=== PATIENT | female | born 1955 | race Caucasian/White ===

== ENCOUNTER 2019-08-15 12:08 | Day surgery (SDC) | payer OTHER ==
[2019-08-15] MEDS ORDERED: NA CHLORIDE 0.9% 1,000 ML ONE (12:27)
[2019-08-15] MEDS ORDERED: GLYCOPYRROLATE 0.2 MG/ML SYR ONE (12:30)
[2019-08-15] MEDS ORDERED: LIDOCAINE 1% MPF 30 ML VIAL ONE (12:30)
[2019-08-15] MEDS ORDERED: PROPOFOL 200 MG/20 ML VIAL IV ONE (12:30)
--- OUTSIDE RECORDS SUMMARY | 2019-08-24 19:37 | XMS REPORT ---
:1955 [facility] Address [address] [place] [address] Dr. Parsons [address] [place] [address] Care Team Providers Name Role Phone Unavailable Unavailable Unavailable Problems This patient has no known problems. Allergies, Adverse Reactions, Alerts This patient has no known allergies or adverse reactions. Medications This patient has no known medications.
== END 2019-08-15 15:12 | disposition home or self-care (01) ==
LOC: DS 12:08
PROVIDERS: ATTEND Internal Medicine Gastroenterology
PROC: 0DBP8ZX Excision of Rectum, Via Natural or Artificial Opening Endoscopic, Diagnostic (ICD-10-PCS; principal; 2019-08-15 13:30)
DX: C20 Malignant neoplasm of rectum (principal); K21.9 Gastro-esophageal reflux disease without esophagitis; E11.9 Type 2 diabetes mellitus without complications; I10 Essential (primary) hypertension; J44.9 Chronic obstructive pulmonary disease, unspecified; J45.909 Unspecified asthma, uncomplicated; M06.9 Rheumatoid arthritis, unspecified; F41.9 Anxiety disorder, unspecified; Z87.891 Personal history of nicotine dependence
CPT/HCPCS: 36415; 82947; 88305; 82378; 45380; J2704; J7030

== ENCOUNTER 2020-11-04 15:17 | Emergency (ER) | payer OTHER ==
--- OUTSIDE RECORDS SUMMARY | 2020-11-04 15:23 | XMS REPORT | Summary of Care ---
:1955 Author Organization [facility] Address [address] [place] [address] Care Team Providers Name Role Phone Hemal Nunez Primary Care Provider Encounter Details Date Type Department Care Team Description 08/27/[address] Patient Secure [facility] Cardiology- Doctor Tylor Gunn [place] [address], [facility] [address] [place] [address] [place] [address] Allergies No Known Allergiesdocumented as of this encounter (statuses as of 09/16/2020) Medications Medication Sig Dispensed Refills Start Date End Date Status METFORMIN HCL Take 1,000 mg by 0 Active (METFORMIN ORAL) mouth 2 (two) times daily. budesonide-formoterol Inhale 2 Puffs 2 0 Active (SYMBICORT) 160-4.5 (two) times mcg/actuation inhaler daily. paroxetine 20 mg tablet Take 20 mg by 0 Active mouth daily. glyBURIDE 5 mg tablet Take 5 mg by 0 Active mouth 2 (two) times daily with meals. SPIRIVA WITH HANDIHALER 0 07/02/2017 Active 18 mcg inhalation device Nebulizer & Compressor Use as directed 1 Device 0 10/31/2017 Active For Neb Valentine with albuterol for COPD aspirin 81 mg EC tablet Take 81 mg by 0 Active mouth daily. albuterol 2.5 mg /3 mL Inhale 3 mL every 100 Vial 11 9 Active (0.083 %) nebulizer 4 (four) hours as solutionIndications: needed for Stage 3 severe COPD by Wheezing or GOLD classification Shortness of Breath. LOSARTAN 25 mg TAKE ONE TABLET 30 tablet 0 08/09/2020 Active tabletIndications: JACKSON BY MOUTH TWICE A (dyspnea on exertion) DAY METOPROLOL SUCCINATE XL TAKE ONE TABLET 30 tablet 0 08/09/2020 Active 25 mg 24 hr BY MOUTH TWICE A tabletIndications: JACKSON DAY (dyspnea on exertion) documented as of this encounter (statuses as of 09/16/2020) Active Problems Problem Noted Date Cigarette nicotine dependence without complication 08/2018 Sinus tachycardia 04/24/2018 Elevated troponin I level 04/24/2018 Type 2 myocardial infarction 04/24/2018 Essential hypertension 04/24/2018 COPD exacerbation 10/13/2017 Hypoxia 09/11/2017 documented as of this encounter (statuses as of 09/16/2020) Immunizations Name Administration Dates Next Due Influenza Virus Vaccine Quad .5 mL IM 6+ MO 08/01/2018 Influenza Virus Vaccine Quad IM 3+ YRS 09/12/2017 Pneumococcal Polysaccharide, PPSV23 (PNEUMOVAX) 10/15/2014 documented as of this encounter Social History Tobacco Use Types Packs/Day Years Used Date Former Smoker Cigarettes 0.25 45 Quit: 08/2018 Smokeless Tobacco: Never Used Comments: Was previously smoking 2.5 pac ks a day now down to 6 ciggs a day Alcohol Use Drinks/Week oz/Week Comments No socially drinks Sex Assigned at Date Recorded Not on file documented as of this encounter Last Filed Vital Signs Not on filedocumented in this encounter Miscellaneous Notes Telephone Encounter - Vicki Simon - 08/27/2020 9:04 AM CST The patient has scheduled her appointment on the next available opening. 09/17/2020 @ 0900. The patient requested a telehealth appointment. She would like for a nurse to call her back regarding the medication request. documented in this encounter Plan of Treatment Date Type Specialty Care Team Description 09/17/2020 Office Visit Cardiology Kandi Hemphill MD [address] [place] [phone] Health Maintenance Due Date Last Done Comments HEPATITIS C (HCV) SCREEN 1955 Depression Screening 1967 DTaP,Tdap,and Td Vaccines (1 - Tdap) 1974 Breast Cancer Screening (MAMMOGRAM) 1995 COLON CANCER SCREENING ANNUAL FIT/FOBT 2005 COLON CANCER SCREENING FIT DNA EVERY 3 2005 YEARS COLON CANCER SCREENING SIGMOIDOSCOPY EVERY 2005 5 YEARS COLONOSCOPY 2005 Colorectal Cancer Screening 2005 Zoster Recombinant Vaccine (SHINGRIX) (1 2005 of 2) LUNG CANCER SCREEN: Recommended for age 1007/28/2010 55-80 with 30 + pack year history INFLUENZA VACCINE (#1) 2020 08/01/2018, 09/12/2017 Medicare Wellness Visit 2020 Osteoporosis Screening 2020 PNEUMOCOCCAL VACCINES 65+ (1 of 1 - 2020 10/15/2014 PPSV23) documented as of this encounter Results Not on filedocumented in this encounter Insurance Payer Benefit Plan / Subscriber ID Effective Dates Phone Addre ss Type Group [facility] [id number] 2017-Prese HMO/ PPO/[facility] nt S GENERIC documented as of this encounter
--- OUTSIDE RECORDS SUMMARY | 2020-11-04 15:23 | XMS REPORT | Summary of Care ---
:1955 Author Organization [facility] Address [address] [place] [address] Care Team Providers Name Role Phone Hemal Nunez Primary Care Provider Reason for Visit Reason Comments Refill Request Encounter Details Date Type Department Care Team Description 08/06/2020 Refill [facility] Cardiology- Kandi Hemphill MD Refill Request [place] [address] [facility] [address] [place] [address] [place] [address] [phone] Allergies No Known Allergiesdocumented as of this encounter (statuses as of 08/09/2020) Medications Medication Sig Dispensed Refills Start Date End Date Status METFORMIN HCL Take 1,000 mg 0 Ac tive (METFORMIN ORAL) by mouth 2 (two) times daily. budesonide-formotero Inhale 2 Puffs 0 Active l (SYMBICORT) 2 (two) times 160-4.5 daily. mcg/actuation inhaler paroxetine 20 mg Take 20 mg by 0 Active tablet mouth daily. glyBURIDE 5 mg Take 5 mg by 0 Ac tive tablet mouth 2 (two) times daily with meals. SPIRIVA WITH 0 07/02/2017 Active HANDIHALER 18 mcg inhalation device Nebulizer & Use as 1 Device 0 10/31/2017 Active Compressor For Neb directed with Valentine albuterol for COPD aspirin 81 mg EC Take 81 mg by 0 Active tablet mouth daily. albuterol 2.5 mg /3 Inhale 3 mL 100 Vial 11 02/28/2019 Active mL (0.083 %) every 4 (four) nebulizer hours as solutionIndications: needed for Stage 3 severe COPD Wheezing or by GOLD Shortness of classification Breath. LOSARTAN 25 mg TAKE ONE 30 tablet 0 08/09/2020 Acti ve tabletIndications: TABLET BY JACKSON (dyspnea on MOUTH TWICE A exertion) DAY METOPROLOL SUCCINATE TAKE ONE 30 tablet 0 08/09/2020 Active XL 25 mg 24 hr TABLET BY tabletIndications: MOUTH TWICE A JACKSON (dyspnea on DAY exertion) LOSARTAN 25 mg TAKE ONE 120 tablet 0 06/08/2020 Dis continued tabletIndications: TABLET BY 0 JACKSON (dyspnea on MOUTH TWICE A exertion) DAY METOPROLOL SUCCINATE TAKE ONE 120 tablet 0 06/08/2020 02 Discontinued XL 25 mg 24 hr TABLET BY 0 tabletIndications: MOUTH TWICE A JACKSON (dyspnea on DAY exertion) documented as of this encounter (statuses as of 08/09/2020) Active Problems Problem Noted Date Cigarette nicotine dependence without complication 08/2018 Sinus tachycardia 04/24/2018 Elevated troponin I level 04/24/2018 Type 2 myocardial infarction 04/24/2018 Essential hypertension 04/24/2018 COPD exacerbation 10/13/2017 Hypoxia 09/11/2017 documented as of this encounter (statuses as of 08/09/2020) Immunizations Name Administration Dates Next Due Influenza [...] this encounter Miscellaneous Notes Telephone Encounter - Vaishali Sarmiento RN - 08/09/2020 10:03 AM CDT Requested Prescriptions Pending Prescriptions Disp Refills LOSARTAN 25 mg tablet [Pharmacy Med Name: LOSARTAN POTASSIUM 25 MG TAB] 120 tablet 0 Sig: TAKE ONE TABLET BY MOUTH TWICE A DAY METOPROLOL SUCCINATE XL 25 mg 24 hr tablet [Pharmacy Med Name: METOPROLOL SUCC ER 25MG TAB, UU] 120 tablet 0 Sig: TAKE ONE TABLET BY MOUTH TWICE A DAY 15 day supply sent. Patient needs to be seen in clinic before next refill. Letter sent via [employer]. documented in this encounter Plan of Treatment Health Maintenance Due Date Last Done Comments HEPATITIS C (HCV) SCREEN 1955 Depression Screening 1967 DTaP,Tdap,and Td Vaccines (1 - Tdap) 1974 PAP SMEAR 1976 Breast Cancer Screening (MAMMOGRAM) 1995 COLON CANCER [...] Results Not on filedocumented in this encounter Visit Diagnoses Diagnosis JACKSON (dyspnea on exertion) Other dyspnea and respiratory abnormalit y documented in this encounter Insurance Payer Benefit Plan / Subscriber ID Effective Dates Phone Addre ss Type Group [facility] [id number] 2017-Prese HMO/ PPO/[facility] nt S GENERIC documented as of this encounter
--- OUTSIDE RECORDS SUMMARY | 2020-11-04 15:23 | XMS REPORT | Summary of Care ---
:1955 Author Organization [facility] Address [address] [place] [address] Care Team Providers Name Role Phone Hemal Nunez Primary Care Provider Reason for Visit Reason Comments Refill Request Encounter Details Date Type Department Care Team Description 08/21/2020 Refill [facility] Cardiology- Kandi Hemphill MD Refill Request [place] [address] [facility] [address] [place] [address] [place] [address] [phone] Allergies No Known Allergiesdocumented as of this encounter (statuses as of 08/27/2020) Medications Medication Sig Dispensed Refills Start Date [...] as of this encounter (statuses as of 08/27/2020) Active Problems Problem Noted Date Cigarette nicotine dependence without complication 08/2018 Sinus tachycardia 04/24/2018 Elevated troponin I level 04/24/2018 Type 2 myocardial infarction 04/24/2018 Essential hypertension 04/24/2018 COPD exacerbation 10/13/2017 Hypoxia 09/11/2017 documented as of this encounter (statuses as of 08/27/2020) Immunizations Name Administration Dates Next Due Influenza [...] Telephone Encounter - Vaishali Sarmiento RN - 08/27/2020 8:15 AM CSTRefills denied. Patient needs to be seen in office and have labs done. Message sent to my chart. documented in this encounter Plan of Treatment [...] Effective Dates Phone Addre ss Type Group [facility] [id number] 2017-Prese HMO/ PPO/[facility] nt S GENERIC documented as of this encounter
--- OUTSIDE RECORDS SUMMARY | 2020-11-04 15:23 | XMS REPORT | Continuity of Care Document ---
:1955 Author Organization [facility] t Address [address] [place] [address] Care Team Providers Name Role Phone JEFFERSON Primary Care Physician Unavailable Poncho CAMPA Attending Clinician Jaymie CAMPA Attending Clinician Pob, Lab Main Attending Clinician Unavailable Doctor Unassigned, Name Attending Clinician Unavailable Loco WALDRON, A Attending Clinician Unavailable Zuly WALDRON, February Attending Clinician Renetta Paz Attending Clinician Eloina WALDRON, L. Attending Clinician Unavailable Joby CAMPA, K.H. Attending Clinician Roland Holder MD. Attending Clinician Michelle WALDRON Attending Clinician Unavailable Roland Hernandez MD Attending Clinician Jefferson CAMPA Attending Clinician Char Rowland Attending Clinician Nino TOLEDO Attending Clinician Jimy MCDONOUGH Attending Clinician Chris LANCASTER Attending Clinician Jaciel ALTMAN Attending Clinician Unavailable Bob WALDRON, Miladis Attending Clinician Unavailable Latasha COPE Attending Clinician Patrice TOLEDO Attending Clinician Oliver Attending Clinician Unavailable Beau MCDONOUGH Attending Clinician TU Attending Clinician Unavailable PATRICE Attending Clinician Unavailable Gayle WALDRON Attending Clinician Unavailable Kika WALDRON, L Attending Clinician JIMY Attending Clinician Unavailable Ayad LANCASTER, B Attending Clinician Clayton ALTMAN Attending Clinician Nicholas WALDRON Attending Clinician Elma SCHUMACHER Attending Clinician Jairo Attending Clinician Unavailable Erin WALDRON, B Attending Clinician Unavailable Pam LANCASTER Attending Clinician Will RN, A Attending Clinician Unavailable Kartik CAMPA Attending Clinician Roland Magana Attending Clinician Cleopatra WALDRON Attending Clinician Unavailable Lizzie CAMPA Attending Clinician Unavailable Brian LANCASTER Attending Clinician Unavailable Payers Payer Name Policy Type Policy Effective Date Expiration Date Sour ce Number MEDICAREMEDICARE PART [id number] 2020 MD Ashish Chappell AND 00:00:00 [id number] 2019- [id number] [facility] BLUE CROSS BLUE [id number] 2018 [facility] [place] [facility] 5 00:00:00 [id number] ACCESS NETWORK [id number] 2018 MD Monik valdovinos GENERICTPA [place] 00:00:00 HEALTHCARE [id number] 19-PresentAccess Network Problems Condition Condition Condition Status Onset Resolution Last Treating Co mments Source Name Details Category Date Date Treatment Clinician Date Hydronephr Hydronephr Disease Active 2019- M Renny osis osis 10 Anderso 00:00: n 00 Encounter Encounter Disease Active 2019- for for 1-10 Anderso preprocedu preprocedu 00:00: n ral ral 00 examinatio examinatio n n Abdominal Abdominal Disease Active 2019- pain, pain, 9-16 Anderso generalize generalize 00:00: n d d 00 Swelling Swelling Disease Active of right of right 9-16 Sergo o foot foot 00:00: n 00 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 Family History Family Member Diagnosis Comments Start Date Stop Date Source Natural father Lymphoma MD Monik valdovinos Maternal aunt Breast cancer Taurus son Natural mother Lung cancer MD Trotter on Social History Social Habit Start Date Stop Date Quantity Comments Source Sex Assigned At F MD Trotter on Exposure to Not sure MD Hinojosa SARS-CoV-2 (event) Cigarettes smoked 2020-09-20 2020-09-20 MD Musa tovar current (pack per 00:00:00 00:00:00 day) - Reported Cigarette 2020-09-20 2020-09-20 MD Hinojosa pack-years 00:00:00 00:00:00 Tobacco use and 2020-09-20 2020-09-20 Never used MD Trotter on exposure 00:00:00 00:00:00 Alcohol intake 2020-09-20 2020-09-20 Ex-drinker MD Monik valdovinos 00:00:00 00:00:00 (finding) Tobacco Comment 2019-08-28 2019-08-28 Presently Vape, no Payal Hinojosa 00:00:00 00:00:00 Smoking since 2017 Alcohol Comment 2019-08-28 2019-08-28 Have not drank MD Nat álvarez 00:00:00 00:00:00 since 1980 History of tobacco 2018-08-29 Current smoker MD Hinojosa use 00:00:00 Smoking Status Start Date Stop Date Source Former smoker 2020-09-20 00:00:00 2020-09-20 00:00:00 Taurus son Medications Ordered Filled Start Stop Current Ordering Indication Dosage Frequency Signature Comments Components Source Medication Medication Date Date Medication? Clinician (SIG) Name Name budesonide- Yes 2{puff} Inhale 2 MD formoterol 1-15 puffs by Taurus arce (SYMBICORT) 16:45: mouth n 160-4.5 19 twice mcg/actuati daily. on inhaler docusate Yes 100mg Take 100 MD sodium 1-15 mg by Anderso (COLACE) 16:45: mouth n 100 mg 19 daily. capsule sulfamethox 2020- No Urinary 1{tbl} Take 1 MD azole-trime -04 12 tract tablet by A nderso thoprim 00:00: 05:59 infectious mouth n (BACTRIM 00 :00 disease twice DS) 800 daily for mg-160 mg 7 days. per tablet methadone 2019-10- Yes Neoplasm 2.5mg Take 0.5 MD (Dolophine) 11-12 related tablets A nderso 5 mg tablet 00:00: 05:59 pain (2.5 mg) n 00 :00 (acute) by mouth (chronic) every 8 (eight) hours for 30 days. methadone 2019-10 No Neoplasm 2.5mg Take 0.5 MD (Dolophine) 12-12 related tablets A nderso 5 mg tablet 00:00: 00:00 pain (2.5 mg) n 00 :00 (acute) by mouth (chronic) every 8 (eight) hours for 30 days. nitrofurant 2019-10- No Dysuria 100mg Take 1 MD oin 16 10-29 capsule Anderso monohyd/m-c 00:00: 00:00 (100 mg) n ryst 00 :00 by mouth (Macrobid) twice 100 mg daily. capsule oxyCODONE-a 2019-10 Yes Cancer 1{tbl} Take 1 MD cetaminophe 24 associated tablet by Anderso n 00:00: pain mouth n (Percocet) 00 every 8 5 mg-325 mg (eight) per tablet hours as needed for severe pain. methadone 2019-10 No Neoplasm 2.5mg Take 0.5 MD (Dolophine) 11-07 related tablets A nderso 5 mg tablet 00:00: 21:43 pain (2.5 mg) n 00 :09 (acute) by mouth (chronic) every 8 (eight) hours. amLODIPine 2019-10 Yes Hypertensio 5mg Take 1 MD (Norvasc) 5 1-09 n tablet (5 And erso mg tablet 00:00: mg) by n 00 mouth daily. regorafenib 2019-10 Rectal 160mg Take 4 MD (Stivarga) 106 01-15 cancer tablets And erso 40 mg 00:00: 00:00 (160 mg) n tablet 00 :00 by mouth daily. Take on days #1-21 of every 28 day cycle. aspirin 81 2019-10 1{tbl} Take 1 MD mg EC 0-29 05- tablet by Anderso tablet 09:21: 00:00 mouth n 31 :00 daily. methadone 2019-10 No Neoplasm 2.5mg Take 0.5 MD (Dolophine) 0-23 related tablets A nderso 5 mg tablet 00:00: 00:00 pain (2.5 mg) n 00 :00 (acute) by mouth (chronic) every 8 (eight) hours. gabapentin 2019-10 Yes Neoplasm 400mg Take 1 MD (Neurontin) 0-16 related capsule An derso 400 mg 00:00: pain (400 mg) n capsule 00 (acute) by mouth (chronic) twice daily. oxyCODONE 2019-10 Cancer 9mg Take 1 MD myristate 0-08-02 associated capsule (9 Anderso (Xtampza 00:00: 00:00 pain mg) by n ER) 9 mg 12 00 :00 mouth hr capsule twice daily. oxyCODONE-a Cancer 1{tbl} Take 1 MD cetaminophe 06-29 associated tablet by Anderso n 00:00: 00:00 pain mouth n (Percocet) 00 :00 every 8 5 mg-325 mg (eight) per tablet hours as needed for severe pain. oxyCODONE Cancer 9mg Take 1 MD myristate 9-15 10-16 associated capsule (9 Anderso (Xtampza 00:00: 00:00 pain mg) by n ER) 9 mg 12 00 :00 mouth hr capsule twice daily. morphine Adenocarcin 15mg Take 1 MD (MS CONTIN) 06-07 09-15 tesha of tablet (15 Anderso 15 mg ER 00:00: 00:00 rectum mg) by n tablet 00 :00 mouth every 12 (twelve) hours. magic Ulcerative 10mL Swish and MD mouthwash 8-19 01-15 oral spit 10 mL And erso (sucralfate 00:00: 00:00 mucositis 4 (four) n /maalox/dip 00 :00 due to times a henhydramin antineoplas day. e) tic therapy (AMB-CMPD) magic 2019- No Ulcerative 10mL Swish and MD mouthwash 06-02 oral spit 10 mL And erso (sucralfate 00:00: 00:00 mucositis 4 (four) n /maalox/dip 00 :00 due to times a henhydramin antineoplas day. e) tic therapy (AMB-CMPD) morphine 2019- No Adenocarcin 15mg Take 1 MD (MS CONTIN) 05-07 08-20 tesha of tablet (15 Anderso 15 mg ER 00:00: 00:00 rectum mg) by n tablet 00 :00 mouth every 12 (twelve) hours. HYDROcodone No Adenocarcin 1{tbl} Take 1 MD -acetaminop 05-06-17 tesha of tablet by Anderso hen (NORCO) 00:00: 00:00 rectum mouth n 10 mg-325 00 :00 every 6 mg per (six) tablet hours as needed for moderate pain. morphine No Adenocarcin 15mg Take 1 MD (MS CONTIN) 05-06 07-24 tesha of tablet (15 Anderso 15 mg ER 00:00: 00:00 rectum mg) by n tablet 00 :00 mouth every 12 (twelve) hours. gabapentin No Neoplasm 400mg Take 1 MD (Neurontin) 05-03-16 related capsule A nderso 400 mg 00:00: 00:00 pain (400 mg) n capsule 00 :00 (acute) by mouth (chronic) twice daily. regorafenib 2020- No Adenocarcin 160mg Take 4 MD (Stivarga) 04-21 01-15 tesha of tablets And erso 40 mg 00:00: 00:00 rectum (160 mg) n tablet 00 :00 by mouth daily. To take on days #1-21 of every 28 day cycle HYDROcodone 2020- No Adenocarcin 1{tbl} Take 1 MD -acetaminop 04-12 07-23 tesha of tablet by Anderso hen (NORCO) 00:00: 00:00 rectum mouth n 10 mg-325 00 :00 every 6 mg per (six) tablet hours as needed for moderate pain. magnesium 2019- Yes Adenocarcin 500mg Take 1 MD oxide 500 6-10 tesha of tablet Sergo o mg tablet 00:00: rectum (500 mg) n 00 by mouth daily. traMADol 2019-2019- No Rectal 50mg Take 1 MD (ULTRAM) 50 6-10 08-17 cancer tablet (50 Anderso mg tablet 00:00: 00:00 mg) by n 00 :00 mouth every 6 (six) hours as needed for moderate pain. HYDROcodone 2019-2019- No Rectal 1{tbl} Take 1 MD -acetaminop 6-10 06-29 cancer tablet by Anderso hen ([employer]) 00:00: 00:00 mouth n 7.5 mg-325 00 :00 every 4 mg per (four) tablet hours as needed for moderate pain or severe pain. HYDROcodone 2019-2019- No Rectal 1{tbl} Take 1 MD -acetaminop 5-01 06-10 cancer tablet by Andersbk martinez ([employer]) 00:00: 00:00 mouth n 7.5 mg-325 00 :00 every 4 mg per (four) tablet hours as needed for moderate pain or severe pain. traMADol 2019-2019- No Rectal 50mg Take 1 MD (ULTRAM) 50 4-09 06-10 cancer tablet (50 Anderso mg tablet 00:00: 00:00 mg) by n 00 :00 mouth every 6 (six) hours as needed for moderate pain. HYDROcodone 2019-2019- No Rectal 1{tbl} Take 1 MD -acetaminop 3-12 05-01 cancer tablet by Anderso hen ([employer]) 00:00: 00:00 mouth n 7.5 mg-325 00 :00 every 4 mg per (four) tablet hours as needed for moderate pain or severe pain. diphenoxyla 2019-0 Yes Rectal 1{tbl} Take 1 MD te-atropine 3-05 cancer tablet by Misti mcmillan ([employer]omoti[employer]) 00:00: mouth n 2.5 00 every 6 mg-0.025 mg (six) per tablet hours as needed for diarrhea. Not to exceed 8 tablets per day HYDROcodone 2019-0 2019- No Rectal 1{tbl} Take 1 MD -acetaminop 3-03 03-12 cancer tablet by Monik martinez ([place]) 00:00: 00:00 mouth n 7.5 mg-325 00 :00 every 4 mg per (four) tablet hours as needed for moderate pain or severe pain. traMADol 2019- No Pain 50mg Take 1 MD (ULTRAM) 50 1-15 04-09 tablet (50 A nderso mg tablet 00:00: 00:00 mg) by n 00 :00 mouth every 6 (six) hours as needed for moderate pain or severe pain. albuterol Yes as needed. MD (PROVENTIL, 1-10 Anderso VENTOLIN) 00:00: n 2.5 mg/3 mL 00 (0.083%) nebulizer solution sodium 2018-10 Yes Multiple Inject 10 MD chloride 2-11 nodules of mL (1 Musa rso (NS) 0.9% 00:00: lung syringe) n flush 00 into each syringe 10 lumen of mL central venous catheter daily as directed. heparin, 2018-10 Yes Multiple Inject 2 M D PF, 100 2-11 nodules of ml (200 And erso units/mL 00:00: lung units) n injection 00 into each lumen of central venous catheter daily as directed. Discard excess volume to administer 2 mL. lidocaine-p 2018-10- No Adenocarcin Apply to MD rilocaine 11-25 tesha of Port-A-Cat A nderso (EMLA) 00:00: 00:00 rectum h area 30 n 2.5-2.5% 00 :00 to 45 cream minutes prior to port access as directed (topical anesthetic ). ondansetron 2018-10- No Adenocarcin 8mg Take 1 MD (ZOFRAN) 8 11-25- tesha of tablet (8 A nderso mg tablet 00:00: 00:00 rectum mg) by n 00 :00 mouth every 8 (eight) hours as needed for nausea or vomiting. (First Choice) prochlorper 2018-10- No Adenocarcin 10mg Take 1 MD azine 11-25-21 tesha of tablet (10 Taurus so (COMPAZINE) 00:00: 00:00 rectum mg) by n 10 mg 00 :00 mouth tablet every 6 (six) hours as needed for nausea or vomiting. (Second Choice) PARoxetine 2018-10 Yes 20mg Take 20 mg M D (PAXIL) 40 0-22 by mouth Taurus so mg tablet 00:00: daily. n 00 cholestyram 2018-10 2020- No 2{packe Take 2 MD ine 0-22 08-17 t} packets by Anderso (QUESTRAN) 00:00: 00:00 mouth n 4 g packet 00 :00 daily. glyBURIDE 2018-10 Yes 1{tbl} Take 1 MD (DIABETA) 5 0-06 tablet by And erso mg tablet 00:00: mouth n 00 twice daily. metFORMIN 2018-10 Yes 1{tbl} Take 1 MD (GLUCOPHAGE 0-06 tablet by And erso ) 1000 mg 00:00: mouth n tablet 00 twice daily. metoprolol Yes 1{tbl} Take 1 MD succinate 8-25 tablet by Taurus so (TOPROL XL) 00:00: mouth n 25 mg 24 hr 00 twice tablet daily. losartan 2020- No 1{tbl} Take 1 MD (COZAAR) 25 8-16 12-03 tablet by An derso mg tablet 00:00: 00:00 mouth n 00 :00 daily. Vital Signs Vital Name Observation Time Observation Value Comments Source WEIGHT 2020-04-09 00:00:00 72.6 kg WEIGHT 2020-04-09 00:00:00 72.6 kg Systolic blood pressure 2020-10-29 16:38:07 105 mm[Hg] MD Hinojosa Diastolic blood pressure 2020-10-29 16:38:07 70 mm[Hg] MD Hinojosa Heart rate 2020-10-29 16:38:07 103 /min MD Taurus mayo Body temperature 2020-10-29 16:38:07 36.78 Marci MD Misti mclean Respiratory rate 2020-10-29 16:38:07 18 /min MD Misti mclean Body weight 2020-10-29 16:38:07 64 kg MD Taurus mayo BMI 2020-10-29 16:38:07 23.09 kg/m2 MD Taurus mayo Oxygen saturation in 2020-09-16 21:43:36 97 /min MD Hinojosa Arterial blood by Pulse oximetry Body height 2020-08-25 23:36:00 166.5 cm MD Taurus son Procedures Procedure Date / Time Performed Performing Clinician Sourc e TRANSFERRIN 2020-10-29 17:21:00 Tu, Jojo Hinojosa VITAMIN B12 LEVEL 2020-10-29 17:21:00 Tu, Jojo valdovinos FERRITIN LVL 2020-10-29 17:21:00 Tu, Jojo Hinojosa FOLATE LEVEL 2020-10-29 17:21:00 Tu, Jojo Hinojosa ERYTHROPOIETIN LEVEL 2020-10-29 17:21:00 Tu, Jojo tovar IRON LEVEL 2020-10-29 17:21:00 Tu, Jojo Hinojosa RETICULOCYTE COUNT AUTOMATED 2020-10-29 17:21:00 Tu, Jojo Hinojosa COMPLETE BLOOD COUNT W/ 2020-10-29 16:31:21 Tu, Jojo mclean DIFFERENTIAL COMPREHENSIVE METABOLIC PANEL 2020-10-29 16:31:21 Tu, Jojo Hinojosa MAGNESIUM LEVEL 2020-10-29 16:31:21 Tu, Jojo Hinojosa CARCINOEMBRYONIC ANTIGEN 2020-10-29 16:31:21 Tu, Jojo Hinojosa Results CBC 2020-10-29 16:31:21 Tu, Jojo Hinojosa MANUAL DIFFERENTIAL 2020-10-29 16:31:21 Tu, Jojo mayo GLUCOSE LEVEL 2020-10-29 16:31:21 Tu, Jojo Hinojosa BLOOD UREA NITROGEN 2020-10-29 16:31:21 Tu, Jojo Condon [facility] ELECTROLYTE PANEL 2020-10-29 16:31:21 Tu, Jojo valdovinos SERUM CREATININE 2020-10-29 16:31:21 Tu, Jojo Hinojosa .GLOMERULAR FILTRATION RATE 2020-10-29 16:31:21 Tu, Jojo Hinojosa CALCIUM LEVEL TOTAL 2020-10-29 16:31:21 Tu, Jojo Condon [facility] ALBUMIN LEVEL 2020-10-29 16:31:21 Tu, Jojo Hinojosa ALKALINE PHOSPHATASE 2020-10-29 16:31:21 Tu, Jojo tovar ALANINE AMINOTRANSFERASE 2020-10-29 16:31:21 Tu, Jojo Hinojosa ASPARTATE AMINOTRANSFERASE 2020-10-29 16:31:21 Tu, Jojo Hinojosa TOTAL PROTEIN 2020-10-29 16:31:21 Tu, Jojo Hinojosa FRACTIONATED BILIRUBIN 2020-10-29 16:31:21 Tu, Jojo álvarez CT CHEST ABDOMEN PELVIS W 2020-09-20 19:46:16 Tu, Jojo Hinojosa CONTRAST POC CREATININE 2020-09-20 18:46:00 Tu, Jojo Hinojosa COMPLETE BLOOD COUNT W/ 2020-09-20 18:34:00 Tu, Jojo Chappell nderson DIFFERENTIAL COMPREHENSIVE METABOLIC PANEL 2020-09-20 18:34:00 Tu, Jojo Hinojosa MAGNESIUM LEVEL 2020-09-20 18:34:00 Tu, Jojo Hinojosa CARCINOEMBRYONIC ANTIGEN 2020-09-20 18:34:00 Tu, Jojo Hinojosa Results CBC 2020-09-20 18:34:00 Tu, Jojo Hinojosa MANUAL DIFFERENTIAL 2020-09-20 18:34:00 Tu, Jojo CAMPA Taurus son GLUCOSE LEVEL 2020-09-20 18:34:00 Tu, Jojo Hinojosa BLOOD UREA NITROGEN 2020-09-20 18:34:00 Tu, Jojo CAMPA Taurus son ELECTROLYTE PANEL 2020-09-20 18:34:00 Tu, Jojo Trottero n SERUM CREATININE 2020-09-20 18:34:00 Tu, Jojo Hinojosa .GLOMERULAR FILTRATION RATE 2020-09-20 18:34:00 Tu, Jojo Hinojosa CALCIUM LEVEL TOTAL 2020-09-20 18:34:00 Tu, Jojo CAMPA Taurus son ALBUMIN LEVEL 2020-09-20 18:34:00 Tu, Jojo Hinojosa ALKALINE PHOSPHATASE 2020-09-20 18:34:00 Tu, Jojo Vigil rson ALANINE AMINOTRANSFERASE 2020-09-20 18:34:00 Tu, Jojo Hinojosa ASPARTATE AMINOTRANSFERASE 2020-09-20 18:34:00 Tu, Jojo Hinojosa TOTAL PROTEIN 2020-09-20 18:34:00 Tu, Jojo Hinojosa FRACTIONATED BILIRUBIN 2020-09-20 18:34:00 Tu, Jojo álvarez POC GLUCOSE SCREEN 2020-08-26 14:43:00 Ronal Hernandez MD Musa rson POC GLUCOSE SCREEN 2020-08-26 03:47:00 Ronal Hernandez MD Musa rson POC GLUCOSE SCREEN 2020-08-25 23:10:00 Ronal Hernandez MD Musa rson IR NEPHROSTOMY UNILATERAL 2020-08-25 18:32:43 Jodi Hodges MD PLACEMENT 75 POC GLUCOSE SCREEN 2020-08-25 17:36:00 Jodi Hodges MD And erson COVID-19 (SARS-COV-2) 2020-08-23 18:24:00 Vaishali Taylor MD PCR-ASYMPTOMATIC [facility] COMPLETE BLOOD COUNT W/ 2020-08-23 16:42:00 Emperatriz Oneill MD nderson DIFFERENTIAL COMPREHENSIVE METABOLIC PANEL 2020-08-23 16:42:00 Gee Oneill MD MAGNESIUM LEVEL 2020-08-23 16:42:00 Emperatriz Oneill MD CARCINOEMBRYONIC ANTIGEN 2020-08-23 16:42:00 Emperatriz Oneill MD PROTHROMBIN TIME 2020-08-23 16:42:00 Trenton Perez MD Results CBC 2020-08-23 16:42:00 Emperatriz Oneill MD MANUAL DIFFERENTIAL 2020-08-23 16:42:00 Emperatriz Oneill MD Taurus [facility] GLUCOSE LEVEL 2020-08-23 16:42:00 Emperatriz Oneill MD BLOOD UREA NITROGEN 2020-08-23 16:42:00 Emperatriz Oneill MD Taurus [facility] ELECTROLYTE PANEL 2020-08-23 16:42:00 Emperatriz Oneill MDo n SERUM CREATININE 2020-08-23 16:42:00 Emperatriz Oneill MD .GLOMERULAR FILTRATION RATE 2020-08-23 16:42:00 Emperatriz Oneill MD CALCIUM LEVEL TOTAL 2020-08-23 16:42:00 Emperatriz Oneill MD Taurus [facility] ALBUMIN LEVEL 2020-08-23 16:42:00 Emperatriz Oneill MD ALKALINE PHOSPHATASE 2020-08-23 16:42:00 Emperatriz Oneill MD rson ALANINE AMINOTRANSFERASE 2020-08-23 16:42:00 Emperatriz Oneill MD ASPARTATE AMINOTRANSFERASE 2020-08-23 16:42:00 Emperatriz Oneill TOTAL PROTEIN 2020-08-23 16:42:00 Emperatriz Oneill MD FRACTIONATED BILIRUBIN 2020-08-23 16:42:[address] CHEST ABDOMEN PELVIS W 2020-07-13 21:37:28 Felicia Ibrahim MD CONTRAST COMPLETE BLOOD COUNT W/ 2020-07-13 20:32:00 Felicia Ibrahim MD DIFFERENTIAL COMPREHENSIVE METABOLIC PANEL 2020-07-13 20:32:00 Janene Ibrahim MD MAGNESIUM LEVEL 2020-07-13 20:32:00 Felicia Ibrahim MD Andjuarezo n Results CBC 2020-07-13 20:32:00 Felicia Ibrahim MD Andjuarezo bonifacio MANUAL DIFFERENTIAL 2020-07-13 20:32:00 Felicia Ibrahim MD And erson GLUCOSE LEVEL 2020-07-13 20:32:00 Felicia Ibrahim MD Andjuarezo bonifacio ELECTROLYTE PANEL 2020-07-13 20:32:00 Felicia Ibrahim MD Taurus son SERUM CREATININE 2020-07-13 20:32:00 Felicia Ibrahim MD Sergo on .GLOMERULAR FILTRATION RATE 2020-07-13 20:32:00 Karon Ibrahim CALCIUM LEVEL TOTAL 2020-07-13 20:32:00 Felicia Ibrahim MD And ersgina ALBUMIN LEVEL 2020-07-13 20:32:00 Felicia Irbahim MD Andjuarezo bonifacio ALKALINE PHOSPHATASE 2020-07-13 20:32:00 Felicia Ibrahim MD ALANINE AMINOTRANSFERASE 2020-07-13 20:32:00 Felicia Ibrahim ASPARTATE AMINOTRANSFERASE 2020-07-13 20:32:00 Felicia Ibrahim MD TOTAL PROTEIN 2020-07-13 20:32:00 Felicia Ibrahim MD Andjuarezo bonifacio FRACTIONATED BILIRUBIN 2020-07-13 20:32:00 Felicia Ibrahim MD BLOOD UREA NITROGEN 2020-07-13 20:32:00 Felicia Ibrahim MD And erson COMPLETE BLOOD COUNT W/ 2020-06-30 14:21:00 Felicia Ibrahim MD DIFFERENTIAL MAGNESIUM LEVEL 2020-06-30 14:21:00 Felicia Ibrahim MD COMPREHENSIVE METABOLIC PANEL 2020-06-30 14:21:00 Janene Ibrahim MD Results CBC 2020-06-30 14:21:00 Felicia Ibrahim MD Andjuarezo bonifacio MANUAL DIFFERENTIAL 2020-06-30 14:21:00 Felicia Ibrahim MD And erson GLUCOSE LEVEL 2020-06-30 14:21:00 Felicia Ibrahim MD BLOOD UREA NITROGEN 2020-06-30 14:21:00 Felicia Ibrahim MD And erson ELECTROLYTE PANEL 2020-06-30 14:21:00 Felicia Ibrahim MD Taurus son SERUM CREATININE 2020-06-30 14:21:00 Felicia Ibrahim MD on .GLOMERULAR FILTRATION RATE 2020-06-30 14:21:00 Karon Ibrahim CALCIUM LEVEL TOTAL 2020-06-30 14:21:00 Felicia Ibrahim MD And erson ALBUMIN LEVEL 2020-06-30 14:21:00 Felicia Ibrahim MD ALKALINE PHOSPHATASE 2020-06-30 14:21:00 Felicia Ibrahim MD ALANINE AMINOTRANSFERASE 2020-06-30 14:21:00 Felicia Ibrahim ASPARTATE AMINOTRANSFERASE 2020-06-30 14:21:00 Felicia Ibrahim MD TOTAL PROTEIN 2020-06-30 14:21:00 Felicia Ibrahim MD FRACTIONATED BILIRUBIN 2020-06-30 14:21:00 Felicia Ibrahim MD COMPREHENSIVE METABOLIC PANEL 2020-06-02 14:41:00 Tu, Jojo Hinojosa COMPLETE BLOOD COUNT W/ 2020-06-02 14:41:00 Tu, Jojo delcidrson DIFFERENTIAL MAGNESIUM LEVEL 2020-06-02 14:41:00 Tu, Jojo Hinojosa CARCINOEMBRYONIC ANTIGEN 2020-06-02 14:41:00 Tu, Jojo Hinojosa GLUCOSE LEVEL 2020-06-02 14:41:00 Tu, Jojo Hinojosa BLOOD UREA NITROGEN 2020-06-02 14:41:00 Tu, Jojo CAMPA Taurus son ELECTROLYTE PANEL 2020-06-02 14:41:00 Tu, Jojo valdovinos SERUM CREATININE 2020-06-02 14:41:00 Tu, Jojo Hinojosa .GLOMERULAR FILTRATION RATE 2020-06-02 14:41:00 Tu, Jojo Hinojosa CALCIUM LEVEL TOTAL 2020-06-02 14:41:00 Tu, Jojo CAMPA Taurus son ALBUMIN LEVEL 2020-06-02 14:41:00 Tu, Jojo Hinojosa ALKALINE PHOSPHATASE 2020-06-02 14:41:00 Tu, Jojo tovar ALANINE AMINOTRANSFERASE 2020-06-02 14:41:00 Tu, Jojo Hinojosa ASPARTATE AMINOTRANSFERASE 2020-06-02 14:41:00 Tu, Jojo Hinojosa TOTAL PROTEIN 2020-06-02 14:41:00 Tu, Jojo Hinojosa FRACTIONATED BILIRUBIN 2020-06-02 14:41:00 Tu, Jojo Johns derson Results CBC 2020-06-02 14:41:00 Tu, Jojo Hinojosa MANUAL DIFFERENTIAL 2020-06-02 14:41:00 Tu, Jojo Tiradoer son FERRITIN LVL 2020-04-21 14:52:00 Tu, Jojo Hinojosa IRON LEVEL 2020-04-21 14:52:00 Tu, Jojo Hinojosa FOLATE LEVEL 2020-04-21 14:52:00 Tu, Jojo Hinojosa VITAMIN B12 LEVEL 2020-04-21 14:52:00 Tu, Jojo valdovinos ERYTHROPOIETIN LEVEL 2020-04-21 14:52:00 Tu, Jojo tovar RETICULOCYTE COUNT AUTOMATED 2020-04-21 14:52:00 Tu, Jojo Hinojosa COMPREHENSIVE METABOLIC PANEL 2020-04-21 13:40:00 Ольга Ahn MD COMPLETE BLOOD COUNT W/ 2020-04-21 13:40:00 Jimy, Ольга Chappell nderson DIFFERENTIAL MAGNESIUM LEVEL 2020-04-21 13:40:00 Ольга Ahn MD GLUCOSE LEVEL 2020-04-21 13:40:00 Ольга Ahn MD ELECTROLYTE PANEL 2020-04-21 13:40:00 Jimy, Ольга valdovinos SERUM CREATININE 2020-04-21 13:40:00 Ольга Ahn MD .GLOMERULAR FILTRATION RATE 2020-04-21 13:40:00 Ольга Ahn MD CALCIUM LEVEL TOTAL 2020-04-21 13:40:00 Jimy, Ольга Condon son ALBUMIN LEVEL 2020-04-21 13:40:00 Ольга Ahn MD ALKALINE PHOSPHATASE 2020-04-21 13:40:00 Jimy, Ольга Vigil rson ALANINE AMINOTRANSFERASE 2020-04-21 13:40:00 Ольга Ahn MD ASPARTATE AMINOTRANSFERASE 2020-04-21 13:40:00 Ольга Ahn TOTAL PROTEIN 2020-04-21 13:40:00 Jimy, Ольга Hinojosa FRACTIONATED BILIRUBIN 2020-04-21 13:40:00 iJmy, Ольга álvarez Results CBC 2020-04-21 13:40:00 Jimy, Ольга Hinojosa MANUAL DIFFERENTIAL 2020-04-21 13:40:00 Jimy, Ольга CAMPA [facility] BLOOD UREA NITROGEN 2020-04-21 13:40:00 Jimy, [facility] CHEST ABDOMEN PELVIS W 2020-04-19 18:28:00 Jimy, Ольга Hinojosa CONTRAST POC CREATININE 2020-04-19 17:26:00 Jimy, Ольга Hinojosa CARCINOEMBRYONIC ANTIGEN 2020-04-07 14:08:00 Jimy, Ольга Hinojosa COMPREHENSIVE METABOLIC PANEL 2020-04-07 14:08:00 Jimy, Ольга Hinojosa COMPLETE BLOOD COUNT W/ 2020-04-07 14:08:00 Jimy, Ольга delcidrson DIFFERENTIAL MAGNESIUM LEVEL 2020-04-07 14:08:00 JimyОльга MD GLUCOSE LEVEL 2020-04-07 14:08:00 Jimy, Ольга Hinojosa BLOOD UREA NITROGEN 2020-04-07 14:08:00 Jimy, Ольга CAMPA [facility] ELECTROLYTE PANEL 2020-04-07 14:08:00 Jimy, Ольга Ruggiero n SERUM CREATININE 2020-04-07 14:08:00 Jimy, Ольга Hinojosa .GLOMERULAR FILTRATION RATE 2020-04-07 14:08:00 Ольга Ahn MD CALCIUM LEVEL TOTAL 2020-04-07 14:08:00 Ольга Ahn MD [facility] ALBUMIN LEVEL 2020-04-07 14:08:00 Jimy, Ольга Hinojosa ALKALINE PHOSPHATASE 2020-04-07 14:08:00 Jimy, Ольга tovar ALANINE AMINOTRANSFERASE 2020-04-07 14:08:00 Ольга Ahn MD ASPARTATE AMINOTRANSFERASE 2020-04-07 14:08:00 Ольга Ahn TOTAL PROTEIN 2020-04-07 14:08:00 Ольга Ahn MD FRACTIONATED BILIRUBIN 2020-04-07 14:08:00 Jimy, Ольга montielson Results CBC 2020-04-07 14:08:00 Jimy, Ольга Hinojosa MANUAL DIFFERENTIAL 2020-04-07 14:08:00 Ольга Ahn MD [facility] COMPREHENSIVE METABOLIC PANEL 2020-03-24 14:14:13 Ольга Ahn MD COMPLETE BLOOD COUNT W/ 2020-03-24 14:14:13 Ольга Ahn MDrson DIFFERENTIAL MAGNESIUM LEVEL 2020-03-24 14:14:13 Ольга Ahn MD GLUCOSE LEVEL 2020-03-24 14:14:13 Ольга Ahn MD BLOOD UREA NITROGEN 2020-03-24 14:14:13 Ольга Ahn MD [facility] ELECTROLYTE PANEL 2020-03-24 14:14:13 [place] [place] SERUM CREATININE 2020-03-24 14:14:13 Ольга Ahn MD .GLOMERULAR FILTRATION RATE 2020-03-24 14:14:13 Ольга Ahn MD CALCIUM LEVEL TOTAL 2020-03-24 14:14:13 Ольга Ahn MD [facility] ALBUMIN LEVEL 2020-03-24 14:14:13 Ольга Ahn MD ALKALINE PHOSPHATASE 2020-03-24 14:14:13 Ольга Ahn MD rson ALANINE AMINOTRANSFERASE 2020-03-24 14:14:13 Ольга Ahn MD ASPARTATE AMINOTRANSFERASE 2020-03-24 14:14:13 Ольга Ahn TOTAL PROTEIN 2020-03-24 14:14:13 Ольга Ahn MD FRACTIONATED BILIRUBIN 2020-03-24 14:14:13 Ольга Ahn MD derson Results CBC 2020-03-24 14:14:13 Ольга Ahn MD MANUAL DIFFERENTIAL 2020-03-24 14:14:13 Ольга Ahn MD [facility] CARCINOEMBRYONIC ANTIGEN 2020-03-10 17:00:00 Ольга Ahn MD COMPREHENSIVE METABOLIC PANEL 2020-03-10 17:00:00 Ольга Ahn MD COMPLETE BLOOD COUNT W/ 2020-03-10 17:00:00 Ольга Ahn MDrson DIFFERENTIAL MAGNESIUM LEVEL 2020-03-10 17:00:00 Ольга Ahn MD GLUCOSE LEVEL 2020-03-10 17:00:00 Ольга Ahn MD BLOOD UREA NITROGEN 2020-03-10 17:00:00 Ольга Ahn MD [facility] ELECTROLYTE PANEL 2020-03-10 17:00:00 Jimy, Ольга valdovinos SERUM CREATININE 2020-03-10 17:00:00 Jimy, Ольга Hinojosa .GLOMERULAR FILTRATION RATE 2020-03-10 17:00:00 Jimy, Ольга Hinojosa CALCIUM LEVEL TOTAL 2020-03-10 17:00:00 Jimy, Ольга mayo ALBUMIN LEVEL 2020-03-10 17:00:00 Jimy, Ольга Hinojosa ALKALINE PHOSPHATASE 2020-03-10 17:00:00 Jimy, Ольга tovar ALANINE AMINOTRANSFERASE 2020-03-10 17:00:00 Jimy, Ольга Hinojosa ASPARTATE AMINOTRANSFERASE 2020-03-10 17:00:00 Jimy, Ольга Hinojosa TOTAL PROTEIN 2020-03-10 17:00:00 Jimy, Ольга Hinojosa FRACTIONATED BILIRUBIN 2020-03-10 17:00:00 Jimy, Ольга Johns derson Results CBC 2020-03-10 17:00:00 Jimy, Ольга Hinojosa MANUAL DIFFERENTIAL 2020-03-10 17:00:00 Jimy, Ольга Tiradoer gael CT CHEST ABDOMEN W CONTRAST 2020-02-06 18:38:38 Tu, Jojo Hinojosa POC CREATININE 2020-02-06 17:46:00 Provider, Veronica valdovinos COMPLETE BLOOD COUNT W/ 2020-02-06 17:42:00 Tu, Jojo mclean DIFFERENTIAL COMPREHENSIVE METABOLIC PANEL 2020-02-06 17:42:00 Tu, Jojo Hinojosa MAGNESIUM LEVEL 2020-02-06 17:42:00 Tu, Jojo Hinojosa CARCINOEMBRYONIC ANTIGEN 2020-02-06 17:42:00 Tu, Jojo Hinojosa Results CBC 2020-02-06 17:42:00 Tu, Jojo Hinojosa MANUAL DIFFERENTIAL 2020-02-06 17:42:00 Tu, Jojo mayo GLUCOSE LEVEL 2020-02-06 17:42:00 Tu, Jojo Hinojosa BLOOD UREA NITROGEN 2020-02-06 17:42:00 Tu, Jojo mayo ELECTROLYTE PANEL 2020-02-06 17:42:00 Tu, Jojo valdovinos SERUM CREATININE 2020-02-06 17:42:00 Tu, Jojo Hinojosa .GLOMERULAR FILTRATION RATE 2020-02-06 17:42:00 Tu, Jojo Hinojosa CALCIUM LEVEL TOTAL 2020-02-06 17:42:00 , Jojo CAMPA [place] son ALBUMIN LEVEL 2020-02-06 17:42:00 Tu, Jojo iHnojosa ALKALINE PHOSPHATASE 2020-02-06 17:42:00 , Jojo Vigil rson ALANINE AMINOTRANSFERASE 2020-02-06 17:42:00 Tu, Jojo Hinojosa ASPARTATE AMINOTRANSFERASE 2020-02-06 17:42:00 Tu, Jojo Hinojosa TOTAL PROTEIN 2020-02-06 17:42:00 Tu, Jojo Hinojosa FRACTIONATED BILIRUBIN 2020-02-06 17:42:00 Tu, Jojo montielson SCAN PROVATION PROCEDURE 2020-01-02 00:00:00 Pipo Castellano MD URINALYSIS WITH MICROSCOPIC IF 2019-12-30 17:30:00 Loreto Orozco MD INDICATED URINALYSIS MICROSCOPIC 2019-12-30 17:30:00 Loreto Orozco MD COMPREHENSIVE METABOLIC PANEL 2019-12-25 14:26:00 Gee Oneill MD MAGNESIUM LEVEL 2019-12-25 14:26:00 Emperatriz Oneill MD COMPLETE BLOOD COUNT W/ 2019-12-25 14:26:00 Emperatriz Oneill MD nderson DIFFERENTIAL GLUCOSE LEVEL 2019-12-25 14:26:00 Emperatriz Oneill MD BLOOD UREA NITROGEN 2019-12-25 14:26:00 Emperatriz Oneill MD [facility] ELECTROLYTE PANEL 2019-12-25 14:26:00 Emperatriz [facility]ill [facility] 2019-12-25 14:26:00 Emperatriz Oneill MD .GLOMERULAR FILTRATION RATE 2019-12-25 14:26:00 Emperatriz Oneill MD CALCIUM LEVEL TOTAL 2019-12-25 14:26:00 Emperatriz Oneill MD [facility] ALBUMIN LEVEL 2019-12-25 14:26:00 Emperatriz Oneill MD ALKALINE PHOSPHATASE 2019-12-25 14:26:00 Emperatriz Oneill MD rson ALANINE AMINOTRANSFERASE 2019-12-25 14:26:00 Emperatriz Oneill MD ASPARTATE AMINOTRANSFERASE 2019-12-25 14:26:00 Emperatriz Oneill TOTAL PROTEIN 2019-12-25 14:26:00 Emperatriz Oneill MD FRACTIONATED BILIRUBIN 2019-12-25 14:26:00 Emperatriz Oneill MD derson Results CBC 2019-12-25 14:26:00 Emperatriz Oneill MD MANUAL DIFFERENTIAL 2019-12-25 14:26:00 Emperatriz Oneill MD [facility] son CT CHEST ABDOMEN PELVIS W 2019-12-17 00:32:00 Loc Lynn CONTRAST CONFIRM ABORH TYPE 2019-12-17 00:09:00 CoussiratMoi MD derson TYPE AND SCREEN 2019-12-16 23:45:00 CoussiratMoi MD [facility] PROTHROMBIN TIME 2019-12-16 23:45:00 CoussiratMoie rson PARTIAL THROMBOPLASTIN TIME 2019-12-16 23:45:00 CoussiraPiero barrow MD ABORH 2019-12-16 23:45:00 CoussiratMoi MD [facility] ANTIBODY SCREEN 2019-12-16 23:45:00 CoussiratMoi MD [facility] CLOT EXPIRATION DATE 2019-12-16 23:45:00 CoussMoi freed MD TMP INTERPRETATION ANTIBODY 2019-12-16 23:45:00 JyothissiratPiero MD SCREEN NEGATIVE POC CREATININE 2019-12-16 23:00:00 Provider, Veronica valdovinos COMPLETE BLOOD COUNT W/ 2019-12-16 22:59:00 Loc Lynn MD DIFFERENTIAL COMPREHENSIVE METABOLIC PANEL 2019-12-16 22:59:00 Frandy Lynn MD Results CBC 2019-12-16 22:59:00 Loc Lynn MD MANUAL DIFFERENTIAL 2019-12-16 22:59:00 Loc Lynn MD rson GLUCOSE LEVEL 2019-12-16 22:59:00 Loc Lynn MD BLOOD UREA NITROGEN 2019-12-16 22:59:00 Loc Lynn MD rson ELECTROLYTE PANEL 2019-12-16 22:59:00 Loc Lynn MD on SERUM CREATININE 2019-12-16 22:59:00 Loc Lynn MD .GLOMERULAR FILTRATION RATE 2019-12-16 22:59:00 Loc Lynn MD CALCIUM LEVEL TOTAL 2019-12-16 22:59:00 Alagappan, Loc CAMPA Musa rson ALBUMIN LEVEL 2019-12-16 22:59:00 Alagappan, Loc Hinojosa ALKALINE PHOSPHATASE 2019-12-16 22:59:00 Alagappan, Loc CAMPA And erson ALANINE AMINOTRANSFERASE 2019-12-16 22:59:00 Alagappan, Loc Hinojosa ASPARTATE AMINOTRANSFERASE 2019-12-16 22:59:00 Alagappan, Loc Hinojosa TOTAL PROTEIN 2019-12-16 22:59:00 Alagappan, Loc Hinojosa FRACTIONATED BILIRUBIN 2019-12-16 22:59:00 Alagappan, Loc Chappell nderson CT CHEST ABDOMEN PELVIS W 2019-11-10 16:47:00 Ольга Ahn MD CONTRAST CARCINOEMBRYONIC ANTIGEN 2019-11-10 14:47:00 Tu, Jojo Hinojosa COMPREHENSIVE METABOLIC PANEL 2019-11-10 14:47:00 Tu, Jojo Hinojosa MAGNESIUM LEVEL 2019-11-10 14:47:00 Tu, Jojo Hinojosa COMPLETE BLOOD COUNT W/ 2019-11-10 14:47:00 Tu, Jojo delcidrson DIFFERENTIAL GLUCOSE LEVEL 2019-11-10 14:47:00 Tu, Jojo Hinojosa BLOOD UREA NITROGEN 2019-11-10 14:47:00 Tu, Jojo mayo ELECTROLYTE PANEL 2019-11-10 14:47:00 Tu, Jojo Ruggiero n SERUM CREATININE 2019-11-10 14:47:00 Tu, Jojo Hinojosa .GLOMERULAR FILTRATION RATE 2019-11-10 14:47:00 Tu, Jojo Hinojosa CALCIUM LEVEL TOTAL 2019-11-10 14:47:00 Tu, Jojo Condon son ALBUMIN LEVEL 2019-11-10 14:47:00 Tu, Jojo Hinojosa ALKALINE PHOSPHATASE 2019-11-10 14:47:00 Tu, Jojo Vigil rson ALANINE AMINOTRANSFERASE 2019-11-10 14:47:00 Tu, Jojo Hinojosa ASPARTATE AMINOTRANSFERASE 2019-11-10 14:47:00 Tu, Jojo Hinojosa TOTAL PROTEIN 2019-11-10 14:47:00 Tu, Jojo Hinojosa FRACTIONATED BILIRUBIN 2019-11-10 14:47:00 Tu, Jojo Johns derson Results CBC 2019-11-10 14:47:00 Tu, Jojo Hinojosa MANUAL DIFFERENTIAL 2019-11-10 14:47:00 Jojo Isaac MD son Encounters Start End Encounter Admission Attending Care Care Encounter Source Date/Time Date/Time Type Type Clinicians Facility Department ID 2020-10-18 2020-10-18 Culinary Artist Mary Vaughan [facility] [id number] 16:21:09 16:36:09 Visit Lab Main [place] [id number] [place] [id number] Profmelidaio [id number] nal 353 [facility] 2020-10-18 2020-10-18 Orders Doctor BEAU [id number] 00:00:00 00:00:00 Only Unassigned, DIA [id number] [place] [facility] [id number] 2020-09-17 2020-09-17 [facility] [id number] 08:56:28 09:26:28 Visit Kandi Snider [id number] [place] [id number] Professio [id number] nal 059 [facility] 2020-05-24 2020-05-24 Outpatient JOJO LUGO MDA MDA [id number] 00:00:00 00:00:00 Sergo valdovinos 2020-05-24 2020-05-24 Outpatient RUTH IBRAHIM, MDA MDA [id number] 00:00:00 00:00:00 FELICIA valdovinos 2020-05-20 2020-05-20 Outpatient RUTH IBRAHIM, MDA MDA [id number] 00:00:00 00:00:00 FELICIA valdovinos 2020-05-20 2020-05-20 Outpatient JOJO LUGO MDA MDA [id number] 00:00:00 00:00:00 Sergo valdovinos 2020-04-21 2020-04-21 Outpatient JOJO LUGO MDA MDA [id number] 09:33:52 09:53:34 Sergo valdovinos 2020-04-21 2020-04-21 Outpatient JOJO ISAAC MDA MDA [id number] 08:42:37 08:42:37 Sergo valdovinos 2020-04-21 2020-04-21 Outpatient EL JIMY, MDA MDA [id number] 08:21:35 08:37:25 HAIHONG Sergo o n 2020-04-19 2020-04-19 Outpatient EL JIMY, MDA MDA [id number] 11:57:32 11:57:32 HAIHONG Sergo o n 2020-04-09 2020-04-09 Outpatient EL JIMY, MDA MDA [id number] 10:42:28 13:06:55 HAIHONG Sergo o n 2020-04-07 2020-04-07 Outpatient EL JIMY, MDA MDA [id number] 09:03:14 09:09:37 HAIHONG Sergo o n 2020-04-07 2020-04-07 Outpatient EL JIMY, MDA MDA [id number] 09:09:31 09:09:31 HAIHONG Sergo o n Results Test Description Test Time Test Comments Results Result [facility] e Comments CT Chest Abdomen 2020-09-21 1. The rectal MD A nderson Pelvis with 16:53:13 tumor, hepatic Contrast metastases and a portacaval node are larger compared to 07/13/2020 2. Stable pulmonary metastases and perihepatic implant Interface, Radiology Results In - 09/21/2020 10:55 AM CSTFULL RESULT:Examination: CT CHEST ABDOMEN PELVIS W CONTRAST, 09/20/2020 1:46 PMClinical History: Rectal cancerIndication: Restaging - Active immunotherapy, assess for progressionComparis on: 07/13/2020Technique : CT of the chest, abdomen, and pelvis was performed with intravenous contrast.Findings: Chest:No mediastinal or hilar adenopathy.No pleural effusion. The right chest port catheter terminates at the SVC right atrial junction.The lungs are emphysematous. The pulmonary metastases have not significantly changed. Examples include a 0.9 cm left upper lobe metastasis on series 4 image 58, a 1.5 cm right upper lobe metastasis on image 61 and a 2 cm right lower lobe metastasis on image 87Abdomen and pelvis:The hepatic metastases are larger. A 5 cm metastasis in segment VII on series 3 image 154 measured 4.4 cm and a 5.6 cm metastasis in segment II on image 165 measured 4.5 cm.The gallbladder has been removed.The pancreas, spleen and adrenals are normalBoth kidneys are functioning without hydronephrosis. A percutaneous nephrostomy catheter has been placed into the right kidney in the interim.A portacaval node on image 178 is larger measuring 3.6 x 3.4 cm up from 3.3 x 3.1 cm. Other metastatic nodes have not significantly changed. The ulcerative rectal tumor is on image 276. There is increased posterior extension of the tumor to involve the right piriformis muscle on image 265. The tumor is also now approaching the right S3 neural foramina. The tumor continues to invade to the uterus. It is inseparable from the vagina, right ovary and bladder.A left-sided colostomy is present with no bowel obstruction.A stable 0.8 cm perihepatic implant is on image 197.IMPRESSION:1. The rectal tumor, hepatic metastases and a portacaval node are larger compared to . Stable pulmonary metastases and perihepatic implant POC Glucose Screen 2020-08-26 14:50:43 Test Item Value Reference Range Interpretation Comme nts POC Glucose (test code = 65 mg/dL 70-99 L [facility], 310[address]-2) e.g. obtained b y fingerstick, may have inaccurate results in patients with decreased peripheral blood flow. Method de scription: All results are ita sured using Electrochemistr y test methodology. The glucose in the sample mixes with the reagen ts on the test strip. The reac tion produces an electric curren t. The amount of current produce d is proportional to the glucose con centration in the blood. PO Sample Type (test code = Capillary 9554) Lab Interpretation (test code = Abnormal 00936-2) MD HinojosaIR NEPHROSTOMY UNILATERAL PLACEMENT [id number] 20:58:12Date of Procedure: 08/25/20 Attending Physician: Dr. Hernandez Information Technology Technician: Eli Rodriguez Pre Procedure Diagnosis: Adenocarcinoma of rectum; Other hydronephrosis Post Procedure Diagnosis: UnchangedIndication: Hydronephrosis Title of Procedure:Percutaneous Image-Guided Placement of Nephrostomy Catheter(s) Operative Findings: Percutaneous image-guided placement of right nephrostomy catheter(s).Nephrostogram suggests UPJ obstruction. Patient may be candidate for conversion to PCNUS in future. Consent: The procedure, risks, indications and alternatives were explained. All questions were answered and informed consent was obtained. I have reviewed the history and physical dictated by the mid-level practitioner / fellow. Sedation/Anesthesia: Moderate sedation for pain control and anxietywas administered by a dedicated nurse under my supervision. There was continuous monitoring of oxygen saturation, heart rate and intermittent monitoring of blood pressure during the procedure. Medication given was midazolam and fentanyl. I was present for the administration of the medications indicated above.Procedure Events Event Event Time Sedation Start 08/25/2020 12:08 PM Sedation End 08/25/2020 12:26 PM Procedure in Detail: A time out was performed prior to the start of the procedure andthe correct patient, procedure, presence of consent, site, and side were confirmed with all members of the team. The patient was placed in a prone position on the fluoroscopy table and the catheter(s) and insertion site(s) were prepped and draped in the usual sterile fashion. Lidocaine 1% was used forlocal anesthesia. Ultrasound Guided: Under real time ultrasound guidance, a 22 gauge needle was advanced into an appropriate posterior calyx, confirmed by contrast administration. An image was obtained and placed into the medical record. Due to presence of large renal cysts, a mid kidney pole was targeted. A Jimmie set was used to secure the access and a short 0.035 inch wire was advanced into the col lecting system. Antegrade nephrostogram was performed, suggesting UPJ obstruction. The tract was dilated to accept a 10 Arabic Mac-loc catheter which was formed in the renal pelvis. The catheter was secured to the skin with suture and attached to gravity drainage. Additional Comments: None Estimated Blood Loss: Minimal Specimens Removed: No Immediate Complications: None Disposition: PACU Plan: Catheter to gravity drainage. Return for routine exchange in 3 months. The patient is a possible candidate for conversion to nephroureteral catheter. I certify my physical presence at the time of the procedure. I personally reviewed the image(s) and the resident's / fellow's interpretation and agree with the written report.MD HinojosaCOVID-19 (SARS-CoV-2) PCR-Asymptomatic [id number] 07:56:14 Test Item Value Reference Range Interpretation Comments COVID19 (SARS Not Detected Not Detected This test is a CoV-2) Result qualitative (test code = reverse-transcr iptase 27224-5) polymerase agustin n reaction (RT-PC R) developed for t [employer] 0 system and inte nded for the detecti on of SARS CoV-2 RNA in human nasophary ngeal specimens from patients who me et COVID-19 clinic al and/or epidemiological criteria. This assay has been approv ed by the FDA for use only under Emergency Use Authorization ( EUA) in laboratories that have been CLIA-certified to perform moderate-comple xity and high-comple xity tests. The performance characteristics of this assay were verified by the Microbiology Laboratory at [facility] [place], CLIA Accreditation # : [id number] and CAP Accreditation # : [id number]. Result s must be interpreted within the context of all relevant clinic al and laboratory find ings and should not form the sole basis for a diagnosis or treatment decis ion. "Presumptive Positive" resul ts are due to partial amplification o f SARS-CoV-2 targ ets and indicates l ow amounts of viru s present in the specimen at or near the limit of detection. Regardless, individuals wit h "Presumptive Positive" resul ts should be manag ed per institutional guidelines as individuals pos itive for SARS-CoV-2 virus, including use o f appropriate inf ection control protoco ls. Internal contro ls are included to ass ess for possible amplification inhibitors. If inhibition is detected, testi ng is repeated and if inhibition is confirmed the specimen is res ulted as "Invalid". W hen an "Invalid" resul t occur, it is recommended to wait 3 days before submitting a ne w specimen for te sting if clinically indicated. COVID19 SARS CURVE CLEANER Swab Source (test code = 92090) COVID19 SARS Pre-Out of OR Indication (test Procedure code = 47582) MD HinojosaCT Chest Abdomen with [id number] 19:51:19 Interval increase in size of pulmonary and hepatic metastases. Enlarging portacaval lymph node withhypodense areas concerning for a metastatic lymph node. Partly visualized primary tumor at the rectosigmoid colon. Component along the right pelvic sidewall appears slightly smaller. Other findings as above. Interface, Radiology Results In - 02/06/2020 2:53 PM CDTFULL RESULT:Examination: CT CHEST ABDOMEN W CONTRAST, 02/06/2020 1:38 PMClinical History: Rectal cancerIndication: assess for progression in liverComparison: 12/16/2019Technique: CT of the chest and abdomen was performed with intravenous contrast.Findings: Chest: Emphysematous changes. Interval increase in size of bilateral pulmonary metasta ses. For example a larger lesion in the right lower lobe measures 1.7 cm (85 series 4). Previously this measured 1.4 cm. Another 1.5 cm lesion in the left lower lobe (88) previously measured 1 cm. A 1.5 cm lesion in the right lower lobe (81) previously measured 1.1 cm.Hypodense nodules at the thyroid.No pleural effusions. Coronary artery calcifications. No significant interval change in a prominent 1 cm right hilar lymph node. Prominent 0.7 cm lower paraesophageal lymph node is also unchanged. Mediport ends in the right atrium. Degenerative changes in the spine.Abdomen: Interval increase in size of hepatic metastases. For example a larger lesion in the left hepatic lobe measures 3.6 x 3.3 cm (sees 186 series 3). Previously this measured 2.9 x 2.7 cm. Another lesion closer to the dome the liver measures 2.9 x 2.2 cm (174). Previously this measured 2.2 x 2.0 cm.Cholecystectomy change. Pancreas, spleen, and adrenals are unremarkable. No hydronephrosis. Small hypodensity at the left kidney too small to characterize commonly represents a small cyst.There is been interval increase in size of a portal caval lymph node with some hypoattenuating areas measuring 3.8 x 2.0 cm (213). Previously this measured 3.3 x 1.6 cm. Another smaller lymph node adjacent to it has increased in size measuring 1.2 cm (209). Previously this measured 0.7 cm. No enlarged para-aortic lymph nodes.Previously described large superior rectal/rectosigmoid tumor is partly visualized (285 series 3). Component extending to the right pelvic sidewall appears slightly smaller measuring 4.4 cm (286). Previously at this area this measured 4.8 cm. Diverticulosis. Left lower quadrant colostomy. Infiltrative changes are noted along the inferior mesenteric artery including a slightly enlarged lymph node measuring 0.6 cm (256) which is not significantly changed. Prominent superior hemorrhoidal lymph nodes are not significantly changed.Nonspecific fluid density nodule in the right abdominal subcutaneous tissues measuring 1.3 cm (146 series 3). Degenerative changes in the spine.IMPRESSION:Interval increase in size of pulmonary and hepatic metastases.Enlarging portacaval lymph node with hypodense areas concerning for a metastatic lymph node.Partly visualized primary tumor at the rectosigmoid colon. Component along the right pelvic sidewall appears slightly smaller.Other findings as above.MD HinojosaTMP Interpretation Antibody Screen [id number] 15:20:22 Test Item Value Reference Range Interpretation Comments TMP Auto Neg At the present ABSC Interp time, patient (test code = plasma shows no KENYON TAMEZ 7535) evidence of RBC DEJA,Dic tated by: alloantibodies. GALO SHORT,Dictat ed Date/Time: 9:20 AM MANAGER SOCIAL RESPONSIBILITY Transcribed Neri e/Time: 12.17.2019 9:20 AM CSTElectronical ly Signed By: KENYON SHORT, on 12.17.2019 9:20 AM C MD HinojosaConfirm [id number] 03:20:25 Test Item Value Reference Range Interpretation Comments ABORh Confirm. (test code = 882-1) A POS MD HinojosaAntibody [id number] 03:16:52 Test Item Value Reference Range Interpretation Comments ABSC. (test code = 890-4) Negative ABSC MD [id number] 03:16:51 Test Item Value Reference Range Interpretation Comments ABORh. (test code = 882-1) A POS MD HinojosaClot Expiration [id number] 03:16:47 Test Item Value Reference Range Interpretation Comments T & S Expiration (test code = 12/19/2019 5318) MD HinojosaPartial Thromboplastin [id number] 00:59:15 Test Item Value Reference Range Interpretation Comments PTT (test code = 49461-9) 34.1 24.2- 36.0 second(s) MD Hinojosa
--- OUTSIDE RECORDS SUMMARY | 2020-11-04 15:24 | XMS REPORT | Summary of Care ---
:1955 Author Organization [facility] Address [address] [place] [address] Care Team Providers Name Role Phone Hemal Nunez Primary Care Provider Reason for Visit Reason Comments Follow-up Hypertension Encounter Details Date Type Department Care Team Description 09/17/2020 Office Visit [facility] Kandi Hemphill Essential hyp ertension (Primary Dx); Cardiology- Tylor White MD Type 2 diabetes mellitus with complicati on, without long-term current use of insulin [address], [address] [place] [address] [phone] Allergies No Known Allergiesdocumented as of this encounter (statuses as of 09/17/2020) Medications Medication Sig Dispensed Refills Start End Date Status Date METFORMIN HCL Take 1,000 mg 0 Ac tive (METFORMIN ORAL) by mouth 2 (two) times daily. budesonide-formoter Inhale 2 Puffs 0 Active ol (SYMBICORT) 2 (two) times 160-4.5 daily. mcg/actuation inhaler paroxetine 20 mg Take 20 mg by 0 Active tablet mouth daily. glyBURIDE 5 mg Take 5 mg by 0 Ac tive tablet mouth 2 (two) times daily with meals. SPIRIVA WITH 0 Active HANDIHALER 18 mcg 7 inhalation device Nebulizer & Use as 1 Device 0 Active Compressor For Neb directed with 8 Valentine albuterol for COPD albuterol 2.5 mg /3 Inhale 3 mL 100 Vial 11 Active mL (0.083 %) every 4 (four) 9 nebulizer hours as solutionIndications needed for : Stage 3 severe Wheezing or COPD by GOLD Shortness of classification Breath. amLODIPine 5 mg Take 5 mg by 0 A ctive tablet mouth. 0 regorafenib 40 mg Take 160 mg by 0 Active Tab mouth. 0 metoprolol Take 1 tablet 180 tablet 3 12/17/19 Acti ve succinate XL 25 mg by mouth 2 0 21 24 hr (two) times tabletIndications: daily for 90 Essential days. hypertension, Type 2 diabetes mellitus with complication, without long-term current use of insulin aspirin 81 mg EC Take 81 mg by 0 09/17/20 Discontinued tablet mouth daily. 20 LOSARTAN 25 mg TAKE ONE 30 tablet 0 09/17/20 Disco ntinued tabletIndications: TABLET BY 0 20 JACKSON (dyspnea on MOUTH TWICE A exertion) DAY METOPROLOL TAKE ONE 30 tablet 0 09/17/20 Discontin ued SUCCINATE XL 25 mg TABLET BY 0 20 ( Reorder) 24 hr MOUTH TWICE A tabletIndications: DAY JACKSON (dyspnea on exertion) documented as of this encounter (statuses as of 09/17/2020) Active Problems Problem Noted Date Cigarette nicotine dependence without complication 08/2018 Sinus tachycardia 04/24/2018 Elevated troponin I level 04/24/2018 Type 2 myocardial infarction 04/24/2018 Essential hypertension 04/24/2018 COPD exacerbation 10/13/2017 Hypoxia 09/11/2017 documented as of this encounter (statuses as of 09/17/2020) Immunizations Name Administration Dates Next Due Influenza [...] of this encounter Last Filed Vital Signs Vital Sign Reading Time Taken Comments Blood Pressure 127/70 09/17/2020 9:23 AM 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 Pulse - - Temperature - - Respiratory Rate - - Oxygen Saturation - - Inhaled Oxygen Concentration - - Weight 65.8 kg (145 lb) 09/17/2020 9:23 AM 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 Height - - Body Mass Index 24.13 05/05/2019 1:18 PM CDT documented in this encounter Progress Notes Kandi Hemphill MD - 09/17/2020 9:00 AM CST [facility] Cardiology Consult Note Patient: Erum Reilly Date of : 1955 Primary Care Physician: Hemal Nunez CHIEF COMPLAINT: Chief Complaint Patient presents with Follow-up Hypertension History of Present Illness: Erum Reilly is a 65 year old female presented to the clinic to follow up care for HTN. History was obtained talking to the patient herself/. Verbal consent obtained from Erum Reilly for telehealth services provided below. Communication with patient/ was conducted via audio/video call. Location of Patient: Home Location of Provider: Clinic Since the last OV, she was diagnosed to have rectal cancer with metastasis. Currently following up with MD Hinojosa for chemotherapy. Lost weight. Currently at 145 pounds. They report that recently her potassium was noted to be elevated in [facility] labs hence the losartanwas changed to Norvasc 5 mg daily. Compliant with Toprol-XL 25 mg twice daily. Unsure about the heart rate. Reports blood pressure averaging around 120s/70s most of the time. Trying to be active at home without any problems. JACKSON NYHA Class II stable. No recurrent chest pain noted. No history of exertional chest pain. No chest pain at rest. No PND or orthopnea. No pedal edema. No exertional palpitations or palpitations at rest. No syncopal attacks. 04/2018, admitted for COPD exacerbation. Mild trop elevation noted. Peaked at 0.4. Meds were optimized and DC. Risk factors: history of tobacco abuse, HTN, DM Previous Cardiac Studies: IMAGING - I personally reviewed, pertinent results as below: ECG 02/28/2019 SR with narrow QRS complex. No sig STT changes Echo 04/2018 Interpretation Summary A complete two-dimensional transthoracic echocardiogram was performed (2D, M- mode, Doppler and colorflow Doppler). There is no comparison study available. The study was technically difficult. Left ventricular systolic function is mildly reduced. Diastolic dysfunction. The right ventricle is not well visualized. Insufficient Tricuspid regurgitation jet to estimate RVSP. Echo 03/2019 Echo 03/2019 Interpretation Summary A complete two-dimensional transthoracic echocardiogram was performed (2D, M- mode, Doppler and colorflow Doppler). The study was technically difficult. Compared to prior study, changes are noted. Diastolic dysfunction. Trace pericardial effusion. There is borderline concentric left ventricular hypertrophy. Left ventricular systolic function is normal. The right ventricle is normal in size and function. Right ventricular systolic pressure is normal PAST MEDICAL HISTORY Past Medical History: Diagnosis Date Anxiety Asthma COPD (chronic obstructive pulmonary disease) HTN (hypertension) Non-insulin dependent type 2 diabetes mellitus Smoker Past Surgical History: Procedure Laterality Date SECTION CHOLECYSTECTOMY Family History Problem Relation Age of Onset Hypertension Mother Hypertension Father SOCIAL HISTORY Social History Socioeconomic History Marital status: Spouse name: Not on file Number of children: Not on file Years of education: Not on file Highest education level: Not on file Occupational History 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 Social Needs Financial resource strain: Not on file Food insecurity Worry: Not on file Inability: Not on file Transportation needs Medical: Not on file Non-medical: Not on file Tobacco Use Smoking status: Former Smoker Packs/day: 0.25 Years: 45.00 Pack years: 11.25 Types: Cigarettes Quit date: 08/2018 Years since quittin.0 Smokeless tobacco: Never Used Tobacco comment: Was previously smoking 2.5 packs a day now down to 6 ciggs a day Substance and Sexual Activity Alcohol use: No Comment: socially drinks Drug use: No Sexual activity: Not on file Lifestyle Physical activity Days per week: Not on file Minutes per session: Not on file Stress: Not on file Relationships Social connections Talks on phone: Not on file Gets together: Not on file Attends baptism service: Not on file Active member of club or organization: Not on file Attends meetings of clubs or organizations: Not on file Relationship status: Not on file Intimate partner violence Fear of current or ex partner: Not on file Emotionally abused: Not on file Physically abused: Not on file Forced sexual activity: Not on file Other Topics Concern Not on file Social History Narrative 10/13 - moved from [place] Patient is down to 5 ciggs a day ALLERGIES No Known Allergies MEDICATIONS Patient's Medications START taking these medications No medications on file CONTINUE taking these medications which have NOT CHANGED ALBUTEROL 2.5 MG /3 ML (0.083 %) NEBULIZER SOLUTION Inhale 3 mL every 4 (four) hours as needed for Wheezing or Shortness of Breath. AMLODIPINE 5 MG TABLET Take 5 mg by mouth. BUDESONIDE-FORMOTEROL (SYMBICORT) 160-4.5 MCG/ACTUATION INHALER Inhale 2 Puffs 2 (two) times daily. GLYBURIDE 5 MG TABLET Take 5 mg by mouth 2 (two) times daily with meals. METFORMIN HCL (METFORMIN ORAL) Take 1,000 mg by mouth 2 (two) times daily. NEBULIZER & COMPRESSOR FOR NEB VALENTINE Use as directed with albuterol for COPD PAROXETINE 20 MG TABLET Take 20 mg by mouth daily. REGORAFENIB 40 MG TAB Take 160 mg by mouth. SPIRIVA WITH HANDIHALER 18 MCG INHALATION DEVICE START taking Modified Medications as Prescribed Modified Medication Previous Medication METOPROLOL SUCCINATE XL 25 MG 24 HR TABLET METOPROLOL SUCCINATE XL 25 mg 24 hr tablet Take 1 tablet by mouth 2 (two) times daily for 90 days. TAKE ONE TABLET BY MOUTH TWICE A DAY STOP taking these medications ASPIRIN 81 MG EC TABLET Take 81 mg by mouth daily. LOSARTAN 25 MG TABLET TAKE ONE TABLET BY MOUTH TWICE A DAY REVIEW OF SYSTEMS: Comprehensive 10-system review was conducted and were negative except for what's noted in the HPI. The following systems were reviewed: Constitutional, cardiovascular, respiratory, gastrointestinal, genitourinary, musculoskeletal, neurologic, psychiatric, endocrinological, and hematological. PHYSICAL EXAMINATION: Vitals: 09/17/20 0923 BP: 127/70 Weight: 65.8 kg (145 lb) TELEHEALTH EXAM Full exam couldn't be done since it TELE VISIT. Constitutional: Alert and in no distress Resp: Breathing comfortably Neuro: answers questions appropriately LABS - Reviewed pertinent labs as below: CBC BMP PT/INR WBC (10*3/L) Date Value 04/24/2018 11.64 (H) NA (mmol/L) Date Value 04/24/2018 130 (L) No results found for: PT PLT (10*3/L) Date Value 04/24/2018 403 (H) K (mmol/L) Date Value 04/24/2018 4.5 INR (no units) Date Value 04/23/2018 0.9 HGB (g/dL) Date Value 04/24/2018 13.0 BUN (mg/dL) Date Value 04/24/2018 12 HCT (%) Date Value 04/24/2018 38.3 CREATININE (mg/dL) Date Value 04/24/2018 0.40 (L) LIPID PROFILE GLUCOSE (mg/dL) Date Value 04/24/2018 238 (H) CHOL (mg/dL) Date Value 04/25/2018 150 TSH LDL CHOL (mg/dL) Date Value 04/25/2018 66 TSH (mIU/L) Date Value 04/23/2018 0.19 (L) CARDIAC ENZYMES HDL (mg/dL) Date Value 04/25/2018 49 (L) No results found for: CK TRIG (mg/dL) Date Value 04/25/2018 177 (H) LFTs No results found for: CKMB AST(SGOT) (U/L) Date Value 04/24/2018 34 TROPONIN I (ng/mL) Date Value 04/24/2018 0.293 (H) ALT(SGPT) (U/L) Date Value 04/24/2018 57 (H) No results found for: BNP LDL CHOL (mg/dL) Date Value 04/25/2018 66 There are no current results on file for these tests and/or test for 1 year. There are no current results on file for these tests and/or test for 1 year. ASSESSMENT/PLAN 1. Essential hypertension metoprolol succinate XL 25 mg 24 hr tablet 2. Type 2 diabetes mellitus with complication, without long-term current use of insulin metoprolol succinate XL 25 mg 24 hr tablet Clinically stable from cardiac stand point. No new cardiac complaint noted. HTN: Stable and optimal. Losartan 25 BiD changed to Norvasc 5 mg daily because of hyperkalemia and Continue Toprol XL 25 BiD//Norvasc 5 mg daily. Mild elevated troponin 04/2018: Peaked at 0.4: Recommended stress test in the last office visit. Currently in the setting of underlying rectal cancer with mets we will continue to hold off since no new cardiac symptoms elicited. Rectal cancer mets: Follows in the [facility] oncology. Dyslipidemia: Richar modification stressed LDL CHOL (mg/dL) Date Value 04/25/2018 66 DM: Following PCP. Follow up with [facility] Cardiology in 12 months. Recommended goal BP < 130/80 consistently, LDL << 100, HbA1c < 6.5. No orders of the defined types were placed in this encounter. Requested Prescriptions Signed Prescriptions Disp Refills metoprolol succinate XL 25 mg 24 hr tablet 180 tablet 3 Sig: Take 1 tablet by mouth 2 (two) times daily for 90 days. I spent at least 10 mintues total time with the patient/family members over the phone for history taking, counseling and reviewing the results of the testing and risks and benefits of the treatment, treatment options and prevention with the patient/family members. Remaining 5 minutes was spent on documentation, chart review, order entries. Patient's diease process and its evaluation and treatment were discussed. We discussed each of for cardio vascular-related problems and discussed long-term goals and expectations for the each problem.I reviewed each of the cardiac medications in detail. Reviewed the medication with patient in detail recommended to continue taking the current medications without further changes other than changes mentioned above. Recommended, explained and stressed the importance of healthy eating habits and exercises and lifestyle modifications Follow up as planned is predicated on symptoms stability and/or acceptable test results. Patient is urged to call in sooner should problems arise or if there is no improvement in cardiac symptoms. ER warning signs and symptoms explained and patient verbalized understanding. My diagnostic impression and treatment plans were discussed at length with the patient. All side effects as well as drug-drug interactions and risks discussed at length. Ample opportunity was offered and encouraged to ask questions during this visit and patient appreciated the answers given by me andverbzalised statisfcation in the answers given. Thank you for allowing us to participate in the care of Erum Reilly. If you have any questions or concerns please feel free to call our office at [phone]. I would be happy to be of further assistance for Erum Reilly wellbeing. Uche Hemphill MD Venipuncturist, Division of Cardiology [facility] documented in this encounter Plan of Treatment [...] filedocumented in this encounter Visit Diagnoses Diagnosis Essential hypertension - Primary Unspecified essential hypertension Type 2 diabetes mellitus with complicati on, without long-term current use of insulin documented in this encounter Insurance Payer Benefit Plan / Subscriber ID Effective Dates Phone Addre ss Type Group [facility] [id number] [facility] nt S GENERIC documented as of this encounter
--- OUTSIDE RECORDS SUMMARY | 2020-11-04 15:24 | XMS REPORT | Summary of Care ---
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 budesonide-formoterol Inhale 2 Puffs 2 0 Active (SYMBICORT) 160-4.5 (two) times mcg/actuation inhaler daily. paroxetine 20 mg Take 20 mg by 0 Active tablet mouth daily. glyBURIDE 5 mg tablet Take 5 mg by 0 Active mouth 2 (two) times daily with meals. SPIRIVA WITH 0 07/02/2017 Active HANDIHALER 18 mcg inhalation device Nebulizer & Use as directed 1 Device 0 10/31/2017 A ctive Compressor For Neb with albuterol Valentine for COPD albuterol 2.5 mg /3 Inhale 3 mL 100 Vial 11 02/28/2019 Active mL (0.083 %) every 4 (four) nebulizer hours as needed solutionIndications: for Wheezing or Stage 3 severe COPD Shortness of by GOLD Breath. classification amLODIPine 5 mg Take 5 mg by 0 08/23/2020 Active tablet mouth. regorafenib 40 mg Tab Take 160 mg by 0 04/21/2020 Active mouth. metoprolol succinate Take 1 tablet by 180 tablet 3 09/17/2020 12/16/2020 Active XL 25 mg 24 hr mouth 2 (two) tabletIndications: times daily for Essential 90 days. hypertension, Type 2 diabetes mellitus with complication, without long-term current use of insulin documented as of this encounter (statuses as of 10/18/2020) Active Problems Problem Noted Date Cigarette nicotine dependence without complication 08/2018 Sinus tachycardia 04/24/2018 Elevated troponin I level 04/24/2018 Type 2 myocardial infarction 04/24/2018 Essential hypertension 04/24/2018 COPD exacerbation 10/13/2017 Hypoxia 09/11/2017 documented as of this encounter (statuses as of 10/18/2020) Immunizations Name Administration Dates Next Due Influenza [...] Assigned at Date Recorded Not on file COVID-19 Exposure Response Date Recorded In the last month, have you been in contact with No / Unsure 10/18/2020 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 documented as of this encounter Last Filed Vital Signs Not on filedocumented in this encounter Nursing Notes Edna Michelle - 10/18/2020 4:15 PM CST Patient has been identified by and name and was provided with cup, antiseptic towelette, and clean catch instructions. 2 urine specimen(s) sent. 1 Unpreserved 1 Urine Culture Aptima tube Other urine documented in this encounter Plan of Treatment Name Type Priority Associated Diagnoses Order S chedule URINALYSIS LAB Routine Other hydronephr osis Expected: 10/18/2020, Malignant neoplasm of rectum Expires: 10/18/2021 URINE CULTURE LAB Routine Other hydronephr osis Expected: 10/18/2020, Malignant neoplasm of rectum Expires: 10/18/2021 Health Maintenance Due Date Last Done Comments HEPATITIS C (HCV) SCREEN 1955 EYE EXAM 1965 URINE MICROALBUMIN 1965 Depression Screening 1967 FOOT EXAM 1973 DTaP,Tdap,and Td Vaccines (1 - 1974 Tdap) Breast Cancer Screening 1995 (MAMMOGRAM) COLON CANCER SCREENING ANNUAL 2005 FIT/FOBT COLON CANCER SCREENING FIT DNA 2005 EVERY 3 YEARS COLON CANCER SCREENING 2005 SIGMOIDOSCOPY EVERY 5 YEARS COLONOSCOPY 2005 Colorectal Cancer Screening 2005 Zoster Recombinant Vaccine 2005 (SHINGRIX) (1 of 2) LUNG CANCER SCREEN: Recommended 2010 for age 55-80 with 30 + pack year history HgA1C 10/26/2018 04/25/2018, 04/23/2018, 10/14/2017, Additional history exists CREATININE (SERUM) 04/24/2019 04/24/2018, 04/23/2018, 10/17/2017, Additional history exists LDL-C 04/25/2019 04/25/2018, 10/14/2017 INFLUENZA VACCINE (#1) 2020 08/01/2018, 09/12/2017 Medicare Wellness Visit 2020 Osteoporosis Screening 2020 PNEUMOCOCCAL VACCINES 65+ (1 of 1 2020 10/15/2014 - PPSV23) documented as of this encounter Results Not on filedocumented in this encounter Visit Diagnoses Diagnosis Other hydronephrosis - Primary Malignant neoplasm of rectum documented in this encounter Insurance Payer Benefit Plan / Subscriber ID Effective Phone Address T ype Group Dates MEDICARE MEDICARE PART [id number] 2020-Pre [phone] Medicare A & B sent [id number] [place] [id number] [facility] [id number] 2017-Pre HMO/PP O/POS HEALTHCARE HEALTHCARE sent GENERIC documented as of this encounter
--- OUTSIDE RECORDS SUMMARY | 2020-11-04 15:24 | XMS REPORT | Summary of Care ---
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 documented as of this encounter Last Filed Vital Signs Not on filedocumented in this encounter Plan of Treatment Health [...] - PPSV23) documented as of this encounter Procedures Procedure Name Priority Date/Time Associated Diagnosis Comme nts ASSIGNMENT OF BENEFITS Routine 10/18/2020 4:20 PM SAND HAULER documented in this encounter Results Not on filedocumented in this encounter Insurance Payer Benefit Plan / Subscriber ID Effective Phone Address T ype Group Dates MEDICARE MEDICARE PART [id number] 2020-Pre [phone] Medicare A & B sent [id number] [place] [phone] [facility] [id number] 2017-Pre HMO/PP O/POS HEALTHCARE HEALTHCARE sent GENERIC documented as of this encounter
--- OUTSIDE RECORDS SUMMARY | 2020-11-04 15:24 | XMS REPORT | Summary of Care ---
:1955 Author Organization [facility] Address [address] [place] [address] Care Team Providers Name Role Phone Hemal Nunez Primary Care Provider Reason for Visit Reason Comments Follow-up Hypertension Encounter Details Date Type Department Care Team Description 09/17/2020 Office Visit [facility] Kandi Hemphill Essential hyp ertension (Primary Dx); Cardiology- Tylor White MD Type 2 diabetes mellitus with complicati on, without long-term current use of insulin [address] 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 Rectal cancer mets: Follows in the [facility] oncology. Dyslipidemia: Richar modification stressed LDL CHOL (mg/dL) Date Value 04/25/2018 66 DM: Following PCP. Follow up with [facility] Cardiology in 12 months. Recommended goal BP [...] feel free to call our office at [phone]. I would be happy to be of further assistance for Erum Reilly wellbeing. Uche Hemphill MD Health And Safety Specialist, Division of Cardiology [facility] documented in this encounter Plan of [...] Effective Dates Phone Addre ss Type Group [facility] [id number] [facility] nt S GENERIC documented as of this encounter
--- NOTE | 2020-11-04 16:26 | RAD REPORT ---
EXAM DESCRIPTION: RAD - Chest Single View - 11/04/2020 4:20 pm CLINICAL HISTORY: tachycardia Chest pain. COMPARISON: No comparisons FINDINGS: Portable technique limits examination quality. Vague nodular densities are present in both lungs. No focal infiltrate typical of pneumonia. The hear t is normal in size. Right-sided port catheter has tip in the SVC.
[2020-11-04] MEDS ORDERED: CEFTRIAXONE/SWI 1gm 1 GM/10 ML SYR ONE (16:49)
[2020-11-04] MEDS ORDERED: ACETAMINOPHEN 500 MG TAB ONE (16:49)
[2020-11-04] MEDS ORDERED: NA CHLORIDE 0.9% 1,000 ML ONE (16:49)
[2020-11-04 16:58] LABS: ALT/SGPT 23 U/L (12-78); AST/SGOT 38 U/L (15-37); Albumin 2.1 g/dL (3.4-5.0); Alkaline Phosphatase 279 U/L (45-117); BUN Blood Urea Nitrogen 11 mg/dL (7-18); Bicarbonate 26 mmol/L (21-32); Bilirubin Direct 0.1 mg/dL (0-0.2); Bilirubin Total 0.3 mg/dL (0.2-1.0); Glucose Level 161 mg/dL (74-106); Magnesium 1.6 mg/dL (1.8-2.4); NT PRO-BNP 397 pg/mL (<125); Potassium 4.3 mmol/L (3.5-5.1); Protein, Total 7.4 g/dL (6.4-8.2); Sodium Level 131 mmol/L (136-145); Troponin (Emerg Dept Use Only) < 0.02 ng/mL (0.0-0.045)
[2020-11-04 17:03] LABS: CKMB Creatine Kinase MB < 1.0 ng/mL (0.3-3.6); Creatine Phosphokinase 61 U/L (26-192); Lipase 39 U/L (73-393); Troponin (Emerg Dept Use Only) < 0.02 ng/mL (0.0-0.045)
[2020-11-04 17:09] LABS: Protime INR 1.18
[2020-11-04 17:12] LABS: Absolute Lymphocytes (CBC) 0.2 K/uL (0.7-4.9); Basophils % 0.6 % (0-1.3); Hematocrit 26.3 % (36.0-45.0); Lymphocytes % 1.5 % (15.3-44.8)
[2020-11-04] MEDS ORDERED: CEFEPIME/SWI 1gm 10 ML ONE (17:38)
[2020-11-04] MEDS ORDERED: VANCOMYCIN/NS 1 gm 1 GM/250 ML BAG IVPB ONE (18:00)
--- NOTE | 2020-11-04 18:20 | ER ---
Nurse's Notes [facility] Name: Erum Reilly Age: 65 yrs Sex: Female : 1955 Arrival Date: 11/04/2020 Time: 15:24 Bed 17 Private MD: Diagnosis: Urinary tract infection, site not specified-nephrostomy;Anemia, unspecified;Severe sepsis without septic shock;Abdominal tenderness-stage 4 metastatic cancer, liver, lungs Presentation: 11/04 15:48 Chief complaint: Patient states: Today at 1400, sudden onset of shakes, fever, malaise, ll1 high HR. Fever 99.9 yesterday. No cough. No N/V/D. Coronavirus screen: Client denies travel out of the [place] in the last 14 days. At this time, the client does not indicate any symptoms associated with coronavirus-19. Ebola Screen: Patient denies travel to an Ebola-affected area in the 21 days before illness onset. Initial Sepsis Screen: Does the patient meet any 2 criteria? Temp <36.0*C (96.8*F)) or > 38.3*C (100.9*F). HR > 90 bpm. Yes Does the patient have a suspected source of infection? No. Patient's initial sepsis screen is negative. Risk Assessment: Do you want to hurt yourself or someone else? Patient reports no desire to harm self or others. Onset of symptoms was November 04, 2020. 15:48 Method Of Arrival: Wheelchair ll1 15:48 Acuity: DEBO 2 ll1 Historical: - Allergies: 15:51 chemo med; ll1 15:51 cetuximab; ll1 - PMHx: 15:51 rectal CA-stage 4.; ll1 15:53 Hypertension; COPD; Diabetes - NIDDM; ll1 - PSHx: 15:51 colostomy/nephrostomy; ll1 - Immunization history:: Flu vaccine is not up to date. - Social history:: Smoking status: Patient denies any tobacco usage or history of. Smoking status: Reported history of juuling and/or vaping. Screenin:38 Abuse screen: Denies threats or abuse. Nutritional screening: No deficits noted. tw2 Tuberculosis screening: No symptoms or risk factors identified. Fall Risk Secondary diagnosis (15 points) impaired mobility. Assessment: 15:53 General: Appears in no apparent distress. Behavior is calm, cooperative, appropriate tw2 for age. Pain:. Neuro: Level of Consciousness is awake, alert, obeys commands, Oriented to person, place, situation. Cardiovascular: Patient's skin is warm and dry. Respiratory: Airway is patent Respiratory effort is even, unlabored, Respiratory pattern is regular, symmetrical. GI: No signs and/or symptoms were reported involving the gastrointestinal system. GI: Reports stage 4 rectal cancer. : Reports pt has nephrostomy drainage collection bag on right. EENT: No signs and/or symptoms were reported regarding the EENT system. Derm: Skin is dry, Skin temperature is hot. Musculoskeletal: Range of motion: intact in all extremities. 17:38 Reassessment: Patient appears in no apparent distress at this time. No changes from tw2 previously documented assessment. Patient and/or family updated on plan of care and expected duration. Pain level reassessed. 18:30 Reassessment: Patient appears in no apparent distress at this time. No changes from tw2 previously documented assessment. Patient and/or family updated on plan of care and expected duration. Pain level reassessed. 19:30 Reassessment: Patient appears in no apparent distress at this time. Patient and/or wh family updated on plan of care and expected duration. Pain level reassessed. Patient is alert, oriented x 3, equal unlabored respirations, skin warm/dry/pink. 20:30 Reassessment: Patient appears in no apparent distress at this time. Patient and/or wh family updated on plan of care and expected duration. Pain level reassessed. Patient is alert, oriented x 3, equal unlabored respirations, skin warm/dry/pink. 21:30 Reassessment: Report given to Ml Horton RN. 21:45 Reassessment: MD at bedside explaining POC need for transfer. 22:30 Reassessment: Patient appears in no apparent distress at this time. Patient and/or family updated on plan of care and expected duration. Pain level reassessed. Patient is alert, oriented x 3, equal unlabored respirations, skin warm/dry/pink. Vital Signs: 15:48 BP 136 / 60; Pulse 136; Resp 18; Temp 102.9; Pulse Ox 96% on R/A; Weight 63.5 kg; ll1 Height 5 ft. 5 in. (165.10 cm); Pain 0/10; 17:30 BP 125 / 60; Pulse 118; Resp 20; Temp 100.2(O); Pulse Ox 96% on R/A; tw2 20:00 BP 105 / 59; Pulse 95; Resp 18; Pulse Ox 98% on R/A; wh 21:00 BP 106 / 59; Pulse 95; Resp 18; Temp 98.7; Pulse Ox 98% on R/A; wh 22:45 BP 118 / 67; Pulse 98; Resp 18; Pulse Ox 20% ; wh 15:48 Body Mass Index 23.30 (63.50 kg, 165.10 cm) ll1 ED Course: 15:24 Patient arrived in ED. am4 15:50 Triage completed. ll1 15:53 Arm band placed on Patient placed in an exam room, on a stretcher. ll1 15:53 Bed in low position. Call light in reach. Adult w/ patient. air sampling and monitoring on. Pulse tw2 ox on. NIBP on. 15:59 Jak Clayton MD is Attending Physician. tw4 16:01 Cheyenne Church RN is Primary Nurse. tw2 16:20 XRAY Chest (1 view) In Process Unspecified. EDMS 16:38 Missed attempt(s): 20 gauge in right forearm. blood collected. Bleeding controlled, tw2 band aid applied, catheter tip intact. 16:40 Inserted saline lock: 22 gauge in left antecubital area, using aseptic technique. Blood tw2 collected. 18:19 Jim Perez MD is Hospitalizing Provider. tw4 19:00 Report given to CHIVO Umanzor. tw2 19:23 Primary Nurse role handed off by Cheyenne Church RN mw 19:24 Erna Deutsch RN is Primary Nurse. 19:40 Straight cath inserted, using sterile technique, 16 Fr. Specimen obtained. Returned ds4 cloudy urine. Patient tolerated well. 20:50 initiated a transfer with Mariya Lugo from [facility]. mw2 21:14 administrative approval given by Mariya Lugo/ patient has been accepted to [facility]/ mw2 Dr. Norton has accepted the patient/ report to be called to [phone]. 21:38 Attending Physician role handed off by Jak Clayton MD [facility] 21:38 Kennedy Hinojosa MD is Attending Physician. red 22:47 No provider procedures requiring assistance completed. Patient transferred, IV remains wh in place. Administered Medications: 16:33 Not Given (Duplicate Order): Rocephin - (cefTRIAXone) 1 grams IVPB once over 30 mins; tw2 (mix in 50 mL NS) 16:40 Drug: NS 0.9% (30 ml/kg) 30 ml/kg Route: IV; Rate: bolus; Site: left forearm; tw2 16:40 Drug: Tylenol 1000 mg Route: PO; tw2 17:36 Follow up: Response: No adverse reaction; Temperature is decreased tw2 16:48 Drug: Rocephin 1 grams Route: IV; Rate: bolus; Site: left forearm; tw2 16:53 Follow up: Response: No adverse reaction; IV Status: Completed infusion; IV Intake: [id number] 17:30 Drug: Cefepime 1 grams {Note: ivp available only in pxysis.} Route: IVPB; Rate: 200 tw2 ml/hr; Infused Over: 5 mins; Site: left antecubital; 17:36 Follow up: Response: No adverse reaction; IV Status: Completed infusion; IV Intake: [id number] 17:37 Drug: NS 0.9% (30 ml/kg) 30 ml/kg Route: IV; Rate: bolus; Site: left antecubital; tw2 19:21 Follow up: Response: No adverse reaction; IV Status: Completed infusion; IV Intake: tw2 2000ml 18:00 Drug: vancoMYCIN 1 grams Route: IVPB; Infused Over: 2 hrs; Site: left forearm; tw2 19:44 Follow up: Response: No adverse reaction; IV Status: Completed infusion 21:07 Drug: Flagyl 500 mg Volume: 100 ml; Route: IVPB; Rate: 200 ml/hr; Infused Over: 30 wh mins; Site: left forearm; 22:49 Follow up: Response: No adverse reaction; IV Status: Completed infusion 21:54 Drug: Magnesium Sulfate 1 grams Route: IVPB; Infused Over: 1 hrs; Site: left forearm; 22:49 Follow up: Response: No adverse reaction; IV Status: Completed infusion wh Intake: 16:53 IV: 10ml; Total: 10ml. tw2 17:36 IV: 10ml; Total: 20ml. tw2 19:21 IV: 2000ml; Total: 2020ml. tw2 Outcome: 18:20 Decision to Hospitalize by Provider. tw4 21:42 ER care complete, transfer ordered by MD. moon 22:47 Transferred by ground EMS to [facility], Transfer form completed. X-rays sent w/ patient. Note: Report given to [facility] 22:47 Condition: stable 22:47 Instructed on the need for transfer. 22:48 Patient left the ED. Addendum: 11/09/2020 08:19 Addendum: Culture Results: Positive blood culture. CULTURE REPORT faxed over to [facility]. Petty Hope, RN. Signatures: Dispatcher [employer] EDMS Kennedy Hinojosa MD MD cha Smirch, Shelby, RN RN Truman Buck ds4 Cheyenne Church RN RN tw2 rEna Deutsch RN RN wh Wadley, Terrence, MD MD tw4 Tyrone Bustamante mw2 Olga St RN RN 1 Bessy Byers am4 Corrections: (The following items were deleted from the chart) 11/04 19:21 17:38 Reassessment: Patient appears in no apparent distress at this time. No changes tw2 from previously documented assessment. Patient and/or family updated on plan of care and expected duration. Pain level reassessed. Patient is alert, oriented x 3, equal unlabored respirations, skin warm/dry/pink. tw2
--- NOTE | 2020-11-04 18:21 | EDPHYS ---
Physician Documentation [facility] Name: Erum Reilly Age: 65 yrs Sex: Female : 1955 Arrival Date: 11/04/2020 Time: 15:24 Bed 17 Private MD: BILLIE Physician [facility] HPI: 11/04 16:45 This 65 yrs old Female presents to ER via Wheelchair with complaints of HIGH tw4 PULSE;NOT FEELING WELL. 16:45 The patient presents with a history of heart racing. Context: The symptoms occur at tw4 rest. Onset: The symptoms/episode began/occurred today. Duration: The patient or guardian reports a single episode, that is now resolved. Modifying factors: The symptoms are aggravated by nothing. The symptoms are alleviated by nothing. Severity of symptoms: At their worst the symptoms were moderate in the emergency department the symptoms are unchanged. The patient has not experienced similar symptoms in the past. Historical: - Allergies: 15:51 chemo med; ll1 15:51 cetuximab; ll1 - PMHx: 15:51 rectal CA-stage 4.; ll1 15:53 Hypertension; COPD; Diabetes - NIDDM; ll1 - PSHx: 15:51 colostomy/nephrostomy; ll1 - Immunization history:: Flu vaccine is not up to date. - Social history:: Smoking status: Patient denies any tobacco usage or history of. Smoking status: Reported history of juuling and/or vaping. ROS: 16:45 Constitutional: Negative for fever, chills, and weight loss, Eyes: Negative for injury, tw4 pain, redness, and discharge, Respiratory: Negative for shortness of breath, cough, wheezing, and pleuritic chest pain, Abdomen/GI: Negative for abdominal pain, nausea, vomiting, diarrhea, and constipation, Back: Negative for injury and pain, MS/Extremity: Negative for injury and deformity, Skin: Negative for injury, rash, and discoloration, Neuro: Negative for headache, weakness, numbness, tingling, and seizure. 16:45 Cardiovascular: Positive for palpitations, Negative for chest pain, edema, orthopnea. Exam: 16:45 Constitutional: This is a well developed, well nourished patient who is awake, alert, tw4 and in no acute distress. Head/Face: Normocephalic, atraumatic. Chest/axilla: Normal chest wall appearance and motion. Nontender with no deformity. No lesions are appreciated. Respiratory: Lungs have equal breath sounds bilaterally, clear to auscultation and percussion. No rales, rhonchi or wheezes noted. No increased work of breathing, no retractions or nasal flaring. Abdomen/GI: Soft, non-tender, with normal bowel sounds. No distension or tympany. No guarding or rebound. No evidence of tenderness throughout. Back: No spinal tenderness. No costovertebral tenderness. Full range of motion. MS/ Extremity: Pulses equal, no cyanosis. Neurovascular intact. Full, normal range of motion. Neuro: Awake and alert, GCS 15, oriented to person, place, time, and situation. Cranial nerves II-XII grossly intact. Motor strength 5/5 in all extremities. Sensory grossly intact. Cerebellar exam normal. Normal gait. 16:45 Cardiovascular: Rate: tachycardic, Rhythm: regular, Pulses: Vital Signs: 15:48 BP 136 / 60; Pulse 136; Resp 18; Temp 102.9; Pulse Ox 96% on R/A; Weight 63.5 kg; ll1 Height 5 ft. 5 in. (165.10 cm); Pain 0/10; 17:30 BP 125 / 60; Pulse 118; Resp 20; Temp 100.2(O); Pulse Ox 96% on R/A; tw2 20:00 BP 105 / 59; Pulse 95; Resp 18; Pulse Ox 98% on R/A; wh 21:00 BP 106 / 59; Pulse 95; Resp 18; Temp 98.7; Pulse Ox 98% on R/A; wh 22:45 BP 118 / 67; Pulse 98; Resp 18; Pulse Ox 20% ; wh 15:48 Body Mass Index 23.30 (63.50 kg, 165.10 cm) ll1 MDM: 15:59 Patient medically screened. tw4 18:45 Differential diagnosis: arrythmia, dehydration, stress disorder, sepsis. Data reviewed: tw4 vital signs, nurses notes. Data interpreted: Pulse oximetry: Interpretation:. Data interpreted: Pulse oximetry:. Counseling: I had a detailed discussion with the patient and/or guardian regarding: the historical points, exam findings, and any diagnostic results supporting the discharge/admit diagnosis. Physician consultation: Jim Perez MD regarding admission, to the telemetry unit. patient's condition, and will see patient in inpatient room. 11/04 16:00 Order name: Basic Metabolic Panel; Complete Time: 17:08 11/04 17:08 Interpretation: Normal except: NA 131; CL 96; GLUC 161; GFR 74. 11/04 16:00 Order name: CBC with Diff; Complete Time: 20:51 11/04 16:00 Order name: LFT's; Complete Time: 17:08 11/04 17:08 Interpretation: Normal except: AST 38; ALK 279; ALB 2.1; GLOB 5.3; A/G 0.4. 11/04 16:00 Order name: Magnesium; Complete Time: 17:08 11/04 17:08 Interpretation: Normal except: MG 1.6. 11/04 16:00 Order name: NT PRO-BNP; Complete Time: 17:08 11/04 17:08 Interpretation: Abnormal: NT PRO-BNP 397. 11/04 16:00 Order name: PT-INR; Complete Time: 18:00 11/04 16:00 Order name: Troponin (emerg Dept Use Only); Complete Time: 17:08 11/04 17:09 Interpretation: Within normal limits: TROPED < 0.02. 11/04 16:08 Order name: Lactate; Complete Time: 17:08 11/04 17:09 Interpretation: Abnormal: LAC 4.6. 11/04 16:08 Order name: Blood Culture Adult (2) 11/04 16:15 Order name: Ckmb 11/04 16:15 Order name: CPK; Complete Time: 17:08 11/04 16:15 Order name: Lipase; Complete Time: 17:08 11/04 17:09 Interpretation: Within normal limits: LIP 39. 11/04 16:15 Order name: Procalcitonin; Complete Time: 18:00 11/04 16:00 Order name: XRAY Chest (1 view); Complete Time: 17:08 11/04 18:01 Interpretation: No acute disease. 11/04 16:15 Order name: Ptt, Activated; Complete Time: 20:32 11/04 16:15 Order name: Troponin (emerg Dept Use Only); [facility]: 17:08 [facility] 11/04 16:16 Order name: CKMB Creatine Kinase MB; Complete Time: 17:08 [facility] 11/04 19:31 Order name: Urinalysis 11/04 19:31 Order name: Urinalysis 11/04 19:48 Order name: Urinalysis W/Microscopic; Complete Time: 20:10 [facility]CO 11/04 20:01 Order name: Urine Microscopic Only [facility] 11/04 20:26 Order name: Lactate Sepsis 2 HR Follow-up; Complete Time: 20:32 [facility]CO 11/04 20:38 Order name: Urine Microscopic Only; Complete Time: 20:41 [facility]CO 11/04 20:41 Order name: COVID-19 [facility] 11/04 20:45 Order name: CBC Smear Scan; Complete Time: 20:51 [facility]CO 11/04 21:22 Order name: CORONAVIRUS [facility] 11/04 21:46 Order name: Glucose, Ancillary Testing [facility] 11/04 22:33 Order name: SARS-COV-2 RT PCR [facility] 11/04 16:00 Order name: EKG; Complete Time: 16:01 [facility] 11/04 16:00 Order name: Cardiac monitoring; Complete Time: 20:00 [facility] 11/04 16:00 Order name: IV Saline Lock; Complete Time: 17:37 4 11/04 16:00 Order name: Labs collected and sent; Complete Time: 17:37 [facility] 11/04 16:00 Order name: O2 Per Protocol; Complete Time: 16:08 [facility] 11/04 16:00 Order name: O2 Sat Monitoring; Complete Time: 16:08 [facility] 11/04 16:15 Order name: Cardiac monitoring; Complete Time: 16:53 4 11/04 16:15 Order name: EKG - Nurse/Tech; Complete Time: 20:04 [facility] 11/04 16:15 Order name: IV Saline Lock - Large Bore; Complete Time: 16:53 4 11/04 16:15 Order name: Labs collected and sent; Complete Time: 16:53 11/04 16:15 Order name: O2 Per Protocol; Complete Time: 16:54 4 11/04 16:15 Order name: O2 Sat Monitoring; Complete Time: 16:54 11/04 16:15 Order name: Urine Dipstick-Ancillary (obtain specimen); Complete Time: 20:11 tw4 11/04 18:40 Order name: CT Abd/Pelvis - IV Contrast Only tw4 11/04 19:20 Order name: Straight Cath - Urine; Complete Time: 19:44 tw2 11/04 19:20 Order name: Cath: from nephrostomy bag after emptying collection bag; Complete Time: tw2 19:44 11/04 20:17 Order name: CT; Complete Time: 20:32 EDMS EC:02 Rate is 109 beats/min. Rhythm is regular. QRS [place] is Normal. MS interval is normal. tw4 QRS interval is normal. QT interval is normal. No Q waves. T waves are Normal. No ST changes noted. Clinical impression: Sinus tachycardia. Interpreted by me. Reviewed by me. Administered Medications: 16:33 Not Given (Duplicate Order): Rocephin - (cefTRIAXone) 1 grams IVPB once over 30 mins; tw2 (mix in 50 mL NS) 16:40 Drug: NS 0.9% (30 ml/kg) 30 ml/kg Route: IV; Rate: bolus; Site: left forearm; tw2 16:40 Drug: Tylenol 1000 mg Route: PO; tw2 17:36 Follow up: Response: No adverse reaction; Temperature is decreased tw2 16:48 Drug: Rocephin 1 grams Route: IV; Rate: bolus; Site: left forearm; tw2 16:53 Follow up: Response: No adverse reaction; IV Status: Completed infusion; IV Intake: [id number] 17:30 Drug: Cefepime 1 grams {Note: ivp available only in pxysis.} Route: IVPB; Rate: 200 tw2 ml/hr; Infused Over: 5 mins; Site: left antecubital; 17:36 Follow up: Response: No adverse reaction; IV Status: Completed infusion; IV Intake: [id number] 17:37 Drug: NS 0.9% (30 ml/kg) 30 ml/kg Route: IV; Rate: bolus; Site: left antecubital; tw2 19:21 Follow up: Response: No adverse reaction; IV Status: Completed infusion; IV Intake: tw2 2000ml 18:00 Drug: vancoMYCIN 1 grams Route: IVPB; Infused Over: 2 hrs; Site: left forearm; tw2 19:44 Follow up: Response: No adverse reaction; IV Status: Completed infusion 21:07 Drug: Flagyl 500 mg Volume: 100 ml; Route: IVPB; Rate: 200 ml/hr; Infused Over: 30 wh mins; Site: left forearm; 22:49 Follow up: Response: No adverse reaction; IV Status: Completed infusion 21:54 Drug: Magnesium Sulfate 1 grams Route: IVPB; Infused Over: 1 hrs; Site: left forearm; 22:49 Follow up: Response: No adverse reaction; IV Status: Completed infusion Disposition: 11/04/20 21:42 Transfer ordered to Other Acute Care Facility. Diagnosis are Urinary tract infection, site not specified - nephrostomy, Anemia, unspecified, Severe sepsis without septic shock, Abdominal tenderness - stage 4 metastatic cancer, liver, lungs. - Reason for transfer: Higher level of care. - Accepting physician is to [facility]. - Condition is Fair. - Problem is new. - Symptoms have improved. Signatures: Dispatcher [employer] EDMS Kennedy Hinojosa MD MD cha Attema, Lee, BEATING MACHINE OPERATOR-C BEATING MACHINE OPERATOR-Cla1 Cheyenne Church, RN RN tw2 Erna Deutsch RN RN Jak Clayton MD MD [address], CHIVO RN ll1 Corrections: (The following items were deleted from the chart) 16:53 16:15 Accucheck ordered. tw4 tw2 20:04 16:00 EKG - Nurse/Tech ordered. 4 ds4 21:38 18:20 Hospitalization Ordered by Jim Perez MD for Inpatient Admission. Preliminary [facility] diagnosis is Sepsis, unspecified organism. Bed requested for Telemetry/MedSurg (Inpatient). Status is Inpatient Admission. Condition is Fair. Problem is new. Symptoms are unchanged. 4 22:48 21:42 11/04/2020 21:42 Transfer ordered to Other Acute Care Facility. Diagnosis is Urinary tract infection, site not specified - nephrostomy; Anemia, unspecified; Severe sepsis without septic shock; Abdominal tenderness - stage 4 metastatic cancer, liver, lungs. Reason for transfer: Higher level of care. Accepting physician is to [facility]. Condition is Fair. Problem is new. Symptoms have improved. [facility]
[2020-11-04 19:46] LABS: Urine Appearance CLOUDY; Urine Bilirubin NEGATIVE (NEG); Urine Blood NEGATIVE (NEG); Urine Color YELLOW; Urine Glucose NEGATIVE (NEG); Urine Protein TRACE (NEG)
[2020-11-04 19:57] LABS: Urine Amorphous Sediment 1+ /HPF (NONE SEEN); Urine Bacteria <20 /HPF (<20); Urine Mucus 2+ /HPF (NONE SEEN); Urine RBC <5 /HPF (NONE SEEN)
--- NOTE | 2020-11-04 20:15 | RAD REPORT ---
EXAM DESCRIPTION: CTAbdomen Pelvis W Contrast - 11/04/2020 8:06 pm CLINICAL HISTORY: Abdominal pain. ABD PAIN COMPARISON: No comparisons TECHNIQUE: Biphasic CT imaging of the abdomen and pelvis was performed with 100 ml non-ionic IV cont rast. All CT scans are performed using dose optimization technique as appropriate and may include automated exposure control or mA/KV adjustment according to patient size. FINDINGS: Numerous lung masses are present in both bases compatible with metastasis. The largest in the left lung base measures 25 mm. Numerous large liver masses are present compatible with liver metastasis. The largest in the left lob e measures 6.5 cm. The spleen, pancreas, adrenal glands and left kidney are within normal limits. Percutaneous nephrosto my tube is seen on the right without hydronephrosis. Cholecystectomy. There is a very large irregular malignant mass in the pelvis present measuring 13 x 7 cm. Left lower quadrant colostomy. Large necrotic lymph nodes are seen in the hepatic hilum region interposed betw een the vena cava and portal vein measuring 3.2 cm. No lytic or blastic bone lesion. IMPRESSION: Extensive liver and lung metastasis. Very large necrotic malignancy in the pelvis presumably related to the patient's known rectal carcino ma, measuring 13 x 7 cm.
[2020-11-04 20:38] LABS: Urine Bacteria 20-50 /HPF (<20); Urine Mucus 3+ /HPF (NONE SEEN)
[2020-11-04 20:44] LABS: Anisocytosis 1+; Blood Morphology Comment NOTED (NOT SEEN); Hypochromasia 1+; Platelet Estimate ADEQ; White Blood Cell Scan OK (OK)
[2020-11-04] MEDS ORDERED: MAGNESIUM SULFATE 1 gm IVPB 1 GM/100 ML BAG IV ONE (21:12)
[2020-11-04] MEDS ORDERED: METRONIDAZOLE 500mg IVPB 500 MG/100 ML BAG IV ONE (21:13)
[2020-11-04 23:35] VITALS: TEMP 98.7
[2020-11-04 23:36] VITALS: BP 118/67; O2SAT 20
== END 2020-11-04 22:48 ==
LOC: ER 15:17
DX: N39.0 Urinary tract infection, site not specified (principal); R65.21 Severe sepsis with septic shock; C18.9 Malignant neoplasm of colon, unspecified; C78.7 Secondary malignant neoplasm of liver and intrahepatic bile duct; C78.00 Secondary malignant neoplasm of unspecified lung; D64.9 Anemia, unspecified; I10 Essential (primary) hypertension; J44.9 Chronic obstructive pulmonary disease, unspecified; Z88.8 Allergy status to other drugs, medicaments and biological substances
CPT/HCPCS: 93005; 87040 ×2; 87088; 85025; 81001; 87086; 80048; 36415; 83735; 82550; 87205 ×4; 85610; 82947; 80076; 83605 ×2; 85730; 87077 ×2; 87186 ×2; 81015; 84484 ×2; 82553; 83690; 84145; 83880; 74177; 71045; 51702; 99285; U0003; Q9967; J3475; J3370; J0696; J0692; J7030

== ENCOUNTER 2020-12-05 13:57 | Emergency (ER) | payer OTHER, BC ==
--- OUTSIDE RECORDS SUMMARY | 2020-12-05 14:05 | XMS REPORT | Continuity of Care Document ---
:1955 Author Organization [facility] t Address [address] [place] [address] Care Team Providers Name Role Phone JEFFERSON Primary Care Physician Unavailable Gallo CAMPA, John Attending Clinician Poncho CAMPA Attending Clinician Beau CAMPA Attending Clinician Naldo MCDONOUGH, A Attending Clinician Oliver Attending Clinician Unavailable Whitney CAMPA Attending Clinician Belkis CAMPA Attending Clinician Wild CAMPA Attending Clinician Allison CAMPA, [facility] Attending Clinician Naif CAMPA Attending Clinician Bart GAUTAM Attending Clinician Zoraida LANCASTER Attending Clinician Jefferson CAMPA Attending Clinician Alex Barraza RN, T Attending Clinician Unavailable Mary Ellen CAMPA Attending Clinician Loco WALDRON, A Attending Clinician Unavailable Jaymie CAMPA Attending Clinician Pob, Lab Main Attending Clinician Unavailable Doctor Unassigned, Name Attending Clinician Unavailable Zuly WALDRON, May Attending Clinician Renetta Paz Attending Clinician Eloina WALDRON, L. Attending Clinician Unavailable Joby CAMPA, KOmidH. Attending Clinician Michelle WALDRON Attending Clinician Unavailable David CAMPA, J Attending Clinician Char Rowland Attending Clinician Nino TOLEDO Attending Clinician Jimy MACHINE DEICER ELEMENT WINDER Attending Clinician Chris LANCASTER Attending Clinician Jaciel ALTMAN Attending Clinician Unavailable Bob WALDRON, F Attending Clinician Unavailable Latasha COPE Attending Clinician Patrice TOLEDO Attending Clinician Beau MCDONOUGH Attending Clinician PONCHO Attending Clinician [facility]available [facility]ending Clinician Unavailable Gayle WALDRON Attending Clinician Unavailable Kika WALDRON, L Attending Clinician JIMY Attending Clinician Unavailable Santana Lou Attending Clinician Clayton ALTMAN Attending Clinician Nicholas WALDRON Attending Clinician Elma SCHUMACHER Attending Clinician Jairo Attending Clinician Unavailable Erin WALDRON, B Attending Clinician Unavailable Pam LANCASTER Attending Clinician Will WALDRON, A Attending Clinician Unavailable Kartik CAMPA Attending Clinician Roland Magana Attending Clinician Cleopatra WALDRON Attending Clinician Unavailable Payers Payer Name Policy Type Policy Effective Date Expiration Date Sour ce Number MEDICAREMEDICARE PART [id number] 2020 MD Ashish Chappell AND 00:00:00 [id number] 2019- [phone] STON, [facility] [id number] 2018 MD Taurus PEDRO[place]BS [place] PPO 5 00:00:00 [id number] 9-PresentPPO ACCESS NETWORK [id number] 2018 MD Monik valdovinos GENERICTPA [place] 00:00:00 HEALTHCARE [id number] 19-PresentAccess Network Problems Condition Condition Condition Status Onset Resolution Last Treating Co mments Source Name Details Category Date Date Treatment Clinician Date Severe Severe Disease Active protein-ca protein-ca 11-06 An derso jeane ching 00:00: n malnutriti malnutriti 00 on on Fever with Fever with Disease Active M D chills chills 11-06 Anderso 00:00: n 00 Hydronephr Hydronephr Disease Active 2019-10 M D osis osis - Anderso 00:00: n 00 Encounter Encounter Disease Active 2019-10 for for 1-10 Anderso preprocedu preprocedu 00:00: n ral ral 00 examinatio examinatio n n Abdominal Abdominal Disease Active pain, pain, -16 Anderso generalize generalize 00:00: n d d 00 Swelling Swelling Disease Active MD of right of right 9-16 Sergo o foot foot 00:00: n 00 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 rectum rectum 00:00: n 00 Rectal Rectal Disease Active 2018-10 MD cancer cancer 11-04 Anderso 00:00: n 00 Allergies, Adverse Reactions, [...] sure MD Hinojosa SARS-CoV-2 (event) Cigarettes smoked 2020-11-08 2020-11-08 MD Musa tovar current (pack per 00:00:00 00:00:00 day) - Reported Cigarette 2020-11-08 2020-11-08 MD Hinojosa pack-years 00:00:00 00:00:00 Tobacco use and 2020-11-08 2020-11-08 Never used MD Trotter on exposure 00:00:00 00:00:00 Alcohol intake 2020-11-08 2020-11-08 Ex-drinker MD Monik valdovinos 00:00:00 00:00:00 (finding) Tobacco Comment 2019-08-28 2019-08-28 Presently Vape, no Payal Renny Ashish 00:00:00 00:00:00 Smoking since 2017 Alcohol Comment 2019-08-28 2019-08-28 Have not drank MD Nat álvarez 00:00:00 00:00:00 since 1981 History of tobacco 2018-08-29 Current smoker MD Hinojosa use 00:00:00 Smoking Status Start Date Stop Date Source Former smoker 2020-11-08 00:00:00 2020-11-08 00:00:00 MD Condon son Medications Ordered Filled Start Stop Current Ordering Indication Dosage Frequency Signature Comments Components Source Medication Medication Date Date Medication? Clinician (SIG) Name Name methadone Yes Cancer 2.5mg Take 0.5 M D (DOLOPHINE) 2-18 associated tablets Anderso 5 mg tablet 00:00: pain (2.5 mg) n 00 by mouth every 8 (eight) hours. budesonide- Yes 2{puff} Inhale 2 MD formoterol 2-08 puffs by Taurus so (SYMBICORT) 15:56: mouth n 160-4.5 37 twice mcg/actuati daily. on inhaler docusate Yes 100mg Take 100 MD sodium 2-08 mg by Anderso (COLACE) 15:56: mouth n 100 mg 37 daily. capsule pantoprazol Yes Severe 40mg Take 1 MD e 1-27 protein-rocio packet (40 An derso (Protonix) 00:00: orie mg) by n 40 mg 00 malnutritio mouth granules n, not daily. for otherwise suspension specified polyethylen Yes Slow 17g Take 17 g M D e glycol 1-27 transit by mouth Musa rso (MIRALAX) 00:00: constipatio daily as n 17 g packet 00 n needed (constipat ion). Colostomy in place ciprofloxac Yes Urinary 750mg Take 1 MD in HCl 1-27 tract tablet Anderso (CIPRO) 750 00:00: infection (750 mg) n mg tablet 00 by mouth every 12 (twelve) hours. glyBURIDE Yes Diabetes 5mg Take 1 MD (DIABETA) 5 11-10 mellitus, tablet (5 Anderso mg tablet 00:00: not mg) by n 00 otherwise mouth specified daily. multivitami Yes Severe 1{tbl} Take 1 MD n tab 11-10 protein-rocio tablet by An derso tablet 00:00: orie mouth n 00 malnutritio daily. n, not otherwise specified sulfamethox No Urinary 1{tbl} Take 1 MD azole-trime 10-1812 tract tablet by A nderso thoprim 00:00: 05:59 infectious mouth n (BACTRIM 00 :00 disease twice DS) 800 daily for mg-160 mg 7 days. per tablet methadone 2019-10 Neoplasm 2.5mg Take 0.5 MD (Dolophine) 11-12 related tablets A nderso 5 mg tablet 00:00: 05:59 pain (2.5 mg) n 00 :00 (acute) by mouth (chronic) every 8 (eight) hours for 30 days. methadone 2019-10 Neoplasm 2.5mg Take 0.5 MD (Dolophine) 12-12 related tablets A nderso 5 mg tablet 00:00: 00:00 pain (2.5 mg) n 00 :00 (acute) by mouth (chronic) every 8 (eight) hours for 30 days. nitrofurant 2019-10 Dysuria 100mg Take 1 MD oin 11-30 capsule Anderso monohyd/m-c 00:00: 00:00 (100 mg) n ryst 00 :00 by mouth (Macrobid) twice 100 mg daily. capsule oxyCODONE-a 2019-10 Yes Cancer 1{tbl} Take 1 MD cetaminophe 11-07 associated tablet by Anderso n 00:00: pain mouth n (Percocet) 00 every 8 5 mg-325 mg (eight) per tablet hours as needed for severe pain. methadone 2019-10 No Neoplasm 2.5mg Take 0.5 MD (Dolophine) 1-24 12-28 related tablets A nderso 5 mg tablet 00:00: 21:43 pain (2.5 mg) n 00 :09 (acute) by mouth (chronic) every 8 (eight) hours. amLODIPine 2019-10 Yes hypertensio 5mg Take 1 MD (Norvasc) 5 1-09 n tablet (5 And erso mg tablet 00:00: mg) by n 00 mouth daily. regorafenib 2019-10 Rectal 160mg Take 4 MD (Stivarga) 1-06 01-15 cancer tablets And erso 40 mg 00:00: 00:00 (160 mg) n tablet 00 :00 by mouth daily. Take on days #1-21 of every 28 day cycle. aspirin 81 2019-10 1{tbl} Take 1 MD mg EC 0-29 05- tablet by Anderso tablet 09:21: 00:00 mouth n 31 :00 daily. methadone 2019-10 No Neoplasm 2.5mg Take 0.5 MD (Dolophine) 0-19 11-23 related tablets A nderso 5 mg tablet 00:00: 00:00 pain (2.5 mg) n 00 :00 (acute) by mouth (chronic) every 8 (eight) hours. gabapentin 2019-10 Yes Neoplasm 400mg Take 1 MD (Neurontin) 0-16 related capsule An derso 400 mg 00:00: pain (400 mg) n capsule 00 (acute) by mouth (chronic) twice daily. oxyCODONE 2019-10 No Cancer 9mg Take 1 MD myristate 0-16 10-19 associated capsule (9 Anderso (Xtampza 00:00: 00:00 pain mg) by n ER) 9 mg 12 00 :00 mouth hr capsule twice daily. oxyCODONE-a No Cancer 1{tbl} Take 1 MD cetaminophe 9-15 11-23 associated tablet by Anderso n 00:00: 00:00 pain mouth n (Percocet) 00 :00 every 8 5 mg-325 mg (eight) per tablet hours as needed for severe pain. oxyCODONE No Cancer 9mg Take 1 MD myristate 9-15 10-16 associated capsule (9 Anderso (Xtampza 00:00: 00:00 pain mg) by n ER) 9 mg 12 00 :00 mouth hr capsule twice daily. morphine 2019- No Adenocarcin 15mg Take 1 MD (MS CONTIN) 06-07 09-15 tesha of tablet (15 Anderso 15 mg ER 00:00: 00:00 rectum mg) by n tablet 00 :00 mouth every 12 (twelve) hours. magic 2020- No Ulcerative 10mL Swish and MD mouthwash 06-02 01-15 oral spit 10 mL And erso (sucralfate 00:00: 00:00 mucositis 4 (four) n /maalox/dip 00 :00 due to times a henhydramin antineoplas day. e) tic therapy (AMB-CMPD) magic 2019- No Ulcerative 10mL Swish and MD mouthwash 06-02-19 oral spit 10 mL And erso (sucralfate 00:00: 00:00 mucositis 4 (four) n /maalox/dip 00 :00 due to times a henhydramin antineoplas day. e) tic therapy (AMB-CMPD) morphine No Adenocarcin 15mg Take 1 MD (MS CONTIN) 05-07 08-20 tesha of tablet (15 Anderso 15 mg ER 00:00: 00:00 rectum mg) by n tablet 00 :00 mouth every 12 (twelve) hours. HYDROcodone No Adenocarcin 1{tbl} Take 1 MD -acetaminop 05-06 08-17 tesha of tablet by Anderso hen (NORCO) [...] No Neoplasm 400mg Take 1 MD (Neurontin) 05-03 10-16 related capsule A nderso 400 mg 00:00: 00:00 pain (400 mg) n capsule 00 :00 (acute) by mouth (chronic) twice daily. regorafenib 2020- No Adenocarcin 160mg Take 4 MD (Stivarga) 7-08 01-15 tesha of tablets And erso 40 mg 00:00: 00:00 rectum (160 mg) n tablet 00 :00 by mouth daily. To take on days #1-21 of every 28 day cycle HYDROcodone 2020- No Adenocarcin 1{tbl} Take 1 MD -acetaminop 6-29 07-23 tehsa of tablet by Anderso hen ([employer] 00:00: 00:00 rectum mouth n 10 mg-325 00 :00 every 6 mg per (six) tablet hours as needed for moderate pain. magnesium 2019-0 Yes Adenocarcin 500mg Take 1 MD oxide 500 6-10 tesha of tablet Sergo o mg tablet 00:00: rectum (500 mg) n 00 by mouth daily. traMADol 2020- No Rectal 50mg Take 1 MD (ULTRAM) 50 6-10 08-17 cancer tablet (50 Anderso mg tablet 00:00: 00:00 mg) by n 00 :00 mouth every 6 (six) hours as needed for moderate pain. HYDROcodone 2019- No Rectal 1{tbl} Take 1 MD -acetaminop 6-10 06-29 cancer tablet by Anderso hen ([employer]) 00:00: 00:00 mouth n 7.5 mg-325 00 :00 every 4 mg per (four) tablet hours as needed for moderate pain or severe pain. HYDROcodone 2020- No Rectal 1{tbl} Take 1 MD -acetaminop 5-01 06-10 cancer tablet by Anderso hen ([employer]) 00:00: 00:00 mouth n 7.5 mg-325 00 :00 every 4 mg per (four) tablet hours as needed for moderate pain or severe pain. traMADol 2020- No Rectal 50mg Take 1 MD (ULTRAM) 50 4-09 06-10 cancer tablet (50 Anderso mg tablet 00:00: 00:00 mg) by n 00 :00 mouth every 6 (six) hours as needed for moderate pain. HYDROcodone 2020- No Rectal 1{tbl} Take 1 MD -acetaminop 3-12 05-01 cancer tablet by Anderso hen ([employer]) 00:00: 00:00 mouth n 7.5 mg-325 00 :00 every 4 mg per (four) tablet hours as needed for moderate pain or severe pain. diphenoxyla Yes Rectal 1{tbl} Take 1 MD te-atropine 3-05 cancer tablet by Misti mcmillan ([employer]) 00:00: mouth n 2.5 00 every 6 mg-0.025 mg (six) per tablet hours as needed for diarrhea. Not to exceed 8 tablets per day HYDROcodone 2019- No Rectal 1{tbl} Take 1 MD -acetaminop 3-03 03-12 cancer tablet by Monik martinez ([place]) 00:00: 00:00 mouth n 7.5 mg-325 00 [...] 2018-10- No Adenocarcin Apply to MD rilocaine 11-25- tesha of Port-A-Cat A nderso (EMLA) 00:00: 00:00 rectum h area 30 n 2.5-2.5% 00 :00 to 45 cream minutes prior to port access as directed (topical anesthetic ). ondansetron 2018-10- No Adenocarcin 8mg Take 1 MD (ZOFRAN) 8 11-25-21 tesha of tablet (8 A nderso mg tablet 00:00: 00:00 rectum mg) by n 00 :00 mouth every 8 (eight) hours as needed for nausea or vomiting. (First Choice) prochlorper 2018-10- No Adenocarcin 10mg Take 1 MD azine 2-11 04-21 tesha of tablet (10 Taurus so (COMPAZINE) 00:00: 00:00 rectum mg) by n 10 mg 00 :00 mouth tablet every 6 (six) hours as needed for nausea or vomiting. ([employer]) PARoxetine 2018-10 Yes 20mg Take 20 mg M D (PAXIL) 40 0-22 by mouth Taurus so mg tablet 00:00: daily. n 00 cholestyram 2018-10- No 2{packe Take 2 MD ine 0-22 08-17 t} packets by Monik (QUESTRAN) 00:00: 00:00 mouth n 4 g packet 00 :00 daily. metFORMIN 2018-10 Yes type 2 1{tbl} Take 1 MD (GLUCOPHAGE 0-06 diabetes tablet by Anderso ) 1000 mg 00:00: mellitus mouth n tablet 00 twice daily. glyBURIDE 2018-10- No 1{tbl} Take 1 MD (DIABETA) 5 0-06 01-27 tablet by An derso mg tablet 00:00: 00:00 mouth n 00 :00 twice daily. metoprolol Yes 1{tbl} Take 1 MD succinate 8-25 tablet by Taurus so (TOPROL XL) 00:00: mouth n 25 mg 24 hr 00 twice tablet daily. losartan 2019- No 1{tbl} Take 1 MD (COZAAR) 25 8-16 12-03 tablet by An derso mg tablet 00:00: 00:00 mouth n 00 :00 daily. Vital Signs Vital Name Observation Time Observation Value Comments Source WEIGHT 2020-04-09 00:00:00 72.6 kg WEIGHT 2020-04-09 00:00:00 72.6 kg Systolic blood pressure 2020-11-10 19:09:00 132 mm[Hg] MD Hinojosa Diastolic blood pressure 2020-11-10 19:09:00 64 mm[Hg] MD Hinojosa Heart rate 2020-11-10 19:09:00 106 /min MD Taurus mayo Body temperature 2020-11-10 19:09:00 37 Marci MD Misti mclean Oxygen saturation in 2020-11-10 19:09:00 95 /min MD Hinojosa Arterial blood by Pulse oximetry Respiratory rate 2020-11-10 15:37:00 18 /min MD Misti mclean Body weight 2020-11-08 13:46:00 66.2 kg MD Taurus mayo BMI 2020-11-08 13:46:00 24.92 kg/m2 MD Taurus mayo Body height 2020-11-05 08:15:00 163 cm MD Taurus mayo Procedures Procedure Date / Time Performed Performing Clinician [facility] e POC GLUCOSE SCREEN 2020-11-10 18:09:00 Sammy Arriaga MD on POC GLUCOSE SCREEN 2020-11-10 13:55:00 Sammy Arriaga MD on COMPLETE BLOOD COUNT W/ 2020-11-10 07:06:00 Day, Vanda mclean DIFFERENTIAL COMPREHENSIVE METABOLIC PANEL 2020-11-10 07:06:00 Day, Vanda Hinojosa MAGNESIUM LEVEL 2020-11-10 07:06:00 Day, Vanda Hinojosa PHOSPHORUS LEVEL 2020-11-10 07:06:00 Day, Vanda Hinojosa NT PRO BNP 2020-11-10 07:06:00 Eli Hitchcock MD Results CBC 2020-11-10 07:06:00 Day, Vanda Hinojosa MANUAL DIFFERENTIAL 2020-11-10 07:06:00 Day, Vanda mayo GLUCOSE LEVEL 2020-11-10 07:06:00 Day, Vanda Hinojosa BLOOD UREA NITROGEN 2020-11-10 07:06:00 Day, Vanda mayo ELECTROLYTE PANEL 2020-11-10 07:06:00 Day, Vanda valdovinos SERUM CREATININE 2020-11-10 07:06:00 Day, Vanda Hinojosa .GLOMERULAR FILTRATION RATE 2020-11-10 07:06:00 Day, Vanda Hinojosa CALCIUM LEVEL TOTAL 2020-11-10 07:06:00 Day, Vanda mayo ALBUMIN LEVEL 2020-11-10 07:06:00 Day, Vanda Hinojosa ALKALINE PHOSPHATASE 2020-11-10 07:06:00 Day, Vanda tovar ALANINE AMINOTRANSFERASE 2020-11-10 07:06:00 Day, Vanda Hinojosa ASPARTATE AMINOTRANSFERASE 2020-11-10 07:06:00 Day, Vanda Hinojosa TOTAL PROTEIN 2020-11-10 07:06:00 Day, Vanda Hinojosa FRACTIONATED BILIRUBIN 2020-11-10 07:06:00 Day, Vanda montielson POC GLUCOSE SCREEN 2020-11-10 04:31:00 Sammy Arriaga MD Sergo on POC GLUCOSE SCREEN 2020-11-09 23:53:00 Sammy Arriagaers on TRANSFUSE RED BLOOD CELLS 2020-11-09 23:48:42 Eli Hitchcock PREPARE RBC 2020-11-09 19:11:00 Eli Hitchcock MD COMPLETE BLOOD COUNT W/ 2020-11-09 15:35:00 Eli Hitchcock MD INDICES POC GLUCOSE SCREEN 2020-11-09 13:15:00 Sammy Arriaga MD Sergo on COMPLETE BLOOD COUNT W/ 2020-11-09 06:41:00 Day, Vanda Chappell nderson DIFFERENTIAL COMPREHENSIVE METABOLIC PANEL 2020-11-09 06:41:00 Day, Vanda Hinojosa MAGNESIUM LEVEL 2020-11-09 06:41:00 Day, Vanda Hinojosa PHOSPHORUS LEVEL 2020-11-09 06:41:00 Day, Vanda Hinojosa Results CBC 2020-11-09 06:41:00 Day, Vanda Hinojosa MANUAL DIFFERENTIAL 2020-11-09 06:41:00 Day, Vanda mayo GLUCOSE LEVEL 2020-11-09 06:41:00 Day, Vanda Hinojosa BLOOD UREA NITROGEN 2020-11-09 06:41:00 Day, Vanda CAMPA Taurus son ELECTROLYTE PANEL 2020-11-09 06:41:00 Day, Vanda Trottero n SERUM CREATININE 2020-11-09 06:41:00 Day, Vanda Hinojosa .GLOMERULAR FILTRATION RATE 2020-11-09 06:41:00 Day, Vanda Hinojosa CALCIUM LEVEL TOTAL 2020-11-09 06:41:00 Day, Vanda mayo ALBUMIN LEVEL 2020-11-09 06:41:00 Day, Vanda Hinojosa ALKALINE PHOSPHATASE 2020-11-09 06:41:00 Day, Vanda tovar ALANINE AMINOTRANSFERASE 2020-11-09 06:41:00 Day, Vanda Hinojosa ASPARTATE AMINOTRANSFERASE 2020-11-09 06:41:00 Day, Vanda Hinojosa TOTAL PROTEIN 2020-11-09 06:41:00 Day, Vanda Hinojosa FRACTIONATED BILIRUBIN 2020-11-09 06:41:00 Day, Vanda montielson POC GLUCOSE SCREEN 2020-11-09 04:42:00 Sammy Arriaga MD on POC GLUCOSE SCREEN 2020-11-09 00:20:00 Sammy Arriaga MD on ECHOCARDIOGRAM 2D COMPLETE 2020-11-08 20:31:18 Maddi Waters POC GLUCOSE SCREEN 2020-11-08 19:24:00 Sammy Arriaga MD on IR NEPHROSTOMY EXCHANGE 2020-11-08 17:54:50 Maddi Waters MDrson POC GLUCOSE SCREEN 2020-11-08 14:43:00 Sammy Arriaga MD on URINE CULTURE 2020-11-08 09:14:00 Devora Waters MD URINALYSIS MICROSCOPIC 2020-11-08 09:14:00 Devora Waters MD ndersgina URINALYSIS WITH MICROSCOPIC 2020-11-08 09:14:00 Sen Cooper MD IF INDICATED BLOODCULTURE 2020-11-08 07:10:00 Devora Waters MD BLOODCULTURE 2020-11-08 06:37:00 Devora Waters MD POTASSIUM LEVEL 2020-11-08 06:30:00 Maddi Waters MD MAGNESIUM LEVEL 2020-11-08 06:30:00 Maddi Waters MD PHOSPHORUS LEVEL 2020-11-08 06:30:00 Maddi Waters MD SODIUM LEVEL 2020-11-08 06:30:00 Maddi Waters MD COMPLETE BLOOD COUNT W/ 2020-11-08 06:30:00 Day, Vanda mclean DIFFERENTIAL COMPREHENSIVE METABOLIC PANEL 2020-11-08 06:30:00 Day, Vanda Hinojosa TYPE AND SCREEN 2020-11-08 06:30:00 Day, Vanda Hinojosa ABORH 2020-11-08 06:30:00 Day, Vanda Hinojosa ANTIBODY SCREEN 2020-11-08 06:30:00 Day, Vanda Hinojosa Results CBC 2020-11-08 06:30:00 Day, Vanda Hinojosa MANUAL DIFFERENTIAL 2020-11-08 06:30:00 Day, Vanda mayo GLUCOSE LEVEL 2020-11-08 06:30:00 Day, Vanda Hinojosa BLOOD UREA NITROGEN 2020-11-08 06:30:00 Day, Vanda mayo ELECTROLYTE PANEL 2020-11-08 06:30:00 Day, Vanda Trottero bonifacio SERUM CREATININE 2020-11-08 06:30:00 Day, Vanda Hinojosa .GLOMERULAR FILTRATION RATE 2020-11-08 06:30:00 Day, Vanda Hinojosa CALCIUM LEVEL TOTAL 2020-11-08 06:30:00 Day, Vanda mayo ALBUMIN LEVEL 2020-11-08 06:30:00 Day, Vanda Hinojosa ALKALINE PHOSPHATASE 2020-11-08 06:30:00 Day, Vanda Vigil rson ALANINE AMINOTRANSFERASE 2020-11-08 06:30:00 Day, Vanda Hinojosa ASPARTATE AMINOTRANSFERASE 2020-11-08 06:30:00 Day, Vanda Hinojosa TOTAL PROTEIN 2020-11-08 06:30:00 Day, Vanda Hinojosa FRACTIONATED BILIRUBIN 2020-11-08 06:30:00 Day, Vanda CAMPA An derson CLOT EXPIRATION DATE 2020-11-08 06:30:00 Day, Vanda Vigil rson TMP INTERPRETATION ANTIBODY 2020-11-08 06:30:00 Day, Vanda Hinojosa SCREEN NEGATIVE TMP CROSSMATCH INTERPRETATION 2020-11-08 06:30:00 Day, Vanda Hinojosa POC GLUCOSE SCREEN 2020-11-08 00:11:00 Sen Cooper MD POC GLUCOSE SCREEN 2020-11-07 19:04:00 Sen Cooper MD MRSA CULTURE 2020-11-07 16:52:00 Maddi Waters MD POC GLUCOSE SCREEN 2020-11-07 14:08:00 Sen Cooper MD VANCOMYCIN LEVEL TROUGH 2020-11-07 07:04:00 Sen Cooper MD NT PRO BNP 2020-11-07 07:04:00 Maddi Waters MD COMPLETE BLOOD COUNT W/ 2020-11-07 07:04:00 Day, Vanda delcidrsgina DIFFERENTIAL COMPREHENSIVE METABOLIC PANEL 2020-11-07 07:04:00 Day, Vanda Hinojosa MAGNESIUM LEVEL 2020-11-07 07:04:00 Day, Vanda Hinojosa PHOSPHORUS LEVEL 2020-11-07 07:04:00 Day, Vanda Hinojosa PROTHROMBIN TIME 2020-11-07 07:04:00 Day, Vanda Hinojosa PARTIAL THROMBOPLASTIN TIME 2020-11-07 07:04:00 Day, Vanda Hinojosa Results CBC 2020-11-07 07:04:00 Day, Vanda Hinojosa MANUAL DIFFERENTIAL 2020-11-07 07:04:00 Day, Vanda mayo GLUCOSE LEVEL 2020-11-07 07:04:00 Day, Vanda Hinojosa BLOOD UREA NITROGEN 2020-11-07 07:04:00 Day, Vanda mayo ELECTROLYTE PANEL 2020-11-07 07:04:00 Day, Vanda Trottero n SERUM CREATININE 2020-11-07 07:04:00 Day, Vanda Hinojosa .GLOMERULAR FILTRATION RATE 2020-11-07 07:04:00 Day, Vanda Hinojosa CALCIUM LEVEL TOTAL 2020-11-07 07:04:00 Day, Vanda mayo ALBUMIN LEVEL 2020-11-07 07:04:00 Day, Vanda Hinojosa ALKALINE PHOSPHATASE 2020-11-07 07:04:00 Day, Vanda tovar ALANINE AMINOTRANSFERASE 2020-11-07 07:04:00 Day, Vanda Hinojosa ASPARTATE AMINOTRANSFERASE 2020-11-07 07:04:00 Day, Vanda Hinojosa TOTAL PROTEIN 2020-11-07 07:04:00 Day, Vanda Hinojosa FRACTIONATED BILIRUBIN 2020-11-07 07:04:00 Day, Vanda álvarez POC GLUCOSE SCREEN 2020-11-07 03:52:00 Sen Cooper MD POC GLUCOSE SCREEN 2020-11-06 23:35:[address] CHEST ABDOMEN PELVIS W 2020-11-06 22:32:58 Maddi Waters MD CONTRAST POC GLUCOSE SCREEN 2020-11-06 20:47:00 Sen Cooper MD POC GLUCOSE SCREEN 2020-11-06 15:40:00 Sen Cooper MD HEMOGLOBIN A1C 2020-11-06 06:36:00 Maddi Waters MD COMPLETE BLOOD COUNT W/ 2020-11-06 06:36:00 Alex Olson MD nderson DIFFERENTIAL BASIC METABOLIC PANEL, 2020-11-06 06:36:00 Alex Olson MD CALCIUM TOTAL MAGNESIUM LEVEL 2020-11-06 06:36:00 Alex Olson MD PHOSPHORUS LEVEL 2020-11-06 06:36:00 Alex Olson MD HC PROCALCITONIN (PCT) 2020-11-06 06:36:00 Maddi Waters MD THYROID STIMULATING HORMONE 2020-11-06 06:36:00 Maddi Waters MD FREE THYROXINE 2020-11-06 06:36:00 Maddi Waters MD VITAMIN B12 LEVEL 2020-11-06 06:36:00 Maddi Waters MD Results CBC 2020-11-06 06:36:00 Alex Olson MD MANUAL DIFFERENTIAL 2020-11-06 06:36:00 Alex Olson MD GLUCOSE LEVEL 2020-11-06 06:36:00 Alex Olson MD BLOOD UREA NITROGEN 2020-11-06 06:36:00 Alex Olson MD ELECTROLYTE PANEL 2020-11-06 06:36:00 Alex Olson MD SERUM CREATININE 2020-11-06 06:36:00 Alex Olson MD .GLOMERULAR FILTRATION RATE 2020-11-06 06:36:00 Alex Olson MD CALCIUM LEVEL TOTAL 2020-11-06 06:36:00 Alex Olson MD Taurus son POC GLUCOSE SCREEN 2020-11-06 04:11:00 Sen Cooper MD OCCULT BLOOD STOOL 2020-11-06 00:35:00 Maddi Waters MD on EKG, 12-LEAD (PORTABLE) 2020-11-06 00:00:00 Maddi Waters MD nderson POC GLUCOSE SCREEN 2020-11-05 23:22:00 Sen Cooper MD US LEG VENOUS DOPPLER 2020-11-05 22:48:14 Maddi Waters MD And juarezon BILATERAL US ABDOMEN LIMITED 2020-11-05 22:13:00 Maddi Waters MD on US PELVIS LIMITED 2020-11-05 22:13:00 Maddi Waters MD n TRANSFUSE RED BLOOD CELLS 2020-11-05 18:34:10 Alex Olson MD XR CHEST 1 VW 2020-11-05 17:34:10 Maddi Waters MD TROPONIN T 2020-11-05 16:17:00 Maddi Waters MD LACTIC ACID, VENOUS 2020-11-05 16:17:00 Maddi Waters MD son NT PRO BNP 2020-11-05 16:17:00 Maddi Waters MD POC GLUCOSE SCREEN 2020-11-05 15:00:00 Sen Cooper MD XR CHEST 1 VW 2020-11-05 07:37:13 Alex Olson MD TYPE AND SCREEN 2020-11-05 07:25:00 Alex Olson MD ABORH 2020-11-05 07:25:00 Alex Olson MD ANTIBODY SCREEN 2020-11-05 07:25:00 Alex Olson MD CLOT EXPIRATION DATE 2020-11-05 07:25:00 Alex Olson MD rson TMP INTERPRETATION ANTIBODY 2020-11-05 07:25:00 Alex Olson MD SCREEN NEGATIVE TMP CROSSMATCH INTERPRETATION 2020-11-05 07:25:00 Suzy Olson MD PREPARE RBC 2020-11-05 07:13:00 Alex Olson MD URINE CULTURE 2020-11-05 06:53:00 Alex Olson MD BLOODCULTURE 2020-11-05 06:53:00 Alex Olson MD URINALYSIS WITH MICROSCOPIC 2020-11-05 06:53:00 Alex Olson MD IF INDICATED URINALYSIS MICROSCOPIC 2020-11-05 06:53:00 Alex Olson MD derson BLOODCULTURE 2020-11-05 06:38:00 Alex Olson MD MAGNESIUM LEVEL 2020-11-05 06:38[facility] 2020-11-05 06:38:00 Alex Olson MD COMPREHENSIVE METABOLIC PANEL 2020-11-05 06:38:00 Suzy Olson MD LACTIC ACID, VENOUS 2020-11-05 06:38:00 Alex Olson MD COMPLETE BLOOD COUNT W/ 2020-11-05 06:38:00 Alex Olson MDrsgina DIFFERENTIAL PROTHROMBIN TIME 2020-11-05 06:38:00 [facility] PART[facility] THROMBOPLASTIN TIME 2020-11-05 06:38:00 Alex Olson MD GLUCOSE LEVEL 2020-11-05 06:38:00 lAex Olson MD BLOOD UREA NITROGEN 2020-11-05 06:38:00 Alex Olson MD ELECTROLYTE PANEL 2020-11-05 06:38:00 Alex Olson MD SERUM CREATININE 2020-11-05 06:38:00 Alex Olson MD .GLOMERULAR FILTRATION RATE 2020-11-05 06:38:00 Alex Olson MD CALCIUM LEVEL TOTAL 2020-11-05 06:38:00 Alex Olson MD ALBUMIN LEVEL 2020-11-05 06:38:00 Alex Olson MD ALKALINE PHOSPHATASE 2020-11-05 06:38:00 Alex Olson MD ALANINE AMINOTRANSFERASE 2020-11-05 06:38:00 Alex Olson MD ASPARTATE AMINOTRANSFERASE 2020-11-05 06:38:00 Alex Olson TOTAL PROTEIN 2020-11-05 06:38:00 Alex Olson MD FRACTIONATED BILIRUBIN 2020-11-05 06:38:00 Alex Olson MD derson Results CBC 2020-11-05 06:38:00 Alex Olson MD MANUAL DIFFERENTIAL 2020-11-05 06:38:00 Alex Olson MD Taurus son INFLUENZA A/B + COVID-19 2020-11-05 06:21:00 Alex Olson MD ASYMPTOMATIC-L POC GLUCOSE SCREEN 2020-11-05 06:15:00 Alex Olson MD on OSI CHEST 2020-11-05 05:16:09 Pipo Castellano MD OSI CT ABDOMEN AND PELVIS 2020-11-05 05:15:56 Pipo Castellano MD EKG, 12-LEAD (PORTABLE) 2020-11-05 00:00:00 Maddi Waters MDrson TRANSFERRIN 2020-10-29 17:21:00 Tu, Jojo Hinojosa VITAMIN B12 LEVEL 2020-10-29 17:21:00 Tu, Jojo Ruggiero n FERRITIN LVL 2020-10-29 17:21:00 Tu, Jojo Hinojosa FOLATE LEVEL 2020-10-29 17:21:00 Tu, Jojo Hinojosa ERYTHROPOIETIN LEVEL 2020-10-29 17:21:00 Tu, Jojo Vigil rson IRON LEVEL 2020-10-29 17:21:00 Tu, Jojo Hinojosa RETICULOCYTE COUNT AUTOMATED 2020-10-29 17:21:00 Tu, Jojo Hinojosa COMPLETE BLOOD COUNT W/ 2020-10-29 16:31:21 Tu, Jojo declidrson DIFFERENTIAL COMPREHENSIVE METABOLIC PANEL 2020-10-29 16:31:21 Tu, Jojo Hinojosa MAGNESIUM LEVEL 2020-10-29 16:31:21 Tu, Jojo Hinojosa CARCINOEMBRYONIC ANTIGEN 2020-10-29 16:31:21 Tu, Jojo Hinojosa Results CBC 2020-10-29 16:31:21 Tu, Jojo Hinojosa MANUAL DIFFERENTIAL 2020-10-29 16:31:21 Tu, Jojo Tiradoer son GLUCOSE LEVEL 2020-10-29 16:31:21 Tu, Jojo Hinojosa BLOOD UREA NITROGEN 2020-10-29 16:31:21 Tu, Jojo CAMPA Taurus son ELECTROLYTE PANEL 2020-10-29 16:31:21 Tu, Jojo valdovinos SERUM CREATININE 2020-10-29 16:31:21 Tu, Jojo Hinojosa .GLOMERULAR FILTRATION RATE 2020-10-29 16:31:21 Tu, Jojo Hinojosa CALCIUM LEVEL TOTAL 2020-10-29 16:31:21 Tu, Jojo CAMPA Taurus son ALBUMIN LEVEL 2020-10-29 16:31:21 Tu, Jojo Hinojosa ALKALINE PHOSPHATASE 2020-10-29 16:31:21 Tu, Jojo contrerason ALANINE AMINOTRANSFERASE 2020-10-29 16:31:21 Tu, Jojo Hinojosa ASPARTATE AMINOTRANSFERASE 2020-10-29 16:31:21 Tu, Jojo Hinojosa TOTAL PROTEIN 2020-10-29 16:31:21 Tu, Jojo Hinojosa FRACTIONATED BILIRUBIN 2020-10-29 16:31:21 Tu, Jojo montielson CT CHEST ABDOMEN PELVIS W 2020-09-20 19:46:16 Tu, Jojo Hinojosa CONTRAST POC CREATININE 2020-09-20 18:46:00 Tu, Jojo Hinojosa COMPLETE BLOOD COUNT W/ 2020-09-20 18:34:00 Tu, Jojo delcidrson DIFFERENTIAL COMPREHENSIVE METABOLIC PANEL 2020-09-20 18:34:00 Tu, Jojo Hinojosa MAGNESIUM LEVEL 2020-09-20 18:34:00 Tu, Jojo Hinojosa CARCINOEMBRYONIC ANTIGEN 2020-09-20 18:34:00 Tu, Jojo Hinojosa Results CBC 2020-09-20 18:34:00 Tu, Jojo Hinojosa MANUAL DIFFERENTIAL 2020-09-20 18:34:00 Tu, Jojo CAMPA Taurus son GLUCOSE LEVEL 2020-09-20 18:34:00 Tu, Jojo Hinojosa BLOOD UREA NITROGEN 2020-09-20 18:34:00 Tu, Jojo CAMPA Taurus son ELECTROLYTE PANEL 2020-09-20 18:34:00 Tu, Jojo valdovinos SERUM CREATININE 2020-09-20 18:34:00 Tu, Jojo Hinojosa .GLOMERULAR FILTRATION RATE 2020-09-20 18:34:00 Tu, Jojo Hinojosa CALCIUM LEVEL TOTAL 2020-09-20 18:34:00 Tu, Jojo Condon son ALBUMIN LEVEL 2020-09-20 18:34:00 Tu, Jojo [...] MANUAL DIFFERENTIAL 2020-08-23 16:42:00 Emperatriz Oneill MD GLUCOSE LEVEL 2020-08-23 16:42:00 Emperatriz Oneill MD BLOOD UREA NITROGEN 2020-08-23 16:42:00 Emperatriz Oneill MD ELECTROLYTE PANEL 2020-08-23 16:42:00 Emperatriz Oneill MD SERUM CREATININE 2020-08-23 16:42:00 Emperatriz Oneill MD .GLOMERULAR FILTRATION RATE 2020-08-23 16:42:00 Emperatriz Oneill MD CALCIUM LEVEL TOTAL 2020-08-23 16:42:00 Emperatriz Oneill MD Taurus son ALBUMIN LEVEL 2020-08-23 16:42:00 Emperatriz Oneill MD ALKALINE PHOSPHATASE 2020-08-23 16:42:00 Emperatriz Oneill MD Musa rson ALANINE AMINOTRANSFERASE 2020-08-23 16:42:00 Emperatriz Oneill [...] MAGNESIUM LEVEL 2020-07-13 20:32:00 Felicia Ibrahim MD Results CBC 2020-07-13 20:32:00 Felicia Ibrahim MD MANUAL DIFFERENTIAL 2020-07-13 20:32:00 Felicia Ibrahim MD And erson GLUCOSE LEVEL 2020-07-13 20:32:00 Felicia Ibrahim MD ELECTROLYTE PANEL 2020-07-13 20:32:00 Felicia Ibrahim MD Taurus son SERUM CREATININE 2020-07-13 20:32:00 Felicia Ibrahim MD on .GLOMERULAR FILTRATION RATE 2020-07-13 20:32:00 Karon Ibrahim CALCIUM LEVEL TOTAL 2020-07-13 20:32:00 Felicia Ibrahim MD And erson ALBUMIN LEVEL 2020-07-13 20:32:00 Felicia Ibrahim MD ALKALINE PHOSPHATASE 2020-07-13 20:32:00 Felicia Ibrahim MDson ALANINE AMINOTRANSFERASE 2020-07-13 20:32:00 Felicia Ibrahim ASPARTATE AMINOTRANSFERASE 2020-07-13 20:32:00 Felicia Ibrahim MD TOTAL PROTEIN 2020-07-13 20:32:00 Felicia Ibrahim MDo bonifacio FRACTIONATED BILIRUBIN 2020-07-13 20:32:00 Felicia Ibrahim MD BLOOD UREA NITROGEN 2020-07-13 20:32:00 Felicia Ibrahim MD And erson COMPLETE BLOOD COUNT W/ 2020-06-30 14:21:00 Felicia Ibrahim MD DIFFERENTIAL MAGNESIUM LEVEL 2020-06-30 14:21:00 Felicia Ibrahim MD Andjuarezo bonifacio COMPREHENSIVE METABOLIC PANEL 2020-06-30 14:21:00 Janene Ibrahim MD Results CBC 2020-06-30 14:21:00 Felicia Ibrahim MD MANUAL DIFFERENTIAL 2020-06-30 14:21:00 Felicia Ibrahim MD And erson GLUCOSE LEVEL 2020-06-30 14:21:00 Felicia Ibrahim MDo bonifacio BLOOD UREA NITROGEN 2020-06-30 14:21:00 Felicia Ibrahim MD And erson ELECTROLYTE PANEL 2020-06-30 14:21:00 Felicia Ibrahim MD Taurus son SERUM CREATININE 2020-06-30 14:21:00 Felicia Ibrahim MD Sergo on .GLOMERULAR FILTRATION RATE 2020-06-30 14:21:00 Karon Ibrahim CALCIUM LEVEL TOTAL 2020-06-30 14:21:00 Felicia Ibrahim MD And erson ALBUMIN LEVEL 2020-06-30 14:21:00 Felicia Ibrahim MD Andjuarezo n ALKALINE PHOSPHATASE 2020-06-30 14:21:00 Felicia Ibrahim MD derson ALANINE AMINOTRANSFERASE 2020-06-30 14:21:00 Felicia Ibrahim ASPARTATE AMINOTRANSFERASE 2020-06-30 14:21:00 Felicia Ibrahim MD TOTAL PROTEIN 2020-06-30 14:21:00 Felicia Ibrahim MDo bonifacio FRACTIONATED BILIRUBIN 2020-06-30 14:21:00 Felicia Ibrahim MD COMPREHENSIVE METABOLIC PANEL 2020-06-02 14:41:00 Jojo Isaac MD COMPLETE BLOOD COUNT W/ 2020-06-02 14:41:00 Tu, Jojo delcidrson DIFFERENTIAL MAGNESIUM LEVEL 2020-06-02 14:41:00 Tu, Jojo Hinojosa CARCINOEMBRYONIC ANTIGEN 2020-06-02 14:41:00 Tu, Jojo Hinojosa GLUCOSE LEVEL 2020-06-02 14:41:00 Tu, Jojo Hinojosa BLOOD UREA NITROGEN 2020-06-02 14:41:00 Tu, Jojo mayo ELECTROLYTE PANEL 2020-06-02 14:41:00 Tu, Jojo valdovinos SERUM CREATININE 2020-06-02 14:41:00 Tu, Jojo Hinojosa .GLOMERULAR FILTRATION RATE 2020-06-02 14:41:00 Tu, Jojo Hinojosa CALCIUM LEVEL TOTAL 2020-06-02 14:41:00 Tu, Jojo CAMPA Taurusmark mayo ALBUMIN LEVEL 2020-06-02 14:41:00 Tu, Jojo Hinojosa ALKALINE PHOSPHATASE 2020-06-02 14:41:00 Tu, Jojo Vigil rson ALANINE AMINOTRANSFERASE 2020-06-02 14:41:00 Tu, Jojo Hinojosa ASPARTATE AMINOTRANSFERASE 2020-06-02 14:41:00 Tu, Jojo Hinojosa TOTAL PROTEIN 2020-06-02 14:41:00 Tu, Jojo Hinojosa FRACTIONATED BILIRUBIN 2020-06-02 14:41:00 Tu, Jojo Johns derson Results CBC 2020-06-02 14:41:00 Tu, Jojo Hinojosa MANUAL DIFFERENTIAL 2020-06-02 14:41:00 Tu, Jojo mayo FERRITIN LVL 2020-04-21 14:52:00 Tu, Jojo Hinojosa IRON LEVEL 2020-04-21 14:52:00 Tu, Jojo Hinojosa FOLATE LEVEL 2020-04-21 14:52:00 Tu, Jojo Hinojosa VITAMIN B12 LEVEL 2020-04-21 14:52:00 Tu, Jojo valdovinos ERYTHROPOIETIN LEVEL 2020-04-21 14:52:00 Tu, Jojo Vigil rson RETICULOCYTE COUNT AUTOMATED 2020-04-21 14:52:00 Tu, Jojo Hinojosa COMPREHENSIVE METABOLIC PANEL 2020-04-21 13:40:00 Ольга Ahn MD COMPLETE BLOOD COUNT W/ 2020-04-21 13:40:00 Jimy, Haihong MD A nderson DIFFERENTIAL MAGNESIUM LEVEL 2020-04-21 13:40:00 Jimy, Ольга Hinojosa GLUCOSE LEVEL 2020-04-21 13:40:00 Jimy, Ольга Hinojosa ELECTROLYTE PANEL 2020-04-21 13:40:00 Jimy, Ольга valdovinos SERUM CREATININE 2020-04-21 13:40:00 Jimy, Ольга Hinojosa .GLOMERULAR FILTRATION RATE 2020-04-21 13:40:00 Jimy, Ольга Hinojosa CALCIUM LEVEL TOTAL 2020-04-21 13:40:00 Jimy, Ольга CAMPA Taurus son ALBUMIN LEVEL 2020-04-21 13:40:00 Jimy, Ольга Hinojosa ALKALINE PHOSPHATASE 2020-04-21 13:40:00 Jimy, Ольга Vigil rson ALANINE AMINOTRANSFERASE 2020-04-21 13:40:00 Jimy, Ольга Hinojosa ASPARTATE AMINOTRANSFERASE 2020-04-21 13:40:00 Jimy, Ольга Hinojosa TOTAL PROTEIN 2020-04-21 13:40:00 Jimy, Ольга Hinojosa FRACTIONATED BILIRUBIN 2020-04-21 13:40:00 Jimy, Ольга Johns derson Results CBC 2020-04-21 13:40:00 Jimy, Ольга Hinojosa MANUAL DIFFERENTIAL 2020-04-21 13:40:00 Jimy, Ольга mayo BLOOD UREA NITROGEN 2020-04-21 13:40:00 Jimy, Ольга mayo CT CHEST ABDOMEN PELVIS W 2020-04-19 18:28:00 Ольга Ahn MD CONTRAST POC CREATININE 2020-04-19 17:26:00 Ольга Ahn MD CARCINOEMBRYONIC ANTIGEN 2020-04-07 14:08:00 Ольга Ahn MD COMPREHENSIVE METABOLIC PANEL 2020-04-07 14:08:00 Ольга Ahn MD COMPLETE BLOOD COUNT W/ 2020-04-07 14:08:00 Jimy, Ольга mclean DIFFERENTIAL MAGNESIUM LEVEL 2020-04-07 14:08:00 Ольга Ahn MD GLUCOSE LEVEL 2020-04-07 14:08:00 Ольга Ahn MD BLOOD UREA NITROGEN 2020-04-07 14:08:00 Jimy, Ольга Condon son ELECTROLYTE PANEL 2020-04-07 14:08:00 Jimy, Ольга valdovinos SERUM CREATININE 2020-04-07 14:08:00 Ольга Ahn MD .GLOMERULAR FILTRATION RATE 2020-04-07 14:08:00 Ольга Ahn MD CALCIUM LEVEL TOTAL 2020-04-07 14:08:00 [facility] 2020-04-07 14:08:00 Ольга Ahn MD ALKALINE PHOSPHATASE 2020-04-07 14:08:00 Ольга Ahn MD rson ALANINE AMINOTRANSFERASE 2020-04-07 14:08:00 Ольга Ahn MD ASPARTATE AMINOTRANSFERASE 2020-04-07 14:08:00 Ольга Ahn TOTAL PROTEIN 2020-04-07 14:08:00 Ольга Ahn MD FRACTIONATED BILIRUBIN 2020-04-07 14:08:00 Ольга Ahn MD derson Results CBC 2020-04-07 14:08:00 Ольга Ahn MD MANUAL DIFFERENTIAL 2020-04-07 14:08:00 Ольга Ahn MD [facility] COMPREHENSIVE METABOLIC PANEL 2020-03-24 14:14:13 Ольга Ahn MD COMPLETE BLOOD COUNT W/ 2020-03-24 14:14:13 Ольга Ahn MD nderson DIFFERENTIAL MAGNESIUM LEVEL 2020-03-24 14:14:13 Ольга Ahn MD GLUCOSE LEVEL 2020-03-24 14:14:13 Ольга Ahn MD BLOOD UREA NITROGEN 2020-03-24 14:14:13 Ольга Ahn MD [facility] ELECTROLYTE PANEL 2020-03-24 14:14:13 Ольга Ahn MD SERUM CREATININE 2020-03-24 14:14:13 Ольга Ahn MD .GLOMERULAR FILTRATION RATE 2020-03-24 14:14:13 Ольга Ahn MD CALCIUM LEVEL TOTAL 2020-03-24 14:14:13 Ольга Ahn MD [facility] ALBUMIN LEVEL 2020-03-24 14:14:13 Ольга Ahn MD ALKALINE PHOSPHATASE 2020-03-24 14:14:13 Ольга Ahn MD rson ALANINE AMINOTRANSFERASE 2020-03-24 14:14:13 Ольга Ahn MD ASPARTATE AMINOTRANSFERASE 2020-03-24 14:14:13 Ольга Ahn TOTAL PROTEIN 2020-03-24 14:14:13 Ольга Ahn MD FRACTIONATED BILIRUBIN 2020-03-24 14:14:13 Ольга Ahn MD derson Results CBC 2020-03-24 14:14:13 Ольга Ahn MD MANUAL DIFFERENTIAL 2020-03-24 14:14:13 Ольга Ahn MD CARCINOEMBRYONIC ANTIGEN 2020-03-10 17:00:00 Ольга Ahn MD COMPREHENSIVE METABOLIC PANEL 2020-03-10 17:00:00 Ольга Ahn MD COMPLETE BLOOD COUNT W/ 2020-03-10 17:00:00 Ольга Ahn MDon DIFFERENTIAL MAGNESIUM LEVEL 2020-03-10 17:00:00 Ольга Ahn MD GLUCOSE LEVEL 2020-03-10 17:00:00 Ольга Ahn MD BLOOD UREA NITROGEN 2020-03-10 17:00:00 Ольга Ahn MD ELECTROLYTE PANEL 2020-03-10 17:00:00 Ольга Ahn MD SERUM CREATININE 2020-03-10 17:00:00 Ольга Ahn MD .GLOMERULAR FILTRATION RATE 2020-03-10 17:00:00 Ольга Ahn MD CALCIUM LEVEL TOTAL 2020-03-10 17:00:00 Ольга Ahn MD ALBUMIN LEVEL 2020-03-10 17:00:00 Ольга Ahn MD ALKALINE PHOSPHATASE 2020-03-10 17:00:00 Ольга Ahn MD ALANINE AMINOTRANSFERASE 2020-03-10 17:00:00 Ольга Ahn MD ASPARTATE AMINOTRANSFERASE 2020-03-10 17:00:00 Ольга Ahn TOTAL PROTEIN 2020-03-10 17:00:00 Ольга Ahn MD FRACTIONATED BILIRUBIN 2020-03-10 17:00:00 Ольга Ahn MD derson Results CBC 2020-03-10 17:00:00 Ольга Ahn MD MANUAL DIFFERENTIAL 2020-03-10 17:00:[address] CHEST ABDOMEN W CONTRAST 2020-02-06 18:38:38 Jojo Isaac MD POC CREATININE 2020-02-06 17:46:00 Veronica Issa MD COMPLETE BLOOD COUNT W/ 2020-02-06 17:42:00 Tu, Jojo mclean DIFFERENTIAL COMPREHENSIVE METABOLIC PANEL 2020-02-06 17:42:00 Tu, Jojo Hinojosa MAGNESIUM LEVEL 2020-02-06 17:42:00 Tu, Jojo Hinojosa CARCINOEMBRYONIC ANTIGEN 2020-02-06 17:42:00 Tu, Jojo Hinojosa Results CBC 2020-02-06 17:42:00 Tu, Jojo Hinojosa MANUAL DIFFERENTIAL 2020-02-06 17:42:00 Tu, Jojo CAMPA Taurus son GLUCOSE LEVEL 2020-02-06 17:42:00 Tu, Jojo Hinojosa BLOOD UREA NITROGEN 2020-02-06 17:42:00 Tu, Jojo CAMPA Taurus mayo ELECTROLYTE PANEL 2020-02-06 17:42:00 Tu, Jojo valdovinos SERUM CREATININE 2020-02-06 17:42:00 Tu, Jojo Hinojosa .GLOMERULAR FILTRATION RATE 2020-02-06 17:42:00 Tu, Jojo Hinojosa CALCIUM LEVEL TOTAL 2020-02-06 17:42:00 Tu, Jojo CAMPA Taurus mayo ALBUMIN LEVEL 2020-02-06 17:42:00 Tu, Jojo Hinojosa ALKALINE PHOSPHATASE 2020-02-06 17:42:00 Tu, Jojo tovar ALANINE AMINOTRANSFERASE 2020-02-06 17:42:00 Tu, Jojo Hinojosa ASPARTATE AMINOTRANSFERASE 2020-02-06 17:42:00 Tu, Jojo Hinojosa TOTAL PROTEIN 2020-02-06 17:42:00 Tu, Jojo Hinojosa FRACTIONATED BILIRUBIN 2020-02-06 17:42:00 Tu, Jojo montielson SCAN PROVATION PROCEDURE 2020-01-02 00:00:00 Pipo Castellano MD URINALYSIS WITH MICROSCOPIC 2019-12-30 17:30:00 Loreto Orozco MD IF INDICATED URINALYSIS MICROSCOPIC 2019-12-30 17:30:00 Loreto Orozco MDson COMPREHENSIVE METABOLIC PANEL 2019-12-25 14:26:00 Gee Oneill MD MAGNESIUM LEVEL 2019-12-25 14:26:00 Emperatriz Oneill MD COMPLETE BLOOD COUNT W/ 2019-12-25 14:26:00 Emperatriz Oneill MD DIFFERENTIAL GLUCOSE LEVEL 2019-12-25 14:26:00 Emperatriz Oneill MD BLOOD UREA NITROGEN 2019-12-25 14:26:00 Emperatriz Oneill MD Taurus mayo ELECTROLYTE PANEL 2019-12-25 14:26:00 Emperatriz Oneill MD Sergoo n SERUM CREATININE 2019-12-25 14:26:00 Emperatriz Oneill MD .GLOMERULAR FILTRATION RATE 2019-12-25 14:26:00 Emperatriz Oneill MD CALCIUM LEVEL TOTAL 2019-12-25 14:26:00 Emperatriz Oneill MD [facility] ALBUMIN LEVEL 2019-12-25 14:26:00 Emperatriz Oneill MD ALKALINE PHOSPHATASE 2019-12-25 14:26:00 Emperatriz Oneill MD rson ALANINE AMINOTRANSFERASE 2019-12-25 14:26:00 Emperatriz Oneill MD ASPARTATE AMINOTRANSFERASE 2019-12-25 14:26:00 Emperatriz Oneill TOTAL PROTEIN 2019-12-25 14:26:00 Emperatriz Oneill MD FRACTIONATED BILIRUBIN 2019-12-25 14:26:00 Emperatriz Oneill MD derson Results CBC 2019-12-25 14:26:00 Emperatriz Oneill MD MANUAL DIFFERENTIAL 2019-12-25 14:26:00 Emperatriz Oneill MD [facility] CT CHEST ABDOMEN PELVIS W 2019-12-17 00:32:00 Loc Lynn CONTRAST CONFIRM ABORH TYPE 2019-12-17 00:09:00 Moi Esquivel MDson TYPE AND SCREEN 2019-12-16 23:45:00 Moi Esquivel MD [facility] PROTHROMBIN TIME 2019-12-16 23:45:00 Moi Esquivel MD rson PARTIAL THROMBOPLASTIN TIME 2019-12-16 23:45:00 Piero Esquivel MD ABORH 2019-12-16 23:45:00 Moi Esquivel MD [facility] ANTIBODY SCREEN 2019-12-16 23:45:00 Moi Esquivel MD [facility] CLOT EXPIRATION DATE 2019-12-16 23:45:00 Moi Esquivel MD TMP INTERPRETATION ANTIBODY 2019-12-16 23:45:00 Piero Esquivel MD SCREEN NEGATIVE POC CREATININE 2019-12-16 23:00:00 Provider, Unknown MD Monik valdovinos COMPLETE BLOOD COUNT W/ 2019-12-16 22:59:00 Loc Lynn MD DIFFERENTIAL COMPREHENSIVE METABOLIC PANEL 2019-12-16 22:59:00 Frandy Lynn MD Results CBC 2019-12-16 22:59:00 Loc Lynn MD MANUAL DIFFERENTIAL 2019-12-16 22:59:00 Loc Lynn MD rson GLUCOSE LEVEL 2019-12-16 22:59:00 Loc Lynn MD BLOOD UREA NITROGEN 2019-12-16 22:59:00 Loc Lynn MD rson ELECTROLYTE PANEL 2019-12-16 22:59:00 Loc Lynn MD on SERUM CREATININE 2019-12-16 22:59:00 Shane, Loc valdovinos .GLOMERULAR FILTRATION RATE 2019-12-16 22:59:00 Loc Lynn MD CALCIUM LEVEL TOTAL 2019-12-16 22:59:00 Loc Lynn MD rson ALBUMIN LEVEL 2019-12-16 22:59:00 Loc Lynn MD ALKALINE PHOSPHATASE 2019-12-16 22:59:00 Loc Lynn ersgina ALANINE AMINOTRANSFERASE 2019-12-16 22:59:00 Loc Lynn MD ASPARTATE AMINOTRANSFERASE 2019-12-16 22:59:00 Loc Lynn MD TOTAL PROTEIN 2019-12-16 22:59:00 Loc Lynn MD FRACTIONATED BILIRUBIN 2019-12-16 22:59:00 Loc Lynn MD nderson Encounters Start End Encounter Admission Attending Care Care Encounter Source Date/Time Date/Time Type Type Clinicians Facility Department ID 2020-10-18 2020-10-18 Product Director Mary Vaughan [id number] 16:21:09 16:36:09 Visit Lab Main [place] [id number] [place] [id number] M[id number] 2020-10-18 2020-10-18 Orders Doctor BEAU [id number] 00:00:00 00:00:00 Only Unassigned, DIA [id number] [facility] [id number] 2020-09-17 2020-09-17 [facility] [id number] 08:56:28 09:26:28 Visit Kandi CharOmidEbonyOmid [place] [id number] [place] [id number] Maddy [id number] [facility] 2020-05-24 2020-05-24 Outpatient JOJO ISAAC MDA MDA [id number] MD 00:00:00 00:00:00 Sergo bk valdovinos 2020-05-24 2020-05-24 Outpatient BETHMILLPORTRich, MDA MDA [id number] MD 00:00:00 00:00:00 FELICIA Sergo o n 2020-05-20 2020-05-20 Outpatient EL BETHMILLPORTRich, MDA MDA [id number] MD 00:00:00 00:00:00 FELICIA Sergo o bonifacio 2020-05-20 2020-05-20 Outpatient JOJO ISAAC MDA MDA [id number] 00:00:00 00:00:00 Sergo o bonifacio 2020-04-21 2020-04-21 Outpatient HECTOR ISAACET MDA MDA [id number] 09:33:52 09:53:34 Sergo o bonifacio 2020-04-21 2020-04-21 Outpatient JOJO ISAAC MDA MDA [id number] 08:42:37 08:42:37 Sergo o bonifacio 2020-04-21 2020-04-21 Outpatient EL JIMY, MDA MDA [id number] 08:21:35 08:37:25 ОЛЬГА Sergo o n 2020-04-19 2020-04-19 Outpatient EL JIMY, MDA MDA [id number] 11:57:32 11:57:32 ОЛЬГА Sergo o n 2020-04-09 2020-04-09 Outpatient EL JIMY, MDA MDA [id number] MD 10:42:28 13:06:55 ОЛЬГА Sergo o n 2020-04-07 2020-04-07 Outpatient EL JIMY, MDA MDA [id number] 09:03:14 09:09:37 ОЛЬГА Sergo o n 2020-04-07 2020-04-07 Outpatient EL JIMY, MDA MDA [id number] MD 09:09:31 09:09:31 ОЛЬГА Sanchezjuarez valdovinos Results Test Description Test Time Test Comments Results Result Comments Source Blood Culture 2020-11-17 01:32:15 Test Item Value Reference Range Interpretation Comme nts Final Report (test code = 8488) No growth Path Review - Bottle/Isolator (test Immunity and antibiotic use may render code = 8499) culture negative. Ongoing infection requires repeat culture.The results have been reviewed and electronically signed by Pathologist:URFINA LIU MD #[id number] [facility] Glucose [id number] 18:23:17 Test Item Value Reference Range Interpretation Comments POC Glucose (test 229 mg/dL 70-99 H Capillary blood code = 99989-4) samples, e.g . obtained by fingerstick, may have inaccurate results in patients wit h decreased perip heral blood flow. Met hod description: Al l results are ita sured using Electroch emistry test methodolog y. The glucose in the sample mixes with the reagents on the test str ip. The reaction produc es an electric curren t. The amount of curre nt produced is proportional to the glucose concent ration in the blood. PO Sample Type (test Capillary code = 9554) Lab Interpretation Abnormal (test code = 54359-2) MD HinojosaNT-Pro BNP (In-House)2020-11-10 08:03:12 Test Item Value Reference Range Interpretation Comments NT ProBNP (test code = 1153 pg/mL See_Comment H [Aut omated message] 7763) The system [employer] generated this result transmit [place] reference range : <=125. The refe rence range was not u sed to interpret th is result as normal/abnormal . Lab Interpretation Abnormal (test code = 55201-9) MD HinojosaFractionated [id number] 07:57:08 Test Item Value Reference Range Interpretation Comments Bili Total (test 0.3 mg/dL See_Comment Indocyanine Green (ICG) code = 5096) may cause false ly elevated biliru bin results. Total and direct bilirubin must not be measured from s amples containing indo cyanine green. False el evation of total bilirubin can be seen in patient s with IgG concentrations above 28 g/L. [Automate d message] The system [employer] generated this result transmitted ref erence range: <=1.2. T he reference range was not used to interpr et this result as normal/abnormal . Bili Direct (test <0.2 See_Comment Indocyanin e Green (ICG) code = 5094) may cause false ly elevated biliru bin results. Total and direct bilirubin must not be measured from s amples containing indo cyanine green. [Automat ed message] The sy stem which generated this result transmitted ref erence range: <=0.3 mg /dL. The reference range was not used to interpr et this result as normal/abnormal . Bili Indirect (test See Note 0-0.9 Unable t o calculate code = 5095) Indirect Biliru bin result due to some par ameters are outside rep ortable range MD HinojosaGlomerular Filtration [id number] 07:57:07 Test Item Value Reference Range Interpretation Comments eGFR-AA (test code 111 See_Comment Normal eG FR: >= 60 = 8062) mL/min/1.73 m2N ote: The eGFR is calculated u sing the CKD-EPI equatio n. The eGFR declines with a ge. eGFR <60 mL/min/1.73 m2 is considered as "decreased". This equation should only be used for patients 18 and older. According to e [employer]'s Kidney Disease Outcome Quality Initiative (KDO QI) classification and 2012 Kidney Disease Improving Global Outcomes (KDIGO) Clinical Practi ce Guideline, the stage of CK D should be categorized bas ed on estimated GFR. Stage Description GFR mL/min/1.73 m21 Normal or high GFR >=902 Mildly decrease d GFR 60-893a M ildly to moderately decr eased GFR 45-593b Moderat anibal to severely decrea sed GFR 30-444 Severely decreased GFR 15-295 Kid angelo failure <15 [Automa [place] message] The system [employer] generated this result tra nsmitted reference range : >=60 mL/min/1.73 sq. m. The reference range was not used to interpret th is result as normal/abnormal . eGFR-YASMANY (test code 96 See_Comment Normal e GFR: >= 60 = 8063) mL/min/1.73 m2N ote: The eGFR is calculated u sing the CKD-EPI equatio n. The eGFR declines with a ge. eGFR <60 mL/min/1.73 m2 is considered as "decreased". This equation should only be used for patients 18 and older. According to e [employer]'s Kidney Disease Outcome Quality Initiative (KDO QI) classification and 2012 Kidney Disease Improving Global Outcomes (KDIGO) Clinical Practi ce Guideline, the stage of CK D should be categorized bas ed on estimated GFR. Stage Description GFR mL/min/1.73 m21 Normal or high GFR >=902 Mildly decrease d GFR 60-893a M ildly to moderately decr eased GFR 45-593b Moderat anibal to severely decrea sed GFR 30-444 Severely decreased GFR 15-295 Kid angelo failure <15 [Automa [place] message] The system [employer] generated this result tra nsmitted reference range : >=60 mL/min/1.73 sq. m. The reference range was not used to interpret is result as normal/abnormal . MD HinojosaTotal [id number] 07:57:05 Test Item Value Reference Range Interpretation Comments Total Protein (test code = 7649) 5.7 g/dL 6.4-8.3 L Lab Interpretation (test code = Abnormal 46484-1) MD HinojosaMagnesium [id number] 07:57:04 Test Item Value Reference Range Interpretation Comments Magnesium (test code = 6359) 1.8 mg/dL 1.6-2.6 MD HinojosaAlkaline [id number] 07:57:03 Test Item Value Reference Range Interpretation Comments Alk Phos (test code = 4768) 205 U/L 35-104 H Lab Interpretation (test code = Abnormal 34768-5) MD [id number] 07:57:01 Test Item Value Reference Range Interpretation Comments ALT (test code = 10 U/L See_Comment [Automated message] The 2832) system which ge nerated this result transmit [place] reference range : <=33. The reference range was not used to interpr et this result as dimitry l/abnormal. MD HinojosaPhosphorus [id number] 07:57:00 Test Item Value Reference Range Interpretation Comments Phosphorus (test code = 6817) 1.8 mg/dL 2.5-4.5 L Lab Interpretation (test code = Abnormal 94670-7) MD Hinojosa.Serum [id number] 07:56:59 Test Item Value Reference Range Interpretation Comments Creatinine (test code = 5399) 0.59 mg/dL 0.51-0.95 MD HinojosaCalcium [id number] 07:56:58 Test Item Value Reference Range Interpretation Comments Calcium Lvl (test code = 5258) 8.1 mg/dL 8.4-10.2 L Lab Interpretation (test code = Abnormal 09180-5) MD [id number] 07:56:57 Test Item Value Reference Range Interpretation Comments BUN (test code = 5055) 11 mg/dL 6-23 MD HinojosaAlbumin [id number] 07:56:56 Test Item Value Reference Range Interpretation Comments Albumin Lvl (test code = 2.7 See_Comment L [A utomated message] 1220) The system [employer] generated this result transmitted ref erence range: 3.5 - 5. 2 gm/dL. The refe rence range was not u sed to interpret this result as normal/abnor mal. Lab Interpretation (test Abnormal code = 00453-8) MD HinojosaAspartate Rtebojjibufebdrr4168-66-23 07:56:55 Test Item Value Reference Range Interpretation Comments AST (test code = 18 U/L See_Comment [Automated message] The 7742) system which ge nerated this result transmit [place] reference range : <=32. The reference range was not used to interpr et this result as dimitry l/abnormal. MD HinojosaElectrolyte [id number] 07:56:54 Test Item Value Reference Range Interpretation Comments Sodium Lvl (test code = 130 See_Comment L [Au tomated message] 2143) The system Qompium generated this result transmitted ref erence range: 136 - 14 5 mEq/L. The refe rence range was not u sed to interpret this result as normal/abnor mal. Potassium Lvl (test code 3.5 See_Comment [A utomated message] = 9011) The system [employer]ompium generated this result transmitted ref erence range: 3.5 - 5. 1 mEq/L. The refe rence range was not u sed to interpret this result as normal/abnor mal. Chloride (test code = 95 See_Comment L [Auto mated message] 5836) The system [employer]ompium generated this result transmitted ref erence range: 98 - 107 mEq/L. The refe rence range was not u sed to interpret this result as normal/abnor mal. CO2 (test code = 5227) 25 See_Comment [Aut omated message] The system [employer]ompium generated this result transmitted ref erence range: 22 - 29 mEq/L. The reference r leslee was not used to interpret this result as normal/abnor mal. Anion Gap (test code = 10 See_Comment [Aut omated message] 4212) The system [employer]ompium generated this result transmitted ref erence range: 4 - 14 m Eq/L. The reference r leslee was not used to interpret this result as normal/abnor mal. Lab Interpretation (test Abnormal code = 00461-7) MD HinojosaGlucose [id number] 07:56:53 Test Item Value Reference Range Interpretation Comments Glucose Level (test code 149 mg/dL 70-99 H Eff ective 05/10/16, = 5699) the glucose reference inter vals have been updat ed based on [place] an Diabetes Associ ation guidelines (Standards of Medical Care in Diabetes 2016. Diabetes Care 2 016; 39: S13-S22).Fa sting blood glucose:Normal: 70 99 mg/dLImpaire d fasting glucose (increased risk for diabetes or pre-diabetes): 100 125 mg/dLDiabet es mellitus: >/=1 26 mg/dL Random bl ood glucose:Normal: 70 199 mg/dLNote: Random glucose >100 mg/dL is associ ated with increased risk for diabetes Lab Interpretation (test Abnormal code = 22673-6) MD HinojosaQwtrjhgoBlnojjdbqvxf1789-20-83 07:28:11 Test Item Value Reference Range Interpretation Comments Neutrophil % (test code = 86.2 % 42-66 H 6491) Lymphocyte % (test code = 4.2 % 24-44 L 6194) Monocyte % (test code = 7.1 % 2-7 H 6422) Eosinophil % (test code = 1.5 % 1-4 5520) Basophil % (test code = 0.2 % 0-1 5068) IGRE % (test code = 5958) 0.8 % 0-0.4 H IG RE % count includes Metamyelocytes, Myelocytes, and Promyelocytes. Neutrophil Abs (test code 10.98 K/uL 1.7-7.3 H = 6492) Lymphocyte Abs (test code 0.54 K/uL 1-4.8 L = 6195) Monocyte Abs (test code = 0.91 K/uL 0.08-0.7 H 6423) Eosinophil Abs (test code 0.19 K/uL 0.04-0.4 = 5521) Basophil Abs (test code = 0.02 K/uL 0-0.1 5069) IG Abs (test code = 5954) 0.10 K/uL 0-0.04 H Lab Interpretation (test Abnormal code = 20967-1) MD Hinojosa.[id number] 07:28:07 Test Item Value Reference Range Interpretation Comments WBC (test code = 8034) 12.7 K/uL 4-11 H RBC (test code = 6932) 3.76 See_Comment L [Aut omated message] The system Qompium generated this result transmitted ref erence range: 4.00 - 5 .50 M/uL. The refer ence range was not u sed to interpret this result as normal/abnor mal. Hgb (test code = 5898) 8.6 See_Comment L [Aut omated message] The system Qompium generated this result transmitted ref erence range: 12.0 - 1 6.0 gm/dL. The refe rence range was not u sed to interpret this result as normal/abnor mal. Hct (test code = 5860) 27.9 % 37-47 L MCV (test code = 6222) 74 fL 82-98 L MCH (test code = 6220) 22.9 pg 27-31 L MCHC (test code = 6221) 30.8 See_Comment L [Au tomated message] The system [employer]ompium generated this result transmitted ref erence range: 31.0 - 3 6.0 gm/dL. The refe rence range was not u sed to interpret this result as normal/abnor mal. RDW-SD (test code = 54.3 fL 35.1-46.3 H 6972) RDW-CV (test code = 20.2 % 12-15.5 H 6971) Platelet count (test 440 K/uL 140-440 code = 6832) MPV (test code = 6282) 8.6 fL 4-10.4 INRBC (test code = 0.0 % See_Comment The INRBC (instrument 5974) NRBC) value ref lects the enumeration of nucleated red b lood cells contained in a 200uL sampleof whole blood analyzed by the instrument. Thi s value maydiffer from the NRBC value reported in a m anual differential,wh ich is based on a 100 cell differential. [Automated mess age] The system Qompium generated this result transmitted ref erence range: <=0.0. T he reference range was not used to int erpret this result as normal/abnormal . Lab Interpretation Abnormal (test code = 19287-8) MD HinojosaTMAries Interpretation [id number] 20:54:50 Test Item Value Reference Range Interpretation Comments TMP XM Interp RBC units (test code = crossmatched for 7566) transfusion appear ABDOUL GARZA MD acceptable. - [id number] by: ROBERT GARZA MD - [id number] Date/Time: 10.16 14:54 PM MECHANICAL DRAWING TEACHER Transcribed Neri e/Time: 11.09.2020 14:5 4 PM CSTElectronical ly Signed By: BOGDAN GARZA MD - [id number] on 11.09.2020 14:5 4 PM MD HinojosaMRSA [id number] 20:33:27 Test Item Value Reference Range Interpretation Comments Final Report (test No Methicillin resistant code = 8488) Staphylococcus aureus isolated. Path Review (test The results have been code = 8492) reviewed and electronically signed by Pathologist:Marilynn Bear MD, PhD #[id number] MD HinojosaPreparcaro RBC:32599, 1 Aixwp3010-27-32 20:24:54 Test Item Value Reference Range Interpretation Comments PRBC Product Ready 1 Red Blood Cells (test code = Available - 32297-0) Order Form 03 when ready for product issue. Unit Number (test [id number] code = 7002) Product Code (test [id number] code = 7003) Unit Expiration [id number] (test code = 328536) Unit Blood Type 6200 (test code = 7004) Product Code Text RBCIRLR CPD AS1 (test code = 500mL 429637) Crossmatch [id number] Expiration Date (test code = ) Unit Irradiated IRRADIATED (test code = 697668) Dispense Status ISSUED (test code = 7001) Unit Blood Type A Positive ____ (test code = 7005) _ ____ MD AndersonComplete Blood Count w/o Ijqesymvvuov7448-06-63 15:55:31 Test Item Value Reference Range Interpretation Comments WBC (test code = 8034) 11.5 K/uL 4-11 H RBC (test code = 6932) 3.21 See_Comment L [Aut omated message] The system Qompium generated this result transmitted ref erence range: 4.00 - 5 .50 M/uL. The refer ence range was not u sed to interpret this result as normal/abnor mal. Hgb (test code = 5898) 7.1 See_Comment L [Aut omated message] The system Qompium generated this result transmitted ref erence range: 12.0 - 1 6.0 gm/dL. The refe rence range was not u sed to interpret this result as normal/abnor mal. Hct (test code = 5860) 23.4 % 37-47 L MCV (test code = 6222) 73 fL 82-98 L MCH (test code = 6220) 22.1 pg 27-31 L MCHC (test code = 6221) 30.3 See_Comment L [Au tomated message] The system Qompium generated this result transmitted ref erence range: 31.0 - 3 6.0 gm/dL. The refe rence range was not u sed to interpret this result as normal/abnor mal. RDW-SD (test code = 54.6 fL 35.1-46.3 H 72) RDW-CV (test code = 20.6 % 12-15.5 H 71) Platelet count (test 389 K/uL 140-440 code = 6832) MPV (test code = 6282) 8.5 fL 4-10.4 INRBC (test code = 0.0 % See_Comment The INRBC (instrument 5974) NRBC) value ref lects the enumeration of nucleated red b lood cells contained in a 200uL sampleof whole blood analyzed by the instrument. Thi s value maydiffer from the NRBC value reported in a m anual differential,wh ich is based on a 100 cell differential. [Automated mess age] The system [employer]ompium generated this result transmitted ref erence range: <=0.0. T he reference range was not used to int erpret this result as normal/abnormal . Lab Interpretation Abnormal (test code = 45064-3) MD Murillo [id number] 05:16:13Study acquired at another institution. For comparison only. No MD Hinojosa originated interpretationrequested or available.MD Murillo CT Abdomen and Lofauj0272-09-37 05:16:01Study acquired at another institution. For comparison only. No MD Hinojosa originated interpretationrequested or available.MD HinojosaEchocardiogram 2D Complete 2020-11-08 21:40:15 Test Item Value Reference Range Interpretation Comments EF (test code = 55 [id number]) PXN (test code Interface, Radiology Results = PXN) In - 11/08/2020 3:41 PM CSTEchocardiographic ReportInterpretation SummaryA complete two-dimensional transthoracic echocardiogram was performed (2D, M-mode, Doppler and color flow Doppler). The study was technically adequate and no previous studies are available for comparison.Normal left ventricular size and systolic function.LV ejection fraction calculated using the bi-plane method of disks is 55 %.The right ventricle is normal in size and function.Unable to estimate RVSP due to lack of TR visualization.There is no pericardial effusion.Left Ventricle:Normal left ventricular size and systolic function. LV ejection fraction calculated using the bi-plane method of disks is 55 %. The left ventricular wall motion is normal.I WMSI = 1.00 % Normal = 100 Normal GLPS -19% Segments SizeX - Cannot 2 - 1-2 smallInterpret 1 - Normal Hypokinetic 3 - Akinetic 4 - Dyskinetic3-5 moderate5 - Aneurysmal 6-14 large 15-16 diffuseCardiac Mechanics/Speckle Tracking Imaging:Normal global longitudinal peak systolic value. Strain Imaging was performed; GLPS avg = -19%.Diastology:Impaired LV relaxation pattern of diastolic dysfunction, Doppler suggests normal LA pressures.Right Ventricle:The right ventricle is normal in size and function. Normal RV systolic function using TAPSE criteria.Atria:Atria are normal in size.Mitral Valve:Mitral annular calcification is present. Mild thickening changes are noted.Tricuspid Valve:The tricuspid valve is not well visualized, but is grossly normal. Unable to estimate RVSP due to lack of TR visualization.Aortic Valve:The aortic valve is trileaflet. The aortic valve opens well.Pulmonic Valve:The pulmonic valve is not well visualized. Trace pulmonic valvular regurgitation.Great Vessels:The aortic root is normal size. The inferior vena cava demonstrates normal size and normal respiratory variation.Pericardium/Pleural: There is no pericardial effusion. The pericardium appears thickened.Preliminary ReviewerPreliminary Interpretation: Rosalva Simpson MD.MMode/2D Measurements IVSd: 0.73 cm LVIDd: 4.6 cm LVIDs: 3.1 cm LVPWd: 0.66 cmFS: 31.3 % Ao root diam: 2.9 cm Ao root area: 6.8 cm2 LA dimension: 3.2 cmLVOT diam: 2.0 cm EDV(MOD-A4C): 98.9 ml ESV(MOD-A4C): 42.2 mlLVOT area: 3.3 cm2 EF(MOD-A4C): 57.3 %EDV(MOD-A2C): 107.6 mlESV(MOD-A2C): 48.6 ml EDV(MOD-bp): 103.3 mlEF(MOD-A2C): 54.9 % ESV(MOD-bp): 47.0 ml EF(MOD-bp): 54.5 %LAV(MOD-A2C): 49.2 ml EDV (MOD-bp) Index: 59.6 ml/m2LAV(MOD-A4C): 29.7 mlLAV(MOD-bp): 39.0 mlLAV(MOD-bp) Indexed: 22.5 ml/m2ESV (MOD-bp) Index: 27.1 ml/v7Kxvpqiz Measurements MV E max geoff: 91.7 cm/sec MV V2 max: 114.5 cm/secMV A max geoff: 107.8 cm/sec MV max P.2 mmHgMV E/A: 0.85 MV V2 mean: 76.3 cm/sec MV mean P.5 mmHg MV V2 VTI: 22.4 cm MVA(VTI): 3.0 cm2MV P1/2t max geoff: 92.2 cm/sec Ao V2 max: 130.5 cm/secMV P1/2t: 34.9 msec Ao max P.8 mmHgMVA(P1/2t): 6.3 cm2 Ao V2 mean: 86.0 cm/sec Ao mean P.4 mmHgMV dec slope: 773.4 cm/sec2 Ao V2 VTI: 26.3 cm SIVA(I,D): 2.6 cm2 SIVA(V,D): 2.8 cm2LV V1 max P.8 mmHg SV(LVOT): 68.4 mlLV V1 mean P.3 mmHgLV V1 max: 110.0 cm/secLV V1 mean: 70.7 cm/secLV V1 VTI: 21.0 cmRAP systole: 3.0 mmHg SIVA Index (I,D): 1.5AVA Index (V,D): 1.6 Dimensionless Index: 0.84E/e' (avg): 15.6 E/e' (lat): 12.4E/e' (sept): 20.9 MD HinojosaIR NEPHROSTOMY [id number] 19:10:18Date of Procedure: 11/08/20 Attending Physician: TERRI BLACK MD Financial Cost Analyst: William Maurer Pre Procedure Diagnosis: Rectal cancer [[id number]] Post Procedure Diagnosis: Unchanged Indication: Infection Title of Procedure:Percutaneous Image-Guided Exchange of Nephrostomy Catheter(s) Operative Findings: Percutaneous image-guided exchange of right nephrostomy catheter(s). Consent: The procedure, risks, indications and alternatives were explained. All questions were answered and informed consent was obtained. I have reviewed the history and physical dictated by the mid-level practitioner / fellow. Sedation/Anesthesia: Moderate sedation for pain control and anxiety was administered by a dedicated nurse under my supervision. There was continuous monitoring of oxygen saturation, heart rate and intermittent monitoring of blood pressure during the procedure. Medication given was midazolam and fentanyl. I was present for the administration of the medications indicated above.Procedure Events Event Event Time Sedation Start 11/08/2020 11:25 AM Sedation End 11/08/2020 11:41 AM Procedure in Detail: Atime out was performed prior to the start of the procedure and the correct patient, procedure, presence of consent, site, and side were confirmed with all members of the team. The patient was placed donnie prone position on the fluoroscopy table and the catheter(s) and insertion site(s) were prepped anddraped in the usual sterile fashion. Lidocaine 1% was used for local anesthesia. A special agent fbi view was obtained of the catheter. A right nephrostogram confirmed catheter position in the renal pelvis. Thecatheter was severed and exchanged over a wire for a new 10 Serbian Mac-loc catheter. Repeat nephrostogram demonstrates adequate position in the renal pelvis. The catheter was secured to the patient with suture. Additional Comments: None Estimated Blood Loss: Minimal Specimens Removed: No Immediate Complications: None Disposition: PACU Plan: Catheter to gravity drainage. Return for routineexchange in 2 months. I certify my physical presence at the time of the procedure. I personally reviewed the image(s) and the resident's / fellow's interpretation and agree with the written report.MD HinojosaTMP Interpretation Antibody Screen [id number] 12:29:19 Test Item Value Reference Range Interpretation Comments TMP Auto Neg At the present ABSC Interp time, patient (test code = plasma shows no ____ROBERT GARZA MD - 7535) evidence of RBC 45276Uztcvyn d by: ROBERT alloantibodies. MD Vinita THOMSON 28067Vqezgqkg D ate/Time: 11.08.2020 6:29 AM MECHANICAL DRAWING TEACHER Transcribed Neri e/Time: 11.08.2020 6:29 AM CSTElectronical ly Signed By: MD Vinita DANGELO [id number] on 11.08 6:29 AM C MD HinojosaAntibody [id number] 10:00:05 Test Item Value Reference Range Interpretation Comments ABSC. (test code = 890-4) Negative ABSC MD HinojosaLfuwavohYQOQe3077-85-83 10:00:04 Test Item Value Reference Range Interpretation Comments ABORh. (test code = 882-1) A POS MD HinojosaClot Expiration Ivie8465-26-10 10:00:00 Test Item Value Reference Range Interpretation Comments T & S Expiration (test code = 11/11/2020 5318) MD HinojosaUrinalysis w/Microscopic if [id number] 09:53:36 Test Item Value Reference Range Interpretation Comments UA Color (test code = Yellow Yellow 7877) UA Appear (test code = Cloudy Clear A 7868) UA Glucose (test code = NEG NEG mg/dL 7881) UA Bili (test code = NEG NEG 7871) UA Ketones (test code = NEG NEG mg/dL 7884) UA Spec Grav (test code 1.012 1.002-1.035 = 7894) UA Blood (test code = NEG NEG 7872) UA pH (test code = 6.0 4.5-8.0 7909) UA Protein (test code = 100 mg/dL NEG A 7890) UA Urobilinogen (test NEG NEG code = 7903) UA Nitrite (test code = NEG NEG 7888) UA Leuk Est (test code Large NEG A = 7886) UA Comment (test code = See Comment Many WBC clumps 8512) seen in additio n to individual WBCs Lab Interpretation Abnormal (test code = 71995-3) MD HinojosaUrinalysis with Ppubeuqvhqs4112-00-53 09:53:35 Test Item Value Reference Interpretation Comments Range UA WBC (test code = >182 See_Comment H [[place] 7904) message] The system which generated this result transmitted reference range : 0 - 2 /HPF. The reference range was not used to interpret this result as normal/abnormal . UA RBC (test code = 8 See_Comment H [[place] 7891) message] The system which generated this result transmitted reference range : 0 - 2 /HPF. The reference range was not used to interpret this result as normal/abnormal . UA Mucous (test code TRACE TRACE /HPF = 7887) UA Bacteria (test NOT SEEN NOT SEEN /HPF code = 7870) UA Squam Epi (test OCC OCC /HPF code = 7896) UA WBC Clump (test 4+ OCC /HPF A code = 7906) SHWETA (test code = Some reporting SHWETA) parameters within the Urinalysis test have changed due to the implementation of new instrumentation in the [facility], allowing greater sensitivity of measurement. Urinalysis results reported by the [facility] using existing instrumentation, as well as Urinalysis testing performed manually or by backup methodology at the [facility] will remain relatively unchanged. New reporting parameters and units will now be reported for all campuses. Lab Interpretation Abnormal (test code = 03407-2) MD HinojosaDabobzfwJugadghbr0623-58-05 07:56:48 Test Item Value Reference Range Interpretation Comments Potassium Lvl (test code 3.4 See_Comment L [A utomated message] = 6854) The system Qompium generated this result transmitted ref erence range: 3.5 - 5. 1 mEq/L. The refe rence range was not u sed to interpret this result as normal/abnor mal. Lab Interpretation (test Abnormal code = 38228-2) MD Rutherfordum [id number] 07:56:46 Test Item Value Reference Range Interpretation Comments Sodium Lvl (test code = 132 See_Comment L [Au tomated message] 6894) The system [employer]ompium generated this result transmitted ref erence range: 136 - 14 5 mEq/L. The refe rence range was not u sed to interpret this result as normal/abnor mal. Lab Interpretation (test Abnormal code = 27789-3) MD HinojosaVancomycin Trough Vancomycin trough on 11/06@2130. Nurse please coordinate with lab to draw trough approximately 11 - 11.5hours after 11/06 1000 vanco dose. Hold vancomycin doses if trough is greater than 20 and notify . Thanks!2020-11-07 10:59:29 Test Item Value Reference Range Interpretation Comments Vanco Trough 11.6 See_Comment Toxic Trough Le geoff: (test code = >20 mcg/mL [Aut omated 8008) message] The sy stem which generated this result transmit [place] reference range : 5.0 - 20.0 mcg/mL. Th e reference range was not used to int erpret this result as normal/abnormal . Vanco Tr Dose SEE NOTE Level, date, a nd time Time (test of previous dos e is code = 8007) not availablefo r this sample. The neri e reported is the samplecollectio n date. Vanco Tr Dose 11/07/2020 Date (test code = 8006) SHWETA (test Vancomycin trough on code = SHWETA) 11/06@2130. Nurse please coordinate with lab to draw trough approximately 11 - 11.5hours after 11/06 1000 vanco dose. Hold vancomycin doses if trough is greater than 20 and notify . Thanks! MD HinojosaPartial Thromboplastin [id number] 08:00:14 Test Item Value Reference Range Interpretation Comments PTT (test code = 6773) 37.7 See_Comment H [Aut omated message] The system Qompium generated this result transmitted ref erence range: 24.2 - 3 6.0 second(s). The reference range was not used to int erpret this result as normal/abnormal . Lab Interpretation (test Abnormal code = 24077-3) MD HinojosaProthrombin Time with [id number] 08:00:13 Test Item Value Reference Range Interpretation Comments PT (test code = 6746) 15.3 See_Comment H [Auto mated message] The system Qompium generated this result transmitted ref erence range: 12.0 - 1 4.3 second(s). The reference range was not used to int erpret this result as normal/abnormal . INR (test code = 5973) 1.24 0.90-1.10 H Lab Interpretation (test Abnormal code = 24029-8) MD HinojosaCT Chest Abdomen Pelvis with [id number] 23:59:18 1. Findings are consistent with progression of disease demonstrated by increased size and number of pulmonary nodules, liver metastases, and increased size of primary rectal mass with local invasion.2. Relatively stable to minimally increased size of hepatic hilum adenopathy.3. Right nephrostomy tube is in good position without hydronephrosis.4. Moderate splenomegaly.Interface, Radiology ResultsIn - 11/06/2020 6:01 PM CSTFULL RESULT:Examination: CT Chest abdomen pelvis with Contrast, 11/06/2020 4:32 PM.Clinical History: 65-year-old patient with history of rectal carcinoma. Most recent treatment on Regorafenib Indication: Patient is presenting with worsening hydronephrosis and suspected pyelonephritis .Comparison: CT of the chest, abdomen and pelvis on 09/20/2020. Ultrasound of the abdomenon 11/05/2020Technique: CT of the chest abdomen pelvis with IV and oral contrast.Findings: Tubes and Lines:Right chest port is visualized with catheter tip terminating at the level of the distal SVC.Right nephrostomy tube is visualized in good position.Chest:Interval increase size of bilateral pulmona ry metastases, for example;* Right upper lobe nodule measuring 1 cm on series 4, image 50, previously measuring 8 mm.* Left upper lobe nodule measuring 1.1 cm on series 4, image 56, previously measuring 1 cm.* Left upper lobe nodule measuring 1.4 cm on image 61, previously measuring 9 mm.* 1.8 cm nodule in the right upper lobe image 64, previously measuring 1.5 cm.* Large right lower lobe pulmonary nodule measuring 2.5 cm on image 91, previously measuring 2 cm.* Additional bibasilar pulmonary nodules are also enlargedLymphadenopathy;* Subcarinal lymphadenopathy measuring 2.2 x 0.8 cm, previously inconspicuous.* Left hilar lymph node measuring 1.5 x 0.9 cm on image 68, previously inconspicuo us.Normal heart sizeNo pleural effusion present.Abdomen:Interval progression of disease demonstratedby increased size of bilobar liver metastases, for example;* Segment 3 liver metastases measuring 7.1 x 6.3 cm series 3, image 170, previously measuring 6.7 x 5.6 cm.* Segment 6 metastases series 3,image 198 measuring 4.5 x 4.4 cm, previously measuring 4 x 3.8 cm.* Additional bilobar liver metastases are also increased in size.No intra or extrahepatic biliary dilatation.Moderate splenomegaly appears progressingPancreas is homogeneous in density without focal mass or ductal dilatationAdrenal glands are symetrical and without focal mass.Patient is status post cholecystectomy.Kidneys are symetrical in architechture without evidece of hydronephrosis or stones.The visualized stomach, duodenum, jejunum and ileum are normal.The colon and appendix are unremarkable.Lymph nodes:* Stable to slightly increased in size alex hepatis adenopathy measuring 3.8 x 3.4 cm on series 3, image 188, previously measuring 3.6 x 3.4 cm* Portacaval adenopathy measuring 4.4 x 3 cm on image 205, previously measuring4.4 x 2.8 cm.Pelvis:Large right-sided pelvic mass originating from the rectum with extensive invasion of the presacral space right pelvic sidewall, lower uterine segment, cervix, vagina and posterior wall of the urinary bladder.There is a left lower quadrant colostomyVascular:Mild atherosclerotic disease of the visualized aorta and branches.Bones:No suspicious osseous lesion.Soft tissues:Mild anasarcaIMPRESSION:1. Findings are consistent with progression of disease demonstrated by increased size and number of pulmonary nodules, liver metastases, and increased size of primary rectal mass with localinvasion.2. Relatively stable to minimally increased size of hepatic hilum adenopathy.3. Right nephrostomy tube is in good position without hydronephrosis.4. Moderate splenomegaly.MD HinojosaOccult Blood [id number] 15:21:58 Test Item Value Reference Range Interpretation Comments Fecal Occult Bld Negative Negative Test perfor med by latex (test code = 5604) immunoass ay methodology. MD HinojosaDmoirqweBiggnvmbbqkkc3883-89-18 09:51:31 Test Item Value Reference Range Interpretation Comments Procalcitonin (test 3.79 ng/mL See_Comment H Procalci tonin > 2.00 code = 9379) ng/mL: Procalcitonin l evels above 2.00 ng/m L are highly suggesti ve of a high risk for systematic bact erial infection/ isaak re sepsis and/or s eptic shock. Procalci tonin < 0.50 ng/mL: Procalcitonin l evels below 0.50 ng/m L are at low risk for progression to severe sepsis and/ or septic shock. Procalci tonin (ProCT) between 0.15 and 2.0 ng/mL d o not exclude infecti on, because localiz ed infections (wit hout systemic signs) may be associated w ith such low levels . Results greater than 400 ng/mL may n ot be reliable due to the matrix effect w ith extended diluti on as it exceeds the supply chain design manager's recommended rodriguez it. Caution should be exercised when interpreting lawson ch values and done in conjunction wit h clinical contex t. [Automated mess age] The system [employer] generated this result transmitted ref erence range: <=0.08. The reference range was not used to int erpret this result as normal/abnormal . Lab Interpretation Abnormal (test code = 45773-9) MD [id number] 09:12:59 Test Item Value Reference Range Interpretation Comments TSH (test code = 0.50 See_Comment [Automated message] The 4223) system which ge nerated this result transmit [place] reference range : 0.27 - 4.20 mcunit/mL. The reference range was not used to interpr et this result as dimitry l/abnormal. MD Hanson [id number] 09:12:58 Test Item Value Reference Range Interpretation Comments T4 Free (test code = 7502) 1.15 ng/dL 0.93-1.7 MD HinojosaHemoglobin [id number] 07:56:37 Test Item Value Reference Range Interpretation Comments A1C (test code = 5.5 % 4.3-5.6 HbA1c value s >=6.5% are 4632) diagnostic of d iabetes mellitus.Diagno sis should be confirmed by repeat testing.Therape utic Action suggested: >8.0 % HbA1c; Goal oftherapy: <7.0% HbA1c MD HinojosaVitamin B12 [id number] 07:52:07 Test Item Value Reference Range Interpretation Comments Vitamin B12 Lvl (test code = 8017) 514 pg/mL 211-946 MD Oh Leg Venous Doppler [id number] 23:00:46 Negative for deep venous thrombosis in the bilateral lower extremities. Interface, Radiology Results In 11/05/2020 5:02 PM CSTFULL RESULT:Examination: US LEG VENOUS DOPPLER BILATERAL, 11/05/2020 4:48 PMClinical History: Rectal cancerIndication: Edema, Fever Comparison: None available.Technique: Grayscale and color/spectral Doppler ultrasound of the bilateral lower extremity veins was performed.Fi ndings: The bilateral common femoral, femoral, and popliteal veins demonstrate color flow, compressibility, and response to augmentation.The visualized posterior tibial, peroneal and anterior tibial veins are patent and compressible.IMPRESSION:Negative for deep venous thrombosis in the bilateral lowerextremities.MD Oh Abdomen [id number] 22:42:02 No ascites.Interface, Radiology Results In - 11/05/2020 4:44 PM CSTFULL RESULT:Examination: US ABDOMEN LIMITED, US PELVIS LIMITED on 11/05/2020 4:13 PMClinical History: Rectal cancer Indication: Ascites, Abdominal DistentionComparison: CT study abdomen and pelvis September 20, 2020Technique: Multiplanar imaging of the abdomen pelvis for evaluation of ascites.Findings: No ascites is seen in the abdomen or pelvis.IMPRESSION:No ascites.MD HinojosaUS PELVIS [id number] 22:42:02 No ascites.Interface, Radiology Results In - 11/05/2020 4:44 PM CSTFULL RESULT:Examination: US ABDOMEN LIMITED, US PELVIS LIMITED on 11/05/2020 4:13 PMClinical History: Rectal cancer Indication: Ascites, Abdominal DistentionComparison: CT study abdomen and pelvis September 20, 2020Technique: Multiplanar imaging of the abdomen pelvis for evaluation of ascites.Findings: No ascites is seen in the abdomen or pelvis.IMPRESSION:No ascites.MD HinojosaXR Chest 1 [id number] 17:37:53Stable chest without evidence of new lung opacities. Interface, Radiology Results In - 11/05/2020 11 :40 AM CSTFULL RESULT:Examination: XR CHEST 1 VW, 11/05/2020 11:34 AMClinical History: Rectal cancerIndication: Shortness of BreathComparison: November 05, 2020Technique: Anteroposterior radiograph of the chest.Findings:Right central catheter with its distal tip over the atriocaval junction.No significant change of bilateral metastatic lung nodules. Bilateral lower lung subsegmental atelectasis. No evidence of new lung opacities.No evident pneumothorax.Cardiac silhouette is stable.IMPRESSION:Stable chest without evidence of new lung opacities.MD Jojo Mckee (In-House)2020-11-05 16:56:12 Test Item Value Reference Range Interpretation Comments Troponin T (test code 8 ng/L See_Comment < 19 ng/L = 9384) Sugges t retest at [address] to rule out myocardial infarction >= 1 9 to <=52 ng/L Possible myocardial inju ry. Suggest retest at 3 hours. - a change of < 20 ng/L, retest at 6 carissa rs - a c hange of >= 20 ng/L, sugges tive of myocardial infarction > 52 ng/L Suggestive of m yocardial infarction Crit ical value will be reporte d when cTnT isf > 52 ng/L a nd only reported for th e first in a series. Hemol yzed specimens with Hemolysis Index >100 (100 mg/dl or moderate hemoly sis) may cause interfere nces and falsely low res ults. [Automated mess age] The system which ge nerated this result tra nsmitted reference range : <=18. The reference range was not used to interpr et this result as dimitry l/abnormal. MD HinojosaKamillactricardo Acid, [id number] 16:26:59 Test Item Value Reference Range Interpretation Comments V Lactate (test code = 2519-7) 2.0 mmol/L 0.5-1.6 H Lab Interpretation (test code = Abnormal 27110-4) MD HinojosaInfluenza A/B + COVID-19 Asymptomatic- [id number] 07:13:02 Test Item Value Reference Range Interpretation Comments Influenza A (test Not Detected Not Detected code = 88945-5) Influenza B (test Not Detected Not Detected code = 18937-0) COVID19 Not Detected Not Detected (SARS-CoV-2) (test code = 03145-0) COVID19 SARS Inpatient Indication (test Admission code = 63855) Inf AB+Cov19 See Note The zuleima SARS- CoV-2 Comment (test & Influenza A/ B code = 33246) nucleic acid t est for use on the rocío s [place] System is a [employer] real-time RT-PC R assay intended for the simultaneou s, qualitative det ection and differentia l of SARS-CoV-2 (COVID-19), inf luenza A, and influenz a B viral RNA in nasopharyngeal swabs in transport me ajit from patients suspected of crowe ving a respiratory inf ection with one of the se viruses or poss ibly exposure to COV ID-19 by a healthcare provider. Resul ts must be interpr eted within the cont ext of all relevant cl inical and laboratory findings and sh ould not form the so le basis for a ajit gnosis or treatment decision. A fac t sheet for patie nts provided by the supply chain design manager ([employer]) can be rev iewed at: https://www.fda .gov/m edia/787705/anthony nloadA fact sheet for Health Care providers is provided by the supply chain design manager ([employer]) and can be reviewed at: https://www.fda .gov/m edia/554067/anthony nload Influenza A and Influenza B neg ative results should be considered presumptive in samples that crowe ve a positive SARS-C oV-2 result. If co-infection wi th influenza A or influenza B vir us is suspected in sa mples with a positive SARS-CoV-2 resu lts, the sample tracyu ld be re-tested with another approve d influenza test. This assay has been authorized by t [facility] for use only un tiana Emergency Use Authorization ( EUA) in laboratories that have been CLIA-certified to perform moderate-comple xity and high-comple xity tests. The Microbiology Laboratory at [facility], CLIA Accreditation #[id number] and CAP Accreditation #[id number], verif ied the performance characteristics of this assay. Int ernal controls are ed to monitor all sta ges of the test ana HinojosaIR NEPHROSTOMY UNILATERAL PLACEMENT [id number] 20:58:12Date of Procedure: 08/25/20 Attending Physician: Dr. Hernandez Financial Cost Analyst: Eli Rodriguez Pre Procedure Diagnosis: Adenocarcinoma of [...] tract was dilated to accept a 10 Serbian Mac-loc catheter which was formed in the [...] with the written report.MD HinojosaCOVID-19 (SARS-CoV-2) PCR-Asymptomatic [id number] 07:56:14 Test Item Value Reference Range Interpretation Comments COVID19 (SARS Not Detected Not Detected This test is a CoV-2) Result qualitative (test code = reverse-transcr iptase 15566-4) polymerase agustin n reaction (RT-PC R) developed for t he [employer] ZULEIMA 680 0 system and inte nded for the [...] were verified by the Microbiology Laboratory at [facility], CLIA Accreditation # : [id number] and CAP Accreditation # : [id number]. Result s must be interpreted within the [...] te sting if clinically indicated. COVID19 SARS MACHINE DEICER ELEMENT WINDER Swab Source (test code = 55131) COVID19 SARS Pre-Out of OR Indication (test Procedure code = 11394) MD HinojosaCT Chest Abdomen with [id number] 19:51:19 Interval increase in size of pulmonary [...] sidewall appears slightly smaller.Other findings as above.MD HinojosaConfirm [id number] 03:20:25 Test Item Value Reference Range Interpretation Comments ABORh Confirm. (test code = 882-1) A POS MD Hinojosa
--- NOTE | 2020-12-05 17:15 | RAD REPORT ---
EXAM DESCRIPTION: RAD - Chest Single View - 12/05/2020 5:02 pm CLINICAL HISTORY: FEVER, known metastatic colorectal cancer COMPARISON: CT imaging November 04, portable chest November 04 TECHNIQUE: AP portable chest image was obtained 12/05/2020 5:02 pm . FINDINGS: Right-sided Port-A-Cath remains in place. Multiple lung masses are present matching the re cent study. Interstitial markings are prominent but not clearly different. No focal consolidation to suspect bacterial pneumonia. No significant failure or volume overload. Heart and vasculature are nor mal. No measurable pleural effusion and no pneumothorax. No acute bony abnormality seen. No acute aor tic findings suspected. IMPRESSION: Multiple lung masses without acute infiltrate identifiable. No significant failure, edema or volume overload finding.
[2020-12-05 18:02] LABS: Urine Blood TRACE (NEG); Urine Glucose NEGATIVE (NEG); Urine Protein 3+ (NEG)
--- NOTE | 2020-12-05 18:02 | ER ---
Nurse's Notes [facility] Name: Erum Reilly Age: 65 yrs Sex: Female : 1955 Arrival Date: 12/05/2020 Time: 13:59 Bed 26 Private MD: Diagnosis: Fever, unspecified Presentation: 12/05 14:12 Chief complaint: Spouse and/or significant other states: Fever since last night, Htemp ca1 102.8F last night. Pt has rectal cancer with mets to liver and lungs. Currently not on Chemo. Has sepsis last month from the nephrostomy. had Covid but quarantined 19 days prior to contact with pt. Daughter had Covid and quarantined 16 days prior to contact with pt. Denies any other symptoms. Coronavirus screen: Client denies travel out of the [place] in the last 14 days. fever, Client presents with at least one sign or symptom that may indicate coronavirus-19. Standard/surgical mask placed on the client. Provider contacted for isolation considerations. Ebola Screen: Patient negative for fever greater than or equal to 101.5 degrees Fahrenheit, and additional compatible Ebola Virus Disease symptoms Patient denies exposure to infectious person. Patient denies travel to an Ebola-affected area in the 21 days before illness onset. No symptoms or risks identified at this time. Initial Sepsis Screen: Does the patient meet any 2 criteria? No. Patient's initial sepsis screen is negative. Does the patient have a suspected source of infection? No. Patient's initial sepsis screen is negative. Risk Assessment: Do you want to hurt yourself or someone else? Patient reports no desire to harm self or others. Onset of symptoms was December 05, 2020. 14:12 Method Of Arrival: Wheelchair ca1 14:12 Acuity: DEBO 3 ca1 Historical: - Allergies: 14:19 cetuximab; ca1 14:19 chemo med; ca1 - PMHx: 14:19 COPD; Diabetes - NIDDM; Hypertension; rectal CA-stage 4.; ca1 - PSHx: 14:19 colostomy/nephrostomy; ca1 - Immunization history:: Pneumococcal vaccine is not up to date, Flu vaccine is not up to date. - Social history:: Smoking status: Patient/guardian denies using tobacco, the patient reports quitting approximately 3 years ago. Screenin:22 Abuse screen: Denies threats or abuse. Denies injuries from another. Nutritional zb screening: No deficits noted. Tuberculosis screening: No symptoms or risk factors identified. Fall Risk Fall in past 12 months (25 points). No secondary diagnosis (0 pts). No IV (0 pts). Ambulatory Aid- Crutches/Cane/Walker (15 pts). Gait- Weak (10 pts.). Mental Status- Oriented to own ability (0 pts). Total Murray Fall Scale indicates High Risk Score (45 or more points). Fall prevention measures have been instituted. Side Rails Up X 2 Placed Close to Nursing Station Frequent Obs/Assessments Occuring Family Present and informed to notify staff if the need to leave the bedside As available patient and family educated on Fall Prevention Program and Strategies. Assessment: 16:17 General: Appears in no apparent distress. uncomfortable, Behavior is calm, cooperative, zb appropriate for age, Reports fever for 12-24 hours, Denies feeling ill, fatigue. Pain: Complains of pain in back pain. Neuro: Level of Consciousness is awake, alert, obeys commands, Oriented to person, place, time, situation. Neuro: Denies weakness numbness headache. Cardiovascular: Heart tones S1 S2 present Capillary refill < 3 seconds Patient's skin is warm and dry. Pulses are all present. Edema is 1+ to right foot and right toes. Respiratory: Airway is patent Respiratory effort is even, unlabored, Respiratory pattern is regular, symmetrical, Breath sounds are clear bilaterally. GI: Abdomen is round Colostomy site is clean and dry. Ostomy appliance is intact. nephrostomy Bowel sounds present X 4 quads. Abd is soft and non tender X 4 quads. Mass noted in right upper quadrant. : No signs and/or symptoms were reported regarding the genitourinary system. EENT: No signs and/or symptoms were reported regarding the EENT system. Derm: Skin is intact, is fragile, is thin, Skin is dry, Skin is pale, Skin temperature is warm. Musculoskeletal: Circulation, motion, and sensation intact. Range of motion: intact in all extremities. 17:17 Reassessment: Patient appears in no apparent distress at this time. Patient and/or zb family updated on plan of care and expected duration. Pain level reassessed. Patient is alert, oriented x 3, equal unlabored respirations, skin warm/dry/pink. no c/o at this time. 17:30 Reassessment: patient and state that they want to go and wish to leave AMA. zb notified provider. Patient signed AMA form. Vital Signs: 14:12 BP 95 / 56; Pulse 94; Resp 16 S; Temp 97.9(O); Pulse Ox 98% on R/A; Weight 63.5 kg (R); ca1 Height 5 ft. 5 in. (165.10 cm) (R); Pain 0/10; 16:30 BP 126 / 63; Pulse 97; Resp 16; Pulse Ox 100% on R/A; zb 17:30 BP 118 / 61; Pulse 97; Resp 16; Pulse Ox 100% on R/A; zb 14:12 Body Mass Index 23.30 (63.50 kg, 165.10 cm) ca1 ED Course: 13:59 Patient arrived in ED. ag5 14:18 Triage completed. ca1 14:19 Arm band placed on right wrist. [facility] 16:00 Jeffry Perkins PA is PHCP. [facility] 16:00 Jordan Perez MD is Attending Physician. [facility] 16:17 Noa Loera RN is Primary Nurse. zb 16:22 Patient has correct armband on for positive identification. Placed in gown. Bed in low zb position. block cleaner on. Pulse ox on. NIBP on. Door closed. Noise minimized. Warm blanket given. 17:02 XRAY Chest (1 view) In Process Unspecified. EDMS 17:10 Inserted saline lock: 22 gauge in left forearm, using aseptic technique. iw 17:47 No provider procedures requiring assistance completed. IV discontinued, intact, zb bleeding controlled, No redness/swelling at site. Pressure dressing applied. Administered Medications: No medications were administered Outcome: 17:48 Discharged to home via wheelchair, with family. zb 17:48 Condition: stable 17:48 Discharge instructions given to patient, Instructed on AMA Demonstrated understanding of instructions. 18:02 Patient left the ED. zb Signatures: Dispatcher [employer] EDMS Jeffry Perkins PA PA jmm Williams, Irene, RN RN Riya Watson RN RN [facility] Francois Miguel [facility] Noa Loera RN RN zb Corrections: (The following items were deleted from the chart) 17:11 17:10 Inserted saline lock: 22 gauge in right forearm, using aseptic technique. iw iw
--- NOTE | 2020-12-05 18:02 | EDPHYS ---
Physician Documentation [facility] [place], [place] Name: Erum Reilly Age: 65 yrs Sex: Female : 1955 Arrival Date: 12/05/2020 Time: 13:59 Bed 26 Private MD: ED Physician Jordan Perez HPI: 12/05 16:24 This 65 yrs old Female presents to ER via Wheelchair with complaints of Fever.jmm 16:24 The patient reports fever, that was measured at 102.7 degrees Fahrenheit. Onset: The jmm symptoms/episode began/occurred last night. Modifying factors: there are no obvious modifying factors. Associated signs and symptoms: Pertinent positives: Pertinent negatives: abdominal pain, cough, diarrhea, headache, nausea, sinus congestion, sinus drainage. This is a 65 year old female with a history of COPD, DM, HTN, rectal cancer that presents to the ED with fever beginning last night. Patient denies abdominal pain, back pain, vomiting, sob, cough. Family did have covid 19 recently but stated they isolated themselves. . Historical: - Allergies: 14:19 cetuximab; ca1 14:19 chemo med; ca1 - PMHx: 14:19 COPD; Diabetes - NIDDM; Hypertension; rectal CA-stage 4.; ca1 - PSHx: 14:19 colostomy/nephrostomy; ca1 - Immunization history:: Pneumococcal vaccine is not up to date, Flu vaccine is not up to date. - Social history:: Smoking status: Patient/guardian denies using tobacco, the patient reports quitting approximately 3 years ago. ROS: 16:24 Constitutional: Negative for fever, chills, and weight loss, Cardiovascular: Negative jmm for chest pain, palpitations, and edema, Respiratory: Negative for shortness of breath, cough, wheezing, and pleuritic chest pain, Abdomen/GI: Negative for abdominal pain, nausea, vomiting, diarrhea, and constipation. 16:24 All other systems are negative. Exam: 16:24 Constitutional: This is a well developed, well nourished patient who is awake, alert, jmm and in no acute distress. Head/Face: atraumatic. Eyes: EOMI, no conjunctival erythema appreciated ENT: Moist Mucus Membranes Neck: Trachea midline, Supple Chest/axilla: Normal chest wall appearance and motion. Cardiovascular: Regular rate and rhythm. No edema appreciated Respiratory: Normal respirations, no respiratory distress appreciated Abdomen/GI: Non distended, soft Back: Normal ROM Skin: General appearance color normal MS/ Extremity: Moves all extremities, no obvious deformities appreciated, no edema noted to the lower extremities Neuro: Awake and alert, normal gait Psych: Behavior is normal, Mood is normal, Patient is cooperative and pleasant Vital Signs: 14:12 BP 95 / 56; Pulse 94; Resp 16 S; Temp 97.9(O); Pulse Ox 98% on R/A; Weight 63.5 kg (R); ca1 Height 5 ft. 5 in. (165.10 cm) (R); Pain 0/10; 16:30 BP 126 / 63; Pulse 97; Resp 16; Pulse Ox 100% on R/A; zb 17:30 BP 118 / 61; Pulse 97; Resp 16; Pulse Ox 100% on R/A; zb 14:12 Body Mass Index 23.30 (63.50 kg, 165.10 cm) ca1 MDM: 16:15 Patient medically screened. [facility] 17:59 Data reviewed: vital signs, nurses notes. Counseling: I had a detailed discussion with [facility] the patient and/or guardian regarding:. Refusal of service: The patient/guardian displays adequate decision making capability and despite a detailed discussion of alternatives, benefits, risks, and consequences refuses: all lab tests. ED course: Patient appears competent to make decisions. Patient was advised of the need for labs for further evaluation. Patient signed out against medical advice. 12/05 16:24 Order name: Basic Metabolic Panel [facility] 12/05 16:24 Order name: CBC with Diff [facility] 12/05 16:24 Order name: LFT's [facility] 12/05 16:24 Order name: Magnesium [facility] 12/05 16:24 Order name: NT PRO-BNP [facility] 12/05 16:24 Order name: PT-INR [facility] 12/05 16:24 Order name: Troponin (emerg Dept Use Only) [facility] 12/05 16:24 Order name: Procalcitonin [facility] 12/05 16:24 Order name: Urine Culture [facility] 12/05 16:24 Order name: XRAY Chest (1 view); Complete Time: 17:37 [facility] 12/05 16:24 Order name: EKG; Complete Time: 16:25 [facility] 12/05 16:24 Order name: Cardiac monitoring; Complete Time: 16:26 [facility] 12/05 16:24 Order name: EKG - Nurse/Tech; Complete Time: 17:49 [facility] 12/05 16:24 Order name: IV Saline Lock; Complete Time: 16:26 [facility] 12/05 16:24 Order name: Labs collected and sent; Complete Time: 17:49 [facility] 12/05 16:24 Order name: O2 Per Protocol; Complete Time: 17:49 [facility] 12/05 16:24 Order name: O2 Sat Monitoring; Complete Time: 17:49 [facility] 12/05 17:41 Order name: Urine Dipstick--Ancillary (enter results) 12/05 16:24 Order name: Urine Dipstick-Ancillary (obtain specimen); Complete Time: 17:48 [facility] Administered Medications: No medications were administered Disposition: 18:40 Co-signature as Attending Physician, Jordan Perez MD. rn Disposition: 12/05/20 18:01 Patient has left against medical advice. Impression: Fever, unspecified. - Patients states they are going to Home. - Condition is Stable. Follow up: Private Physician; When: 2 - 3 days; Reason: Recheck today's complaints, Continuance of care, Re-evaluation by your physician. - Problem is new. - Symptoms have improved. Signatures: Dispatcher [employer] [facility] Jeffry Perkins PA PA [facility] Jordan Perez MD MD rn Acob, CHIVO Ritter RN, [place], RN RN zb Corrections: (The following items were deleted from the chart) 17:49 16:25 CORONAVIRUS+MR.LAB.BRZ ordered. [facility] 17:50 16:25 Influenza Screen (A \T\ B)+BA.LAB.BRZ ordered. [facility] 18:02 18:01 12/05/2020 18:01 Patients has left against medical advice. Impression: Fever, zb unspecified. Patient states they are going to Home. Condition is Stable. Follow up: Private Physician; When: 2 - 3 days; Reason: Recheck today's complaints, Continuance of care, Re-evaluation by your physician. Problem is new. Symptoms have improved. [facility]
[2020-12-05 18:30] LABS: SARS-COV-2 RT PCR NEGATIVE (NEGATIVE)
[2020-12-05 18:57] VITALS: BP 95/56; TEMP 97.9; O2SAT 98
== END 2020-12-05 18:02 | disposition left against medical advice (07) ==
LOC: ER 13:57
DX: R50.9 Fever, unspecified (principal); Z20.822 Contact with and (suspected) exposure to COVID-19; I10 Essential (primary) hypertension; Z88.8 Allergy status to other drugs, medicaments and biological substances; Z85.048 Personal history of other malignant neoplasm of rectum, rectosigmoid junction, and anus
CPT/HCPCS: 87088; 87086; 81003; 0240U; 71045; 99284

== ENCOUNTER 2020-12-20 20:41 | Emergency (ER) | payer OTHER ==
--- OUTSIDE RECORDS SUMMARY | 2020-12-20 20:49 | XMS REPORT | Continuity of Care Document ---
:1955 Author Organization [facility] t Address [address] [place] [address] Care Team Providers Name Role Phone JEFFERSON Primary Care Physician Unavailable Quan Smith DO Attending Clinician John Holder MD Attending Clinician Poncho CAMPA Attending Clinician Beau CAMPA Attending Clinician Naldo MCDONOUGH, A Attending Clinician Oliver Attending Clinician Unavailable Whitney CAMPA Attending Clinician Belkis CAMPA Attending Clinician Wild CAMPA Attending Clinician Allison CAMPA, [facility] Attending Clinician Naif CAMPA Attending Clinician Bart GAUTAM Attending Clinician Zoraida LANCASTER Attending Clinician Jefferson CAMPA Attending Clinician Alex Barraza RN, T Attending Clinician Unavailable Mary Ellen CAMPA Attending Clinician Loco RN, A Attending Clinician Unavailable Jaymie CAMPA Attending Clinician Pob, Lab Main Attending Clinician Unavailable Doctor Unassigned, Name Attending Clinician Unavailable Zuly WALDRON, February Attending Clinician Misti Paz. Attending Clinician Eloina WALDRON, L. Attending Clinician Unavailable Joby CAMPA, K.H. 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 Attending Clinician Chris LANCASTER Attending Clinician Jaciel ALTMAN Attending Clinician Unavailable Bob RN, F Attending Clinician Unavailable Latasha COPE Attending Clinician Patrice TOLEDO Attending Clinician Beau MCDONOUGH Attending Clinician Attending Clinician Unavailable [facility] Attending Clinician Unavailable Gayle WALDRON Attending Clinician Unavailable Kika WALDRON, L Attending Clinician JIMY Attending Clinician Unavailable Santana Lou Attending Clinician Clayton ALTMAN Attending Clinician Nicholas WALDRON Attending Clinician Elma SCHUMACHER Attending Clinician Jairo Attending Clinician Unavailable Erin WALDRON, B Attending Clinician Unavailable Pam LANCASTER Attending Clinician Will WALDRON, A Attending Clinician Unavailable Payers Payer Name Policy Type Policy Effective Date Expiration Date Sour ce Number MEDICAREMEDICARE PART [id number] 2020 MD Ashish Chappell AND 00:00:00 [id number] 2019- [id number] [place] [facility] 2018 [facility] [id number] [facility] [id number] 2018 MD Monik valdovinos [place] 00:00:00 HEALTHCARE [id number] 19-PresentAccess Network Problems Condition Condition Condition Status [...] Rectal Rectal Disease Active 2018-10 cancer cancer 11-04 Anderso 00:00: n 00 Allergies, Adverse Reactions, Alerts This patient has no known allergies or adverse reactions. Family History Family Member Diagnosis Comments Start Date Stop Date Source Natural father Lymphoma MD Monik valdovinos Maternal aunt Breast cancer MD Condon son Natural mother Lung cancer MD Trotter [...] Former smoker 2020-11-08 00:00:00 2020-11-08 00:00:00 MD Taurus mayo Medications Ordered Filled Start Stop Current Ordering Indication Dosage Frequency Signature Comments Components Source Medication Medication Date Date Medication? Clinician (SIG) Name Name oxyCODONE-a Yes Cancer 1{tbl} Take 1 MD cetaminophe 2-25 associated tablet by Anderso n 00:00: pain mouth 2 n (Percocet) 00 (two) 5 mg-325 mg times a per tablet day as needed for severe pain. budesonide- Yes 2{puff} Inhale 2 MD formoterol 2-22 puffs by Taurus so (SYMBICORT) 18:12: mouth n 160-4.5 22 twice mcg/actuati daily. on inhaler docusate Yes 100mg Take 100 MD sodium 2-22 mg by Anderso (COLACE) 18:12: mouth n 100 mg 22 daily. capsule methadone Yes Cancer 2.5mg Take 0.5 M D (DOLOPHINE) 2-18 associated tablets Anderso 5 mg tablet 00:00: pain (2.5 mg) n 00 by mouth every 8 (eight) hours. pantoprazol Yes Severe 40mg Take 1 MD [...] n needed (constipat ion). Colostomy in place glyBURIDE Yes Diabetes 5mg Take 1 MD (DIABETA) 5 11-10 mellitus, tablet (5 Anderso mg tablet 00:00: not mg) by n 00 otherwise mouth specified daily. multivitami Yes Severe 1{tbl} Take 1 MD n tab 11-10 protein-rocio tablet by An derso tablet 00:00: orie mouth n 00 malnutritio daily. n, not otherwise specified ciprofloxac 2020- Urinary 750mg Take 1 MD in HCl 11-10 tract tablet Anderso (CIPRO) 750 00:00: 00:00 infection (750 mg) n mg tablet 00 :00 by mouth every 12 (twelve) hours. sulfamethox 2020- No Urinary 1{tbl} Take 1 MD azole-trime 10-18 tract tablet by A nderso thoprim 00:00: [...] 2019-10 Dysuria 100mg Take 1 MD oin 16 10-29 capsule Anderso monohyd/m-c 00:00: 00:00 (100 mg) n ryst 00 :00 by mouth (Macrobid) twice 100 mg daily. capsule oxyCODONE-a 2019-10 No Cancer 1{tbl} Take 1 MD cetaminophe 11-07 associated tablet by Anderso n 00:00: 00:00 [...] 1{tbl} Take 1 MD mg EC 0-29 05-01 tablet by Anderso tablet 09:21: 00:00 mouth [...] (acute) by mouth (chronic) twice daily. oxyCODONE 2019-10- No Cancer 9mg Take 1 MD myristate 0-16 10-19 associated capsule (9 Anderso (Xtampza 00:00: 00:00 pain mg) by n ER) 9 mg 12 00 :00 mouth hr capsule twice daily. oxyCODONE-a 2019- No Cancer 1{tbl} Take 1 MD cetaminophe 9-15 11-23 associated tablet by Anderso n 00:00: 00:00 pain mouth n (Percocet) 00 :00 every 8 5 mg-325 mg (eight) per tablet hours as needed for severe pain. oxyCODONE 2019- No Cancer 9mg Take 1 MD myristate 9-15 10-16 associated capsule (9 Anderso (Xtampza 00:00: 00:00 pain mg) by n ER) 9 mg 12 00 :00 mouth hr capsule twice daily. morphine No Adenocarcin 15mg Take 1 MD (MS CONTIN) 06-07 09-15 tesha of tablet (15 Anderso 15 mg ER 00:00: 00:00 rectum mg) by n tablet 00 :00 mouth every 12 (twelve) hours. magic 2019-2020- No Ulcerative 10mL Swish and MD mouthwash 06-02 01-15 oral spit 10 mL And erso (sucralfate 00:00: 00:00 mucositis 4 (four) n /maalox/dip 00 :00 due to times a henhydramin antineoplas day. e) tic therapy (AMB-CMPD) magic 2019- No Ulcerative 10mL Swish and MD mouthwash 06-02 08-19 oral spit 10 mL And erso (sucralfate [...] hours as needed for moderate pain. morphine 2019- No Adenocarcin 15mg Take 1 MD (MS CONTIN) 05-06 07-24 tesha of tablet (15 Anderso 15 mg ER 00:00: 00:00 rectum mg) by n tablet 00 :00 mouth every 12 (twelve) hours. gabapentin No Neoplasm 400mg Take 1 MD (Neurontin) 7-20 10-16 related capsule A nderso 400 mg 00:00: 00:00 pain (400 mg) n capsule 00 :00 (acute) by mouth (chronic) twice daily. regorafenib No Adenocarcin 160mg Take 4 MD (Stivarga) 7-08 01-15 tesha of tablets And erso 40 mg 00:00: 00:00 rectum (160 mg) n tablet 00 :00 by mouth daily. To take on days #1-21 of every 28 day cycle HYDROcodone 2019- No Adenocarcin 1{tbl} Take 1 MD -acetaminop 6-29 07-23 tesha of tablet by Anderso hen (Omnidrive) 00:00: 00:00 rectum mouth n 10 mg-325 00 :00 every 6 mg per (six) tablet hours as needed for moderate pain. magnesium Yes Adenocarcin 500mg Take 1 MD oxide 500 6-10 tesha of tablet Sergo o mg tablet 00:00: rectum (500 mg) n 00 by mouth daily. traMADol No Rectal 50mg Take 1 MD (ULTRAM) 50 6-10 08-17 cancer tablet (50 Anderso mg tablet 00:00: 00:00 mg) by n 00 :00 mouth every 6 (six) hours as needed for moderate pain. HYDROcodone No Rectal 1{tbl} Take 1 MD -acetaminop 6-10 06-29 cancer tablet by Anderso hen (MEDNAX) 00:00: 00:00 mouth n 7.5 mg-325 00 :00 every 4 mg per (four) tablet hours as needed for moderate pain or severe pain. HYDROcodone 2019- No Rectal 1{tbl} Take 1 MD -acetaminop 5-01 06-10 cancer tablet by Anderso hen (MEDNAX) 00:00: 00:00 mouth n 7.5 mg-325 00 :00 every 4 mg per (four) tablet hours as needed for moderate pain or severe pain. traMADol 2019- No Rectal 50mg Take 1 MD (ULTRAM) 50 4-09 06-10 cancer tablet (50 Anderso mg tablet 00:00: 00:00 mg) by n 00 :00 mouth every 6 (six) hours as needed for moderate pain. HYDROcodone 2019- No Rectal 1{tbl} Take 1 MD -acetaminop 3-12 05-01 cancer tablet by Andersbk martinez ([place]) 00:00: 00:00 mouth n 7.5 mg-325 00 :00 every 4 mg per (four) tablet hours as needed for moderate pain or severe pain. diphenoxyla Yes Rectal 1{tbl} Take 1 MD te-atropine 3-05 cancer tablet by A nderso (LomotiL) 00:00: mouth n 2.5 00 every 6 mg-0.025 mg (six) per tablet hours as needed for diarrhea. Not to exceed 8 tablets per day HYDROcodone 2019- No Rectal 1{tbl} Take 1 MD -acetaminop 3-03 03-12 cancer tablet by Andersbk martinez ([place]) 00:00: 00:00 mouth n 7.5 mg-325 00 [...] 2018-10- No Adenocarcin Apply to MD rilocaine 2-11 04-21 tesha of [place] A nderso (EMLA) 00:00: [...] No Adenocarcin 10mg Take 1 MD azine 11-25 tesha of tablet (10 Taurus so (COMPAZINE) [...] 1 MD (GLUCOPHAGE 0-06 diabetes tablet by Andkelby ) 1000 mg 00:00: mellitus mouth n [...] 2020-04-09 00:00:00 72.6 kg Systolic blood pressure 2020-12-06 18:02:02 105 mm[Hg] MD Hinojosa Diastolic blood pressure 2020-12-06 18:02:02 64 mm[Hg] MD Hinojosa Heart rate 2020-12-06 18:02:02 94 /min MD Taurus mayo Body temperature 2020-12-06 18:02:02 36.72 Marci MD Misti mclean Respiratory rate 2020-12-06 18:02:02 18 /min MD Misti mclean Oxygen saturation in 2020-11-10 19:09:00 95 /min MD Hinojosa Arterial blood by Pulse oximetry Body weight 2020-11-08 13:46:00 66.2 kg MD Taurus mayo BMI 2020-11-08 13:46:00 24.92 kg/m2 MD Taurus mayo Body height 2020-11-05 08:15:00 163 cm MD Taurus mayo Procedures Procedure Date / Time Performed Performing Clinician [facility] e COMPLETE BLOOD COUNT W/ 2020-12-06 16:56:00 Tu, Jojo mclean DIFFERENTIAL COMPREHENSIVE METABOLIC PANEL 2020-12-06 16:56:00 Tu, Jojo Hinojosa MAGNESIUM LEVEL 2020-12-06 16:56:00 Tu, Jojo Hinojosa CARCINOEMBRYONIC ANTIGEN 2020-12-06 16:56:00 Tu, Jojo Hinojosa Results CBC 2020-12-06 16:56:00 Tu, Jojo Hinojosa MANUAL DIFFERENTIAL 2020-12-06 16:56:00 Tu, Jojo mayo GLUCOSE LEVEL 2020-12-06 16:56:00 Tu, Jojo Hinojosa BLOOD UREA NITROGEN 2020-12-06 16:56:00 Tu, Jojo mayo ELECTROLYTE PANEL 2020-12-06 16:56:00 Tu, Jojo valdovinos SERUM CREATININE 2020-12-06 16:56:00 Tu, Jojo Hinojosa .GLOMERULAR FILTRATION RATE 2020-12-06 16:56:00 Tu, Jojo Hinojosa CALCIUM LEVEL TOTAL 2020-12-06 16:56:00 Tu, Jojo mayo ALBUMIN LEVEL 2020-12-06 16:56:00 Tu, Jojo Hinojosa ALKALINE PHOSPHATASE 2020-12-06 16:56:00 Tu, Jojo tovar ALANINE AMINOTRANSFERASE 2020-12-06 16:56:00 Tu, Jojo Hinojosa ASPARTATE AMINOTRANSFERASE 2020-12-06 16:56:00 Tu, Jojo Hinojosa TOTAL PROTEIN 2020-12-06 16:56:00 Tu, Jojo Hinojosa FRACTIONATED BILIRUBIN 2020-12-06 16:56:00 Tu, Jojo álvarez POC GLUCOSE SCREEN 2020-11-10 18:09:00 Sammy Arriaga MD on POC GLUCOSE SCREEN 2020-11-10 13:55:00 Sammy Arriaga MD on COMPLETE BLOOD COUNT W/ 2020-11-10 07:06:00 Day, Vanda delcidrson DIFFERENTIAL COMPREHENSIVE METABOLIC PANEL 2020-11-10 07:06:00 Day, [...] mayo ELECTROLYTE PANEL 2020-11-10 07:06:00 Day, Vanda Ruggiero n SERUM CREATININE 2020-11-10 07:06:00 Day, Vanda Hinojosa [...] Hinojosa FRACTIONATED BILIRUBIN 2020-11-10 07:06:00 Day, Vanda álvarez POC GLUCOSE SCREEN 2020-11-10 04:31:00 Sammy Arriaga MD on POC GLUCOSE SCREEN 2020-11-09 23:53:00 Sammy Arriaga MD on TRANSFUSE RED BLOOD CELLS 2020-11-09 23:48:42 Eli Hitchcokc PREPARE RBC 2020-11-09 19:11:00 Eli Hitchcock MD COMPLETE BLOOD COUNT W/ 2020-11-09 15:35:00 Eli Hitchcock MD INDICES POC GLUCOSE SCREEN 2020-11-09 13:15:00 Sammy Arriaga MD on COMPLETE BLOOD COUNT W/ 2020-11-09 06:41:00 Day, Vanda Chappell nderson DIFFERENTIAL COMPREHENSIVE METABOLIC PANEL 2020-11-09 06:41:00 Day, Vanda Hinojosa MAGNESIUM LEVEL 2020-11-09 06:41:00 Day, Vanda Hinojosa PHOSPHORUS LEVEL 2020-11-09 06:41:00 Day, Vanda Hinojosa Results CBC 2020-11-09 06:41:00 Day, Vanda Hinojosa MANUAL DIFFERENTIAL 2020-11-09 06:41:00 Day, Vanda CAMPA Taurus son GLUCOSE LEVEL 2020-11-09 06:41:00 Day, Vanda Hinojosa BLOOD UREA NITROGEN 2020-11-09 06:41:00 Day, Vanda CAMPA Taurus son ELECTROLYTE PANEL 2020-11-09 06:41:00 Day, Vanda Trottero n SERUM CREATININE 2020-11-09 06:41:00 Day, Vanda Hinojosa .GLOMERULAR FILTRATION RATE 2020-11-09 06:41:00 Day, Vanda Hinojosa CALCIUM LEVEL TOTAL 2020-11-09 06:41:00 Day, Vanda CAMPA Taurus son ALBUMIN LEVEL 2020-11-09 06:41:00 Day, Vanda Hinojosa ALKALINE PHOSPHATASE 2020-11-09 06:41:00 Day, Vanda Vigil rson ALANINE AMINOTRANSFERASE 2020-11-09 06:41:00 Day, Vanda Hinojosa [...] IR NEPHROSTOMY EXCHANGE 2020-11-08 17:54:50 Maddi Waters MD nderson POC GLUCOSE SCREEN 2020-11-08 14:43:00 Sammy Arriaga MD on URINE CULTURE 2020-11-08 09:14:00 Devora Waters MD URINALYSIS MICROSCOPIC 2020-11-08 09:14:00 Devora Waters MD nderson URINALYSIS WITH MICROSCOPIC 2020-11-08 09:14:00 Sen Cooper [...] Hinojosa FRACTIONATED BILIRUBIN 2020-11-08 06:30:00 Day, Vanda Johns derson CLOT EXPIRATION DATE 2020-11-08 06:30:00 Day, [...] MANUAL DIFFERENTIAL 2020-11-06 06:36:00 Alex Olson MD [facility] GLUCOSE LEVEL 2020-11-06 06:36:00 Alex Olson MD BLOOD UREA NITROGEN 2020-11-06 06:36:00 [facility] 2020-11-06 06:36:00 Alex Olson MD SERUM CREATININE 2020-11-06 06:36:00 Alex Olson MD .GLOMERULAR FILTRATION RATE 2020-11-06 06:36:00 Alex Olson MD CALCIUM LEVEL TOTAL 2020-11-06 06:36:00 [facility] POC GLUCOSE SCREEN 2020-11-06 04:11:00 Sen Cooper MD OCCULT BLOOD STOOL 2020-11-06 00:35:00 Maddi Waters MD on EKG, 12-LEAD (PORTABLE) 2020-11-06 00:00:00 Maddi Waters MD POC GLUCOSE SCREEN 2020-11-05 23:22:00 Sen Cooper MD US LEG VENOUS DOPPLER 2020-11-05 22:48:14 Maddi Waters MD And juarezon BILATERAL US ABDOMEN LIMITED 2020-11-05 22:13:00 Maddi Waters MD on US PELVIS LIMITED 2020-11-05 22:13:00 Maddi Waters MD TRANSFUSE RED BLOOD CELLS 2020-11-05 18:34:10 Alex Olson MD XR CHEST 1 VW 2020-11-05 17:34:10 Maddi Waters MD TROPONIN T 2020-11-05 16:17:00 Maddi Waters MD LACTIC ACID, VENOUS 2020-11-05 16:17:00 Maddi Waters MD Taurus son NT PRO BNP 2020-11-05 16:17:00 Maddi Waters MD POC GLUCOSE SCREEN 2020-11-05 15:00:00 Sen Cooper MD XR CHEST 1 VW 2020-11-05 07:37:13 Alex Olson MD TYPE AND SCREEN 2020-11-05 07:25:00 Alex Olson MD ABORH 2020-11-05 07:25:00 Alex Olson MD ANTIBODY SCREEN 2020-11-05 07:25:00 Alex Olson MD CLOT EXPIRATION DATE 2020-11-05 07:25:00 Alex Olson MD Musa rson TMP INTERPRETATION ANTIBODY 2020-11-05 07:25:00 Alex Olson MD SCREEN NEGATIVE TMP CROSSMATCH INTERPRETATION 2020-11-05 07:25:00 Suzy Olson MD PREPARE RBC 2020-11-05 07:13:00 Alex Olson MD URINE CULTURE 2020-11-05 06:53:00 Alex Olson MD BLOODCULTURE 2020-11-05 06:53:00 Alex Olson MD URINALYSIS WITH MICROSCOPIC 2020-11-05 06:53:00 Alex Olson MD IF INDICATED URINALYSIS MICROSCOPIC 2020-11-05 06:53:00 Alex Olson MDson BLOODCULTURE 2020-11-05 06:38:00 Alex Olson MD MAGNESIUM LEVEL 2020-11-05 06:38:00 Alex Olson MD PHOSPHORUS LEVEL 2020-11-05 06:38:00 Alex Olson MD COMPREHENSIVE METABOLIC PANEL 2020-11-05 06:38:00 Suzy Olson MD LACTIC ACID, VENOUS 2020-11-05 06:38:00 Alex Olson MD COMPLETE BLOOD COUNT W/ 2020-11-05 06:38:00 Alex Olson MD nderson DIFFERENTIAL PROTHROMBIN TIME 2020-11-05 06:38:00 Alex Olson MD PARTIAL THROMBOPLASTIN TIME 2020-11-05 06:38:00 Alex Olson MD GLUCOSE LEVEL 2020-11-05 06:38:00 Alex Olson MD BLOOD UREA NITROGEN 2020-11-05 06:38:00 Alex Olson MD ELECTROLYTE PANEL 2020-11-05 06:38:00 [facility] 2020-11-05 06:38:00 [facility] .GLOMERULAR FILTRATION RATE 2020-11-05 06:38:00 Alex Olson MD CALCIUM LEVEL TOTAL 2020-11-05 06:38:00 Alex Olson MD Taurusmark mayo ALBUMIN LEVEL 2020-11-05 06:38:00 Alex Olson MD ALKALINE PHOSPHATASE 2020-11-05 06:38:00 Alex Olson MD ALANINE AMINOTRANSFERASE 2020-11-05 06:38:00 Alex Olson MD ASPARTATE AMINOTRANSFERASE 2020-11-05 06:38:00 Alex Olson TOTAL PROTEIN 2020-11-05 06:38:00 Alex Olson MD FRACTIONATED BILIRUBIN 2020-11-05 06:38:00 Alex Olson MDson Results CBC 2020-11-05 06:38:00 Alex Olson MD MANUAL DIFFERENTIAL 2020-11-05 06:38:00 Alex Olson MD son INFLUENZA A/B + COVID-19 2020-11-05 06:21:00 Alex Olson MD ASYMPTOMATIC-L POC GLUCOSE SCREEN 2020-11-05 06:15:00 Alex Olson MD on OSI CHEST 2020-11-05 05:16:09 Pipo Castellano MD OSI CT ABDOMEN AND PELVIS 2020-11-05 05:15:56 Pipo Castellano MD EKG, 12-LEAD (PORTABLE) 2020-11-05 00:00:00 Maddi Waters MD nderson TRANSFERRIN 2020-10-29 17:21:00 Tu, Jojo Hinojosa VITAMIN [...] BLOOD UREA NITROGEN 2020-10-29 16:31:21 Tu, Jojo mayo ELECTROLYTE PANEL 2020-10-29 16:31:21 Tu, Jojo valdovinos SERUM CREATININE 2020-10-29 16:31:21 Tu, Jojo Hinojosa .GLOMERULAR FILTRATION RATE 2020-10-29 16:31:21 Tu, Jojo Hinojosa CALCIUM LEVEL TOTAL 2020-10-29 16:31:21 Tu, Jojo CAMPA Taurus son ALBUMIN LEVEL 2020-10-29 16:31:21 Tu, Jojo Hinojosa ALKALINE PHOSPHATASE 2020-10-29 16:31:21 Tu, Jojo Vigil rsgina ALANINE AMINOTRANSFERASE 2020-10-29 16:31:21 Tu, Jojo Hinojosa ASPARTATE AMINOTRANSFERASE 2020-10-29 16:31:21 Tu, Jojo Hinojosa TOTAL PROTEIN 2020-10-29 16:31:21 Tu, Jojo Hinojosa FRACTIONATED BILIRUBIN 2020-10-29 16:31:21 Tu, Jojo montielson CT CHEST ABDOMEN PELVIS W 2020-09-20 19:46:16 Tu, Jojo Hinojosa CONTRAST POC CREATININE 2020-09-20 18:46:00 Tu, Jojo Hinojoas COMPLETE BLOOD COUNT W/ 2020-09-20 18:34:00 Tu, Jojo delcidrson DIFFERENTIAL COMPREHENSIVE METABOLIC PANEL 2020-09-20 18:34:00 Tu, Jojo Hinojosa MAGNESIUM LEVEL 2020-09-20 18:34:00 Tu, Jojo Hinojosa CARCINOEMBRYONIC ANTIGEN 2020-09-20 18:34:00 Tu, Jojo Hinojosa Results CBC 2020-09-20 18:34:00 Tu, Jojo Hinojosa MANUAL DIFFERENTIAL 2020-09-20 18:34:00 Tu, Jojo CAMPA Taurus mayo GLUCOSE LEVEL 2020-09-20 18:34:00 Tu, Jojo Hinojosa BLOOD UREA NITROGEN 2020-09-20 18:34:00 Tu, Jojo CAMPA Taurus mayo ELECTROLYTE PANEL 2020-09-20 18:34:00 Tu, Jojo Trottero [...] (SARS-COV-2) 2020-08-23 18:24:00 Vaishali Taylor MD PCR-ASYMPTOMATIC COMPLETE BLOOD COUNT W/ 2020-08-23 16:42:00 Emperatriz [...] NITROGEN 2020-08-23 16:42:00 Emperatriz Oneill MD Taurus son ELECTROLYTE PANEL 2020-08-23 16:42:00 Emperatriz Oneill MD [...] MD ALKALINE PHOSPHATASE 2020-07-13 20:32:00 Felicia Ibrahim MD ALANINE AMINOTRANSFERASE 2020-07-13 20:32:00 Felicia Ibrahim ASPARTATE AMINOTRANSFERASE 2020-07-13 20:32:00 Felicia Ibrahim MD TOTAL PROTEIN 2020-07-13 20:32:00 Felicia Ibrahim MD FRACTIONATED BILIRUBIN 2020-07-13 20:32:00 Felicia Ibrahim MD BLOOD UREA NITROGEN 2020-07-13 20:32:00 Felicia Ibrahim MD And erson COMPLETE BLOOD COUNT W/ 2020-06-30 14:21:00 Felicia Ibrahim MD DIFFERENTIAL MAGNESIUM LEVEL 2020-06-30 14:21:00 Felicia Ibrahim MD Andjuarezo n COMPREHENSIVE METABOLIC PANEL 2020-06-30 14:21:00 Janene Ibrahim [...] 2020-06-30 14:21:00 Felicia Ibrahim MD Andjuarezo bonifacio ALKALINE PHOSPHATASE 2020-06-30 14:21:00 Felicia Ibrahim MD ALANINE AMINOTRANSFERASE 2020-06-30 14:21:00 Felicia Ibrahim ASPARTATE AMINOTRANSFERASE 2020-06-30 14:21:00 Felicia Ibrahim MD TOTAL PROTEIN 2020-06-30 14:21:00 Felicia Ibrahim MDo bonifacio FRACTIONATED BILIRUBIN 2020-06-30 14:21:00 Felicia Ibrahim MD COMPREHENSIVE METABOLIC PANEL 2020-06-02 14:41:00 Tu, Jojo Hinojosa COMPLETE BLOOD COUNT W/ 2020-06-02 14:41:00 Tu, Jojo delcidrsgina DIFFERENTIAL MAGNESIUM LEVEL 2020-06-02 14:41:00 Tu, Jojo Hinojosa CARCINOEMBRYONIC ANTIGEN 2020-06-02 14:41:00 Tu, Jojo Hinojosa GLUCOSE LEVEL 2020-06-02 14:41:00 Tu, Jojo Hinojosa BLOOD UREA NITROGEN 2020-06-02 14:41:00 Tu, Jojo mayo ELECTROLYTE PANEL 2020-06-02 14:41:00 Tu, Jojo valdovinos SERUM CREATININE 2020-06-02 14:41:00 Tu, Jojo Hinojosa .GLOMERULAR FILTRATION RATE 2020-06-02 14:41:00 Tu, Jojo Hinojosa CALCIUM LEVEL TOTAL 2020-06-02 14:41:00 Tu, Jojo Condon gael ALBUMIN LEVEL 2020-06-02 14:41:00 Tu, Jojo Hinojosa [...] Ольга Hinojosa .GLOMERULAR FILTRATION RATE 2020-04-21 13:40:00 Ольга Ahn MD CALCIUM LEVEL TOTAL 2020-04-21 13:40:00 Jimy, Ольга CAMPA Taurus son ALBUMIN LEVEL 2020-04-21 13:40:00 Ольга Ahn MD ALKALINE PHOSPHATASE 2020-04-21 13:40:00 Jimy, Ольга tovar ALANINE AMINOTRANSFERASE 2020-04-21 13:40:00 JimyОльга MD ASPARTATE AMINOTRANSFERASE 2020-04-21 13:40:00 Ольга Ahn TOTAL PROTEIN 2020-04-21 13:40:00 Ольга Ahn MD FRACTIONATED BILIRUBIN 2020-04-21 13:40:00 Jimy, Ольга Johns derson Results CBC 2020-04-21 13:40:00 Ольга Ahn MD MANUAL DIFFERENTIAL 2020-04-21 13:40:00 Ольга Ahn MD BLOOD UREA NITROGEN 2020-04-21 13:40:[address] CHEST ABDOMEN PELVIS W 2020-04-19 18:28:00 Ольга Ahn MD CONTRAST POC CREATININE 2020-04-19 17:26:00 Ольга Ahn MD CARCINOEMBRYONIC ANTIGEN 2020-04-07 14:08:00 Ольга Ahn MD COMPREHENSIVE METABOLIC PANEL 2020-04-07 14:08:00 Ольга Ahn MD COMPLETE BLOOD COUNT W/ 2020-04-07 14:08:00 Ольга Ahn MDrsgina DIFFERENTIAL MAGNESIUM LEVEL 2020-04-07 14:08:00 Ольга Ahn MD GLUCOSE LEVEL 2020-04-07 14:08:00 Ольга Ahn MD BLOOD UREA NITROGEN 2020-04-07 14:08:00 Ольга Ahn MD ELECTROLYTE PANEL 2020-04-07 14:08:00 Ольга Ahn MD SERUM CREATININE 2020-04-07 14:08:00 Ольга Ahn MD .GLOMERULAR FILTRATION RATE 2020-04-07 14:08:00 Олгьа Ahn MD CALCIUM LEVEL TOTAL 2020-04-07 14:08:00 Ольга Ahn MD ALBUMIN LEVEL 2020-04-07 14:08:00 Ольга Ahn MD ALKALINE PHOSPHATASE 2020-04-07 14:08:00 Ольга Ahn MD Musa rson ALANINE AMINOTRANSFERASE 2020-04-07 14:08:00 Ольга Ahn MD ASPARTATE AMINOTRANSFERASE 2020-04-07 14:08:00 Ольга Ahn TOTAL PROTEIN 2020-04-07 14:08:00 Ольга Ahn MD FRACTIONATED BILIRUBIN 2020-04-07 14:08:00 Ольга Ahn MD derson Results CBC 2020-04-07 14:08:00 Ольга Ahn MD MANUAL DIFFERENTIAL 2020-04-07 14:08:00 Ольга Ahn MD [facility] COMPREHENSIVE METABOLIC PANEL 2020-03-24 14:14:13 Ольга Ahn MD COMPLETE BLOOD COUNT W/ 2020-03-24 14:14:13 Ольга Ahn MD nderson DIFFERENTIAL MAGNESIUM LEVEL 2020-03-24 14:14:13 Ольга Ahn MD GLUCOSE LEVEL 2020-03-24 14:14:13 Ольга Ahn MD BLOOD UREA NITROGEN 2020-03-24 14:14:13 [facility] ELECTR[facility] 2020-03-24 14:14:13 Ольга Ahn MD [facility] SERUM CREATININE 2020-03-24 14:14:13 Ольга Ahn MD .GLOMERULAR FILTRATION RATE 2020-03-24 14:14:13 Ольга Ahn MD CALCIUM LEVEL TOTAL 2020-03-24 14:14:13 Ольга Ahn MD [facility] ALBUMIN LEVEL 2020-03-24 14:14:13 Ольга Ahn MD ALKALINE PHOSPHATASE 2020-03-24 14:14:13 Ольга Ahn MD rson ALANINE AMINOTRANSFERASE 2020-03-24 14:14:13 Ольга Ahn MD ASPARTATE AMINOTRANSFERASE 2020-03-24 14:14:13 Ольга Ahn TOTAL PROTEIN 2020-03-24 14:14:13 Ольга Ahn MD FRACTIONATED BILIRUBIN 2020-03-24 14:14:13 Ольга Ahn MD derson Results CBC 2020-03-24 14:14:13 Ольга Ahn MD MANUAL DIFFERENTIAL 2020-03-24 14:14:13 Ольга Ahner gael CARCINOEMBRYONIC ANTIGEN 2020-03-10 17:00:00 Ольга Ahn MD [...] LEVEL TOTAL 2020-03-10 17:00:00 Ольга Ahn MD [facility] ALBUMIN LEVEL 2020-03-10 17:00:00 Ольга Ahn MD ALKALINE PHOSPHATASE 2020-03-10 17:00:00 Ольга Ahn MD rsgina ALANINE AMINOTRANSFERASE 2020-03-10 17:00:00 Ольга Ahn MD ASPARTATE AMINOTRANSFERASE 2020-03-10 17:00:00 Ольга Ahn TOTAL PROTEIN 2020-03-10 17:00:00 Ольга Ahn MD FRACTIONATED BILIRUBIN 2020-03-10 17:00:00 Ольга Ahn MD derson Results CBC 2020-03-10 17:00:00 Ольга Ahn MD MANUAL DIFFERENTIAL 2020-03-10 17:00:00 Ольга Ahn MD [facility] CT CHEST ABDOMEN W CONTRAST 2020-02-06 18:38:38 Tu, Jojo Hinojosa POC CREATININE 2020-02-06 17:46:00 Veronica Issa MD COMPLETE BLOOD COUNT W/ 2020-02-06 17:42:00 Tu, Jojo idazon DIFFERENTIAL COMPREHENSIVE METABOLIC PANEL 2020-02-06 17:42:00 Tu, Jojo Hinojosa MAGNESIUM LEVEL 2020-02-06 17:42:00 Tu, Jojo Hinojosa CARCINOEMBRYONIC ANTIGEN 2020-02-06 17:42:00 Tu, Jojo Hinojosa Results CBC 2020-02-06 17:42:00 Tu, Jojo Hinojosa MANUAL DIFFERENTIAL 2020-02-06 17:42:00 Tu, Jojo CAMPA [facility] GLUCOSE LEVEL 2020-02-06 17:42:00 Tu, Jojo Hinojosa BLOOD UREA NITROGEN 2020-02-06 17:42:00 Tu, Jojo CAMPA [facility] ELECTROLYTE PANEL 2020-02-06 17:42:00 Tu, Jojo Trottero n SERUM CREATININE 2020-02-06 17:42:00 Tu, Jojo Hinojosa .GLOMERULAR FILTRATION RATE 2020-02-06 17:42:00 Tu, Jojo Hinojosa CALCIUM LEVEL TOTAL 2020-02-06 17:42:00 Tu, Jojo CAMPA [facility] son ALBUMIN LEVEL 2020-02-06 17:42:00 Tu, Jojo Hinojosa ALKALINE PHOSPHATASE 2020-02-06 17:42:00 Tu, Jojo Vigil rsgina ALANINE AMINOTRANSFERASE 2020-02-06 17:42:00 Tu, Jojo Hinojosa [...] UREA NITROGEN 2019-12-25 14:26:00 Emperatriz Oneill MD [facility] ELECTROLYTE PANEL 2019-12-25 14:26:00 Emperatriz Oneill MD SERUM CREATININE 2019-12-25 14:26:00 Emperatriz Oneill MD .GLOMERULAR FILTRATION RATE 2019-12-25 14:26:00 Emperatriz Oneill MD CALCIUM LEVEL TOTAL 2019-12-25 14:26:00 Emperatriz Oneill MD Taurus mayo ALBUMIN LEVEL 2019-12-25 14:26:00 Emperatriz Oneill MD ALKALINE PHOSPHATASE 2019-12-25 14:26:00 Emperatriz Oneill MD Musa rson ALANINE AMINOTRANSFERASE 2019-12-25 14:26:00 Emperatriz Oneill MD ASPARTATE AMINOTRANSFERASE 2019-12-25 14:26:00 Emperatriz Oneill TOTAL PROTEIN 2019-12-25 14:26:00 Emperatriz Oneill MD FRACTIONATED BILIRUBIN 2019-12-25 14:26:00 Emperatriz Oneill MD derson Results CBC 2019-12-25 14:26:00 Emperatriz Oneill MD MANUAL DIFFERENTIAL 2019-12-25 14:26:00 Emperatriz Oneill MD Taurus mayo Encounters Start End Encounter Admission Attending Care Care Encounter Source Date/Time Date/Time Type Type Clinicians Facility Department ID 2020-12-20 2020-12-20 Patient [facility] [id number] 00:00:00 00:00:00 Outreach [facility] [id number] [facility] 4.2.7.2.686 TRACI [id number] 2020-10-18 2020-10-18 Wax Bleacher Mary Vaughan [facility] [id number] 16:21:09 16:36:09 Visit Lab [facility] [place] 350.1.13.10 [place] 4.2.7.2.686 Maddy [id number] [address] 2020-10-18 2020-10-18 Orders Doctor BEAU [id number] 00:00:00 00:00:00 Only Unassigned, DIA 350.1.13.10 [place] [facility] 4.2.7.2.686 [id number] 2020-09-17 2020-09-17 [facility] 1.2.840.114 [id number] 08:56:28 09:26:28 Visit Kandi Snider 350.1.13.10 [place] 4.2.7.2.686 [facility] [id number] nal 059 [facility] 2020-05-24 2020-05-24 Outpatient JOJO LUGO MDA MDA [id number] 00:00:00 00:00:00 Sergo o bonifacio 2020-05-24 2020-05-24 Outpatient RUTH IBRAHIM, MDA MDA [id number] 00:00:00 00:00:00 FELICIA Sergo o n 2020-05-20 2020-05-20 Outpatient RUTH IBRAHIM, MDA MDA [id number] 00:00:00 00:00:00 FELICIA Sergo o n 2020-05-20 2020-05-20 Outpatient JOJO LUGO MDA MDA [id number] 00:00:00 00:00:00 Sergo o bonifacio 2020-04-21 2020-04-21 [facility] JOJO LUGO MDA MDA [id number] 09:33:52 09:53:34 Sergo o n 2020-04-21 2020-04-21 [facility] JOJO LUGO MDA MDA [id number] 08:42:37 08:42:37 Sergo o n 2020-04-21 2020-04-21 Outpatient JIMY, MDA MDA [id number] 08:21:35 08:37:25 ОЛЬГА Sergo o n 2020-04-19 2020-04-19 Outpatient JIMY, MDA MDA [id number] 11:57:32 11:57:32 ОЛЬГА Sergo o n 2020-04-09 2020-04-09 Outpatient EL JIMY, MDA MDA [id number] MD 10:42:28 13:06:55 ОЛЬГА Sergo o n 2020-04-07 2020-04-07 Outpatient EL JIMY, MDA MDA [id number] 09:03:14 09:09:37 ОЛЬГА Sergo o n 2020-04-07 2020-04-07 Outpatient EL JIMY, MDA MDA [id number] 09:09:31 09:09:31 ОЛЬГА Sanchezers bk valdovinos Results Test Description Test Time Test Comments Results Result Comments Source Blood Culture 2020-11-17 01:32:15 Test Item Value Reference Range Interpretation Comme nts Final Report (test code = 8488) No growth Path Review - Bottle/Isolator (test Immunity and antibiotic use may render code = 8499) culture negative. Ongoing infection requires repeat culture.The results have been reviewed and electronically signed by Pathologist:RUFINA LIU MD #[id number] [facility] Glucose Ytqizm3740-20-48 18:23:17 Test Item Value Reference Range Interpretation Comments POC Glucose (test 229 mg/dL 70-99 H Capillary blood code = 66267-2) samples, e.g . obtained by fingerstick, may [...] 9554) Lab Interpretation Abnormal (test code = 83570-9) MD HinojosaNT-Pro BNP (In-House)2020-11-10 08:03:12 Test Item Value Reference Range Interpretation Comments NT ProBNP (test code = 1153 pg/mL See_Comment H [Aut omated message] 6251) The system [employer] generated this result transmit [place] reference range : <=125. The refe rence range was not u sed to interpret th is result as normal/abnormal . Lab Interpretation Abnormal (test code = 08917-3) MD HinojosaPhosphorus Ppkin5109-84-33 07:57:00 Test Item Value Reference Range Interpretation Comments Phosphorus (test code = 6817) 1.8 mg/dL 2.5-4.5 L Lab Interpretation (test code = Abnormal 91022-8) MD HinojosaTMP Interpretation Kidezttjju2607-16-41 20:54:50 Test Item Value Reference Range Interpretation Comments TMP XM Interp RBC units (test code = crossmatched for 7566) transfusion appear ABDOUL GARZA MD acceptable. - [id number] by: ROBERT GARZA MD - [id number] Date/Time: 10.16 14:54 PM CRUSHING FOREMAN Transcribed Neri e/Time: 11.09.2020 14:5 4 PM CSTElectronical ly Signed By: BOGDAN GARZA MD - [id number] on 11.09.2020 14:5 4 PM MD Gutierres Zaueasd1367-04-25 20:33:27 Test Item Value Reference Range Interpretation Comments Final Report (test No Methicillin resistant code = 8488) Staphylococcus aureus isolated. Path Review (test The results have been code = 8492) reviewed and electronically signed by Pathologist:Marilynn Bear MD, PhD #[id number] MD HinojosaPreyandel RBC:96055, 1 Edpmj8861-79-81 20:24:54 Test Item Value Reference Range Interpretation Comments PRBC Product Ready 1 Red Blood Cells (test code = Available - 08075-8) Order Form 03 when ready for product issue. Unit Number (test [id number] code = 7002) Product Code (test [id number] code = 7003) Unit Expiration [id number] (test code = 975265) Unit Blood Type 6200 (test code = 7004) Product Code Text RBCIRLR CPD AS1 (test code = 500mL 074159) Crossmatch [id number] Expiration Date (test code = ) Unit Irradiated IRRADIATED (test code = 164916) Dispense Status ISSUED (test code = 7001) Unit Blood Type A Positive ____ (test code = 7005) _ ____ MD HinojosaCompletcaro Blood Count w/o Kaqdkwogxaza0048-87-80 15:55:31 Test Item Value Reference Range Interpretation Comments WBC (test code = 8034) 11.5 K/uL 4-11 H RBC (test code = 6932) 3.21 See_Comment L [Aut omated message] The system whic h generated this result transmitted ref erence range: 4.00 - 5 .50 M/uL. The refer ence range was not u sed to interpret this result as normal/abnor mal. Hgb (test code = 5898) 7.1 See_Comment L [Aut omated message] The system [employer] generated this result transmitted ref erence range: [...] See_Comment L [Au tomated message] The system [employer] generated this result transmitted ref erence range: 31.0 - 3 6.0 gm/dL. The refe rence range was not u sed to interpret this result as normal/abnor mal. RDW-SD (test code = 54.6 fL 35.1-46.3 H 6972) RDW-CV (test code = 20.6 % 12-15.5 H 6971) Platelet count (test 389 K/uL 140-440 code [...] cell differential. [Automated mess age] The system [employer] generated this result transmitted ref erence range: <=0.0. T he reference range was not used to int erpret this result as normal/abnormal . Lab Interpretation Abnormal (test code = 67941-4) MD Murillo Qbqkf9066-91-05 05:16:13Study acquired at another institution. For comparison only. No Ashish originated interpretationrequested or available.MD Murillo CT Abdomen and Dnedyu5894-24-56 05:16:01Study acquired at another institution. For comparison only. No Ashish originated interpretationrequested or available.MD HinojosaEchocardiogram 2D Complete 2020-11-08 21:40:15 Test Item Value Reference Range Interpretation Comments EF (test code = 55 [id number]) PXN (test code Interface, Radiology Results = [...] mlLAV(MOD-bp) Indexed: 22.5 ml/m2ESV (MOD-bp) Index: 27.1 ml/n6Gihygka Measurements MV E max geoff: 91.7 cm/sec [...] (lat): 12.4E/e' (sept): 20.9 MD HinojosaIR NEPHROSTOMY [id number] 19:10:18Date of Procedure: 11/08/20 Attending Physician: TERRI BLACK MD Clinical Trial Associate: William Maurer Pre Procedure Diagnosis: Rectal cancer [[id number]] Post Procedure Diagnosis: Unchanged Indication: Infection Title [...] 1% was used for local anesthesia. A registration officer view was obtained of the catheter. A right nephrostogram confirmed catheter position in the renal pelvis. Thecatheter was severed and exchanged over a wire for a new 10 Swedish Mac-loc catheter. Repeat nephrostogram demonstrates adequate position [...] interpretation and agree with the written report.MD Forbes Interpretation Antibody Screen Oyxsawtx2180-84-63 12:29:19 Test Item Value Reference Range Interpretation Comments TMP Auto Neg At the present ABSC Interp time, patient (test code = plasma shows no ____ROBERT GARZA MD - 7535) evidence of RBC 93214Vjzqqqw d by: ROBERT alloantibodies. MD Vinita THOMSON [id number] D ate/Time: 11.08.2020 6:29 AM CRUSHING FOREMAN Transcribed Neri e/Time: 11.08.2020 6:29 AM CSTElectronical ly Signed By: MD Vinita DANGELO [id number] on 11.08 6:29 AM C MD HinojosaAntibody Jefleu3478-85-25 10:00:05 Test Item Value Reference Range Interpretation Comments ABSC. (test code = 890-4) Negative ABSC MD HinojosaTuihjogiOBHFa1623-59-37 10:00:04 Test Item Value Reference Range Interpretation Comments ABORh. (test code = 882-1) A POS MD HinojosaClot Expiration Ddms6101-19-75 10:00:00 Test Item Value Reference Range Interpretation Comments T & S Expiration (test code = 11/11/2020 5318) MD HinojosaUrinalysis w/Microscopic if Fxonmimkp5163-77-79 09:53:36 Test Item Value Reference Range Interpretation [...] WBCs Lab Interpretation Abnormal (test code = 24830-9) MD HinojosaUrinalysis with Wembgyugkxz8394-34-25 09:53:35 Test Item Value Reference Interpretation Comments [...] implementation of new instrumentation in the Main [place], allowing greater sensitivity of measurement. Urinalysis results reported by the [facility] using existing instrumentation, as well as Urinalysis testing performed manually or by backup methodology at the [facility] will remain relatively unchanged. New reporting parameters and units will now be reported for all campuses. Lab Interpretation Abnormal (test code = 54029-3) MD HinojosaWddmzfenFttexjtzy3077-50-47 07:56:48 Test Item Value Reference Range Interpretation Comments Potassium Lvl (test code 3.4 See_Comment L [A utomated message] = 8458) The system [employer] generated this result transmitted ref erence range: 3.5 - 5. 1 mEq/L. The refe rence range was not u sed to interpret this result as normal/abnor mal. Lab Interpretation (test Abnormal code = 65359-7) MD Rutherfordum Kbnwi2393-76-17 07:56:46 Test Item Value Reference Range Interpretation Comments Sodium Lvl (test code = 132 See_Comment L [Au tomated message] 1545) The system [employer] generated this result transmitted ref erence range: 136 - 14 5 mEq/L. The refe rence range was not u sed to interpret this result as normal/abnor mal. Lab Interpretation (test Abnormal code = 91272-8) MD HinojosaVancomycin Trough Vancomycin trough on 11/06@2130. Nurse please coordinate with lab to draw trough approximately 11 - 11.5hours after 11/06 1000 vanco dose. Hold vancomycin doses if trough is greater than 20 and notify Thanks!2020-11-07 10:59:29 Test Item Value Reference Range [...] and notify . Thanks! MD HinojosaPartial Thromboplastin Uxbm3755-17-77 08:00:14 Test Item Value Reference Range Interpretation Comments PTT (test code = 6773) 37.7 See_Comment H [Aut omated message] The system [employer] generated this result transmitted ref erence range: 24.2 - 3 6.0 second(s). The reference range was not used to int erpret this result as normal/abnormal . Lab Interpretation (test Abnormal code = 16321-5) MD HinojosaProthrombin Time with [id number] 08:00:13 Test Item Value Reference Range Interpretation Comments PT (test code = 6746) 15.3 See_Comment H [Auto mated message] The system [employer] generated this result transmitted ref erence range: 12.0 - 1 4.3 second(s). The reference range was not used to int erpret this result as normal/abnormal . INR (test code = 5973) 1.24 0.90-1.10 H Lab Interpretation (test Abnormal code = 47176-7) [facility]dom[facility] Pelvis with Fqcifpbe2360-93-92 23:59:18 1. Findings are consistent with progression [...] position without hydronephrosis.4. Moderate splenomegaly.MD HinojosaOccult Blood Sanyf0852-62-44 15:21:58 Test Item Value Reference Range Interpretation Comments Fecal Occult Bld Negative Negative Test perfor med by latex (test code = 5604) immunoass ay methodology. MD HinojosaOoqlgaxrOgobpomuzhzmw6484-37-90 09:51:31 Test Item Value Reference Range Interpretation [...] extended diluti on as it exceeds the safety fire boss's recommended rodriguez it. Caution should be exercised when interpreting lawson ch values and done in conjunction wit h clinical contex t. [Automated mess age] The system [employer] generated this result transmitted ref erence range: <=0.08. The reference range was not used to int erpret this result as normal/abnormal . Lab Interpretation Abnormal (test code = 43676-2) MD HinojosaVaehutghVXI8271-36-19 09:12:59 Test Item Value Reference Range Interpretation Comments TSH (test code = 0.50 See_Comment [Automated message] The 7578) system which ge nerated this result transmit [place] reference range : 0.27 - 4.20 mcunit/mL. The reference range was not used to interpr et this result as dimitry l/abnormal. MD HinojosaFree [id number] 09:12:58 Test Item Value Reference Range Interpretation Comments T4 Free (test code = 7502) 1.15 ng/dL 0.93-1.7 MD HinojosaHemoglobin S4x4259-60-14 07:56:37 Test Item Value Reference Range Interpretation Comments A1C (test code = 5.5 % 4.3-5.6 HbA1c value s >=6.5% are 4632) diagnostic of d iabetes mellitus.Diagno sis should be confirmed by repeat testing.Therape utic Action suggested: >8.0 % HbA1c; Goal oftherapy: <7.0% HbA1c MD HinojosaVitamin B12 Ortpl3783-95-17 07:52:07 Test Item Value Reference Range Interpretation Comments Vitamin B12 Lvl (test code = 8017) 514 pg/mL 211-946 MD HinojosaUS Leg Venous Doppler Qxkdsagzo0790-69-07 23:00:46 Negative for deep venous thrombosis in [...] thrombosis in the bilateral lowerextremities.MD Oh Abdomen Xpklibv3016-53-05 22:42:02 No ascites.Interface, Radiology Results In 11/05/2020 4:44 PM CSTFULL RESULT:Examination: US ABDOMEN LIMITED, US PELVIS LIMITED on 11/05/2020 4:13 PMClinical History: Rectal cancer Indication: Ascites, Abdominal DistentionComparison: CT study abdomen and pelvis September 20, 2020Technique: Multiplanar imaging of the abdomen pelvis for evaluation of ascites.Findings: No ascites is seen in the abdomen or pelvis.IMPRESSION:No ascites.MD HinojosaUS PELVIS [id number] 22:42:02 No ascites.Interface, Radiology Results In 11/05/2020 4:44 PM CSTFULL RESULT:Examination: US ABDOMEN LIMITED, US PELVIS LIMITED on 11/05/2020 4:13 PMClinical History: Rectal cancer Indication: Ascites, Abdominal DistentionComparison: CT study abdomen and pelvis September 20, 2020Technique: Multiplanar imaging of the abdomen pelvis for evaluation of ascites.Findings: No ascites is seen in the abdomen or pelvis.IMPRESSION:No ascites.MD HinojosaXR Chest 1 Cqmc5000-71-51 17:37:53Stable chest without evidence of new lung opacities. Kane, Radiology Results In 11/05/2020 11 :40 AM CSTFULL RESULT:Examination: XR [...] et this result as dimitry l/abnormal. MD HinojosaLactic Acid, Qqsosc9835-85-90 16:26:59 Test Item Value Reference Range Interpretation Comments V Lactate (test code = 2519-7) 2.0 mmol/L 0.5-1.6 H Lab Interpretation (test code = Abnormal 30113-0) MD HinojosaInfluenza A/B + COVID-19 Asymptomatic- [id number] 07:13:02 Test Item Value Reference Range Interpretation Comments Influenza A (test Not Detected Not Detected code = 94334-4) Influenza B (test Not Detected Not Detected code = 60316-0) COVID19 Not Detected Not Detected (SARS-CoV-2) (test code = 42306-8) COVID19 SARS Inpatient Indication (test Admission code = 64817) Inf AB+Cov19 See Note The zuleima SARS- CoV-2 Comment (test & Influenza A/ B code = 42025) nucleic acid t est for use on the rocío s Shirley System is a mul tiplex real-time RT-PC R assay intended for the [...] sheet for patie nts provided by the safety fire boss ([employer]) can be rev iewed at: https://www.[employer]ostang .gov/m edia/240650/anthony nloadA fact sheet for Health Care providers is provided by the safety fire boss ([employer]) and can be reviewed at: https://www.fda .gov/m edia/885699/anthony nload Influenza A and Influenza B neg ative results should be considered presumptive in samples that crowe ve a positive SARS-C oV-2 result. If co-infection wi th influenza A or influenza B vir us is suspected in sa mples with a positive SARS-CoV-2 resu lts, the sample shou ld be re-tested with another approve d influenza test. This assay has been authorized by t [facility] for use only un t[place] Emergency Use Authorization ( EUA) in laboratories that have been CLIA-certified to perform moderate-comple xity and high-comple xity tests. The Microbiology Laboratory at [facility], CLIA Accreditation #[id number] and CAP Accreditation #[id number], verif ied the performance characteristics of this assay. Int ernal controls are us ed to monitor all sta ges of the test ana HinojosaIR NEPHROSTOMY UNILATERAL PLACEMENT [id number] 20:58:12Date of Procedure: 08/25/20 Attending Physician: Dr. Hernandez Clinical Trial Associate: Eli Rodriguez Pre Procedure Diagnosis: Adenocarcinoma of [...] tract was dilated to accept a 10 Swedish Mac-loc catheter which was formed in the [...] interpretation and agree with the written report.MD HinojosaCOADRIANED-19 (SARS-CoV-2) PCR-Asymptomatic [id number] 07:56:14 Test Item Value Reference Range Interpretation Comments COVID19 (SARS Not Detected Not Detected This test is a CoV-2) Result qualitative (test code = reverse-transcr iptase 12271-5) polymerase agustin n reaction (RT-PC R) developed for t he Madelaine ZULEIMA 680 0 system and inte nded [...] were verified by the Microbiology Laboratory at [facility], CLIA Accreditation # : [id number] and CAP Accreditation # : [id number]. Result s must be interpreted within the [...] te sting if clinically indicated. 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 Enlarging portacaval lymph node withhypodense areas concerning for a metastatic lymph node. Partly visualized primary tumor at the rectosigmoid colon. Component along the right pelvic sidewall appears slightly smaller. Other findings as above. Interface, Radiology Results In 02/06/2020 2:53 PM CDTFULL RESULT:Examination: CT CHEST [...] sidewall appears slightly smaller.Other findings as above.MD Hinojosa
[2020-12-20] MEDS ORDERED: NA CHLORIDE 0.9% 1,000 ML ONE (21:15)
[2020-12-20 21:25] LABS: Absolute Lymphocytes (CBC) 0.2 K/uL (0.7-4.9); Basophils % 0.2 % (0-1.3); Hematocrit 21.3 % (36.0-45.0); Lymphocytes % 1.1 % (15.3-44.8); MPV 6.7 fL (7.6-11.3); RBC Red Blood Cell Count 3.08 M/uL (3.86-4.86)
[2020-12-20 21:27] LABS: Protime INR 1.34
[2020-12-20] MEDS ORDERED: CEFEPIME/SWI 1gm 10 ML ONE (21:34)
[2020-12-20] MEDS ORDERED: NA CHLORIDE 0.9% 250 ML ONE (21:34)
[2020-12-20] MEDS ORDERED: VANCOMYCIN 1 GM/VIAL ONE (21:34)
[2020-12-20] MEDS ORDERED: ACETAMINOPHEN 325 MG TABLET ONE (21:35)
--- NOTE | 2020-12-20 21:55 | RAD REPORT ---
EXAM DESCRIPTION: RAD - Chest Single View - 12/20/2020 9:15 pm CLINICAL HISTORY: DYSPNEA Chest pain. COMPARISON: Chest Single View dated 12/05/2020; Chest Single View dated 11/04/2020; Abdomen Pelvis W Contrast dated 11/04/2020 FINDINGS: Portable technique limits examination quality. Multiple bilateral pulmonary nodules are seen compatible with metastatic disease. Interstitial lung p rominence is noted. The heart is normal in size. Right-sided port catheter its tip in the right atriu m. IMPRESSION: Interstitial markings are prominent which could indicate superimposed viral infection or bronchitis.
[2020-12-20 22:35] LABS: ALT/SGPT 12 U/L (12-78); AST/SGOT 28 U/L (15-37); Albumin 1.8 g/dL (3.4-5.0); Alkaline Phosphatase 28 U/L (45-117); BUN Blood Urea Nitrogen 15 mg/dL (7-18); Bicarbonate 23 mmol/L (21-32); Bilirubin Direct 0.2 mg/dL (0-0.2); Bilirubin Total 0.4 mg/dL (0.2-1.0); CKMB Creatine Kinase MB < 1.0 ng/mL (0.3-3.6); Creatine Phosphokinase 44 U/L (26-192); Glucose Level 147 mg/dL (74-106); Lipase 21 U/L (73-393); Potassium 4.1 mmol/L (3.5-5.1); Protein, Total 7.6 g/dL (6.4-8.2); Sodium Level 134 mmol/L (136-145); Troponin (Emerg Dept Use Only) < 0.02 ng/mL (0.0-0.045)
[2020-12-20 23:04] LABS: Anisocytosis 2+; Blood Morphology Comment NOTED (NOT SEEN); Hypochromasia 2+; Platelet Estimate INCR
[2020-12-21 00:37] LABS: Urine Blood TRACE (NEG); Urine Glucose NEGATIVE (NEG); Urine Protein 2+ (NEG)
[2020-12-21] MEDS ORDERED: NA CHLORIDE 0.9% 250 ML ONE (00:44)
--- NOTE | 2020-12-21 01:10 | EDPHYS ---
Physician Documentation [facility] Name: Erum Reilly Age: 65 yrs Sex: Female : 1955 Arrival Date: 12/20/2020 Time: 20:42 Bed 18 Private MD: Kennedy Freedman HPI: 12/20 22:24 This 65 yrs old Female presents to ER via EMS with complaints of fever. jr8 22:24 Patient brought in by EMS after stated that she was not acting appropriate and jr8 was running fever. Stated that the last time this happened she had UTI related to her nephrostomy tube. Patient stage 4 rectal cancer with metastasis to lung and liver as well. Currently on no therapy as they have exhausted all efforts but still receiving care at [facility] as she has no DNR yet and has not been placed on hospice . Severity of symptoms: At their worst the symptoms were moderate in the emergency department the symptoms are unchanged. It is unknown whether or not the patient has had similar symptoms in the past. The patient has not recently seen a physician. Historical: - Allergies: 21:19 cetuximab; ll2 21:19 chemo med; ll2 - Immunization history:: Adult Immunizations up to date. - Social history:: Smoking status: unknown. ROS: 22:24 Eyes: Negative for injury, pain, redness, and discharge, ENT: Negative for injury, jr8 pain, and discharge, Neck: Negative for injury, pain, and swelling, Cardiovascular: Negative for chest pain, palpitations, and edema, Respiratory: Negative for shortness of breath, cough, wheezing, and pleuritic chest pain, Abdomen/GI: Negative for abdominal pain, nausea, vomiting, diarrhea, and constipation, Back: Negative for injury and pain, MS/Extremity: Negative for injury and deformity, Skin: Negative for injury, rash, and discoloration. 22:24 Constitutional: Positive for fatigue, fever. 22:24 Neuro: Positive for headache. Exam: 22:24 Eyes: Pupils equal round and reactive to light, extra-ocular motions intact. Lids and jr8 lashes normal. Conjunctiva and sclera are non-icteric and not injected. Cornea within normal limits. Periorbital areas with no swelling, redness, or edema. ENT: Nares patent. No nasal discharge, no septal abnormalities noted. Tympanic membranes are normal and external auditory canals are clear. Oropharynx with no redness, swelling, or masses, exudates, or evidence of obstruction, uvula midline. Mucous membranes moist. Neck: Trachea midline, no thyromegaly or masses palpated, and no cervical lymphadenopathy. Supple, full range of motion without nuchal rigidity, or vertebral point tenderness. No Meningismus. Back: No spinal tenderness. No costovertebral tenderness. Full range of motion. Skin: Warm, dry with normal turgor. Normal color with no rashes, no lesions, and no evidence of cellulitis. MS/ Extremity: Pulses equal, no cyanosis. Neurovascular intact. Full, normal range of motion. 22:24 Cardiovascular: Rate: tachycardic, Rhythm: regular, Pulses: Pulses are 2+ in right radial artery and left radial artery. Heart sounds: normal, normal S1and S2, no S3 or S4, no murmur, no rub, no gallop, Edema: is not appreciated. 22:24 Respiratory: the patient does not display signs of respiratory distress, Respirations: tachypnea, that is mild, Breath sounds: wheezing: expiratory that is mild, is heard diffusely. 22:24 Abdomen/GI: Inspection: colostomy present. Brown stool without signs of blood, Bowel sounds: active, Palpation: abdomen is soft and non-tender, in all quadrants. 22:24 Neuro: Orientation: to person, place \\T\\ time. Mentation: able to follow commands, slow to respond, Cranial nerves: CN I not tested, CN II- XII are normal as tested, Motor: moves all fours, Sensation: no obvious gross deficits, seizure activity, is not displayed by the patient. Vital Signs: 20:45 BP 133 / 54; Pulse 137; Resp 25; Temp 101.8; Pulse Ox 98% ; ll2 21:11 Weight 63.5 kg; mg2 21:20 BP 112 / 49; Pulse 118; Resp 21; Pulse Ox 100% on 3 lpm NC; ll2 22:30 BP 105 / 58; Pulse 115; Resp 21; Pulse Ox 98% on 3 lpm NC; ll2 23:30 BP 98 / 56; Pulse 113; Resp 16; Pulse Ox 98% on 3 lpm NC; ll2 12/21 00:30 BP 118 / 58; Pulse 105; Resp 18; Pulse Ox 99% on 3 lpm NC; ll2 01:30 BP 111 / 60; Pulse 97; Resp 13; Temp 97.6; Pulse Ox 99% on 3 lpm NC; ll2 MDM: 12/20 20:47 Patient medically screened. [facility] 12/21 01:07 Data reviewed: vital signs, nurses notes, lab test result(s), EKG, radiologic studies, [facility] plain films. Data interpreted: Pulse oximetry: on room air is 98 %. Interpretation: normal. Counseling: I had a detailed discussion with the patient and/or guardian regarding: the historical points, exam findings, and any diagnostic results supporting the discharge/admit diagnosis, lab results, radiology results, the need to transfer to another facility, for higher level of care, [facility] does not immediately have the required specialist. ED course: Patient receives most of her care at [facility]. They were called and accepted patient . 12/20 20:48 Order name: C-Reactive Protein [facility] 12/20 20:48 Order name: Basic Metabolic Panel [facility] 12/20 20:48 Order name: Blood Culture Adult (2) [facility] 12/20 20:48 Order name: CBC with Diff [facility] 12/20 20:48 Order name: Ckmb [facility] 12/20 20:48 Order name: CPK [facility] 12/20 20:48 Order name: Lactate [facility] 12/20 20:48 Order name: LFT's; Complete Time: 22:40 [facility] 12/20 20:48 Order name: Lipase; Complete Time: 22:40 [facility] 12/20 20:48 Order name: Procalcitonin; Complete Time: 22:03 [facility] 12/20 20:48 Order name: Protime (+inr); Complete Time: 21:38 [facility] 12/20 20:48 Order name: Ptt, Activated; Complete Time: 21:38 [facility] 12/20 20:48 Order name: Troponin (emerg Dept Use Only); Complete Time: 22:40 [facility] 12/20 20:48 Order name: Urine Microscopic Only [facility] 12/20 20:48 Order name: TS [facility] 12/20 20:49 Order name: C-Reactive Protein; Complete Time: 22:40 [facility] 12/20 20:49 Order name: Basic Metabolic Panel; Complete Time: 22:40 [facility] 12/20 20:49 Order name: Blood Culture [facility] 12/20 20:49 Order name: CBC with Automated Diff; Complete Time: 23:12 [facility] 12/20 20:50 Order name: CKMB Creatine Kinase MB; Complete Time: 22:40 [facility] 12/20 20:50 Order name: Creatine Phosphokinase; Complete Time: 22:40 [facility] 12/20 20:50 Order name: Lactate; Complete Time: 22:03 [facility] 12/20 20:58 Order name: COVID-19 : Document "Date of Symptom Onset" if Symptomatic. [facility] 12/20 21:21 Order name: Glucose, Ancillary Testing; Complete Time: 21:38 [facility] 12/20 21:29 Order name: Manual Differential; Complete Time: 23:12 [facility] 12/20 21:57 Order name: Packed RBC Leukored [facility] 12/20 22:10 Order name: ABO/RH no charge; Complete Time: 22:21 [facility] 12/20 22:28 Order name: SARS-COV-2 RT PCR; Complete Time: 22:40 [facility] 12/20 23:11 Order name: Urine Dipstick--Ancillary (enter results); Complete Time: 00:38 [facility] 12/20 20:48 Order name: Cath; Complete Time: 21:11 [facility] 12/20 20:48 Order name: Chest Single View XRAY; Complete Time: 22:03 [facility] 12/20 20:48 Order name: Accucheck; Complete Time: 21:11 [facility] 12/20 20:48 Order name: Cardiac monitoring; Complete Time: 21:11 [facility] 12/20 20:48 Order name: EKG - Nurse/Tech; Complete Time: 21:12 [facility] 12/20 20:48 Order name: IV Saline Lock - Large Bore; Complete Time: 21:12 [facility] 12/20 20:48 Order name: Labs collected and sent; Complete Time: 21:12 [facility] 12/20 20:48 Order name: O2 Per Protocol; Complete Time: 21:12 [facility] 12/20 20:48 Order name: O2 Sat Monitoring; Complete Time: 21:12 [facility] 12/20 20:48 Order name: Urine Dipstick-Ancillary (obtain specimen); Complete Time: 05:13 [facility] 12/20 22:07 Order name: Transfuse; Complete Time: 02:40 12/21 02:03 Order name: Urine Culture [facility] Administered Medications: 12/20 21:11 Drug: NS 0.9% (30 ml/kg) 30 ml/kg Route: IV; Rate: bolus; Site: right forearm; mg2 21:40 Follow up: Response: No adverse reaction; IV Status: Completed infusion ll2 21:29 Drug: vancoMYCIN 1 grams Route: IVPB; Infused Over: 2 hrs; Site: right forearm; ll2 22:30 Follow up: Response: No adverse reaction; IV Status: Completed infusion ll2 21:29 Drug: Cefepime 1 grams Route: IVPB; Rate: 200 ml/hr; Infused Over: 30 mins; Site: right ll2 forearm; 22:38 Follow up: Response: No adverse reaction; IV Status: Completed infusion; IV Intake: ll2 200ml 21:30 Drug: Tylenol 650 mg Route: PO; mg2 22:30 Follow up: Response: No adverse reaction ll2 Disposition: 12/21 06:45 Co-signature as Attending Physician, [facility] MD I agree with the assessment and red plan of care. Disposition: 12/21/20 01:09 Transfer ordered to Other Acute Care Facility. Diagnosis are Severe sepsis without septic shock, Stage 4 Rectal Cancer with metastasis, Anemia in neoplastic disease. - Reason for transfer: Higher level of care. - Accepting physician is Dr. Wall. - Condition is Fair. - Problem is new. - Symptoms have improved. Signatures: Dispatcher [employer] Kennedy Bhatia MD MD cha Ballard, Brenda RN RN Narayan Bailey PA PA jr8 Austin De León RN RN mg2 Juliana Reich RN RN ll2 Corrections: (The following items were deleted from the chart) 12/20 21:13 20:58 CORONAVIRUS ordered. [facility] 12/21 01:09 01:09 12/21/2020 01:09 Transfer ordered to Other Acute Care Facility. Diagnosis is jr8 Severe sepsis without septic shock; Stage 4 Rectal Cancer with metastasis; Anemia in neoplastic disease. Reason for transfer: Higher level of care. Accepting physician is [facility]. Condition is Fair. Problem is new. Symptoms have improved. jr8 02:43 01:09 12/21/2020 01:09 Transfer ordered to Other Acute Care Facility. Diagnosis is ll2 Severe sepsis without septic shock; Stage 4 Rectal Cancer with metastasis; Anemia in neoplastic disease. Reason for transfer: Higher level of care. Accepting physician is Dr. Wall. Condition is Fair. Problem is new. Symptoms have improved. jr8
--- NOTE | 2020-12-21 01:10 | ER ---
Nurse's Notes [facility] Name: Erum Reilly Age: 65 yrs Sex: Female : 1955 Arrival Date: 12/20/2020 Time: 20:42 Bed 18 Private MD: Diagnosis: Severe sepsis without septic shock;Stage 4 Rectal Cancer with metastasis;Anemia in neoplastic disease Presentation: 12/20 20:45 Chief complaint: EMS states: toned out by family due to weakness, fever, and rectal ll2 bleeding. states she is a stage 4 cancer patient and it's terminal, generalized confusion since today. Coronavirus screen: Client denies travel out of the [place] in the last 14 days. At this time, the client does not indicate any symptoms associated with coronavirus-19. Ebola Screen: Patient negative for fever greater than or equal to 101.5 degrees Fahrenheit, and additional compatible Ebola Virus Disease symptoms. Initial Sepsis Screen: Does the patient meet any 2 criteria? RR > 20 per min. Temp <36.0*C (96.8*F)) or > 38.3*C (100.9*F). HR > 90 bpm. Yes Does the patient have a suspected source of infection? Yes: Other: end stage rectal cancer Risk Assessment: Do you want to hurt yourself or someone else? Patient reports no desire to harm self or others. Onset of symptoms is unknown. 20:45 Method Of Arrival: EMS: [facility] ll2 20:45 Acuity: DEBO 2 ll2 Historical: - Allergies: 21:19 cetuximab; ll2 21:19 chemo med; ll2 - Immunization history:: Adult Immunizations up to date. - Social history:: Smoking status: unknown. Screenin/09 02:00 Abuse screen: Denies threats or abuse. Nutritional screening: No deficits noted. ll2 Tuberculosis screening: No symptoms or risk factors identified. Fall Risk IV access (20 points). Ambulatory Aid- None/Bed Rest/Nurse Assist (0 pts). Gait- Weak (10 pts.). Mental Status- Oriented to own ability (0 pts). Total Murray Fall Scale indicates Low Risk Score (25-44 pts). Fall prevention measures have been instituted. Side Rails Up X 2 Placed close to Nursing Station Family Present and informed to notify staff if they need to leave bedside. Assessment: 12/20 20:50 General: Appears in no apparent distress. Behavior is calm, cooperative. Pain: Denies ll2 pain. Neuro: Level of Consciousness is obeys commands, lethargic, Oriented to person, place, time, situation. Cardiovascular: Patient's skin is warm and dry. Respiratory: Airway is patent Respiratory effort is even, Respiratory pattern is regular, symmetrical. GI: Reports bloody stool. : nephrosomy tube to rt kidney. EENT: No signs and/or symptoms were reported regarding the EENT system. Derm: Skin is intact, is fragile, Skin is pink, warm \T\ dry. Musculoskeletal: Circulation, motion, and sensation intact. Range of motion: intact in all extremities. 21:55 Reassessment: Patient and/or family updated on plan of care and expected duration. Pain ll2 level reassessed. Patient is alert, oriented x 3, equal unlabored respirations, skin warm/dry/pink. 22:50 Reassessment: Patient and/or family updated on plan of care and expected duration. Pain ll2 level reassessed. remains at bedside. 23:50 Reassessment: Patient and/or family updated on plan of care and expected duration. Pain ll2 level reassessed. 12/21 00:50 Reassessment: Patient and/or family updated on plan of care and expected duration. Pain ll2 level reassessed. pt tolerating blood products well. 01:50 Reassessment: Patient and/or family updated on plan of care and expected duration. Pain ll2 level reassessed. pt sleeping. 02:40 Reassessment: Patient and/or family updated on plan of care and expected duration. Pain ll2 level reassessed. report given to EMS. Vital Signs: 12/20 20:45 BP 133 / 54; Pulse 137; Resp 25; Temp 101.8; Pulse Ox 98% ; ll2 21:11 Weight 63.5 kg; mg2 21:20 BP 112 / 49; Pulse 118; Resp 21; Pulse Ox 100% on 3 lpm NC; ll2 22:30 BP 105 / 58; Pulse 115; Resp 21; Pulse Ox 98% on 3 lpm NC; ll2 23:30 BP 98 / 56; Pulse 113; Resp 16; Pulse Ox 98% on 3 lpm NC; ll2 12/21 00:30 BP 118 / 58; Pulse 105; Resp 18; Pulse Ox 99% on 3 lpm NC; ll2 01:30 BP 111 / 60; Pulse 97; Resp 13; Temp 97.6; Pulse Ox 99% on 3 lpm NC; ll2 ED Course: 12/20 20:42 Patient arrived in ED. cf2 20:47 Narayan Rdz PA is PHCP. jr8 20:47 [facility] MD is Attending Physician. jr8 21:08 Inserted saline lock: 20 gauge in right forearm, using aseptic technique. Blood mg2 collected. 21:12 No provider procedures requiring assistance completed. mg2 21:12 Maintain EMS IV. Site clean \T\ dry. Gauge \T\ site: 22 \T\ LFA. mg2 21:15 Chest Single View XRAY In Process Unspecified. EDMS 21:18 Triage completed. ll2 21:41 Juliana Reich, CHIVO is Primary Nurse. ll2 12/21 00:07 initiated a transfer with Taylor Kim from [facility]. mw2 01:08 administrative approval given by Taylor Kim/ patient has been accepted to [facility]/ Dr. Wall has accepted the patient in transfer/ report to be called to [phone]. 02:00 Patient has correct armband on for positive identification. Bed in low position. Call 2 light in reach. Side rails up X 1. Adult w/ patient. bus driver/monitor on. Pulse ox on. NIBP on. 02:42 Arm band placed on right wrist. ll2 02:43 Patient transferred, IV remains in place. ll2 05:12 CPK Sent. ll2 05:12 Lactate Sent. ll2 05:13 Blood Culture Adult (2) Sent. ll2 05:13 CBC with Diff Sent. ll2 05:13 Ckmb Sent. ll2 05:13 C-Reactive Protein Sent. ll2 05:13 Basic Metabolic Panel Sent. ll2 Administered Medications: 12/20 21:11 Drug: NS 0.9% (30 ml/kg) 30 ml/kg Route: IV; Rate: bolus; Site: right forearm; mg2 21:40 Follow up: Response: No adverse reaction; IV Status: Completed infusion ll2 21:29 Drug: vancoMYCIN 1 grams Route: IVPB; Infused Over: 2 hrs; Site: right forearm; ll2 22:30 Follow up: Response: No adverse reaction; IV Status: Completed infusion ll2 21:29 Drug: Cefepime 1 grams Route: IVPB; Rate: 200 ml/hr; Infused Over: 30 mins; Site: right ll2 forearm; 22:38 Follow up: Response: No adverse reaction; IV Status: Completed infusion; IV Intake: ll2 200ml 21:30 Drug: Tylenol 650 mg Route: PO; mg2 22:30 Follow up: Response: No adverse reaction ll2 Intake: 22:38 IV: 200ml; Total: 200ml. ll2 Outcome: 12/21 01:09 ER care complete, transfer ordered by . jr8 02:42 Transferred by ground EMS to [facility]. 2 02:42 Condition: stable 02:42 Instructed on the need for transfer. 02:43 Patient left the ED. ll2 Addendum: 12/24/2020 09:00 Addendum: Culture Results: Positive urine culture. Positive blood culture. called [facility] [phone] spoke with María Elena. Informed her we had a positive culture urine and blood on one of their patients/ faxed too [phone]. Signatures: Dispatcher [employer] EDMS Narayan Rdz PA PA jr8 Tyrone Bustamante 2 Jodi Griggs Michele, RN RN mg2 Arelis Knutson 2 Juliana Reich RN RN 2
[2020-12-21 02:01] LABS: Urine Bacteria >50 /HPF (<20); Urine RBC <5 /HPF (NONE SEEN)
[2020-12-21 03:19] VITALS: O2SAT 99
[2020-12-21 03:20] VITALS: BP 111/60; TEMP 97.6
--- NOTE | 2020-12-23 05:19 | EKG ---
Test Date: 2020-12-20 Test Time: 21:06:49 Drapery Hemmer Automatic: MEASUREMENT RESULTS: Intervals: Rate: 127 OK: 162 QRSD: 76 QT: 306 QTc: 444 [place]: P: 79 OK: 162 QRS: 53 T: 87 INTERPRETIVE STATEMENTS: Sinus tachycardia Otherwise normal ECG Compared to ECG 11/04/2020 18:22:53 Myocardial infarct finding no longer present Electronically Signed On 12-23-20 05:12:07 LACE TEARING SUPERVISOR by Jostin Lockett
== END 2020-12-21 02:43 ==
LOC: ER 20:41
PROC: 30233N1 Transfusion of Nonautologous Red Blood Cells into Peripheral Vein, Percutaneous Approach (ICD-10-PCS; principal; 2020-12-21)
DX: C20 Malignant neoplasm of rectum (principal); C78.00 Secondary malignant neoplasm of unspecified lung; C78.7 Secondary malignant neoplasm of liver and intrahepatic bile duct; R65.20 Severe sepsis without septic shock; D63.0 Anemia in neoplastic disease; Z20.822 Contact with and (suspected) exposure to COVID-19; Z88.8 Allergy status to other drugs, medicaments and biological substances
CPT/HCPCS: 93005; 87040 ×2; 87088; 85025; 87086; 80048; 36415; 86900; 86850; 82550; 87205 ×3; 85610; 86901; 82947; 80076; 83605; 85730; 84484; 82553; 83690; 84145; 86140; 71045; 36430; U0003; J3370; J0692; P9016; J7050 ×2; J7030; 81003; 81015; 87077; 87186; 96365; 96367; 99285

== ENCOUNTER 2021-01-19 17:19 | Inpatient (IN) | payer OTHER ==
--- OUTSIDE RECORDS SUMMARY | 2021-01-19 17:25 | XMS REPORT | Continuity of Care Document ---
:1955 Author Organization [facility] t Address [address] [place] [address] Care Team Providers Name Role Phone JEFFERSON Primary Care Physician Unavailable Zuly WALDRON, February Attending Clinician Gayle WALDRON Attending Clinician Unavailable John Holder MD Attending Clinician Poncho CAMPA Attending Clinician Heidi CAMPA Attending Clinician Linus Diaz MD Attending Clinician Robert CAMPA Attending Clinician Mi CAMPA Attending Clinician Wild CAMPA Attending Clinician Alfonso Lovelace MD Attending Clinician Annie CAMPA Attending Clinician Kylah Attending Clinician Unavailable Quan Smith DO Attending Clinician Beau CAMPA Attending Clinician Misti Hitchcock NP Attending Clinician Oliver Attending Clinician Unavailable Whitney CAMPA Attending Clinician Belkis CAMPA Attending Clinician Kevin Cooper MD Attending Clinician Naif CAMPA Attending Clinician Bart GAUTAM Attending Clinician Zoraida LANCASTER Attending Clinician Jefferson CAMPA Attending Clinician Alex Barraza RN, T Attending Clinician Unavailable Mary Ellen CAMPA Attending Clinician Loco WALDRON, A Attending Clinician Unavailable Jaymie CAMPA Attending Clinician Pob, Lab Main Attending Clinician Unavailable Doctor Unassigned, Name Attending Clinician Unavailable Renetta Paz Attending Clinician Eloina WALDRON, L. Attending Clinician Unavailable Joby CAMPA, K.H. Attending Clinician Michelle WALDRON Attending Clinician Unavailable Roland Hernandez MD Attending Clinician Char Rowland Attending Clinician Nino TOLEDO Attending Clinician Jimy STONE UNLOADER Attending Clinician Chris LANCASTER Attending Clinician Jaciel ALTMAN Attending Clinician Unavailable Bob WALDRON, F Attending Clinician Unavailable Latasha COPE Attending Clinician Patrice TOLEDO Attending Clinician Beau MCDONOUGH Attending Clinician PONCHO Attending Clinician Unavailable PATRICE Attending Clinician Unavailable Kika WALDRON, L Attending Clinician JIMY Attending Clinician Unavailable Santana Lou Attending Clinician Clayton ALTMAN Attending Clinician Nicholas WALDRON Attending Clinician Elma SCHUMACHER Attending Clinician Jairo Attending Clinician Unavailable Erin WALDRON, B Attending Clinician Unavailable Pam LANCASTER Attending Clinician Will WALDRON, A Attending Clinician Unavailable Payers Payer Name Policy Type Policy Number Effective Expiration Source Date Date MEDICAREMEDICARE PART [id number] 2020 MD Ashish Chappell AND 00:00:00 [id number] [place] GILLIAN FRENCH [id number] 2018 MD Musa [place] PPO 00:00:00 [id number] 19-PresentPPO [facility] [id number] 2018 GENERIC 00:00:00 Problems Condition Condition Condition Status Onset Resolution Last Treating Co mments Source Name Details Category Date Date Treatment Clinician Date Bacteremia Bacteremia Disease Active M D due to due to 3-10 Anderso Staphyloco Staphyloco 00:00: n ccus ccus 00 aureus aureus Essential Essential Disease Active hypertensi hypertensi 3-10 An derso on on 00:00: n 00 Cancer Cancer Disease Active MD associated associated 3-10 An derso pain pain 00:00: n 00 Anemia of Anemia of Disease Active chronic chronic 3-10 Anderso disease disease 00:00: n 00 Type 2 Type 2 Disease Active MD diabetes diabetes 3-10 Sergo o mellitus mellitus 00:00: n without without 00 complicati complicati on on Attention Attention Disease Active MD to to 3-10 Anderso nephrostom nephrostom 00:00: n y tube y tube 00 Severe Severe Disease Active protein-ca protein-ca 1-23 An derso jeane ching 00:00: n malnutriti malnutriti 00 on on Fever with Fever with Disease Active M D chills chills 1-23 Anderso 00:00: n 00 Hydronephr Hydronephr Disease Active 2019-10 M D osis osis 1-10 Anderso 00:00: n 00 Encounter Encounter Disease Active 2019- MD for for 1-10 Anderso preprocedu preprocedu 00:00: n ral ral 00 examinatio examinatio n n Abdominal Abdominal Disease Active MD pain, pain, 9-16 Anderso generalize generalize 00:00: n d d 00 Swelling Swelling Disease Active of right of right 16 Sergo o foot foot 00:00: n 00 [...] sure MD Hinojosa SARS-CoV-2 (event) Cigarettes smoked 2020-12-24 2020-12-24 MD Musa tovar current (pack per 00:00:00 00:00:00 day) - Reported Cigarette 2020-12-24 2020-12-24 MD Hinojosa pack-years 00:00:00 00:00:00 Tobacco use and 2020-12-24 2020-12-24 Never used MD Trotter on exposure 00:00:00 00:00:00 Alcohol intake 2020-12-24 2020-12-24 Ex-drinker MD Monik valdovinos 00:00:00 00:00:00 (finding) Tobacco Comment 2019-08-28 2019-08-28 Presently Vape, no Payal Hinojosa 00:00:00 00:00:00 Smoking since 2017 Alcohol Comment 2019-08-28 2019-08-28 Have not drank MD Nat álvarez 00:00:00 00:00:00 since 1981 History of tobacco 2018-08-29 Current smoker MD Hinojosa use 00:00:00 Smoking Status Start Date Stop Date Source Former smoker 2020-12-24 00:00:00 2020-12-24 00:00:00 Taurus son Medications Ordered Filled Start Stop Current Ordering Indication Dosage Frequency Signature Comments Components Source Medication Medication Date Date Medication? Clinician (SIG) Name Name gabapentin 2020- No Take by (NEURONTIN) 4-06 04-06 mouth Sergo o 400 mg 15:30: 00:00 twice n capsule 22 :00 daily. methadone 2020- No 2.5mg Take 2.5 MD (DOLOPHINE) 01-18-06 mg by Sergo o 5 mg tablet 15:30: 00:00 mouth n 22 :00 every 8 (eight) hours. gabapentin Yes Neoplasm 400mg Take 1 MD (NEURONTIN) 01-18 related capsule An derso 400 mg 00:00: pain (400 mg) n capsule 00 (acute) by mouth (chronic) twice daily. methadone Yes Neoplasm 2.5mg Take 0.5 MD (DOLOPHINE) 01-18 related tablets An derso 5 mg tablet 00:00: pain (2.5 mg) n 00 (acute) by mouth (chronic) every 8 (eight) hours. gabapentin 2020- No Neoplasm 400mg Take 1 MD (NEURONTIN) 01-18- related capsule A nderso 400 mg 00:00: 00:00 pain (400 mg) n capsule 00 :00 (acute) by mouth (chronic) twice daily. methadone 2020- No Neoplasm 2.5mg Take 0.5 MD (DOLOPHINE) 01-18- related tablets A nderso 5 mg tablet 00:00: 00:00 pain (2.5 mg) n 00 :00 (acute) by mouth (chronic) every 8 (eight) hours. oxyCODONE-a Yes 1{tbl} Take 1 MD cetaminophe 3-30 tablet by And erso n 02:34: mouth n (PERCOCET) 43 every 8 5 mg-325 mg (eight) per tablet hours as needed. budesonide- Yes 2{puff} Inhale 2 MD formoterol 3-29 puffs by Taurus so (SYMBICORT) 16:48: mouth n 160-4.5 38 twice mcg/actuati daily. on inhaler docusate Yes 100mg Take 100 MD sodium 3-29 mg by Anderso (COLACE) 16:48: mouth n 100 mg 38 daily. capsule baclofen Yes Neoplasm 5mg Take 0.5 M D (LIORESAL) 3-29 related tablets (5 Anderso 10 mg 00:00: pain mg) by n tablet 00 (acute) mouth (chronic) every 8 (eight) hours as needed for muscle spasms (pain). sodium Yes MD chloride 3-23 Anderso (NS) 0.9% 00:00: n injection 00 flush syringe metoprolol 2020- Yes Essential 25mg Take 1 MD succinate 12-30-18 hypertensio tablet (25 Anderso (TOPROL XL) 00:00: 04:59 n mg) by n 25 mg 24 hr 00 :00 mouth tablet daily for 30 days. ceFAZolin 2020- Yes Fever with 6000mg Infuse MD (ANCEF) IV 12-30 04-15 chills, not 6,000 mg Anderso prescriptio 00:00: 04:59 otherwise intravenou n n (Home 00 :00 specified sly Use) continuous for 27 days. levoFLOXaci 2020- No Sepsis 500mg Take 1 MD n 3-17 04-01 tablet Anderso (Levaquin) 00:00: 04:59 (500 mg) n 500 mg 00 :00 by mouth tablet daily for 14 days. gabapentin Yes Neoplasm 200mg Take 2 MD (NEURONTIN) 3-12 related capsules A nderso 100 mg 00:00: pain (200 mg) n capsule 00 (acute) by mouth (chronic) twice daily. methadone Yes Neoplasm 1mg Take 1 mL MD (DOLOPHINE) 3-12 related (1 mg) by Anderso 5 mg/5 mL 00:00: pain mouth n solution 00 (acute) every 8 (chronic) (eight) hours. oxyCODONE-a Yes Cancer .5{tbl} Take 0.5 MD cetaminophe 3-12 associated tablets by Anderso n 00:00: pain mouth n (Percocet) 00 every 4 5 mg-325 mg (four) per tablet hours as needed for moderate pain or severe pain. oxyCODONE-a 2020- No Cancer 1{tbl} Take 1 MD cetaminophe 2-25 03-12 associated tablet by Anderso n 00:00: 00:00 pain mouth 2 n (Percocet) 00 :00 (two) 5 mg-325 mg times a per tablet day as needed for severe pain. methadone 2020- No Cancer 2.5mg Take 0.5 MD (DOLOPHINE) 12-02 03-17 associated tablets Anderso 5 mg tablet 00:00: 00:00 pain (2.5 mg) n 00 :00 by mouth every 8 (eight) hours. pantoprazol Yes Severe 40mg Take 1 MD e 11-10 protein-rocio packet (40 An derso (Protonix) 00:00: orie mg) by n 40 mg 00 malnutritio mouth granules n, not daily. for otherwise suspension specified polyethylen Yes Slow 17g Take 17 g M D e glycol 11-10 transit by mouth Musa rso (MIRALAX) 00:00: [...] malnutritio daily. n, not otherwise specified ciprofloxac Urinary 750mg Take 1 MD in HCl 11-10 tract tablet Anderso (CIPRO) 750 00:00: 00:00 infection (750 mg) n mg tablet 00 :00 by mouth every 12 (twelve) hours. sulfamethox No Urinary 1{tbl} Take 1 MD [...] No Neoplasm 2.5mg Take 0.5 MD (Dolophine) 12-12-29 related tablets A nderso 5 mg tablet 00:00: 00:00 pain (2.5 mg) n 00 :00 (acute) by mouth (chronic) every 8 (eight) hours for 30 days. nitrofurant 2019-10 Dysuria 100mg Take 1 MD oin 216 -15 capsule Anderso monohyd/m-c 00:00: 00:00 (100 mg) n ryst 00 :00 by mouth (Macrobid) twice 100 mg daily. capsule oxyCODONE-a 2019-10 Cancer 1{tbl} Take 1 MD cetaminophe 11-07 associated tablet by Anderso n 00:00: 00:00 pain mouth n (Percocet) 00 :00 every 8 5 mg-325 mg (eight) per tablet hours as needed for severe pain. methadone 2019-10 Neoplasm 2.5mg Take 0.5 MD (Dolophine) 11-07 related tablets A nderso 5 mg tablet 00:00: 21:43 pain (2.5 mg) n 00 :09 (acute) by mouth (chronic) every 8 (eight) hours. amLODIPine 2019-10 hypertensio 5mg Take 1 MD (Norvasc) 5 - 03-17 n tablet (5 An derso mg tablet 00:00: 00:00 mg) by n 00 :00 mouth daily. regorafenib 2019-10 Rectal 160mg Take 4 MD (Stivarga) 10-20-15 cancer tablets And erso 40 mg 00:00: 00:00 (160 mg) n tablet 00 :00 by mouth daily. Take on days #1-21 of every 28 day cycle. aspirin 81 2019-10 1{tbl} Take 1 MD mg EC 0 05- tablet by Anderso tablet 09:21: 00:00 mouth n 31 :00 daily. methadone 2019-10 Neoplasm 2.5mg Take 0.5 MD (Dolophine) 0 11-23 related tablets A nderso 5 mg tablet 00:00: 00:00 pain (2.5 mg) n 00 :00 (acute) by mouth (chronic) every 8 (eight) hours. gabapentin 2019-10 Neoplasm 400mg Take 1 MD (Neurontin) 0-16 03-17 related capsule A nderso 400 mg 00:00: 00:00 pain (400 mg) n capsule 00 :00 (acute) by mouth (chronic) twice daily. oxyCODONE 2019-10 Cancer 9mg Take 1 MD myristate 0-16 10-19 associated capsule (9 Anderso (Xtampza 00:00: 00:00 pain mg) by n ER) 9 mg 12 00 :00 mouth hr capsule twice daily. oxyCODONE-a Cancer 1{tbl} Take 1 MD cetaminophe 9-15 [...] :00 mouth every 12 (twelve) hours. magic No Ulcerative 10mL Swish and MD mouthwash 06-02 01-15 oral spit 10 mL And erso (sucralfate 00:00: 00:00 mucositis 4 (four) n /maalox/dip 00 :00 due to times a henhydramin antineoplas day. e) tic therapy (AMB-CMPD) magic No Ulcerative 10mL Swish and MD mouthwash [...] No Adenocarcin 1{tbl} Take 1 MD -acetaminop 05-06- tesha of tablet by Anderso hen (NORCO) 00:00: 00:00 rectum mouth n 10 mg-325 00 :00 every 6 mg per (six) tablet hours as needed for moderate pain. morphine Adenocarcin 15mg Take 1 MD (MS CONTIN) 05-06-24 tesha of tablet (15 Anderso 15 mg ER 00:00: 00:00 rectum mg) by n tablet 00 :00 mouth every 12 (twelve) hours. gabapentin 2019- No Neoplasm 400mg Take 1 MD (Neurontin) 05-0316 related capsule A nderso 400 mg 00:00: 00:00 pain (400 mg) n capsule 00 :00 (acute) by mouth (chronic) twice daily. regorafenib No Adenocarcin 160mg Take 4 MD (Stivarga) 04-21 01-15 tesha of tablets And erso 40 mg 00:00: 00:00 rectum (160 mg) n tablet 00 :00 by mouth daily. To take on days #1-21 of every 28 day cycle HYDROcodone No Adenocarcin 1{tbl} Take 1 MD -acetaminop 04-12- tesha of tablet by Anderso hen (NORCO) 00:00: 00:00 rectum mouth n 10 mg-325 00 :00 every 6 mg per (six) tablet hours as needed for moderate pain. magnesium 2019- Yes Adenocarcin 500mg Take 1 MD oxide 500 6-10 tesha of tablet Sergo o mg tablet 00:00: rectum (500 mg) n 00 by mouth daily. traMADol 2019- No Rectal 50mg Take 1 MD (ULTRAM) 50 03-24-17 cancer tablet (50 Anderso mg tablet 00:00: 00:00 mg) by n 00 :00 mouth every 6 (six) hours as needed for moderate pain. HYDROcodone 2019- No Rectal 1{tbl} Take 1 MD -acetaminop 6-10 06-29 cancer tablet by Anderso hen (Overcart) 00:00: 00:00 mouth n 7.5 mg-325 00 :00 every 4 mg per (four) tablet hours as needed for moderate pain or severe pain. HYDROcodone 2019- No Rectal 1{tbl} Take 1 MD -acetaminop 5-01 06-10 cancer tablet by Anderso hen (Overcart) 00:00: 00:00 mouth n 7.5 mg-325 00 [...] 3-12 05-01 cancer tablet by Anderso hen (Overcart) 00:00: 00:00 mouth n 7.5 mg-325 00 :00 every 4 mg per (four) tablet hours as needed for moderate pain or severe pain. diphenoxyla Yes Rectal 1{tbl} Take 1 MD te-atropine 3-05 cancer tablet by A nderso (LomotiL) 00:00: mouth n 2.5 00 every 6 mg-0.025 mg (six) per tablet hours as needed for diarrhea. Not to exceed 8 tablets per day traMADol 2019- No Pain 50mg Take 1 MD (ULTRAM) 50 1-15 04-09 tablet (50 A nderso mg tablet 00:00: 00:00 mg) by n 00 :00 mouth every 6 (six) hours as needed for moderate pain or severe pain. albuterol Yes as needed. MD (PROVENTIL, 1-10 Anderso VENTOLIN) 00:00: n 2.5 mg/3 mL 00 (0.083%) nebulizer solution heparin, 2018-10 Yes Multiple Inject 2 M D PF, 100 2-11 nodules of ml (200 And erso units/mL 00:00: lung units) n injection 00 into each lumen of central venous catheter daily as directed. Discard excess volume to administer 2 mL. sodium 2018-10- No Multiple Inject 10 M D chloride 11-2517 nodules of mL (1 And erso (NS) 0.9% 00:00: 00:00 lung syringe) n flush 00 :00 into each syringe 10 lumen of mL central venous catheter daily as directed. lidocaine-p 2018-10- No Adenocarcin Apply to MD rilocaine 11-25 tesha of Port-A-Cat A nderso (EMLA) 00:00: 00:00 rectum h area 30 n 2.5-2.5% 00 :00 to 45 cream minutes prior to port access as directed (topical anesthetic ). ondansetron 2018-10- No Adenocarcin 8mg Take 1 MD (ZOFRAN) 8 11-25 tesha of tablet (8 A nderso mg [...] mouth n 00 :00 twice daily. metoprolol 2020- No 1{tbl} Take 1 MD succinate 8-25 03-17 tablet by Musa rso (TOPROL XL) 00:00: 00:00 mouth n 25 mg 24 hr 00 :00 twice tablet daily. losartan 2019-0 2020- No 1{tbl} Take 1 (EYAL) 25 8-16 12-03 tablet by An derso mg tablet 00:00: 00:00 mouth n 00 :00 daily. Vital Signs Vital Name Observation Time Observation Value Comments Source WEIGHT 2020-04-09 00:00:00 72.6 kg WEIGHT 2020-04-09 00:00:00 72.6 kg Systolic blood pressure 2021-01-10 16:19:54 141 mm[Hg] MD Hinojosa Diastolic blood pressure 2021-01-10 16:19:54 60 mm[Hg] MD Hinojosa Heart rate 2021-01-10 16:19:54 96 /min MD Taurus mayo Body temperature 2021-01-10 16:19:54 36.72 Marci MD Misti mclean Respiratory rate 2021-01-10 16:19:54 18 /min MD Misti mclean Body weight 2021-01-10 16:19:54 62.6 kg MD Taurus mayo BMI 2021-01-10 16:19:54 23.56 kg/m2 MD Taurus mayo Oxygen saturation in 2020-12-29 16:07:00 96 /min MD Hinojosa Arterial blood by Pulse oximetry Body height 2020-12-21 15:01:00 163 cm MD Taurus mayo Procedures Procedure Date / Time Performed Performing Clinician [facility] e POC GLUCOSE SCREEN 2020-12-29 17:41:00 Shellie Diaz MD POC GLUCOSE SCREEN 2020-12-29 12:59:00 Shellie Diaz MD COMPLETE BLOOD COUNT W/ 2020-12-29 09:47:00 Vamsi Jones MD DIFFERENTIAL BASIC METABOLIC PANEL, 2020-12-29 09:47:00 Vamsi Jones MD CALCIUM TOTAL MAGNESIUM LEVEL 2020-12-29 09:47:00 Vamsi Jones MD PHOSPHORUS LEVEL 2020-12-29 09:47:00 Vamsi Jones MD HEPATIC FUNCTION PANEL 2020-12-29 09:47:00 MD Ashish Stark Robert Results CBC 2020-12-29 09:47:00 Vamsi Jones MD MANUAL DIFFERENTIAL 2020-12-29 09:47:00 Vamsi Jones MD [facility] GLUCOSE LEVEL 2020-12-29 09:47:00 Vamsi Jones MD BLOOD UREA NITROGEN 2020-12-29 09:47:00 Vamsi Jones MD [facility] ELECTROLYTE PANEL 2020-12-29 09:47:00 Vamsi Jones MDo n SERUM CREATININE 2020-12-29 09:47:00 Vamsi Jones MD .GLOMERULAR FILTRATION RATE 2020-12-29 09:47:00 Vamsi Jones MD CALCIUM LEVEL TOTAL 2020-12-29 09:47:00 Vamsi Jones MD [facility] ALBUMIN LEVEL 2020-12-29 09:47:00 MD Sergo Stark on Robert ALKALINE PHOSPHATASE 2020-12-29 09:47:00 MD Misit Stark ALANINE AMINOTRANSFERASE 2020-12-29 09:47:00 MD Ashish Stark Robert ASPARTATE AMINOTRANSFERASE 2020-12-29 09:47:00 MD Ashish Stark Robert TOTAL PROTEIN 2020-12-29 09:47:00 MD Sergo Stark on Robert FRACTIONATED BILIRUBIN 2020-12-29 09:47:00 MD Ashish Stark Robert POC GLUCOSE SCREEN 2020-12-29 03:22:00 Shellie Diaz MD EKG, 12-LEAD (PORTABLE) 2020-12-29 00:00:00 Alison Ramirez MDrson POC GLUCOSE SCREEN 2020-12-28 23:23:00 Shellie Diaz MDon POC GLUCOSE SCREEN 2020-12-28 18:46:00 Shellie Diaz MDrson POC GLUCOSE SCREEN 2020-12-28 14:23:00 Shellie Diaz MD COMPLETE BLOOD COUNT W/ 2020-12-28 09:39:00 Vamsi Jones MD DIFFERENTIAL BASIC METABOLIC PANEL, 2020-12-28 09:39:00 Jones, Cerena MD An derson CALCIUM TOTAL MAGNESIUM LEVEL 2020-12-28 09:39:00 Vamsi Jones MD PHOSPHORUS LEVEL 2020-12-28 09:39:00 Vamsi Jones MD HEPATIC FUNCTION PANEL 2020-12-28 09:39:00 MD Ashish Stark Robert Results CBC 2020-12-28 09:39:00 Vamsi Jones MD MANUAL DIFFERENTIAL 2020-12-28 09:39:00 Vamsi Jones MD [facility] GLUCOSE LEVEL 2020-12-28 09:39:00 Vamsi Jones MD BLOOD UREA NITROGEN 2020-12-28 09:39:00 Robert, Vamsi CAMPA [facility] ELECTROLYTE PANEL 2020-12-28 09:39:00 Vamsi Jones MD SERUM CREATININE 2020-12-28 09:39:00 Vamsi Jones MD .GLOMERULAR FILTRATION RATE 2020-12-28 09:39:00 Vamsi Jones MD CALCIUM LEVEL TOTAL 2020-12-28 09:39:00 Vamsi Jones MD [facility] ALBUMIN LEVEL 2020-12-28 09:39:00 MD Sergo Stark on Robert ALKALINE PHOSPHATASE 2020-12-28 09:39:00 MD Misti Stark ALANINE AMINOTRANSFERASE 2020-12-28 09:39:00 MD Ashish Stark ASPARTATE AMINOTRANSFERASE 2020-12-28 09:39:00 MD Ashish Stark TOTAL PROTEIN 2020-12-28 09:39:00 MD Sergo Stark on Robert FRACTIONATED BILIRUBIN 2020-12-28 09:39:00 MD Ashish Stark POC GLUCOSE SCREEN 2020-12-28 02:59:00 Shellie Diaz MDrson POC GLUCOSE SCREEN 2020-12-27 22:35:00 Shellie Diaz MDrson POC GLUCOSE SCREEN 2020-12-27 17:34:00 Shellie Diaz MDrson POC GLUCOSE SCREEN 2020-12-27 13:28:00 Shellie Diaz MD COMPLETE BLOOD COUNT W/ 2020-12-27 09:41:00 JonesVamsi millan MD DIFFERENTIAL BASIC METABOLIC PANEL, 2020-12-27 09:41:00 Robert, Vamsi Johns derson CALCIUM TOTAL MAGNESIUM LEVEL 2020-12-27 09:41:00 Vamsi Jones MD PHOSPHORUS LEVEL 2020-12-27 09:41:00 Vamsi Jones MD HEPATIC FUNCTION PANEL 2020-12-27 09:41:00 MD Ashish Stark Robert Results CBC 2020-12-27 09:41:00 Jones, Vamsi Hinojosa MANUAL DIFFERENTIAL 2020-12-27 09:41:00 Robert, Vamsi C[facility] GLUCOSE LEVEL 2020-12-27 09:41:00 Robert, Vamsi Hinojosa BLOOD UREA NITROGEN 2020-12-27 09:41:00 Jones, Vamsi CAMPA [facility] ELECTROLYTE PANEL 2020-12-27 09:41:00 Jones, Vamsi Ruggiero n SERUM CREATININE 2020-12-27 09:41:00 Jones, Vamsi Hinojosa .GLOMERULAR FILTRATION RATE 2020-12-27 09:41:00 Vamsi Jones MD CALCIUM LEVEL TOTAL 2020-12-27 09:41:00 Jones, Vamsi CAMPA [facility] ALBUMIN LEVEL 2020-12-27 09:41:00 MD Sergo Stark on Robert ALKALINE PHOSPHATASE 2020-12-27 09:41:00 MD Misti Stark ALANINE AMINOTRANSFERASE 2020-12-27 09:41:00 MD Ashish Stark ASPARTATE AMINOTRANSFERASE 2020-12-27 09:41:00 MD Ashish Stark TOTAL PROTEIN 2020-12-27 09:41:00 MD Sergo Stark on Robert FRACTIONATED BILIRUBIN 2020-12-27 09:41:00 MD Ashish Stark POC GLUCOSE SCREEN 2020-12-27 03:03:00 Alcon Louis MD on POC GLUCOSE SCREEN 2020-12-27 00:46:00 Alcon Louis MD on POC GLUCOSE SCREEN 2020-12-26 22:19:00 Alcon Louis MD on POC GLUCOSE SCREEN 2020-12-26 18:14:00 Alcon Louis MD on POC GLUCOSE SCREEN 2020-12-26 14:34:00 Alcon Louis MD on COMPLETE BLOOD COUNT W/ 2020-12-26 09:45:00 Vamsi Jones MD DIFFERENTIAL BASIC METABOLIC PANEL, 2020-12-26 09:45:00 Vamsi Jones MD CALCIUM TOTAL MAGNESIUM LEVEL 2020-12-26 09:45:00 Vamsi Jones MD PHOSPHORUS LEVEL 2020-12-26 09:45:00 Vamsi Jones MD HEPATIC FUNCTION PANEL 2020-12-26 09:45:00 MD Ashish Stark Robert Results CBC 2020-12-26 09:45:00 Vamsi Jones MD MANUAL DIFFERENTIAL 2020-12-26 09:45:00 Vamsi Jones MD GLUCOSE LEVEL 2020-12-26 09:45:00 Vamsi Jones MD BLOOD UREA NITROGEN 2020-12-26 09:45:00 Vamsi Jones MD ELECTROLYTE PANEL 2020-12-26 09:45:00 Vamsi Jones MD n SERUM CREATININE 2020-12-26 09:45:00 Vamis Jones MD .GLOMERULAR FILTRATION RATE 2020-12-26 09:45:00 Vamsi Jones MD CALCIUM LEVEL TOTAL 2020-12-26 09:45:00 Vamsi Jones MD Taurus son ALBUMIN LEVEL 2020-12-26 09:45:00 MD Sergo Stark on Robert ALKALINE PHOSPHATASE 2020-12-26 09:45:00 MD Misti Stark ALANINE AMINOTRANSFERASE 2020-12-26 09:45:00 MD Ashish Stark ASPARTATE AMINOTRANSFERASE 2020-12-26 09:45:00 MD Ashish Stark TOTAL PROTEIN 2020-12-26 09:45:00 MD Sergo Stark on Robert FRACTIONATED BILIRUBIN 2020-12-26 09:45:00 MD Ashish Stark POC GLUCOSE SCREEN 2020-12-26 05:19:00 Alcon Louis MD on POC GLUCOSE SCREEN 2020-12-26 01:17:00 Alcon Louis MD on EKG, 12-LEAD (PORTABLE) 2020-12-26 00:00:00 Behzad Kaye MDon POC GLUCOSE SCREEN 2020-12-25 19:11:00 Alcon Louis MD on POC GLUCOSE SCREEN 2020-12-25 15:12:00 Alcon Louis MD on COMPLETE BLOOD COUNT W/ 2020-12-25 10:06:00 Vamsi Jones MD DIFFERENTIAL BASIC METABOLIC PANEL, 2020-12-25 10:06:00 Vamsi Jones MDson CALCIUM TOTAL MAGNESIUM LEVEL 2020-12-25 10:06:00 Vamsi Jones MD PHOSPHORUS LEVEL 2020-12-25 10:06:00 Vamsi Jones MD HEPATIC FUNCTION PANEL 2020-12-25 10:06:00 MD Ashish Starkel Results CBC 2020-12-25 10:06:00 Vamsi Jones MD MANUAL DIFFERENTIAL 2020-12-25 10:06:00 Vamsi Jones MD GLUCOSE LEVEL 2020-12-25 10:06:00 Vamsi Jones MD BLOOD UREA NITROGEN 2020-12-25 10:06:00 Vamsi Jones MD ELECTROLYTE PANEL 2020-12-25 10:06:00 Vamsi Jones MD SERUM CREATININE 2020-12-25 10:06:00 Vamsi Jones MD .GLOMERULAR FILTRATION RATE 2020-12-25 10:06:00 Vamsi Jones MD CALCIUM LEVEL TOTAL 2020-12-25 10:06:00 Vamsi Jones MD ALBUMIN LEVEL 2020-12-25 10:06:00 MD Sergo Stark on Robert ALKALINE PHOSPHATASE 2020-12-25 10:06:00 MD Misti Stark ALANINE AMINOTRANSFERASE 2020-12-25 10:06:00 MD Ashish Stark ASPARTATE AMINOTRANSFERASE 2020-12-25 10:06:00 MD Ashish Stark TOTAL PROTEIN 2020-12-25 10:06:00 MD Sergo Stark on Robert FRACTIONATED BILIRUBIN 2020-12-25 10:06:00 MD Ashish Stark Robert BLOODCULTURE 2020-12-25 10:06:00 Behzad Kaye MD BLOODCULTURE 2020-12-25 09:47:00 Behzad Kaye MD POC GLUCOSE SCREEN 2020-12-25 06:00:00 Sarah Rome MD on POC GLUCOSE SCREEN 2020-12-25 01:05:00 Sarah Rome MD on POC GLUCOSE SCREEN 2020-12-24 21:19:00 Sarah Rome MD on POC GLUCOSE SCREEN 2020-12-24 18:34:00 Sarah Rome MD on POC GLUCOSE SCREEN 2020-12-24 15:06:00 Sarah Rome MD on IR NEPHROSTOMY EXCHANGE 2020-12-24 14:44:23 Payal Stark POC GLUCOSE SCREEN 2020-12-24 13:32:00 Sarah Rome MD on ALANINE AMINOTRANSFERASE 2020-12-24 11:08:00 MD Ashish Stark ASPARTATE AMINOTRANSFERASE 2020-12-24 11:08:00 MD Ashish Stark TOTAL PROTEIN 2020-12-24 11:08:00 MD Sergo Stark on Robert FRACTIONATED BILIRUBIN 2020-12-24 11:08:00 MD Ashish Stark HC REF HEPATITIS BC AB, IGG & 2020-12-24 11:08:00 Felicia Cardoso MD IGM HEPATITIS B SURFACE AG 2020-12-24 11:08:00 Karon Cardoso W/CONFIRM HEPATITIS C VIRUS AB SCREEN 2020-12-24 11:08:00 Shanique Cardoso MD W/REFLEX HCV PCR BLOODCULTURE 2020-12-24 11:08:00 Felicia Cardoso MD COMPLETE BLOOD COUNT W/ 2020-12-24 11:08:00 Vamsi Jones MD DIFFERENTIAL BASIC METABOLIC PANEL, 2020-12-24 11:08:00 Vamsi Jones MD CALCIUM TOTAL MAGNESIUM LEVEL 2020-12-24 11:08:00 Vamsi Jones MD PHOSPHORUS LEVEL 2020-12-24 11:08:00 Vamsi Jones MD HEPATIC FUNCTION PANEL 2020-12-24 11:08:00 MD Ashish Stark C REACTIVE PROTEIN 2020-12-24 11:08:00 Felicia Cardoso MD HC PROCALCITONIN (PCT) 2020-12-24 11:08:00 Karon Cardoso HEPATITIS C VIRUS ANTIBODY 2020-12-24 11:08:00 Ernestina Cardoso MD HEPATITIS B SURFACE ANTIGEN, 2020-12-24 11:08:00 Felicia Cardoso MD SERUM HEPATITIS B CORE ANTIBODY 2020-12-24 11:08:00 Svitlana Cardoso MD Results CBC 2020-12-24 11:08:00 Vamsi Jones MD MANUAL DIFFERENTIAL 2020-12-24 11:08:00 Vamsi Jones MD GLUCOSE LEVEL 2020-12-24 11:08:00 Vamsi Joens MD BLOOD UREA NITROGEN 2020-12-24 11:08:00 Vamsi Jones MD ELECTROLYTE PANEL 2020-12-24 11:08:00 Vamsi Jones MD SERUM CREATININE 2020-12-24 11:08:00 Vamsi Jones MD .GLOMERULAR FILTRATION RATE 2020-12-24 11:08:00 Vamsi Jones MD CALCIUM LEVEL TOTAL 2020-12-24 11:08:00 Vamsi Jones MD ALBUMIN LEVEL 2020-12-24 11:08:00 MD Sergo Stark ALKALINE PHOSPHATASE 2020-12-24 11:08:00 MD Misti Stark POC GLUCOSE SCREEN 2020-12-24 03:41:00 Sarah Rome MD on POC GLUCOSE SCREEN 2020-12-24 00:29:00 Sarah Rome MD on POC GLUCOSE SCREEN 2020-12-23 23:53:00 Sarah Rome MD on VANCOMYCIN LEVEL TROUGH 2020-12-23 22:10:00 Sarah Rome MD ECHOCARDIOGRAM 2D COMPLETE 2020-12-23 19:14:41 MD Ashish Satrk POC GLUCOSE SCREEN 2020-12-23 18:37:00 Sarah Rome MD on POC GLUCOSE SCREEN 2020-12-23 14:56:00 Sarah Rome MD on COMPLETE BLOOD COUNT W/ 2020-12-23 10:31:00 Vamsi Jones MD DIFFERENTIAL BASIC METABOLIC PANEL, 2020-12-23 10:31:00 Vamsi Jones MDson CALCIUM TOTAL MAGNESIUM LEVEL 2020-12-23 10:31:00 Vamsi Jones MD PHOSPHORUS LEVEL 2020-12-23 10:31:00 Vamsi Jones MD HEPATIC FUNCTION PANEL 2020-12-23 10:31:00 MD Ashish Stark Results CBC 2020-12-23 10:31:00 Vamsi Jones MD MANUAL DIFFERENTIAL 2020-12-23 10:31:00 Vamsi Jones MD [facility] GLUCOSE LEVEL 2020-12-23 10:31:00 Vamsi Jones MD BLOOD UREA NITROGEN 2020-12-23 10:31:00 Vamsi Jones MD [facility] ELECTROLYTE PANEL 2020-12-23 10:31:00 Vamsi Jones MD n SERUM CREATININE 2020-12-23 10:31:00 Vamsi Jones MD .GLOMERULAR FILTRATION RATE 2020-12-23 10:31:00 Vamsi Jones MD CALCIUM LEVEL TOTAL 2020-12-23 10:31:00 Vamsi Jones MD [facility] ALBUMIN LEVEL 2020-12-23 10:31:00 MD Sergo Stark on Robert ALKALINE PHOSPHATASE 2020-12-23 10:31:00 MD Misti Stark Robert ALANINE AMINOTRANSFERASE 2020-12-23 10:31:00 MD Ashish Stark ASPARTATE AMINOTRANSFERASE 2020-12-23 10:31:00 MD Ashish Stark TOTAL PROTEIN 2020-12-23 10:31:00 MD Mi Sergo on Robert FRACTIONATED BILIRUBIN 2020-12-23 10:31:00 MD Ashish Stark Robert POC GLUCOSE SCREEN 2020-12-23 03:22:00 MD Mi And erson Robert POC GLUCOSE SCREEN 2020-12-22 22:43:00 MD Mi And erson Robert BLOODCULTURE 2020-12-22 18:41:00 MD Mi Sergo on Robert COMPLETE BLOOD COUNT W/ 2020-12-22 18:41:00 Vamsi Jones MDon INDICES POC GLUCOSE SCREEN 2020-12-22 17:25:00 MD Mi And erson Robert POC GLUCOSE SCREEN 2020-12-22 15:18:00 MD Mi And erson Robert COMPLETE BLOOD COUNT W/ 2020-12-22 14:13:00 Vamsi Jones MD INDICES BLOODCULTURE 2020-12-22 10:24:00 Tremayne Burch MD AMMONIA LEVEL 2020-12-22 07:49:00 Shellie Cline MD NT PRO BNP 2020-12-22 07:49:00 Shellie Cline MD COMPLETE BLOOD COUNT W/ 2020-12-22 07:49:00 Vamsi Jones MD DIFFERENTIAL BASIC METABOLIC PANEL, 2020-12-22 07:49:00 Vamsi Jones MDson CALCIUM TOTAL MAGNESIUM LEVEL 2020-12-22 07:49:00 Vamsi Jones MD PHOSPHORUS LEVEL 2020-12-22 07:49:00 Vamsi Jones MD Results CBC 2020-12-22 07:49:00 Vamsi Jones MD MANUAL DIFFERENTIAL 2020-12-22 07:49:00 Vamsi Jones MD [facility] GLUCOSE LEVEL 2020-12-22 07:49:00 Vamsi Jones MD BLOOD UREA NITROGEN 2020-12-22 07:49:00 Vamsi Jones MD [facility] ELECTROLYTE PANEL 2020-12-22 07:49:00 Vamsi Jones MD SERUM CREATININE 2020-12-22 07:49:00 Vamsi Jones MD .GLOMERULAR FILTRATION RATE 2020-12-22 07:49:00 Vamsi Jones MD CALCIUM LEVEL TOTAL 2020-12-22 07:49:00 Vamsi Jones MD [facility] POC GLUCOSE SCREEN 2020-12-22 03:53:00 Vamsi Jones MD on COMPLETE BLOOD COUNT W/ 2020-12-22 00:48:00 Vamsi Jones MDrson INDICES TRANSFUSE RED BLOOD CELLS 2020-12-22 00:30:28 Akin Gordon MD POC GLUCOSE SCREEN 2020-12-21 22:52:00 Vamsi Jones MD on MRSA SCREENING CULTURE 2020-12-21 22:48:00 Shellie Cline MD COMPLETE BLOOD COUNT W/ 2020-12-21 20:27:00 Vamsi Jones MD nderson INDICES CT HEAD WO CONTRAST 2020-12-21 19:37:49 Shellie Cline MD [facility] POC GLUCOSE SCREEN 2020-12-21 19:36:00 [address] MD on CT CHEST ABDOMEN PELVIS W WO 2020-12-21 19:31:00 Akin Gordon MD CONTRAST GENERAL LABORATORY ADD ON 2020-12-21 14:55:00 Shellie Cline MD TEST RESPIRATORY VIRAL PANEL + 2020-12-21 11:53:00 Akin Gordon MD COVID-19, NASOPHARYNGEAL SWAB URINE CULTURE 2020-12-21 11:09:00 Akin Gordon MD BLOODCULTURE 2020-12-21 11:09:00 Akin Gordon MD COMPLETE BLOOD COUNT W/ 2020-12-21 11:09:00 Akin Gordon MD nderson DIFFERENTIAL TYPE AND SCREEN 2020-12-21 11:09:00 Akin Gordon MD COMPREHENSIVE METABOLIC PANEL 2020-12-21 11:09:00 Akin Gordon MD MAGNESIUM LEVEL 2020-12-21 11:09:00 Akin Gordon MD PHOSPHORUS LEVEL 2020-12-21 11:09:00 Akin Gordon MD PROTHROMBIN TIME 2020-12-21 11:09:00 Akin Gordon MD PARTIAL THROMBOPLASTIN TIME 2020-12-21 11:09:00 Akin Gordon MD D DIMER 2020-12-21 11:09:00 Akin Gordon MD FIBRINOGEN ACTIVITY 2020-12-21 11:09:00 Akin Gordon MD LACTATE DEHYDROGENASE 2020-12-21 11:09:00 Akin Gordon URINALYSIS WITH MICROSCOPIC 2020-12-21 11:09:00 Akin Gordon MD IF INDICATED C REACTIVE PROTEIN 2020-12-21 11:09:00 Akin Gordon MD AMYLASE LEVEL 2020-12-21 11:09:00 Akin Gordon MD LIPASE LEVEL 2020-12-21 11:09:00 Akin Gordon MD CARDIAC PANEL 2020-12-21 11:09:00 Akin Gordon MD Results CBC 2020-12-21 11:09:00 Akin Gordon MD MANUAL DIFFERENTIAL 2020-12-21 11:09:00 Akin Gordon MD GLUCOSE LEVEL 2020-12-21 11:09:00 Akin Gordon MD BLOOD UREA NITROGEN 2020-12-21 11:09:00 Akin Gordon MD ELECTROLYTE PANEL 2020-12-21 11:09:00 Akin Gordon MD SERUM CREATININE 2020-12-21 11:09:00 Akin Gordon MD .GLOMERULAR FILTRATION RATE 2020-12-21 11:09:00 Akin Gordon MD CALCIUM LEVEL TOTAL 2020-12-21 11:09:00 Akin Gordon MD ALBUMIN LEVEL 2020-12-21 11:09:00 Akin Gordon MD ALKALINE PHOSPHATASE 2020-12-21 11:09:00 Akin Gordon MD ALANINE AMINOTRANSFERASE 2020-12-21 11:09:00 Akin Gordon MD ASPARTATE AMINOTRANSFERASE 2020-12-21 11:09:00 Akin Gordon TOTAL PROTEIN 2020-12-21 11:09:00 Akin Gordon MD FRACTIONATED BILIRUBIN 2020-12-21 11:09:00 Akin Gordon MDson ABORH 2020-12-21 11:09:00 Akin Gordon MD ANTIBODY SCREEN 2020-12-21 11:09:00 Akin Gordon MD URINALYSIS MICROSCOPIC 2020-12-21 11:09:00 Akin Gordon MD CLOT EXPIRATION DATE 2020-12-21 11:09:00 Akin Gordon MD TMP CROSSMATCH INTERPRETATION 2020-12-21 11:09:00 Akin Gordon MD POC VENOUS BLOOD GAS + 2020-12-21 11:08:00 Akin Gordon MD LACTATE PARTIAL THROMBOPLASTIN TIME 2020-12-21 11:06:00 Akin Gordon MD PROTHROMBIN TIME 2020-12-21 11:06:00 Akin Gordon MD PREPARE RBC 2020-12-21 10:37:00 Akin Gordon MD POC GLUCOSE SCREEN 2020-12-21 10:26:00 Akin Gordon MD on EKG, 12-LEAD (PORTABLE) 2020-12-21 00:00:00 Akin Gordon MD COMPLETE BLOOD COUNT W/ 2020-12-06 16:56:00 Tu, [...] Hinojosa FRACTIONATED BILIRUBIN 2020-12-06 16:56:00 Tu, Jojo montielson POC GLUCOSE SCREEN 2020-11-10 18:09:00 Sammy Arriaga [...] Hinojosa ALKALINE PHOSPHATASE 2020-11-10 07:06:00 Day, Vanda Vigil rson ALANINE AMINOTRANSFERASE 2020-11-10 07:06:00 Day, Vanda Hinojosa ASPARTATE AMINOTRANSFERASE 2020-11-10 07:06:00 Day, Vanda Hinojosa TOTAL PROTEIN 2020-11-10 07:06:00 Day, Vanda Hinojosa FRACTIONATED BILIRUBIN 2020-11-10 07:06:00 Day, Vanda montielson POC GLUCOSE SCREEN 2020-11-10 04:31:00 Sammy Arriaga MD Esrgo on POC GLUCOSE SCREEN 2020-11-09 23:53:00 Sammy Arriaga MD Sergo on TRANSFUSE RED BLOOD CELLS 2020-11-09 23:48:42 [...] BLOOD UREA NITROGEN 2020-11-09 06:41:00 Day, Vanda mayo ELECTROLYTE PANEL 2020-11-09 06:41:00 Day, Vanda Trottero n SERUM CREATININE 2020-11-09 06:41:00 Day, Vanda Hinojosa .GLOMERULAR FILTRATION RATE 2020-11-09 06:41:00 Day, Vanda Hinojosa CALCIUM LEVEL TOTAL 2020-11-09 06:41:00 Day, Vanda Condon son ALBUMIN LEVEL 2020-11-09 06:41:00 Day, Vanda Hinojosa ALKALINE PHOSPHATASE 2020-11-09 06:41:00 Day, Vanda Tiradoe rson ALANINE AMINOTRANSFERASE 2020-11-09 06:41:00 Day, Vanda [...] BLOOD COUNT W/ 2020-11-08 06:30:00 Day, Vanda delcidrsgina DIFFERENTIAL COMPREHENSIVE METABOLIC PANEL 2020-11-08 06:30:00 Day, Vanda Hinojosa TYPE AND SCREEN 2020-11-08 06:30:00 Day, Vanda Hinojosa ABORH 2020-11-08 06:30:00 Day, Vanda Hinojosa ANTIBODY SCREEN 2020-11-08 06:30:00 Day, Vanda Hinojosa Results CBC 2020-11-08 06:30:00 Day, Vanda Hinojosa MANUAL DIFFERENTIAL 2020-11-08 06:30:00 Day, Vanda mayo GLUCOSE LEVEL 2020-11-08 06:30:00 Day, Vanda Hinojosa BLOOD UREA NITROGEN 2020-11-08 06:30:00 Day, Vanda CAMPA [facility] ELECTROLYTE PANEL 2020-11-08 06:30:00 Day, Vanda Trottero n SERUM CREATININE 2020-11-08 06:30:00 Day, Vanda Hinojosa .GLOMERULAR FILTRATION RATE 2020-11-08 06:30:00 Day, Vanda Hinojosa CALCIUM LEVEL TOTAL 2020-11-08 06:30:00 Day, Vanda CAMPA [facility] ALBUMIN LEVEL 2020-11-08 06:30:00 Day, Vanda Hinojosa ALKALINE PHOSPHATASE 2020-11-08 06:30:00 Day, Vanda tovar ALANINE AMINOTRANSFERASE 2020-11-08 06:30:00 Day, Vanda Hinojosa ASPARTATE AMINOTRANSFERASE 2020-11-08 06:30:00 Day, Vanda Hinojosa TOTAL PROTEIN 2020-11-08 06:30:00 Day, Vanda Hinojosa FRACTIONATED BILIRUBIN 2020-11-08 06:30:00 Day, Vanda Johns derson CLOT EXPIRATION DATE 2020-11-08 06:30:00 Day, Vanda contrerason TMP INTERPRETATION ANTIBODY 2020-11-08 06:30:00 Day, Vanda Hinojosa SCREEN NEGATIVE TMP CROSSMATCH INTERPRETATION 2020-11-08 06:30:00 Day, Vanda Hinojosa POC GLUCOSE SCREEN 2020-11-08 00:11:00 Sen Cooper MD POC GLUCOSE SCREEN 2020-11-07 19:04:00 Sen Cooper MD MRSA SCREENING CULTURE 2020-11-07 16:52:00 Maddi Waters MD derson POC GLUCOSE SCREEN 2020-11-07 14:08:00 Sen Cooper MD VANCOMYCIN LEVEL TROUGH 2020-11-07 07:04:00 Sen Cooper MD NT PRO BNP 2020-11-07 07:04:00 Maddi Waters MD COMPLETE BLOOD COUNT W/ 2020-11-07 07:04:00 Day, Vanda mclean DIFFERENTIAL COMPREHENSIVE METABOLIC PANEL 2020-11-07 07:04:00 Day, [...] mayo ELECTROLYTE PANEL 2020-11-07 07:04:00 Day, Vanda valdovinos SERUM CREATININE 2020-11-07 07:04:00 Day, Vanda Hinojosa [...] B12 LEVEL 2020-11-06 06:36:00 Maddi Waters MD Andjuarezo n Results CBC 2020-11-06 06:36:00 Alex Olson MD MANUAL DIFFERENTIAL 2020-11-06 06:36:00 Alex Olson MD GLUCOSE LEVEL 2020-11-06 06:36:00 Alex Olson MD BLOOD UREA NITROGEN 2020-11-06 06:36:00 Alex Olson MD ELECTROLYTE PANEL 2020-11-06 06:36:00 Alex Olson MD SERUM CREATININE 2020-11-06 06:36:00 Alex Olson MD .GLOMERULAR FILTRATION RATE 2020-11-06 06:36:00 Alex Olson MD CALCIUM LEVEL TOTAL 2020-11-06 06:36:00 Alex Olson MD POC GLUCOSE SCREEN 2020-11-06 04:11:00 Sen Cooper MD OCCULT BLOOD STOOL 2020-11-06 00:35:00 Maddi Waters MD on EKG, 12-LEAD (PORTABLE) 2020-11-06 00:00:00 Maddi Waters MD POC GLUCOSE SCREEN 2020-11-05 23:22:00 Sen Cooper MD US LEG VENOUS DOPPLER 2020-11-05 22:48:14 Maddi Waters MD And erson BILATERAL US ABDOMEN LIMITED 2020-11-05 22:13:00 Maddi Waters MD on US PELVIS LIMITED 2020-11-05 22:13:00 Maddi Waters MD TRANSFUSE RED BLOOD CELLS 2020-11-05 18:34:10 Alex Olson MD XR CHEST 1 VW 2020-11-05 17:34:10 Maddi Waters MD TROPONIN T 2020-11-05 16:17:00 Maddi Waters MD LACTIC ACID, VENOUS 2020-11-05 16:17:00 Maddi Waters MD NT PRO BNP 2020-11-05 16:17:00 Maddi Waters [...] PREPARE RBC 2020-11-05 07:13:00 Alex Olson MD URINALYSIS WITH MICROSCOPIC 2020-11-05 06:53:00 Alex Olson MD IF INDICATED URINALYSIS MICROSCOPIC 2020-11-05 06:53:00 Alex Olson MD derson URINE CULTURE 2020-11-05 06:53:00 Alex Olson MD BLOODCULTURE 2020-11-05 06:53:00 Alex Olson MD BLOODCULTURE 2020-11-05 06:38:00 Alex Olson MD MAGNESIUM LEVEL 2020-11-05 06:38:00 Alex Olson MD PHOSPHORUS LEVEL 2020-11-05 06:38:00 Alex Olson MD COMPREHENSIVE METABOLIC PANEL 2020-11-05 06:38:00 Suzy Olson MD LACTIC ACID, VENOUS 2020-11-05 06:38:00 Alex Olson MD COMPLETE BLOOD COUNT W/ 2020-11-05 06:38:00 Alex Olson MD DIFFERENTIAL PROTHROMBIN TIME 2020-11-05 06:38:00 Alex Olson MD PARTIAL THROMBOPLASTIN TIME 2020-11-05 06:38:00 Alxe Olson MD GLUCOSE LEVEL 2020-11-05 06:38:00 Alex Olson MD BLOOD UREA NITROGEN 2020-11-05 06:38:00 Alex Olson MD ELECTROLYTE PANEL 2020-11-05 06:38:00 Alex Olson MD SERUM CREATININE 2020-11-05 06:38:00 Alex Olson MD .GLOMERULAR FILTRATION RATE 2020-11-05 06:38:00 Alex Olson MD CALCIUM LEVEL TOTAL 2020-11-05 06:38:00 Alex Olson MD son ALBUMIN LEVEL 2020-11-05 06:38:00 Alex Olson MD ALKALINE PHOSPHATASE 2020-11-05 06:38:00 Alex Olson MD ALANINE AMINOTRANSFERASE 2020-11-05 06:38:00 Alex Olson MD ASPARTATE AMINOTRANSFERASE 2020-11-05 06:38:00 Alex Olson TOTAL PROTEIN 2020-11-05 06:38:00 Alex Olson MD FRACTIONATED BILIRUBIN 2020-11-05 06:38:00 Alex Olson MD derson Results CBC 2020-11-05 06:38:00 Alex Olson MD MANUAL DIFFERENTIAL 2020-11-05 06:38:00 Alex Olson MD INFLUENZA A/B + COVID-19 2020-11-05 06:21:00 Alex [...] Hinojosa MANUAL DIFFERENTIAL 2020-10-29 16:31:21 Tu, Jojo CAMPA [facility] GLUCOSE LEVEL 2020-10-29 16:31:21 Tu, Jojo Hinojosa BLOOD UREA NITROGEN 2020-10-29 16:31:21 Tu, Jojo CAMPA [facility] son ELECTROLYTE PANEL 2020-10-29 16:31:21 Tu, Jojo Trottero n SERUM CREATININE 2020-10-29 16:31:21 Tu, Jojo Hinojosa [...] BLOOD COUNT W/ 2020-09-20 18:34:00 Tu, Jojo mclean DIFFERENTIAL COMPREHENSIVE METABOLIC PANEL 2020-09-20 18:34:00 Tu, Jojo Hinojosa MAGNESIUM LEVEL 2020-09-20 18:34:00 Tu, Jojo Hinojosa CARCINOEMBRYONIC ANTIGEN 2020-09-20 18:34:00 Tu, Jojo Hinojosa Results CBC 2020-09-20 18:34:00 Tu, Jojo Hinojosa MANUAL DIFFERENTIAL 2020-09-20 18:34:00 Tu, Jojo CAMPA [facility] son GLUCOSE LEVEL 2020-09-20 18:34:00 Tu, Jojo Hinojosa BLOOD UREA NITROGEN 2020-09-20 18:34:00 Tu, Jojo CAMPA [facility] ELECTROLYTE PANEL 2020-09-20 18:34:00 Tu, Jojo Tiradojuarezo n SERUM CREATININE 2020-09-20 18:34:00 Tu, Jojo Hinojosa .GLOMERULAR FILTRATION RATE 2020-09-20 18:34:00 Tu, Jojo Hinojosa CALCIUM LEVEL TOTAL 2020-09-20 18:34:00 Tu, Jojo CAMPA [facility] ALBUMIN LEVEL 2020-09-20 18:34:00 Tu, Jojo Hinojosa ALKALINE PHOSPHATASE 2020-09-20 18:34:00 Tu, Jojo Tiradoe rson ALANINE AMINOTRANSFERASE 2020-09-20 18:34:00 Tu, Jojo Hinojosa ASPARTATE AMINOTRANSFERASE 2020-09-20 18:34:00 Tu, Jojo Hinoojsa TOTAL PROTEIN 2020-09-20 18:34:00 Tu, Jojo Hinojosa [...] DIFFERENTIAL 2020-08-23 16:42:00 Emperatriz Oneill MD [facility] son GLUCOSE LEVEL 2020-08-23 16:42:00 Emperatriz Oneill MD BLOOD UREA NITROGEN 2020-08-23 16:42:00 Emperatriz Oneill MD [facility] ELECTROLYTE PANEL 2020-08-23 16:42:00 Emperatriz Oneill MD Andkelby valdovinos SERUM CREATININE 2020-08-23 16:42:00 Emperatriz Oneill MD .GLOMERULAR FILTRATION RATE 2020-08-23 16:42:00 Emperatriz Oneill MD CALCIUM LEVEL TOTAL 2020-08-23 16:42:00 Emperatriz Oneill MD [facility] ALBUMIN LEVEL 2020-08-23 16:42:00 Emperatriz Oneill MD ALKALINE PHOSPHATASE 2020-08-23 16:42:00 Emperatriz Oneill MD Musa rson ALANINE AMINOTRANSFERASE 2020-08-23 16:42:00 Emperatriz Oneill MD ASPARTATE AMINOTRANSFERASE 2020-08-23 16:42:00 Emperatriz Oneill TOTAL PROTEIN 2020-08-23 16:42:00 Emperatriz Oneill MD FRACTIONATED BILIRUBIN 2020-08-23 16:42:00 Emperatriz Oneill MD derson CT CHEST ABDOMEN PELVIS W 2020-07-13 21:37:28 [...] ELECTROLYTE PANEL 2020-07-13 20:32:00 Felicia Ibrahim MD [facility] SERUM CREATININE 2020-07-13 20:32:00 Felicia Ibrahim MD [...] ELECTROLYTE PANEL 2020-06-30 14:21:00 Felicia Ibrahim MD [facility] SERUM CREATININE 2020-06-30 14:21:00 Felicia Ibrahim MD Sergo on .GLOMERULAR FILTRATION RATE 2020-06-30 14:21:00 Karon Ibrahim CALCIUM LEVEL TOTAL 2020-06-30 14:21:00 Felicia Ibrahim MD And erson ALBUMIN LEVEL 2020-06-30 14:21:00 Halladay, Felicia valdovinos ALKALINE PHOSPHATASE 2020-06-30 14:21:00 , Felicia álvarez ALANINE AMINOTRANSFERASE 2020-06-30 14:21:00 , Felicia Hinojosa ASPARTATE AMINOTRANSFERASE 2020-06-30 14:21:00 , Felicia Hinojosa TOTAL PROTEIN 2020-06-30 14:21:00 , Felicia valdovinos FRACTIONATED BILIRUBIN 2020-06-30 14:21:00 , Felicia Hinojosa COMPREHENSIVE METABOLIC PANEL 2020-06-02 14:41:00 Tu, Jojo Hinojosa COMPLETE BLOOD COUNT W/ 2020-06-02 14:41:00 Tu, Jojo mclean DIFFERENTIAL MAGNESIUM LEVEL 2020-06-02 14:41:00 Tu, Jojo Hinojosa CARCINOEMBRYONIC ANTIGEN 2020-06-02 14:41:00 Tu, Jojo Hinojosa GLUCOSE LEVEL 2020-06-02 14:41:00 Tu, Jojo Hinojosa BLOOD UREA NITROGEN 2020-06-02 14:41:00 Tu, Jojo mayo ELECTROLYTE PANEL 2020-06-02 14:41:00 Tu, Jojo valdovinos SERUM CREATININE 2020-06-02 14:41:00 Tu, Jojo Hinojosa .GLOMERULAR FILTRATION RATE 2020-06-02 14:41:00 Tu, Jojo Hinojosa CALCIUM LEVEL TOTAL 2020-06-02 14:41:00 Tu, Jojo Condon son ALBUMIN LEVEL 2020-06-02 14:41:00 Tu, Jojo Hinojoas ALKALINE PHOSPHATASE 2020-06-02 14:41:00 Tu, Jojo Vigil rsgina ALANINE AMINOTRANSFERASE 2020-06-02 14:41:00 Tu, Jojo Hinojosa ASPARTATE AMINOTRANSFERASE 2020-06-02 14:41:00 Tu, Jojo Hinojosa TOTAL PROTEIN 2020-06-02 14:41:00 Tu, Jojo Hinojosa FRACTIONATED BILIRUBIN 2020-06-02 14:41:00 Tu, Jojo álvarez Results CBC 2020-06-02 14:41:00 Tu, Jojo Hinojosa [...] Jojo Hinojosa COMPREHENSIVE METABOLIC PANEL 2020-04-21 13:40:00 Jimy, Ольга Hinojosa COMPLETE BLOOD COUNT W/ 2020-04-21 13:40:00 Jimy, Ольга Chappell ndersgina DIFFERENTIAL MAGNESIUM LEVEL 2020-04-21 13:40:00 Jimy, Ольга Hinojosa GLUCOSE LEVEL 2020-04-21 13:40:00 Jimy, Ольга Hinojosa ELECTROLYTE PANEL 2020-04-21 13:40:00 Jimy, Ольга valdovinos SERUM CREATININE 2020-04-21 13:40:00 Jimy, Ольга Hinojosa .GLOMERULAR FILTRATION RATE 2020-04-21 13:40:00 Jimy, Ольга Hinojosa CALCIUM LEVEL TOTAL 2020-04-21 13:40:00 Jimy, Ольга mayo ALBUMIN LEVEL 2020-04-21 13:40:00 Jimy, Ольга Hinojosa ALKALINE PHOSPHATASE 2020-04-21 13:40:00 Jimy, Ольга tovar ALANINE AMINOTRANSFERASE 2020-04-21 13:40:00 Jimy, Ольга Hinojosa [...] Jimy, Ольга Hinojosa CARCINOEMBRYONIC ANTIGEN 2020-04-07 14:08:00 Ольга Ahn MD COMPREHENSIVE METABOLIC PANEL 2020-04-07 14:08:00 Ольга Ahn MD COMPLETE BLOOD COUNT W/ 2020-04-07 14:08:00 Ольга Ahn MD nderson DIFFERENTIAL MAGNESIUM LEVEL 2020-04-07 14:08:00 Ольга Ahn MD GLUCOSE LEVEL 2020-04-07 14:08:00 Ольга Ahn MD BLOOD UREA NITROGEN 2020-04-07 14:08:00 Ольга Ahn MD [facility] ELECTROLYTE PANEL 2020-04-07 14:08:00 Ольга Ahn MD SERUM CREATININE 2020-04-07 14:08:00 Ольга Ahn MD .GLOMERULAR FILTRATION RATE 2020-04-07 14:08:00 Ольга Ahn MD CALCIUM LEVEL TOTAL 2020-04-07 14:08:00 Ольга Ahn MD [facility] ALBUMIN LEVEL 2020-04-07 14:08:00 Ольга Ahn MD ALKALINE PHOSPHATASE 2020-04-07 14:08:00 Ольга Ahn MD rsgina ALANINE AMINOTRANSFERASE 2020-04-07 14:08:00 Ольга Ahn MD ASPARTATE AMINOTRANSFERASE 2020-04-07 14:08:00 Ольга Ahn TOTAL PROTEIN 2020-04-07 14:08:00 Ольга Anh MD FRACTIONATED BILIRUBIN 2020-04-07 14:08:00 Ольга Ahn MD derson Results CBC 2020-04-07 14:08:00 Ольга Ahn MD MANUAL DIFFERENTIAL 2020-04-07 14:08:00 Ольга Ahn MD [facility] COMPREHENSIVE METABOLIC PANEL 2020-03-24 14:14:13 Ольга Ahn MD COMPLETE BLOOD COUNT W/ 2020-03-24 14:14:13 Ольга Ahn MD nderson DIFFERENTIAL MAGNESIUM LEVEL 2020-03-24 14:14:13 Ольга Ahn MD GLUCOSE LEVEL 2020-03-24 14:14:13 Ольга Ahn MD BLOOD UREA NITROGEN 2020-03-24 14:14:13 Ольга Ahn MD [facility] ELECTROLYTE PANEL 2020-03-24 14:14:13 Ольга Ahn MD SERUM CREATININE 2020-03-24 14:14:13 Ольга Ahn MD .GLOMERULAR FILTRATION RATE 2020-03-24 14:14:13 Ольга Ahn MD CALCIUM LEVEL TOTAL 2020-03-24 14:14:13 Ольга Ahn MD [facility] son ALBUMIN LEVEL 2020-03-24 14:14:13 Ольга Ahn MD ALKALINE PHOSPHATASE 2020-03-24 14:14:13 Ольга Ahn MD Musa rson ALANINE AMINOTRANSFERASE 2020-03-24 14:14:13 Ольга Ahn MD ASPARTATE AMINOTRANSFERASE 2020-03-24 14:14:13 Ольга Ahn TOTAL PROTEIN 2020-03-24 14:14:13 Ольга Ahn MD FRACTIONATED BILIRUBIN 2020-03-24 14:14:13 Ольга Ahn MD derson Results CBC 2020-03-24 14:14:13 Ольга Ahn MD MANUAL DIFFERENTIAL 2020-03-24 14:14:13 Ольга Ahn MD [facility] gael CARCINOEMBRYONIC ANTIGEN 2020-03-10 17:00:00 Ольга Ahn MD COMPREHENSIVE METABOLIC PANEL 2020-03-10 17:00:00 Ольга Ahn MD COMPLETE BLOOD COUNT W/ 2020-03-10 17:00:00 Ольга Ahn MD nderson DIFFERENTIAL MAGNESIUM LEVEL 2020-03-10 17:00:00 Ольга Ahn MD GLUCOSE LEVEL 2020-03-10 17:00:00 Ольга Ahn MD BLOOD UREA NITROGEN 2020-03-10 17:00:00 Ольга Ahn MD Taurus [facility] ELECTROLYTE PANEL 2020-03-10 17:00:00 Ольга Ahn MD Anderso n SERUM CREATININE 2020-03-10 17:00:00 Ольга Ahn MD .GLOMERULAR FILTRATION RATE 2020-03-10 17:00:00 Ольга Ahn MD CALCIUM LEVEL TOTAL 2020-03-10 17:00:00 Ольга Ahn MD Taurus son ALBUMIN LEVEL 2020-03-10 17:00:00 Ольга Ahn MD ALKALINE PHOSPHATASE 2020-03-10 17:00:00 Ольга Ahn MD rson ALANINE AMINOTRANSFERASE 2020-03-10 17:00:00 Ольга Ahn MD ASPARTATE AMINOTRANSFERASE 2020-03-10 17:00:00 Ольга Ahn TOTAL PROTEIN 2020-03-10 17:00:00 Jimy, Ольга Hinojosa FRACTIONATED BILIRUBIN 2020-03-10 17:00:00 Jimy, Ольга álvarez Results CBC 2020-03-10 17:00:00 Jimy, Ольга Hinojosa MANUAL DIFFERENTIAL 2020-03-10 17:00:00 Jimy, Ольга mayo CT CHEST ABDOMEN W CONTRAST 2020-02-06 18:38:38 Tu, Jojo Hinojosa POC CREATININE 2020-02-06 17:46:00 Provider, Veronica valdovinos COMPLETE BLOOD COUNT W/ 2020-02-06 17:42:00 Tu, Jojo delcidrsgina DIFFERENTIAL COMPREHENSIVE METABOLIC PANEL 2020-02-06 17:42:00 Tu, [...] CALCIUM LEVEL TOTAL 2020-02-06 17:42:00 Tu, Jojo mayo ALBUMIN LEVEL 2020-02-06 17:42:00 Tu, Jojo Hinojosa ALKALINE PHOSPHATASE 2020-02-06 17:42:00 Tu, Jojo tovar ALANINE AMINOTRANSFERASE 2020-02-06 17:42:00 Tu, Jojo Hinojosa ASPARTATE AMINOTRANSFERASE 2020-02-06 17:42:00 Tu, Jojo Hinojosa TOTAL PROTEIN 2020-02-06 17:42:00 Tu, Jojo Hinojosa FRACTIONATED BILIRUBIN 2020-02-06 17:42:00 Tu, Jojo álvarez Encounters Start End Encounter Admission Attending Care Care Encounter Source Date/Time Date/Time Type Type Clinicians Facility Department ID 2020-12-20 2020-12-20 Patient Luis, [facility] [id number] 00:00:00 [facility]00[id number] [id number] TRACI [id number] 2020-10-18 2020-10-18 Filling Room Operator Mary Vaughan [facility] [id number] 16:21:09 16:36:09 Visit Lab Main [place] [id number] [place] [id number] Professio [id number] nal 353 [facility] 2020-10-18 2020-10-18 Orders Doctor BEAU [id number] 00:00:00 00:00:00 Only Unassigned, DIA [id number] [facility] [id number] [id number] 2020-09-17 2020-09-17 [facility] [id number] 08:56:28 09:26:28 Visit Henryarjun PardoOmidEbonyOmid Tylor [id number] [place] [id number] Professio [id number] nal 059 [facility] 2020-05-24 2020-05-24 Outpatient JOJO LUGO MDA MDA [id number] 00:00:00 00:00:00 Sergo valdovinos 2020-05-24 2020-05-24 Outpatient RUTH IBRAHIM, MDA MDA [id number] 00:00:00 00:00:00 FELICIA valdovinos 2020-05-20 2020-05-20 Outpatient RUTH IBRAHIM, MDA MDA [id number] 00:00:00 00:00:00 FELICIA valdovinos 2020-05-20 2020-05-20 Outpatient JOJO LUGO MDA MDA [id number] 00:00:00 00:00:00 Sergo valdovinos 2020-04-21 2020-04-21 Outpatient JOJO LUGO MDA MDA [id number] 09:33:52 09:53:34 Sergo valdovinos 2020-04-21 2020-04-21 Outpatient JOJO LUGO MDA MDA [id number] 08:42:37 08:42:37 Sergo o n 2020-04-21 2020-04-21 Outpatient EL JIMY, MDA MDA [id number] 08:21:35 08:37:25 HAIHONG Sergo o n 2020-04-19 2020-04-19 Outpatient EL JIMY, MDA MDA [id number] 11:57:32 11:57:32 HAIHONG Sergo o n 2020-04-09 2020-04-09 Outpatient EL JIMY, MDA MDA [id number] 10:42:28 13:06:55 HAIHONG Sergo o n 2020-04-07 2020-04-07 Outpatient EL JIMY, MDA MDA [id number] 09:03:14 09:09:37 HAIHONG Sergo o n 2020-04-07 2020-04-07 Outpatient EL JIMY, MDA MDA [id number] 09:09:31 09:09:31 HAIHONG Sergo o n Results Test Description Test Time Test Comments Results Result Comments Source Blood Culture - Port a Cath 2021-01-02 21:21:00 Test Item Value Reference Range Interpretation Comme nts Final Report (test code = 8488) No growth Path Review - Bottle/Isolator (test Immunity and antibiotic use may render code = 8499) culture negative. Ongoing infection requires repeat culture. The results have been reviewed and electronically signed by Pathologist:Marilynn Bear MD, PhD #[id number] [facility] Glucose [id number] 18:24:07 Test Item Value Reference Range Interpretation Comments POC Glucose (test 95 mg/dL 70-99 RN Notifie dCapillary blood code = 39970-6) samples, e.g . obtained by fingerstick, ma y have inaccurate resu lts in patients with d ecreased peripheral bloo d flow. Method descript ion: All results are ita sured using Electrochemistr y test methodology. Th e glucose in the sample mixe s with the reagents on the test strip. The reaction pr oduces an electric curren t. The amount of curre nt produced is proportional to the glucose concent ration in the blood. PO Sample Type Capillary (test code = 9554) MD HinojosaFractionated [id number] 10:36:33 Test Item Value Reference Range Interpretation Comments Bili Total (test <0.3 See_Comment Direct and indirect code = 5096) bilirubin will not be reported when T otal bilirubin resul t is <0.3 mg/dLIndocyanin e Green (ICG) may cause false ly elevated bilirubin resul ts. Total and direct bilirubi n must not be measured from s amples containing indo cyanine green. False el evation of total bilirubin can be seen in patients wit h IgG concentrations above 28 g/L. [Automated mes chanell] The system which ge nerated this result transmit [place] reference range: <=1.2 mg /dL. The reference range was not used to interpret th is result as normal/abnormal . MD HinojosaGlomerular Filtration [id number] 10:36:32 Test Item Value Reference Range Interpretation Comments eGFR-AA (test code 123 See_Comment Normal eG FR: >= 60 = 8062) mL/min/1.73 m2N ote: The eGFR is calculated u sing the CKD-EPI equatio n. The eGFR declines with a ge. eGFR <60 mL/min/1.73 m2 is considered as "decreased". This equation should only be used for patients 18 and older. According to th e National Kidney Foundati on's Kidney Disease [...] failure <15 [Automa [place] message] The system Edam[employer] h generated this result tra nsmitted reference range : >=60 mL/min/1.73 sq. m. The reference range was not used to interpret th is result as normal/abnormal . eGFR-YASMANY (test code 106 See_Comment Normal e GFR: >= 60 = 8063) mL/min/1.73 m2N ote: The eGFR is calculated u sing the CKD-EPI equatio n. The eGFR declines with a ge. eGFR <60 mL/min/1.73 m2 is considered as "decreased". This equation should only be used for patients 18 and older. According to th e National Kidney Foundati on's Kidney Disease [...] failure <15 [Automa [place] message] The system [employer] generated this result tra nsmitted reference range : >=60 mL/min/1.73 sq. m. The reference range was not used to interpret is result as normal/abnormal . MD HinojosaTotal [id number] 10:36:31 Test Item Value Reference Range Interpretation Comments Total Protein (test code = 7649) 6.0 g/dL 6.4-8.3 L Lab Interpretation (test code = Abnormal 24047-8) MD HinojosaMagnesium [id number] 10:36:30 Test Item Value Reference Range Interpretation Comments Magnesium (test code = 6359) 1.5 mg/dL 1.6-2.6 L Lab Interpretation (test code = Abnormal 18528-5) MD HinojosaAlkaline [id number] 10:36:29 Test Item Value Reference Range Interpretation Comments Alk Phos (test code = 4768) 286 U/L 35-104 H Lab Interpretation (test code = Abnormal 73473-7) MD [id number] 10:36:28 Test Item Value Reference Range Interpretation Comments ALT (test code = <5 See_Comment [Automated message] The 8922) system which ge nerated this result transmit [place] reference range : <=33 U/L. The reference r leslee was not used to interpr et this result as dimitry l/abnormal. MD Hinojosa.Serum [id number] 10:36:27 Test Item Value Reference Range Interpretation Comments Creatinine (test code = 5399) 0.44 mg/dL 0.51-0.95 L Lab Interpretation (test code = Abnormal 89028-1) MD [id number] 10:36:26 Test Item Value Reference Range Interpretation Comments BUN (test code = 5055) 13 mg/dL 6-23 MD HinojosaPhosphorus [id number] 10:36:25 Test Item Value Reference Range Interpretation Comments Phosphorus (test code = 6817) 2.6 mg/dL 2.5-4.5 MD HinojosaCalcium [id number] 10:36:24 Test Item Value Reference Range Interpretation Comments Calcium Lvl (test code = 5258) 8.2 mg/dL 8.4-10.2 L Lab Interpretation (test code = Abnormal 36138-8) MD HinojosaAlbumin [id number] 10:36:23 Test Item Value Reference Range Interpretation Comments Albumin Lvl (test code = 2.4 See_Comment L [A utomated message] 7275) The system [employer] generated this result transmitted ref erence range: 3.5 - 5. 2 gm/dL. The refe rence range was not u sed to interpret this result as normal/abnor mal. Lab Interpretation (test Abnormal code = 80342-2) MD HinojosaAspartate [id number] 10:36:22 Test Item Value Reference Range Interpretation Comments AST (test code = 18 U/L See_Comment [Automated message] The 4087) system which ge nerated this result transmit [place] reference range : <=32. The reference range was not used to interpr et this result as dimitry l/abnormal. MD HinojosaElectrolyte [id number] 10:36:21 Test Item Value Reference Range Interpretation Comments Sodium Lvl (test code = 137 See_Comment [Au tomated message] 4195) The system [employer] generated this result transmitted ref erence range: 136 - 14 5 mEq/L. The refe rence range was not u sed to interpret this result as normal/abnor mal. Potassium Lvl (test code 3.4 See_Comment L [A utomated message] = 7692) The system [employer] generated this result transmitted ref erence range: 3.5 - 5. 1 mEq/L. The refe rence range was not u sed to interpret this result as normal/abnor mal. Chloride (test code = 101 See_Comment [Auto mated message] 0689) The system [employer] generated this result transmitted ref erence range: 98 - 107 mEq/L. The refe rence range was not u sed to interpret this result as normal/abnor mal. CO2 (test code = 5227) 27 See_Comment [Aut omated message] The system [employer] generated this result transmitted ref erence range: 22 - 29 mEq/L. The reference r leslee was not used to interpret this result as normal/abnor mal. Anion Gap (test code = 9 See_Comment [Aut omated message] 6616) The system [employer] generated this result transmitted ref erence range: 4 - 14 m Eq/L. The reference r leslee was not used to interpret this result as normal/abnor mal. Lab Interpretation (test Abnormal code = 63819-9) MD HinojosaGlucose [id number] 10:36:20 Test Item Value Reference Range Interpretation Comments Glucose Level (test code 111 mg/dL 70-99 H Eff ective 05/10/16, = [...] diabetes Lab Interpretation (test Abnormal code = 31566-5) MD HinojosaPiotuxmwVhjvvbrsnnxs8860-51-35 10:13:05 Test Item Value Reference Range Interpretation Comments Neutrophil % (test code = 87.8 % 42-66 H 6491) Lymphocyte % (test code = 4.8 % 24-44 L 6194) Monocyte % (test code = 5.6 % 2-7 6422) Eosinophil % (test code = 0.8 % 1-4 L 5520) Basophil % (test code = 0.2 % 0-1 5068) IGRE % (test code = 5958) 0.8 % 0-0.4 H IG RE % count includes Metamyelocytes, Myelocytes, and Promyelocytes. Neutrophil Abs (test code 11.42 K/uL 1.7-7.3 H = 6492) Lymphocyte Abs (test code 0.62 K/uL 1-4.8 L = 6195) Monocyte Abs (test code = 0.73 K/uL 0.08-0.7 H 6423) Eosinophil Abs (test code 0.11 K/uL 0.04-0.4 = 5521) Basophil Abs (test code = 0.02 K/uL 0-0.1 5069) IG Abs (test code = 5954) 0.10 K/uL 0-0.04 H Lab Interpretation (test Abnormal code = 40724-6) MD Hinojosa.[id number] 10:13:02 Test Item Value Reference Range Interpretation Comments WBC (test code = 8034) 13.0 K/uL 4-11 H RBC (test code = 6932) 3.21 See_Comment L [Aut omated message] The system [employer] generated this result transmitted ref erence range: 4.00 - 5 .50 M/uL. The refer ence range was not u sed to interpret this result as normal/abnor mal. Hgb (test code = 5898) 7.7 See_Comment L [Aut omated message] The system [employer] generated this result transmitted ref erence range: 12.0 - 1 6.0 gm/dL. The refe rence range was not u sed to interpret this result as normal/abnor mal. Hct (test code = 5860) 24.9 % 37-47 L MCV (test code = 6222) 78 fL 82-98 L MCH (test code = 6220) 24.0 pg 27-31 L MCHC (test code = 6221) 30.9 See_Comment L [Au tomated message] The system [employer] generated this result transmitted ref erence range: 31.0 - 3 6.0 gm/dL. The refe rence range was not u sed to interpret this result as normal/abnor mal. RDW-SD (test code = 58.8 fL 35.1-46.3 H 6972) RDW-CV (test code = 21.0 % 12-15.5 H 6971) Platelet count (test 346 K/uL 140-440 code = 6832) MPV (test code = 6282) 8.7 fL 4-10.4 INRBC (test code = 0.0 % See_Comment The INRBC (instrument 5974) NRBC) value ref lects the enumeration of nucleated red b lood cells contained in a 200uL sampleof whole blood analyzed by the instrument. Thi s value maydiffer from the NRBC value reported in a m anual differential,wh ich is based on a 100 cell differential. [Automated mess age] The system [employer] h generated this result transmitted ref erence range: <=0.0. T he reference range was not used to int erpret this result as normal/abnormal . Lab Interpretation Abnormal (test code = 13905-1) MD Hinojosa Hepatitis C Virus Ab Screen, Reflex HCV [id number] 19:16:21 Test Item Value Reference Range Interpretation Comments HCV Ab Screen-[place] Negative Negative Signal-to -cutoff ratio is (test code = <1.00. Test Per formed 58548-8) by:[facility] [address] [place] [address]Lab Director: Bhanu Sandy M.D. Ph. D.; CLIA# [id number] MD Ramesh B Surface Ag w/Nlhsyso6703-09-95 18:58:43 Test Item Value Reference Range Interpretation Comments Hep Bs Ag-[place] Negative Negative Test Perform ed by:[place] (test code = [facility] - 5196-1) [facility] ior [address] [place], [place] [address]Xta Director: Bhanu Sandy M.D. Ph. D.; CLIA# [id number] MD Ramesh B Core Total [id number] 18:38:23 Test Item Value Reference Range Interpretation Comments HBc Total Ab-[place] Negative Negative Test Perf ormed by:[place] (test code = [facility] - 30294-5) [place] [facility] i[address] [place], [place] [address]Khj Director: Bhanu Sandy M.D. Ph. D.; CLIA# [id number] MD HinojosaIR NEPHROSTOMY [id number] 19:37:09Addendum by Lincoln Jackson MD on 01/06/2021 9:12 AMAddendum: I certify my physical presenceat the time of the procedure. 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 Medication given was midazolam and fentanyl.I was present for the administration of the medications indicated above.Procedure Events Event EventTime Sedation Start 12/24/2020 8:16 AM Sedation End 12/24/2020 8:41 AM Procedure in Detail: A time out was performed prior to the start of the procedure and the correct patient, procedure, presence of consent, site, and side were confirmed with all members of the team. The patient was placed in a prone position on the fluoroscopy table and the catheter and insertion site were prepped and draped inthe usual sterile fashion. Lidocaine 1% was used for local anesthesia. A hyperbaric technologist view was obtained ofthe catheter. A right nephrostogram confirmed catheter position in the renal pelvis. The catheter was severed and exchanged over a wire for a new 10 [place] Mac-loc catheter. Repeat nephrostogram demonstrates adequate position in the renal pelvis and distal ureteral stricture. The catheter was secured to the patient with suture. Additional Comments: None Estimated Blood Loss: Minimal Specimens Removed: Prior PCN removed and discarded Immediate Complications: None Disposition: PACU Plan: Catheter to gravity drainage. Return for routine exchange in 2 months.MD HinojosaHepatitis C Virus [id number] 13:01:20 Test Item Value Reference Range Interpretation Comments HCVAb Received See Note HCVAb was sen t to a (test code = 90275) referenc e lab for testing. Expec t results on Hepatitis C Vir us Ab Screen w/Ref jan HCV PCR within 96 hours. SHWETA (test code = Please send with SHWETA) next blood draw MD Ramesh B Surface [id number] 13:01:19 Test Item Value Reference Range Interpretation Comments HBsAg Received See Note HBsAg was sen t to a (test code = 25456) referenc e lab for testing. Expec t results on Hepatitis B Wendy face Antigen w/ Conf irm within 96 hours . SHWETA (test code = Please send with SHWETA) next blood draw MD Ramesh B Total Ig Core Ab (SCREENING) (anti-HBc total Ig; HBcAb total Ig)2020-12-24 13:01:18 Test Item Value Reference Range Interpretation Comments HBcAb Received See Note HBcAb was sen t to a (test code = 29178) referenc e lab for testing. Expec t results on Hepatitis B Cor e Total Ab within 96 hours. SHWETA (test code = Please send with SHWETA) next blood draw MD [id number] 12:18:31 Test Item Value Reference Range Interpretation Comments CRP (test code 200.36 mg/L Reference ran ges for HS = 5235) CRP assay are a s follows: Refere nce ranges when use d to assess cardiac risk: <1.00 mg/L Low cardiovascular risk 1.00-3.00 mg/L Average cardiovascular risk >3.00 mg/L High cardiovascular risk.Reference ranges when used to as sess inflammatory re sponses: Less than or eq ual to 10.00 mg/L. SHWETA (test code Please send with = SHWETA) next blood draw. MD HinojosaQrdwhpwtCfufhsdbepguo1198-96-77 12:06:10 Test Item Value Reference Range Interpretation Comments Procalcitonin (test 1.76 ng/mL See_Comment H Procalci tonin > code = 9379) 2.00 ng/mL: Procalcitonin levels above 2. 00 ng/mL are highl y suggestive of a high risk for systematic bacterial infection/ isaak re sepsis and/or septic shock. Procalcitonin < 0.50 ng/mL: Procalcitonin levels below 0. 50 ng/mL are at lo w risk for progression to severe sepsis a nd/ or septic shock . Procalcitonin (ProCT) between 0.15 and 2.0 ng /mL do not exclude infection, elva use localized infections (wit hout systemic signs) may be associated w ith such low levels . Results greater than 400 ng/mL may not be reliable due to the matrix effect with extended diluti on as it exceeds t he placement assistant's recommended rodriguez it. Caution should be exercised when interpreting lawson ch values and done in conjunction wit h clinical contex t. [Automated mess age] The system [employer] generated this result transmit [place] reference range : <=0.08. The reference range was not used to interpret this result as normal/abnormal . SHWETA (test code = SHWETA) Please send with next blood draw. Lab Interpretation Abnormal (test code = 25955-2) MD HinojosaMRSA [id number] 02:00:28 Test Item Value Reference Range Interpretation Comments Final Report (test No Methicillin resistant code = 8488) Staphylococcus aureus isolated. Path Review (test The results have been code = 8492) reviewed and electronically signed by Pathologist:RUFINA LIU MD #[id number] MD HinojosaVancomycin Trough This Trough is before the 4th dose that is due today at ~1600 PM. Call alcon hollandbefore any dose is [id number] 23:33:17 Test Item Value Reference Range Interpretation Comments Vanco Trough 14.4 See_Comment Toxic Trough Le geoff: (test code = >20 mcg/mL [Aut omated 8008) message] The sy stem which generated this result transmit [place] reference range : 5.0 - 20.0 mcg/mL. The reference range was not used to int erpret this result as normal/abnormal . Vanco Tr Dose see note Level, date, a nd time Time (test code of previous dose is = 8007) not available f or this sample. Th e date reported is the sample collecti on date. Vanco Tr Dose 12/23/2020 Level, date, a nd time Date (test code of previous dose is = 8006) not available f or this sample. Th e date reported is the sample collecti on date. SHWETA (test code = This Trough is SHWETA) before the 4th dose that is due today at \\R\\1600 PM. Call alcon holland before any dose is agiven MD HinojosaEchocardiogram 2D [id number] 20:27:15 Test Item Value Reference Range Interpretation Comments EF (test code = 59 [id number]) PXN (test code Interface, Radiology Results = PXN) In - 12/23/2020 2:28 PM CSTEchocardiographic ReportInterpretation SummaryA complete two-dimensional transthoracic echocardiogram was performed (2D, M-mode, Doppler and color flow Doppler). The study was technically adequate and no significant change is noted compared to the previous study.Normal left ventricular size and systolic function.LV ejection fraction calculated using the bi-plane method of disks is 59 %.Unable to estimate RVSP due to lack of TR visualization.There is no pericardial effusion.Left Ventricle:Normal left ventricular size and systolic function. LV ejection fraction calculated using the bi-plane method of disks is 59 %.I WMSI = 1.00 % Normal = 100 Segments SizeX - Cannot 2 - 1-2 smallInterpret 1 - Normal Hypokinetic 3 - Akinetic 4 - Dyskinetic3-5 moderate5 - Aneurysmal 6-14 large 15-16 diffuseCardiac Mechanics/Speckle Tracking Imaging:Normal global longitudinal peak systolic value. Strain Imaging was performed; GLPS avg = -23%.Diastology:Unable to evaluate due to tachycardia.Right Ventricle:The right ventricle is normal in size and function.Atria:Atria are normal in size. There is a catheter/pacemaker lead seen in the right atrium.Mitral Valve:Mitral annular calcification is present.Tricuspid Valve:The tricuspid valve is not well visualized, but is grossly normal. Unable to estimate RVSP due to lack of TR visualization.Aortic Valve:The aortic valve is trileaflet. The aortic valve opens well.Great Vessels:The aortic root is normal size. The inferior vena cava demonstrates normal size and normal respiratory variation.Pericardium/Pleural: There is no pericardial effusion.MMode/2D Measurements IVSd: 0.72 cm LVIDd: 4.5 cm LVIDs: 3.0 cm LVPWd: 0.69 cmFS: 32.0 % Ao root diam: 2.9 cm Ao root area: 6.6 cm2 LA dimension: 3.3 cmLVOT diam: 2.0 cm EDV(MOD-A4C): 65.1 mlLVOT area: 3.1 cm2 ESV(MOD-A4C): 27.6 ml EF(MOD-A4C): 57.6 %EDV(MOD-A2C): 61.9 mlESV(MOD-A2C): 26.3 ml EDV(MOD-bp): 64.7 mlEF(MOD-A2C): 57.4 % ESV(MOD-bp): 26.7 ml EF(MOD-bp): 58.8 %LAV(MOD-A2C): 23.5 mlLAV(MOD-A4C): 35.0 ml EDV (MOD-bp) Index: 37.8 ml/m2LAV(MOD-bp): 32.7 mlLAV(MOD-bp) Indexed: 19.1 ml/m2ESV (MOD-bp) Index: 15.6 ml/m2 RV basal diam (<4.2): 3.2 cmTAPSE (>1.6): 2.2 cmDoppler Measurements MV E max geoff: 131.9 cm/sec MV V2 max: 153.6 cm/sec MV max P.4 mmHg MV V2 mean: 98.3 cm/sec MV mean P.5 mmHg MV V2 VTI: 20.0 cm MVA(VTI): 3.6 cm2MV dec time: 0.11 sec Ao V2 max: 148.3 cm/sec Ao max P.8 mmHg Ao V2 mean: 96.5 cm/sec Ao mean P.3 mmHg Ao V2 VTI: 25.8 cm SIVA(I,D): 2.8 cm2 SIVA(V,D): 2.6 cm2LV V1 max P.2 mmHg SV(LVOT): 72.0 mlLV V1 mean P.8 mmHgLV V1 max: 124.2 cm/secLV V1 mean: 77.8 cm/secLV V1 VTI: 23.0 cmPA V2 max: 103.0 cm/sec SIVA Index (I,D): 1.6PA max P.2 mmHgPA V2 mean: 66.9 cm/secPA mean P.1 mmHgPA V2 VTI: 17.3 cmAVA Index (V,D): 1.5 Dimensionless Index: 0.84E/e' (lat): 17.5 MD HinojosaCompletcaro Blood Count w/o [id number] 19:11:36 Test Item Value Reference Range Interpretation Comments WBC (test code = 8034) 13.1 K/uL 4-11 H RBC (test code = 6932) 3.64 See_Comment L [Aut omated message] The system [employer] generated this result transmitted ref erence range: 4.00 - 5 .50 M/uL. The refer ence range was not u sed to interpret this result as normal/abnor mal. Hgb (test code = 5898) 8.6 See_Comment L [Aut omated message] The system [employer] generated this result transmitted ref erence range: 12.0 - 1 6.0 gm/dL. The refe rence range was not u sed to interpret this result as normal/abnor mal. Hct (test code = 5860) 27.8 % 37-47 L MCV (test code = 6222) 76 fL 82-98 L MCH (test code = 6220) 23.6 pg 27-31 L MCHC (test code = 6221) 30.9 See_Comment L [Au tomated message] The system [employer] generated this result transmitted ref erence range: 31.0 - 3 6.0 gm/dL. The refe rence range was not u sed to interpret this result as normal/abnor mal. RDW-SD (test code = 54.4 fL 35.1-46.3 H 6972) RDW-CV (test code = 19.6 % 12-15.5 H 6971) Platelet count (test 489 K/uL 140-440 H code = 6832) MPV (test code = [...] cell differential. [Automated mess age] The system [employer] generated this result transmitted ref erence range: <=0.0. T he reference range was not used to int erpret this result as normal/abnormal . Lab Interpretation Abnormal (test code = 44643-5) MD HinojosaNT-Pro BNP (In-House)2020-12-22 08:41:00 Test Item Value Reference Range Interpretation Comments NT ProBNP (test code = 4151 pg/mL See_Comment H [Aut omated message] 4997) The system [employer] generated this result transmit [place] reference range : <=125. The refe rence range was not u sed to interpret th is result as normal/abnormal . Lab Interpretation Abnormal (test code = 82041-2) MD HinojosaAmmonia [id number] 08:25:14 Test Item Value Reference Range Interpretation Comments Ammonia (test code = 29 See_Comment [Autom ated message] The 3139) system which ge nerated this result tra nsmitted reference range : 11 - 51 mcmol/L. The re ference range was not u sed to interpret this result as normal/abnormal . MD HinojosaCT Chest Abdomen Pelvis with and without [id number] 21:21:30 1. Bilateral pulmonary metastases, the majority of which have not significantly changed. Some of the measured lesions have increased minimally. 2. Multiple liver metastases have increased. 3. Retroperitoneal lymph node metastases in the upper abdomen have not changed significantly. 4. The large tumor involving the rectum, right pelvic sidewall, right side of the uterus and right ovary has increased. Interface, Radiology Results In - 12/21/2020 3:23 PM CSTFULL RESULT:Examination: CT CHEST ABDOMEN PELVIS W WO CONTRAST, 12/21/2020 1:31 PMClinical History: Rectal carcinomaIndication: sepsis, weakness, bleedingComparison: 11/06/2020Technique: CT of the abdomen was performed without intravenous contrast followed by CT of the chest, abdomen, and pelvis with intravenous contrast.Findings: CT thorax:Bilateral pulmonary metastases are identified with the larger lesions in the lung bases. A 30 mm metastasis is seen in the right lower lung on image 80 of series 6 that is unchanged. A 32 mm metastasis is seen in the posterior right lower lung on image 78 of series 6 that previously measured 28 mm. A 16mm metastasis is seen in the right lower lung on image 78 of series 6 that is unchanged. A 12 mm metastasis is seen in the right upper lung on image 68 of series 6 that is unchanged. A 23 mm metastasisis seen in the right upper lung on image 51 of series 6 that previously measured 22 mm. A 19 mm metastasis is seen in the periphery of the left upper lung on image 48 of series 6 that previously measured 14 mm. A 15 mm metastasis is seen in the left lower lung on image 69 of series 6 that is unchanged. A 26 mm metastasis is seen in the left lower lung on image 79 of series 6 that is unchanged. A 24 mm metastasis is seen in the left lower lung on image 76 of series 6 that previously measured 22 mm. Additional bilateral pulmonary metastases are seen.Severe pulmonary emphysema is seen in both upper lungs.Moderate coronary artery calcifications are seen. A Port-A-Cath is seen in the right anterior chest wall with its tip in the superior vena cava.Note is made of a markedly dilated right internal jugular vein.Small subcentimeter lymph nodes are seen in the mediastinum. No axillary lymphadenopathy is seen.Mild degenerative changes are seen in skeleton. On sagittal image 145 of series 602 there is a 25% compression fracture of the T11 vertebra.CT abdomen/pelvis:Diffuse metastatic disease is seen throughout both lobes the liver. A large necrotic metastasis in liver segment 2 on image 152 of series 5 m easures 72 x 91 mm and previously measured 63 x 71 mm. A 35 x 37 mm metastasis in liver segment 3 onimage 175 of series 5 that previously measured 30 x 31 mm. A 39 x 49 mm metastasis in liver segment 5 on image 196 of series 5 previously measured 36 x 44 mm. A 51 x 59 mm metastasis in liver segment 6on image 177 of series 5 previously measured 49 x 52 mm. This metastasis has more enhancement on thecurrent exam than before which may represent increasing tumor. A bilobed metastasis spanning segments 7 and 8 measures 67 x 84 mm on image 138 of series 5 and previously measured 58 x 81 mm. A metastasis in liver segment 8 on image 145 of series 5 measures 55 x 58 mm and previously measured 52 x 54 mm. Additional sites of liver metastases have increased.An unusual lymph node metastasis in the alex hepatis measures 42 x 53 mm on image 168 of series 5 and previously measured 41 x 46 mm. A portacaval lymph node metastasis on image 183 of series 5 measures 31 x 43 mm and previously measured 30 x 44 mm. Another portacaval lymph node on image 177 of series 5 measures 19 x 26 mm and previously measured 19 x 25 mm.The gallbladder has been resected. The pancreas, spleen, adrenals and left kidney are normal. A percutaneous nephroureterostomy tube is seen in the right kidney. Both kidneys function with excretion of contrast.Moderate atherosclerosis seen in the abdominal aorta.A large irregular rectal mass is identified that invades the right pelvic sidewall on image 253 of series 5 and involves the right ovary and right side of the uterus. The overall size of this mass on image 253 of series 5 wcwhbith198 x 136 mm and previously measured 85 x 122 mm indicating increase. There is an irregular lumen inthe center of this mass containing gas and fluid that likely communicates with the bowel. Mild sigmoid colon diverticulosis seen. The patient has a descending colostomy on image 222 of series 5. A moderate amount of feces fills and distends the colon proximal to the colostomy compatible with constipation. There is no small bowel distention.Mild degenerative changes are seen throughout the skeleton.IMPRESSION:1. Bilateral pulmonary metastases, the majority of which have not significantly changed. Some of the measured lesions have increased minimally.2. Multiple liver metastases have increased.3. Retroperitoneal lymph node metastases in the upper abdomen have not changed significantly.4. The larg e tumor involving the rectum, right pelvic sidewall, right side of the uterus and right ovary has increased.MD HinojosaCT Head without Mewghkcm5385-09-57 20:20:55 No acute intracranial abnormality. Interface, Radiology Results In - 12/21/2020 2:23 PM CSTFULL RESULT:EXAMINATION: CT HEAD WO CONTRAST on 12/21/2020 1:37 PMCOMPARISON: None.HISTORY: Rectal cancer.INDICATION: Not for stroke, trauma, headache, sinusitis, or syncopeTECHNIQUE: CT scan of the brain was per formed without intravenous contrast as per departmental protocol. FINDINGS: The brain parenchyma is unremarkable. The laura-white matter differentiation is maintained. There is no evidence for intra-axial or extra-axial hemorrhage. No midline shift or mass effect seen. There is no evidence for hydrocephalus. There is no large acute territorial infarction.The calvaria and extracranial soft tissues are unremarkable. The orbital structures are unremarkable. The paranasal sinuses and mastoid air cells are clear.IMPRESSION:No acute intracranial abnormality.MD HinojosaPrepare RBC:EC 12, 1 Wpwvx1141-83-02 20:15:55 Test Item Value Reference Range Interpretation Comments PRBC Product Ready 1 Red Blood Cells (test code = Available - 38836-7) Order Form 03 when ready for product issue. Unit Number (test [id number] code = 7002) Product Code (test [id number] code = 7003) Unit Expiration [id number] (test code = 900310) Unit Blood Type 6200 (test code = 7004) Product Code Text RBCIRLR CPD AS1 (test code = 500mL 386400) Crossmatch [id number] Expiration Date (test code = ) Unit Irradiated IRRADIATED (test code = 606215) Dispense Status ISSUED (test code = 700) Unit Blood Type A Positive ____ (test code = 7005) _ ____ MD Forbes Interpretation Antibody Screen Hzgufmmf6546-54-92 16:11:48 Test Item Value Reference Range Interpretation Comments TMP Auto Neg At the present ABSC Interp time, patient (test code = plasma shows no ____MARIA D HILTON MD - 7535) evidence of RBC 97991Qgzkwbe d by: alloantibodies. MD Vinita ERVIN [id number] D ate/Time: 12.21.2020 10:1 1 AM MACHINE SHOP SUPERVISOR Transcribed Da te/Time: 12.21.2020 10:1 1 AM CSTElectronical ly Signed By: MARIA D HOPKINS MD - [id number] on 12.21 10:11 AM MD Forbes Interpretation Ipauqhonlg2846-56-49 16:11:47 Test Item Value Reference Range Interpretation Comments TMP XM Interp RBC units (test code = crossmatched for 7566) transfusion appear CESILIA HILTON MD acceptable. - 01934Xewxnbon by: MD Vinita SOTO [id number] Date/Time: 03.0 10:11 AM MACHINE SHOP SUPERVISOR Transcribed Neri e/Time: 12.21.2020 10:1 1 AM CSTElectronical ly Signed By: MARIYA HILTON MD - 1477 8 on 12.21.2020 10:1 1 AM MD HinojosaGeneral Laboratory Add-On [id number] 15:10:04 Test Item Value Reference Range Interpretation Comments Ordered (test code Test Not Added notifie issa Hensley = 6568) 12/21/2020 9:09:4 8 AM MACHINE SHOP SUPERVISOR Test Needed (test lactic acid code = 7604) MD HinojosaGufqrpngXQZAb1909-06-28 14:56:50 Test Item Value Reference Range Interpretation Comments ABORh. (test code = 882-1) A POS MD HinojosaClot Expiration [id number] 14:56:45 Test Item Value Reference Range Interpretation Comments T & S Expiration (test code = 12/24/2020 5318) MD HinojosaAntibody Csnnes6113-39-59 14:56:09 Test Item Value Reference Range Interpretation Comments ABSC. (test code = 890-4) Negative ABSC MD HinojosaRespiratory Viral Panel + COVID-19, Nasopharyngeal Xvwp5606-00-45 13:01:13 Test Item Value Reference Range Interpretation Comments Adenovirus (test code = Not Detected Not Detected 4748) Coronavirus 229E (test Not Detected Not Detected code = 5349) Coronavirus HKU1 (test Not Detected Not Detected code = 5350) Coronavirus NL63 (test Not Detected Not Detected code = 5351) Coronavirus OC43 (test Not Detected Not Detected code = 5352) COVID19 (SARS-CoV-2) Not Detected Not Detected (test code = 48163-5) Human Metapneumovirus Not Detected Not Detected (test code = 6401) Human Not Detected Not Detected Rhinovirus/Enterovirus (test code = 7212) Influenza A (test code Not Detected Not Detected = 5618) Influenza A H1 (test Not Detected Not Detected code = 5619) Influenza A H1 2009 Not Detected Not Detected (test code = 5620) Influenza A H3 (test Not Detected Not Detected code = 5621) Influenza B (test code Not Detected Not Detected = 5622) Parainfluenza 1 (test Not Detected Not Detected code = 6779) Parainfluenza 2 (test Not Detected Not Detected code = 6780) Parainfluenza 3 (test Not Detected Not Detected code = 6781) Parainfluenza 4 (test Not Detected Not Detected code = 6782) Respiratory Syncytial Not Detected Not Detected Virus (test code = 7157) Bordetella Not Detected Not Detected Parapertussis (test code = 01319) Bordetella pertussis Not Detected Not Detected (test code = 4854) Chlamydiophila Not Detected Not Detected pneumoniae (test code = 5139) Mycoplasma pneumoniae Not Detected Not Detected (test code = 6203) SHWETA (test code = SHWETA) The BioFire RP2.1 is a real-time, nested multiplexed polymerase chain reaction test designed to simultaneously identify nucleic acids from 22 different viruses and bacteria associated with respiratory tract infection, including SARS-CoV-2, from a single nasopharyngeal swab (LONG WALL SHEAR OPERATOR) specimen. Specifically, the SARS-CoV-2 primers contained in the BioFire RP2.1 are designed to detect RNA from the SARS-CoV-2 in nasopharyngeal swabs in transport media from patients who are suspected of COVID-19 by their healthcare provider. Results must be interpreted within the context of all relevant clinical and laboratory findings and should not form the sole basis for a diagnosis or treatment decision. This assay has been approved by the FDA for use only under Emergency Use Authorization (EUA) in laboratories that have been CLIA-certified to perform moderate-complexity and high-complexity tests. The Microbiology Laboratory at [facility], CLIA Accreditation #[id number] and CAP Accreditation #[id number], verified the performance characteristics of this assay. [facility] at [facility] performs the assay using the [employer] System. Internal controls are used to monitor all stages of the test process. [facility] CenterUrinal[facility] with Emfsyfepmya9491-72-63 12:25:41 Test Item Value Reference Interpretation Comments Range UA WBC (test code = 6 See_Comment H [[place] [place] 7904) message] The system which generated this result transmitted reference range : 0 - 2 /HPF. The reference range was not used to interpret this result as normal/abnormal . UA RBC (test code = 4 See_Comment H [[place] [place] 7891) message] The system which generated this result transmitted reference range : 0 - 2 /HPF. The reference range was not used to interpret this result as normal/abnormal . UA Mucous (test code TRACE TRACE /HPF = 7887) UA Bacteria (test OCC NOT SEEN /HPF code = 7870) UA Squam Epi (test OCC OCC /HPF code = 7896) SHWETA (test code = Some reporting SHWETA) parameters within the Urinalysis test have changed due to the implementation of new instrumentation in the [facility] [place], allowing greater sensitivity of measurement. Urinalysis results reported by the [facility] using existing instrumentation, as well as Urinalysis testing performed manually or by backup methodology at the [facility] [place] will remain relatively unchanged. New reporting parameters and units will now be reported for all campuses. Lab Interpretation Abnormal (test code = 10930-5) MD HinojosaPartial Thromboplastin Yplw2026-77-39 11:59:51 Test Item Value Reference Range Interpretation Comments PTT (test code = 6773) 38.8 See_Comment H [Aut omated message] The system [employer] generated this result transmitted ref erence range: 24.2 - 3 6.0 second(s). The reference range was not used to int erpret this result as normal/abnormal . Lab Interpretation (test Abnormal code = 08346-0) MD HinojosaProthrombin Time with [id number] 11:59:50 Test Item Value Reference Range Interpretation Comments PT (test code = 6746) 16.5 See_Comment H [Auto mated message] The system [employer] generated this result transmitted ref erence range: 12.0 - 1 4.3 second(s). The reference range was not used to int erpret this result as normal/abnormal . INR (test code = 5973) 1.37 0.90-1.10 H Lab Interpretation (test Abnormal code = 16315-6) MD HinojosaPvtjckjmXaovoxvwmh3388-75-23 11:59:49 Test Item Value Reference Range Interpretation Comments Fibrinogen (test code = 5610) 603 mg/dL 214-503 H Lab Interpretation (test code = Abnormal 42481-2) MD HinojosaD Ntmbf6340-16-83 11:59:48 Test Item Value Reference Range Interpretation Comments D-Dimer (test code = 2.17 See_Comment H The cut off value for 5419) exclusion of ve nous thromboembolism is <0.51 mcg/mL FEUs (fi brinogen equivalent unit s). [Automated mess age] The system which ge nerated this result tra nsmitted reference range : 0.10 - 0.50 mcg/ml FEU . The reference range was not used to interpr et this result as normal/abnormal . Lab Interpretation Abnormal (test code = 38060-0) MD HinojosaKgvoepraOCE0642-82-30 11:59:02 Test Item Value Reference Range Interpretation Comments LDH (test code = 6111) 421 U/L 135-214 H Resul ts greater than 1651 U/L may no t be reliable due to matrix effect w ith extended diluti on as it exceeds the placement assistant s recommended l imit. Caution should be exercised when interpreting lawson ch values and done in conjunction wit h clinical contex t. Lab Interpretation (test Abnormal code = 42428-2) MD HinojosaCardiac Ruhvo2386-60-77 11:55:08 Test Item Value Reference Range Interpretation Comments CK (test code = 5206) 60 U/L 26-192 CK MB (test code = <2.0 See_Comment [Automat ed message] The 5209) system which ge nerated this result tra nsmitted reference range : <=5.3 ng/mL. The refe rence range was not u sed to interpret this result as normal/abnormal . Troponin T (test code 11 ng/L See_Comment < 19 ng/L = 9384) Sugge st retest at 3 to 6 hours later to rule out myocar dial infarction >= 1 9 to <=52 ng/L Possible myocardial inju ry. Suggest retest at 3 hours. - a change of < 20 ng/L, retest at 6 carissa rs - a change of >= 20 ng/L, sug gestive of myocardial infarction > 5 2 ng/L Suggestive of m yocardial infarction Crit ical value will be reporte d when cTnT isf > 52 n g/L and only reported f or the first in a seri es. Hemolyzed speci mens with Hemolysis Index >100 (100 mg/dl or modera te hemolysis) may cause interferences a nd falsely low results. [ Automated message] The sy stem which generated this result transmitted ref erence range: <=18. Th e reference range was not used to interpr et this result as normal/abnormal . MD HinojosaMqtlkylyOgnvql0092-62-25 11:50:00 Test Item Value Reference Range Interpretation Comments Lipase Lvl (test code = 6165) 6 U/L 13-60 L Lab Interpretation (test code = Abnormal 37426-1) MD HinojosaPqbhdqraFuzvvfn8692-40-06 11:49:59 Test Item Value Reference Range Interpretation Comments Amylase Lvl (test code = 4806) 13 U/L 28-100 L Lab Interpretation (test code = Abnormal 15762-6) MD HinojosaUrinalysis w/Microscopic if Dicplrdye3985-25-23 11:35:38 Test Item Value Reference Range Interpretation Comments UA Color (test code = 7877) Yellow Yellow UA Appear (test code = 7868) Clear Clear UA Glucose (test code = 7881) NEG NEG mg/dL UA Bili (test code = 7871) NEG NEG UA Ketones (test code = 7884) NEG NEG mg/dL UA Spec Grav (test code = 7894) 1.011 1.002-1.035 UA Blood (test code = 7872) Small NEG A UA pH (test code = 7909) 6.0 4.5-8.0 UA Protein (test code = 7890) 30 mg/dL NEG A UA Urobilinogen (test code = 7903) NEG NEG UA Nitrite (test code = 7888) NEG NEG UA Leuk Est (test code = 7886) Trace NEG A Lab Interpretation (test code = Abnormal 16220-0) MD [facility]UN[facility] VBG+Owe8875-55-32 11:17:05 Test Item Value Reference Range Interpretation Comments POC VB pH (test code 7.40 7.31-7.41 = 6719) POC VB pCO2 (test 40 See_Comment L [Automate d message] code = 6718) The system [employer] h generated this result transmitted ref erence range: 41 - 51 mmHg. The reference r leslee was not used to interpret this result as normal/abnor mal. POC VB pO2 (test code 46 mmHg = 6720) POC VB TCO2 (test 26 See_Comment [Automate d message] code = 2026-) The system Edamam [facility] generated this result transmitted ref erence range: 24 - 29 mEq/L. The reference r leslee was not used to interpret this result as normal/abnor mal. POC VB Bicarb (test 25 mmol/L 23-28 code = 89568-8) POC VB Base Ex (test 0 mmol/L -2-3 code = 1927-3) POC VB O2 Sat (test 81 % code = 6716) POC VB LAC (test code 1.0 mmol/L 0.9-1.7 Method description: = 2519-7) The i-STAT is a n analyzer used f or in vitro quantific ation of various anal ytes in whole blood. Th e device uses a s may disposable cart ridge which contains microfabricated sensors, a octavio bration solution, fluid ics system, and a w aste chamber. Each t est cartridge conta ins chemically sens itive biosensors on a silicon chip th at are configured to p erform specific tests. The microfabricated sensors measure analyte concent ration by an electroch emical assay. POC FiO2 (test code = 0 63686-5) POC Sample Type (test Venous code = 6690) POC Clean Dev (test Yes code = 6672) Lab Interpretation Abnormal (test code = 13912-4) MD Murillo [id number] 05:16:13Study acquired at another institution. For comparison only. No MD Hinojosa originated interpretationrequested or available.MD Murillo CT Abdomen and Qgnmht4373-00-93 05:16:01Study acquired at another institution. For comparison only. No MD Hinojosa originated interpretationrequested or available.MD HinojosaEchocardiogram 2D Complete 2020-11-08 21:40:15 Test Item Value Reference Range Interpretation Comments EF (test code = 55 6402897410) PXN (test code Interface, Radiology Results = PXN) In 11/08/2020 3:41 PM CSTEchocardiographic ReportInterpretation SummaryA complete [...] mlLAV(MOD-bp) Indexed: 22.5 ml/m2ESV (MOD-bp) Index: 27.1 ml/c1Webownn Measurements MV E max geoff: 91.7 cm/sec [...] 15.6 E/e' (lat): 12.4E/e' (sept): 20.9 MD HinojosaYsmahzjaEyuhmjxaw1093-44-70 07:56:48 Test Item Value Reference Range Interpretation Comments Potassium Lvl (test code 3.4 See_Comment L [A utomated message] = 7732) The system [employer] generated this result transmitted ref erence range: 3.5 - 5. 1 mEq/L. The refe rence range was not u sed to interpret this result as normal/abnor mal. Lab Interpretation (test Abnormal code = 65755-1) MD HinojosaFirsthealthLizzu8661-66-81 07:56:46 Test Item Value Reference Range Interpretation Comments Sodium Lvl (test code = 132 See_Comment L [Au tomated message] 8579) The system [employer] generated this result transmitted ref erence range: 136 - 14 5 mEq/L. The refe rence range was not u sed to interpret this result as normal/abnor mal. Lab Interpretation (test Abnormal code = 68847-1) [place] Chest Abdomen Pelvis with Hktdcmhm8503-84-61 23:59:18 1. Findings are consistent with progression [...] in good position without hydronephrosis.4. Moderate splenomegaly.MD HinojosaOccgsutavo Blood Bgfyh0983-20-92 15:21:58 Test Item Value Reference Range Interpretation Comments Fecal Occult Bld Negative Negative Test perfor med by latex (test code = 5604) immunoass ay methodology. MD HinojosaYfxcsttiZNU5852-38-40 09:12:59 Test Item Value Reference Range Interpretation Comments TSH (test code = 0.50 See_Comment [Automated message] The 9972) system which ge nerated this result transmit [place] reference range : 0.27 - 4.20 mcunit/mL. The reference range was not used to interpr et this result as dimitry l/abnormal. MD Hanson [id number] 09:12:58 Test Item Value Reference Range Interpretation Comments T4 Free (test code = 7502) 1.15 ng/dL 0.93-1.7 MD HinojosaHemoglobin [id number] 07:56:37 Test Item Value Reference Range Interpretation Comments A1C (test code = 5.5 % 4.3-5.6 HbA1c value s >=6.5% are 4632) diagnostic of d iabetes mellitus.Diagno sis should be confirmed by repeat testing.Therape utic Action suggested: >8.0 % HbA1c; Goal oftherapy: <7.0% HbA1c MD HinojosaVitamin B12 Kgdxu3123-95-30 07:52:07 Test Item Value Reference Range Interpretation Comments Vitamin B12 Lvl (test code = 8017) 514 pg/mL 211-946 MD Oh Leg Venous Doppler Sepfsqlok2485-78-68 23:00:46 Negative for deep venous thrombosis in [...] thrombosis in the bilateral lowerextremities.MD Oh Abdomen Ggnpyxv5949-35-18 22:42:02 No ascites.Interface, Radiology Results In 11/05/2020 4:44 PM CSTFULL RESULT:Examination: US ABDOMEN LIMITED, US PELVIS LIMITED on 11/05/2020 4:13 PMClinical History: Rectal cancer Indication: Ascites, Abdominal DistentionComparison: CT study abdomen and pelvis September 20, 2020Technique: Multiplanar imaging of the abdomen pelvis for evaluation of ascites.Findings: No ascites is seen in the abdomen or pelvis.IMPRESSION:No ascites.MD Oh PELVIS [id number] 22:42:02 No ascites.Interface, Radiology Results In 11/05/2020 4:44 PM CSTFULL RESULT:Examination: US ABDOMEN LIMITED, US PELVIS LIMITED on 11/05/2020 4:13 PMClinical History: Rectal cancer Indication: Ascites, Abdominal DistentionComparison: CT study abdomen and pelvis September 20, 2020Technique: Multiplanar imaging of the abdomen pelvis for evaluation of ascites.Findings: No ascites is seen in the abdomen or pelvis.IMPRESSION:No ascites.MD HinojosaXR Chest 1 [id number] 17:37:53Stable chest without evidence of new lung [...] et this result as dimitry l/abnormal. MD HinojosaLactricardo Acid, Mjtiyi2950-48-79 16:26:59 Test Item Value Reference Range Interpretation Comments V Lactate (test code = 2519-7) 2.0 mmol/L 0.5-1.6 H Lab Interpretation (test code = Abnormal 64341-8) MD HinojosaInfluenza A/B + COVID-19 Asymptomatic- [id number] 07:13:02 Test Item Value Reference Range Interpretation Comments Influenza A (test Not Detected Not Detected code = 50085-8) Influenza B (test Not Detected Not Detected code = 04994-8) COVID19 Not Detected Not Detected (SARS-CoV-2) (test code = 79907-7) COVID19 SARS Inpatient Indication (test Admission code = 03659) Inf AB+Cov19 See Note The zuleima SARS- CoV-2 Comment (test & Influenza A/ B code = 45170) nucleic acid t est for use on the rocío s [employer] System is a UNI5lex real-time RT-PC R assay intended for the [...] sheet for patie nts provided by the placement assistant ([employer]) can be rev iewed at: https://www.fda .gov/m edia/801589/anthony nloadA fact sheet for Health Care providers is provided by the placement assistant ([employer]) and can be reviewed at: https://www.fda .gov/m edia/334585/anthony nload Influenza A and Influenza B neg [...] This assay has been authorized by t [facility] for use only un tiana Emergency Use Authorization ( EUA) in laboratories that have been CLIA-certified to perform moderate-comple xity and high-comple xity tests. The Microbiology Laboratory at [facility], CLIA Accreditation #[id number] and CAP Accreditation #[id number], verif ied the performance characteristics of this assay. Int ernal controls are us ed to monitor all sta ges of the test ana melo MD HinojosaIR NEPHROSTOMY UNILATERAL PLACEMENT [id number] 20:58:12Date of Procedure: 08/25/20 Attending Physician: Dr. Hernandez Concierge Receptionist: Eli Rodriguez Pre Procedure Diagnosis: Adenocarcinoma of [...] tract was dilated to accept a 10 Danish Mac-loc catheter which was formed in the [...] with the written report.MD HinojosaCOVID-19 (SARS-CoV-2) PCR-Asymptomatic [id number] 07:56:14 Test Item Value Reference Range Interpretation Comments COVID19 (SARS Not Detected Not Detected This test is a CoV-2) Result qualitative (test code = reverse-transcr iptase 37863-0) polymerase agustin n reaction (RT-PC R) developed for t he [employer] ZULEIMA 680 0 system and inte nded [...] were verified by the Microbiology Laboratory at [facility] [place], CLIA Accreditation # : [id number] and CAP Accreditation # : [id number]. Result s must be interpreted within the [...] te sting if clinically indicated. COVID19 SARS STONE UNLOADER Swab Source (test code = 64627) COVID19 SARS Pre-Out of OR Indication (test Procedure code = 49881) MD HinojosaCT Chest Abdomen with Cjogjbur6524-89-04 19:51:19 Interval increase in size of pulmonary [...]
[2021-01-19 18:21] LABS: Protime INR 1.48
--- NOTE | 2021-01-19 18:30 | RAD REPORT ---
EXAM DESCRIPTION: RAD - Chest Single View - 01/19/2021 5:59 pm CLINICAL HISTORY: DYSPNEA, colon cancer COMPARISON: Portable December 20 TECHNIQUE: AP portable chest image was obtained 01/19/2021 5:59 pm . FINDINGS: Right-sided Port-A-Cath is in place. Patchy lung parenchymal opacification present in each upper lobe not substantially different comparison. Multiple mass lesions of the lung parenchyma note d. Heart and vasculature are normal. No measurable pleural effusion and no pneumothorax. No acute bon y abnormality seen. No acute aortic findings suspected. IMPRESSION: Multiple metastatic lesions and prominent interstitial markings not substantially differ ent from comparison. Superimposed interstitial edema or infiltrate is possible. No overall failure or volume overload.
[2021-01-19 18:32] LABS: Absolute Lymphocytes (CBC) 0.9 K/uL (0.7-4.9); Basophils % 0.4 % (0-1.3); Hematocrit 22.1 % (36.0-45.0); Lymphocytes % 6.2 % (15.3-44.8); MPV 7.6 fL (7.6-11.3); RBC Red Blood Cell Count 2.98 M/uL (3.86-4.86)
[2021-01-19 18:38] LABS: AST/SGOT 38 U/L (15-37); Albumin 1.4 g/dL (3.4-5.0); Alkaline Phosphatase 338 U/L (45-117); BUN Blood Urea Nitrogen 17 mg/dL (7-18); Bicarbonate 31 mmol/L (21-32); Bilirubin Direct 0.1 mg/dL (0-0.2); Bilirubin Total 0.2 mg/dL (0.2-1.0); Glucose Level 223 mg/dL (74-106); Magnesium 1.8 mg/dL (1.8-2.4); NT PRO-BNP 2102 pg/mL (<125); Protein, Total 6.6 g/dL (6.4-8.2); Sodium Level 135 mmol/L (136-145); Troponin (Emerg Dept Use Only) < 0.02 ng/mL (0.0-0.045)
[2021-01-19 19:09] LABS: ALT/SGPT < 6 U/L (12-78)
[2021-01-19 19:11] LABS: Potassium 2.8 mmol/L (3.5-5.1)
[2021-01-19] MEDS ORDERED: NA CHLORIDE 0.9% 500 ML ONE (19:42)
[2021-01-19] MEDS ORDERED: KCL 20 MEQ/100 mL IVPB 20 MEQ/100 ML BAG IV ONE (19:42)
[2021-01-19] MEDS ORDERED: POTASSIUM 25 MEQ EFFERV TAB ONE (20:16)
--- NOTE | 2021-01-19 20:35 | RAD REPORT ---
EXAM DESCRIPTION: CT - Chest For Pe Angio - 01/19/2021 8:03 pm CLINICAL HISTORY: DYSPNEA, shortness of breath, metastatic colon cancer COMPARISON: Chest Single View dated 01/19/2021 TECHNIQUE: Dynamically enhanced 3 mm thick images of the chest were obtained during administration o f approximately 150mL Isovue 370 IV contrast. Coronal and oblique MIP reconstruction images were gene rated and reviewed. Exam utilizes a protocol to evaluate the pulmonary arterial tree. All CT scans are performed using dose optimization technique as appropriate and may include automated exposure control or mA/KV adjustment according to patient size. FINDINGS: No pulmonary emboli are identified. Far peripheral branch assessment is limited due to mo tion. The aorta as imaged shows no acute or suspicious finding. No pericardial thickening or effusion. Numerous variably sized masses are scattered in the lung parenchyma. Patient has known metastatic col on cancer. No consolidation to suspect bacterial pneumonia. Upper lung field interstitial pattern is prominent and could be interstitial edema or infiltrate. There is atelectasis abutting the superior m argin of the fissure on the left. No pleural effusion or pleural thickening. Subcarinal lymphadenopathy present. Small hilar lymph nodes are present. No chest wall masses or abno rmal axillary lymphadenopathy. IMPRESSION: No pulmonary emboli identified. Far peripheral branch assessment is limited due to motio n. Numerous metastatic lesions scattered throughout the lung parenchyma. Prominent upper lung field interstitial pattern could be edema or infiltrate.
--- NOTE | 2021-01-19 21:17 | EDPHYS ---
Physician Documentation [facility] Name: Erum Reilly Age: 65 yrs Sex: Female : 1955 Arrival Date: 01/19/2021 Time: 17:20 Bed 3 Private MD: BILLIE Physician Jordan Perez HPI: 01/19 18:16 This 65 yrs old Female presents to ER via EMS with complaints of Lethargic. jr8 18:16 Onset: The symptoms/episode began/occurred gradually, 1 week(s) ago. Associated signs jr8 and symptoms: Pertinent positives: shortness of breath. Modifying factors: The patient symptoms are alleviated by nothing. The patient has not experienced similar symptoms in the past. The patient has been recently seen by a physician:. Patients family stated that they called 911 today after noticing that patient has decreased SPO2 at home with shortness of breath. Patient currently without complaint. Family noticed that patient has had decreased appetite and sleeping more lately. Patient with metastatic colon cancer. Currently no longer on chemotherapy but also not on hospice at this time. Had recently got out of [facility] for sepsis and is on continue Abx via port at this time . Historical: - Allergies: 17:27 cetuximab; ss 17:27 chemo med; ss - PMHx: 17:27 Colon CA; ss - PSHx: 17:27 Colostomy; nephrostomy; ss - Immunization history:: Flu vaccine is not up to date. - Social history:: Smoking status: Patient/guardian denies using tobacco, the patient reports quitting approximately 3 years ago. ROS: 18:16 Eyes: Negative for injury, pain, redness, and discharge, ENT: Negative for injury, jr8 pain, and discharge, Neck: Negative for injury, pain, and swelling, Cardiovascular: Negative for chest pain, palpitations, and edema, Respiratory: Negative for shortness of breath, cough, wheezing, and pleuritic chest pain, Abdomen/GI: Negative for abdominal pain, nausea, vomiting, diarrhea, and constipation, Back: Negative for injury and pain, MS/Extremity: Negative for injury and deformity, Skin: Negative for injury, rash, and discoloration, Neuro: Negative for headache, weakness, numbness, tingling, and seizure. 18:16 Constitutional: Positive for fatigue, malaise, poor PO intake. Exam: 18:16 Eyes: Pupils equal round and reactive to light, extra-ocular motions intact. Lids and jr8 lashes normal. Conjunctiva and sclera are non-icteric and not injected. Cornea within normal limits. Periorbital areas with no swelling, redness, or edema. ENT: Nares patent. No nasal discharge, no septal abnormalities noted. Tympanic membranes are normal and external auditory canals are clear. Oropharynx with no redness, swelling, or masses, exudates, or evidence of obstruction, uvula midline. Mucous membranes moist. Neck: Trachea midline, no thyromegaly or masses palpated, and no cervical lymphadenopathy. Supple, full range of motion without nuchal rigidity, or vertebral point tenderness. No Meningismus. Cardiovascular: Regular rate and rhythm with a normal S1 and S2. No gallops, murmurs, or rubs. Normal PMI, no JVD. No pulse deficits. Abdomen/GI: Soft, non-tender, with normal bowel sounds. No distension or tympany. No guarding or rebound. No evidence of tenderness throughout. Colostomy back LLQ present with non bloody feces Back: No spinal tenderness. No costovertebral tenderness. Full range of motion. Skin: Warm, dry with normal turgor. Normal color with no rashes, no lesions, and no evidence of cellulitis. MS/ Extremity: Pulses equal, no cyanosis. Neurovascular intact. Full, normal range of motion. 18:16 Respiratory: the patient does not display signs of respiratory distress, Respirations: normal, Breath sounds: wheezing: expiratory that is mild, is heard diffusely. 18:16 Neuro: Orientation: to person, place, time, situation, Mentation: slow to respond, Memory: is normal, Cranial nerves: grossly normal, Motor: moves all fours, Sensation: no obvious gross deficits, Gait: not tested. seizure activity, is not displayed by the patient, Abnormal movements: there are no abnormal movements. Vital Signs: 17:22 BP 105 / 81; Pulse 111; Resp 19; Temp 98.9(O); Pulse Ox 97% on 2 lpm NC; Weight 61.23 ss kg; Height 5 ft. 5 in. (165.10 cm); Pain 0/10; 18:06 BP 105 / 61; Pulse 102; ss 18:20 BP 100 / 53; Pulse 95; Resp 14; Pulse Ox 96% on 2 lpm NC; Pain 0/10; ss 19:30 BP 103 / 52; Pulse 99; Resp 13; Pulse Ox 96% on 2 lpm NC; rv 20:00 BP 116 / 71; Pulse 99; Resp 13; Pulse Ox 96% on 2 lpm NC; rv 21:00 BP 115 / 62; Pulse 94; Resp 13; Pulse Ox 97% on 2 lpm NC; rv 22:49 BP 115 / 60; Pulse 92; Resp 17; Pulse Ox 97% on 2 lpm NC; rv 17:22 Body Mass Index 22.46 (61.23 kg, 165.10 cm) ss MDM: 17:28 Patient medically screened. 8 21:03 Data reviewed: vital signs, nurses notes, lab test result(s), EKG, radiologic studies, jr8 plain films. Data interpreted: Pulse oximetry: on room air is 96 %. Interpretation: normal. Counseling: I had a detailed discussion with the patient and/or guardian regarding: the historical points, exam findings, and any diagnostic results supporting the discharge/admit diagnosis, lab results, radiology results, the need for further work-up and treatment in the hospital. 01/19 17:28 Order name: Basic Metabolic Panel; Complete Time: 19:13 [facility] 01/19 17:28 Order name: CBC with Diff; Complete Time: 18:40 01/19 17:28 Order name: LFT's; Complete Time: 19:13 01/19 17:28 Order name: Magnesium; Complete Time: 19:13 8 01/19 17:28 Order name: NT PRO-BNP; Complete Time: 19:13 01/19 17:28 Order name: PT-INR; Complete Time: 18:27 01/19 17:28 Order name: Troponin (emerg Dept Use Only); Complete Time: 19:13 [facility] 01/19 17:59 Order name: Glucose, Ancillary Testing; Complete Time: 18:05 EDME 01/19 18:27 Order name: Urine Microscopic Only 01/19 21:09 Order name: ABG; Complete Time: 18:02 8 01/19 21:09 Order name: Blood Culture Adult (2) [facility] 01/19 21:17 Order name: COVID-19 : Document "Date of Symptom Onset" if Symptomatic. 01/19 22:15 Order name: SARS-COV-2 RT PCR; Complete Time: 18:02 [facility] 01/19 17:28 Order name: XRAY Chest (1 view); Complete Time: 18:33 [facility] 01/19 17:28 Order name: EKG; Complete Time: 17:29 [facility] 01/19 17:28 Order name: Cardiac monitoring; Complete Time: 18:04 [facility] 01/19 17:28 Order name: EKG - Nurse/Tech; Complete Time: 18:04 [facility] 01/19 17:28 Order name: IV Saline Lock; Complete Time: 18:04 [facility] 01/19 17:28 Order name: Labs collected and sent; Complete Time: 18:04 [facility] 01/19 17:28 Order name: O2 Per Protocol; Complete Time: 18:04 [facility] 01/19 17:28 Order name: O2 Sat Monitoring; Complete Time: 18:04 [facility] 01/19 19:14 Order name: CT Chest For PE Angio; Complete Time: 20:38 [facility] Administered Medications: 19:28 Drug: NS 0.9% 500 ml Route: IV; Rate: bolus; Site: right forearm; rv 21:47 Follow up: IV Status: Completed infusion; IV Intake: 500ml rv 19:29 Drug: Potassium Chloride 20 mEq Route: IV; Rate: calculated rate; Site: right forearm; rv 22:50 Follow up: IV Status: Completed infusion; IV Intake: 100ml rv 21:46 Drug: NS 0.9% 1000 ml Route: IV; Rate: 75 ml/hr; Site: right forearm; rv 22:50 Follow up: IV Status: Infusion continued upon admission rv 21:47 Drug: morphine 2 mg Route: IVP; Site: right forearm; rv 22:50 Follow up: Response: No adverse reaction; RASS: Drowsy (-1) rv 22:51 Not Given (Patient Refused): Potassium Effervescent Tablet 50 mEq PO once; dissolve in rv 4 ounces of water or juice Disposition: 01/19/21 21:16 Hospitalization ordered by Fernando Rush for Observation. Preliminary diagnosis are Acute respiratory failure with hypoxia, Hypokalemia. - Bed requested for Telemetry/MedSurg (observation). - Status is Observation. rv - Condition is Stable. - Problem is new. - Symptoms have improved. Addendum: 01/22/2021 07:09 Co-signature as Attending Physician, Jordan Perez MD. r n Signatures: Dispatcher [employer] EDME Tiffany Noriega RN RN Jordan Chacon MD MD rn Smirch, Shelby, RN RN Narayan Navarro, ANISHA PA jr8 Parish Ramirez RN RN rv Corrections: (The following items were deleted from the chart) 01/19 21:33 21:17 CORONAVIRUS ordered. EDME EDME 22:18 21:16 Hospitalization Ordered by Fernando Rush MD for Observation. Preliminary dw diagnosis is Acute respiratory failure with hypoxia; Hypokalemia. Bed requested for Telemetry/MedSurg (observation). Status is Observation. Condition is Stable. Problem is new. Symptoms have improved. jr8 22:51 22:18 01/19/2021 21:16 Hospitalization Ordered by Fernando Rush MD for Observation. rv Preliminary diagnosis is Acute respiratory failure with hypoxia; Hypokalemia. Bed requested for Telemetry/MedSurg (observation). Status is Observation. Condition is Stable. Problem is new. Symptoms have improved. dw
--- NOTE | 2021-01-19 21:17 | ER ---
Nurse's Notes [facility] Name: Erum Reilly Age: 65 yrs Sex: Female : 1955 Arrival Date: 01/19/2021 Time: 17:20 Bed 3 Private MD: Diagnosis: Acute respiratory failure with hypoxia;Hypokalemia Presentation: 01/19 17:22 Chief complaint: EMS states: Family called stating that "she was more lethargic than ss normal." Checked O2 saturation on RA which was "inj the 70's". NRB placed on patient at 15 L per min during transport to ED. O2 is 100%. Pt has no complaints at this time other than her chronic pain upon movement. HX of Colon CA with mets to liver and lungs. Coronavirus screen: Client denies travel out of the [place] in the last 14 days. Ebola Screen: Patient denies exposure to infectious person. Patient denies travel to an Ebola-affected area in the 21 days before illness onset. Initial Sepsis Screen: Does the patient meet any 2 criteria? No. Patient's initial sepsis screen is negative. Does the patient have a suspected source of infection? No. Patient's initial sepsis screen is negative. Risk Assessment: Do you want to hurt yourself or someone else? Patient reports no desire to harm self or others. Onset of symptoms was January 19, 2021. 17:22 Method Of Arrival: EMS: [facility] 17:22 Acuity: DEBO 3 ss Historical: - Allergies: 17:27 cetuximab; ss 17:27 chemo med; ss - PMHx: 17:27 Colon CA; ss - PSHx: 17:27 Colostomy; nephrostomy; ss - Immunization history:: Flu vaccine is not up to date. - Social history:: Smoking status: Patient/guardian denies using tobacco, the patient reports quitting approximately 3 years ago. Screenin:05 Abuse screen: Denies threats or abuse. Denies injuries from another. Nutritional ss screening: No deficits noted. Tuberculosis screening: Never had TB. Fall Risk No fall in past 12 months (0 pts). Secondary diagnosis (15 points) impaired mobility, IV access (20 points). Ambulatory Aid- None/Bed Rest/Nurse Assist (0 pts). Gait- Normal/Bed Rest/Wheelchair (0 pts) Mental Status- Oriented to own ability (0 pts). Assessment: 17:20 General: PT has no complaints at this time other than her chronic pain when she moves. ss . General: Appears comfortable, Behavior is calm, cooperative, lethargic. Denies fever, feeling ill, fatigue, chills. Pain: Complains of pain in back Pain currently is 0 out of 10 on a pain scale. at worst was 5 out of 10 on a pain scale. Is chronic, Aggravated by increased activity. Neuro: Level of Consciousness is awake, alert, obeys commands, Oriented to person, place, time, situation, [employer] are equal bilaterally Moves all extremities. Full function Speech is normal, Facial symmetry appears normal. Neuro: Denies numbness headache. Cardiovascular: Capillary refill < 3 seconds is brisk in bilateral fingers Patient's skin is warm and dry. Respiratory: Airway is patent Respiratory effort is even, unlabored, Respiratory pattern is regular, symmetrical. GI: Abdomen is round non-distended, Colostomy site Ostomy appliance Patient currently denies abdominal pain, diarrhea, nausea, vomiting. : nephrostomy tube present. EENT: Oral mucosa is dry. Derm: Skin is fragile, is thin, with poor turgor Skin is dry. 17:20 Musculoskeletal: Swelling absent. ss 17:20 Reassessment: Port to R anterior chest wall has been access prior to arrival. Pt is ss receiving IV antibiotics currently. 18:20 Reassessment: Patient appears in no apparent distress at this time. Pt is resting at this time. Eyes closed. RR remain even and unlabored. at bedside, call light remain within reach. 20:26 Reassessment: AWAITING CT SCAN REPORT. rv 21:47 Reassessment: son's number [id number]. rv Vital Signs: 17:22 BP 105 / 81; Pulse 111; Resp 19; Temp 98.9(O); Pulse Ox 97% on 2 lpm NC; Weight 61.23 ss kg; Height 5 ft. 5 in. (165.10 cm); Pain 0/10; 18:06 BP 105 / 61; Pulse 102; ss 18:20 BP 100 / 53; Pulse 95; Resp 14; Pulse Ox 96% on 2 lpm NC; Pain 0/10; ss 19:30 BP 103 / 52; Pulse 99; Resp 13; Pulse Ox 96% on 2 lpm NC; rv 20:00 BP 116 / 71; Pulse 99; Resp 13; Pulse Ox 96% on 2 lpm NC; rv 21:00 BP 115 / 62; Pulse 94; Resp 13; Pulse Ox 97% on 2 lpm NC; rv 22:49 BP 115 / 60; Pulse 92; Resp 17; Pulse Ox 97% on 2 lpm NC; rv 17:22 Body Mass Index 22.46 (61.23 kg, 165.10 cm) ED Course: 17:20 Patient arrived in ED. ss 17:24 Triage completed. ss 17:27 Arm band placed on right wrist. ss 17:28 Narayan Rdz PA is PHCP. jr8 17:28 Jordan Perez MD is Attending Physician. jr8 17:28 Марина Mccracken, CHIVO is Primary Nurse. ss 17:44 Inserted saline lock: 22 gauge in right forearm, using aseptic technique. Blood ss collected. Oxygen administration via nasal cannula \\T\\ 2L/min. 17:59 XRAY Chest (1 view) In Process Unspecified. EDMS 18:05 Patient has correct armband on for positive identification. Bed in low position. Call ss light in reach. Side rails up X2. Adult w/ patient. hall monitor on. Pulse ox on. NIBP on. Warm blanket given. 20:02 CT Chest For PE Angio In Process Unspecified. EDMS 21:09 Fernando Rush MD is Hospitalizing Provider. jr8 21:27 COVID SWAB. rv 22:47 No provider procedures requiring assistance completed. IV is patent, with fluids rv infusing freely, Patient admitted, IV remains in place. Administered Medications: 19:28 Drug: NS 0.9% 500 ml Route: IV; Rate: bolus; Site: right forearm; rv 21:47 Follow up: IV Status: Completed infusion; IV Intake: 500ml rv 19:29 Drug: Potassium Chloride 20 mEq Route: IV; Rate: calculated rate; Site: right forearm; rv 22:50 Follow up: IV Status: Completed infusion; IV Intake: 100ml rv 21:46 Drug: NS 0.9% 1000 ml Route: IV; Rate: 75 ml/hr; Site: right forearm; rv 22:50 Follow up: IV Status: Infusion continued upon admission rv 21:47 Drug: morphine 2 mg Route: IVP; Site: right forearm; rv 22:50 Follow up: Response: No adverse reaction; RASS: Drowsy (-1) rv 22:51 Not Given (Patient Refused): Potassium Effervescent Tablet 50 mEq PO once; dissolve in rv 4 ounces of water or juice Intake: 21:47 IV: 500ml; Total: 500ml. rv 22:50 IV: 100ml; Total: 600ml. rv Outcome: 21:16 Decision to Hospitalize by Provider. lavon 22:48 Admitted to Med/surg accompanied by tech, via stretcher, room 208, Other sbar Report rv called to KIKO WALDRON 22:48 Condition: stable 22:48 Instructed on the need for admit. 22:51 Patient left the ED. rv Signatures: Dispatcher [employer] Марина Jean RN RN Narayan Navarro, ANISHA LANCASTER jr8 Parish Ramirez RN RN rv Corrections: (The following items were deleted from the chart) 19:09 18:37 General: Appears comfortable, Behavior is calm, cooperative, lethargic. Denies ss fever, feeling ill, fatigue, chills, ss 19: 18:37 Pain: Complains of pain in back Pain currently is 0 out of 10 on a pain scale. at ss worst was 5 out of 10 on a pain scale. Is chronic, Aggravated by increased activity, 19: 18:37 Neuro: Level of Consciousness is awake, alert, obeys commands, Oriented to person, place, time, situation, [employer] are equal bilaterally Moves all extremities. Full function Speech is normal, Facial symmetry appears normal, 19: 18:37 Cardiovascular: Capillary refill < 3 seconds is brisk in bilateral fingers ss Patient's skin is warm and dry. 19: 18:37 Respiratory: Airway is patent Respiratory effort is even, unlabored, Respiratory ss pattern is regular, symmetrical, 19: 18:37 Derm: Skin is fragile, is thin, with poor turgor Skin is dry, [facility] 19: 18:37 EENT: Oral mucosa is dry. [facility] 19: 18:37 : nephrostomy tube present [facility] 19:09 18:37 GI: Abdomen is round non-distended, Colostomy site Ostomy appliance Patient ss currently denies abdominal pain, diarrhea, nausea, vomiting, ss 19: 18:37 Neuro: Denies numbness headache ss 18:37 General: PT has no complaints at this time other than her chronic pain when she ss moves. .
[2021-01-19 21:25] LABS: Arterial Blood Carboxyhemoglob 2.2 % (0-1.5); Blood Gas Oxyhemoglobin 87.2 % (94-97); Blood O2 Saturation 89.9 % (92-98.5)
[2021-01-19] MEDS ORDERED: NA CHLORIDE 0.9% 1,000 ML ONE (22:00)
[2021-01-19] MEDS ORDERED: MORPHINE 2 MG/ML SYR ONE (22:00)
[2021-01-19] MEDS ORDERED: ALBUTEROL 2.5 MG/3 ML NEB SOL NEB PRN (23:03)
[2021-01-19] MEDS ORDERED: ONDANSETRON 4 MG/2 ML VIAL IV PRN (23:03)
[2021-01-19] MEDS ORDERED: IPRATROPIUM BROM 0.5MG/2.5ML NEB PRN (23:03)
[2021-01-19] MEDS ORDERED: ACETAMINOPHEN 500 MG TAB PO PRN (23:03)
[2021-01-19 23:44] VITALS: BMI 24.6
[2021-01-20] MEDS ORDERED: MORPHINE 2 MG/ML SYR IV PRN (02:05)
--- NOTE | 2021-01-20 02:16 | P.HP ---
Certification for Inpatient Patient admitted to: Observation With expected LOS: <2 Midnights Patient will require the following post-hospital care: None Practitioner: I am a practitioner with admitting privileges, knowledge of patient current condition, hospital course, and medical plan of care. Services: Services provided to patient in accordance with Admission requirements found in Title 42 Section 412.3 of the Code of Federal Regulations Patient History Date of Service: 01/19/21 History of Present Illness: Ms. Reilly is a 65 yo F with stage IV rectal cancer with mets to the lung and liver, COPD, DM, HTN, and anemia of neoplastic disease here today for hypoxia, sats of 89% and 76% at home. She was recently discharged from [facility] for sepsis and has been taking antibiotic infusion via a positive pressure ball. She also finished her last dose of Levaquin yesterday. For the past week, has noted that she is more tired than usual and has a poor appetite. She has been having low grade fevers which he gives tylenol for. Denies SOB, cough, wheezing. She is no longer on chemotherapy and also not on hospice at this time. WBC 14.3. H/H 7.0/22.1. MCV 73.9. Na 135. K 2.8. Cl 95. Glu 223. Alk phos 338. BNP 2102. CT scan shows no pulmonary embolism, numerous metastatic lesions scattered through lung parenchyma and prominent upper lung field interstitial pattern could be edema or infiltrate. CXR shows multiple metastatic lesions and prominent interstitial markings not substantially different from comparison, superimposed interstitial edema or infiltrate is possible, no overall failure or volume overload. Allergies No Known Allergies Allergy (Verified 08/15/19 12:42) Home Medications: Albuterol Neb [Proventil 0.083% Neb Soln] 1 inhaler NEB 08/15/19 Budesonide/Formoterol Fumarate [Symbicort 160-4.5 Mcg Inhaler] 1 inh IH 08/15/19 Losartan Potassium 1 tab PO BID 08/15/19 Metformin HCl [Metformin ER Osmotic] 1 tab PO DAILY 08/15/19 Metoprolol Succinate 1 tab PO DAILY 08/15/19 PARoxetine HCL [Paroxetine HCl] 1 tab PO DAILY 08/15/19 Paroxetine HCl [Paxil] 1 tab PO DAILY 08/15/19 glyBURIDE [Glyburide] 1 tab PO DAILY 08/15/19 - Past Medical/Surgical History Diabetic: Yes -: stage IV rectal cancer, mets to lung and liver -: COPD -: DM -: HTN -: anemia of neoplastic disease -: colostomy -: nephrostomy -: cholecystectomy -: lumpectomy - Social History Smoking Status: Former smoker Alcohol use: No CD- Drugs: No Caffeine use: No Place of Residence: Home Review of Systems General: Fever, Malaise, As per HPI Eyes: Unremarkable ENT: Unremarkable Respiratory: Unremarkable Cardiovascular: Unremarkable Gastrointestinal: Unremarkable Genitourinary: Unremarkable Musculoskeletal: Unremarkable Integumentary: Unremarkable Neurological: Unremarkable Lymphatics: Unremarkable Physical Examination - Vital Signs Temperature: 98.6 F Blood Pressure: 121/59 Pulse: 100 Respirations: 18 - Physical Exam General: In no apparent distress, Other (asleep at bedside, no respiratory distress, on nasal cannula ) HEENT: Atraumatic, Normocephalic, PERRLA, Mucous membr. moist/pink, EOMI, Sclerae nonicteric Neck: Supple, 2+ carotid pulse no bruit, JVD not distended, No Thyromegaly, No LAD Respiratory: Diminished Cardiovascular: No edema, Normal pulses, Regular rate/rhythm, Normal S1 S2, No gallops, No rubs, No murmurs Capillary refill: <2 Seconds Gastrointestinal: Normal bowel sounds, Soft and benign, Non-distended, No ascites, No tenderness, No masses, No rebound, No guarding, Other (colostomy and nephrostomy in tact) Musculoskeletal: No clubbing, No swelling, No contractures, No erythema, No tenderness, No warmth Integumentary: No rashes, No breakdown, No significant lesion, No tenderness/swelling, No erythema, No warmth, No cyanosis Neurological: Normal strength at 5/5 x4 extr, Normal tone, Sensation intact Lymphatics: No axilla or inguinal lymphadenopathy - Studies Laboratory Data (last 24 hrs) 01/19/21 17:43: PT 17.1 H, INR 1.48 01/19/21 17:43: WBC 14.30 H, Hgb 7.0 L*, Hct 22.1 L, Plt Count 363 01/19/21 17:43: Sodium 135 L, Potassium 2.8 L*, BUN 17, Creatinine 0.58, Glucose 223 H, Magnesium 1.8, Total Bilirubin 0.2, AST 38 H, ALT < 6 L, Alkaline Phosphatase 338 H Assessment and Plan - Problems (Diagnosis) (1) Stage IV carcinoma of rectum Current Visit: Yes Status: Chronic (2) HTN (hypertension) Current Visit: Yes Status: Chronic Qualifiers: Hypertension type: essential hypertension Qualified Code(s): I10 - Essential (primary) hypertension (3) T2DM (type 2 diabetes mellitus) Current Visit: Yes Status: Chronic Qualifiers: Diabetes mellitus longterm insulin use: without flavor maker use Diabetes mellitus complication status: without complication Qualified Code(s): E11.9 - Type 2 diabetes mellitus without complications (4) COPD (chronic obstructive pulmonary disease) Current Visit: Yes Status: Chronic Qualifiers: COPD type: unspecified COPD Qualified Code(s): J44.9 - Chronic obstructive pulmonary disease, unspecified (5) Anemia in neoplastic disease Current Visit: Yes Status: Chronic (6) Hypokalemia Current Visit: Yes Status: Acute - Plan sats currently stable on 2L O2 nasal cannula, will continue to monitor respiratory consulted for room air sats, breathing treatments q6hr PRN will continue antibiotic infusion, to bring replacement in the AM repeat blood, urine, and sputum cultures; WBC 14.3 potassium replaced, will recheck in the AM will recheck H/H in the AM and transfuse as needed sliding scale insulin and accuchecks, dietitian consulted for anorexia BP currently stable, will continue to monitor Discharge Plan: Home Plan to discharge in: 24 Hours - Advance Directives Does patient have a Living Will: No Does patient have a Durable POA for Healthcare: No - Code Status/Comfort Care Code Status Assessed: Yes (DNR) Critical Care: No Time Spent Managing Pts Care (In Minutes): 70
[2021-01-20] MEDS ORDERED: NA CHLORIDE 0.9% 1,000 ML IV SCH (03:00)
[2021-01-20 03:30] LABS: Urine Appearance CLEAR (Clear); Urine Bilirubin NEGATIVE (Negataive); Urine Blood NEGATIVE (Negative); Urine Color YELLOW (Yellow); Urine Glucose NEGATIVE (Negative); Urine Protein 1+ (Negative); Urine Specific Gravity >=1.030 (1.005-1.030); Urine Urobilinogen 0.2 mg/dL (0.2-1.0)
[2021-01-20 03:32] LABS: Urine Microscopic Reflex ORDER UMIC
[2021-01-20] MEDS: KCL 20 MEQ/100 mL IVPB 20 MEQ/100 ML BAG IV SCH ×2 (03:39→05:49)
[2021-01-20 04:52] LABS: Urine Bacteria <20 /HPF (<20); Urine RBC <5 /HPF (NONE SEEN); Urine Yeast MANY (NONE SEEN); Urine Yeast with Hyphae PRESENT
[2021-01-20] MEDS: INSULIN -REGULAR HUMAN 50 UNIT/0.5 ML ML SQ SCH ×4 (07:30→21:00)
--- NOTE | 2021-01-20 08:50 | EKG ---
Test Date: 2021-01-19 Test Time: 17:34:29 Agronomy Professor: SEYMOUR MEASUREMENT RESULTS: Intervals: Rate: 108 CA: 172 QRSD: 82 QT: 366 QTc: 490 [place]: P: 57 CA: 172 QRS: 10 T: 66 INTERPRETIVE STATEMENTS: Sinus tachycardia Otherwise normal ECG Compared to ECG 12/20/2020 21:06:49 No significant changes Electronically Signed On 01-20-21 08:48:31 CDT by Jostin Lockett
[2021-01-20 10:14] LABS: Absolute Lymphocytes (CBC) 0.5 K/uL (0.7-4.9); Basophils % 0.3 % (0-1.3); Hematocrit 21.3 % (36.0-45.0); Lymphocytes % 3.6 % (15.3-44.8); MPV 7.3 fL (7.6-11.3)
[2021-01-20 10:35] LABS: AST/SGOT 49 U/L (15-37); Albumin 1.4 g/dL (3.4-5.0); Alkaline Phosphatase 340 U/L (45-117); BUN Blood Urea Nitrogen 17 mg/dL (7-18); Bicarbonate 32 mmol/L (21-32); Bilirubin Total 0.3 mg/dL (0.2-1.0); Glucose Level 136 mg/dL (74-106); Magnesium 1.9 mg/dL (1.8-2.4); Potassium 3.6 mmol/L (3.5-5.1); Protein, Total 6.8 g/dL (6.4-8.2); Sodium Level 137 mmol/L (136-145)
[2021-01-20 10:37] LABS: ALT/SGPT < 6 U/L (12-78)
[2021-01-20] MEDS ORDERED: KCL 20 MEQ/100 mL IVPB 20 MEQ/100 ML BAG IV SCH (11:00)
[2021-01-20 11:40] LABS: Anisocytosis 2+; Blood Morphology Comment NOTED (NOT SEEN); Hypochromasia 2+; Platelet Estimate ADEQ; White Blood Cell Scan OK (OK)
[2021-01-20 11:41] LABS: Polychromasia 1+; Target Cells 1+
--- NOTE | 2021-01-20 12:03 | P.PN ---
Subjective Date of Service: 01/20/21 Subjective: No new changes (-seen , still on NC 02 - spouse reports patient on ancef 6g daily via continuous ball positve infusion via chemo -still wants DNR) Physical Examination - Vital Signs Temperature: 96.5 F Blood Pressure: 113/53 Pulse: 96 Respirations: 16 Pulse Ox (%): 91 - Physical Exam General: Alert, Cooperative, Cachectic HEENT: Atraumatic, Normocephalic, PERRLA Neck: JVD distended Respiratory: Diminished, Dull, Crackles/rales Cardiovascular: Regular rate/rhythm, Normal S1 S2, Edema Gastrointestinal: No tenderness, Other (right nephrostomy tueb , colostomy +), Distended, Ascites Integumentary: No rashes, No breakdown Neurological: Normal speech, Abnormal strength - Studies Laboratory Data (last 24 hrs) 01/19/21 17:43: PT 17.1 H, INR 1.48 01/19/21 17:43: WBC 14.30 H, Hgb 7.0 L*, Hct 22.1 L, Plt Count 363 01/19/21 17:43: Sodium 135 L, Potassium 2.8 L*, BUN 17, Creatinine 0.58, Glucose 223 H, Magnesium 1.8, Total Bilirubin 0.2, AST 38 H, ALT < 6 L, Alkaline Phosphatase 338 H Assessment And Plan - Current Problems (Diagnosis) (1) CHF exacerbation Current Visit: Yes Status: Acute (2) Lung metastases Current Visit: Yes Status: Acute (3) Hypokalemia Current Visit: Yes Status: Acute (4) Anemia in neoplastic disease Current Visit: Yes Status: Chronic (5) COPD (chronic obstructive pulmonary disease) Current Visit: Yes Status: Chronic Qualifiers: COPD type: unspecified COPD Qualified Code(s): J44.9 - Chronic obstructive pulmonary disease, unspecified (6) HTN (hypertension) Current Visit: Yes Status: Chronic Qualifiers: Hypertension type: essential hypertension Qualified Code(s): I10 - Essential (primary) hypertension (7) Stage IV carcinoma of rectum Current Visit: Yes Status: Chronic Physician Review Additional Text: Metastatic rectal cancer status post stopped chemo Recent bacteremia-on IV antibiotics Hypertension-BP trended down. Rule out septic shock Acute pulmonary edema Lung metastasis Indwelling urostomy/colostomy Anemia of chronic illness with symptoms Hypokalemia History of hypertension Diabetes mellitus PLAN -continue to replace potassium -HEMOGLOBIN trended down to 6.8, we give 2 units PRBC today -start IV Lasix given marked elevated BNP as well as chest x-ray showing combine pulmonary/interstitial edema as well as lung infiltrate consistent with metastasis -option of hospice has been discussed with spouse, he does no want hospice for patient at this time. He also does not have any plan of returning to chemotherapy -follow pending blood culture all Resume and continue self-we switch to O2 g q.8h for now -obtain records from recent hospitalization at [facility] and dressing -wean O2 as tolerated -start KCl 25 mEq b.i.d. -follow magnesium level in a.m. -follow H and H post PRBC -if able to wean off O2 then can consider discharge patient home to follow with oncologist at and acid Since borderline low blood pressure, will hold losartan/metoprolol for now DVT prophylaxis
[2021-01-20] MEDS ORDERED: HYDRALAZINE HCL 20 MG/ML VIAL IV PRN (12:04)
[2021-01-20] MEDS ORDERED: NA CHLORIDE 0.9% 250 ML ONE ×2 (14:39→17:41)
[2021-01-20] MEDS: FUROSEMIDE 40 MG/4 ML VIAL IV SCH ×2 (15:04)
[2021-01-20] MEDS: CEFAZOLIN/SWI 2gm 2 GM/20 ML SYR IV SCH (17:00)
[2021-01-20] MEDS ORDERED: OXYCODONE HCL 5 MG TAB PO PRN (20:10)
[2021-01-20] MEDS ORDERED: BACLOFEN 10 MG TAB PO PRN (20:10)
[2021-01-20] MEDS: HEPARIN 5000 UNIT/ML 1 ML VIAL SQ SCH (20:14)
[2021-01-20] MEDS: GLUCERNA SHAKE 237 ML CAN PO SCH (21:22)
[2021-01-20] MEDS: JUVEN PACKET PO SCH (21:22)
[2021-01-20] MEDS: POTASSIUM 25 MEQ EFFERV TAB PO SCH (21:24)
[2021-01-20] MEDS: METHADONE HCL 10 MG TAB PO SCH (21:25)
[2021-01-20] MEDS: GABAPENTIN 400 MG CAP PO SCH (21:25)
[2021-01-21] MEDS: CEFAZOLIN/SWI 2gm 2 GM/20 ML SYR IV SCH ×3 (01:01→16:47)
[2021-01-21] MEDS: METHADONE HCL 10 MG TAB PO SCH ×3 (04:19→20:36)
[2021-01-21 06:21] LABS: Absolute Lymphocytes (CBC) 0.6 K/uL (0.7-4.9); Basophils % 0.7 % (0-1.3); Hematocrit 28.5 % (36.0-45.0); Lymphocytes % 3.2 % (15.3-44.8); MPV 7.4 fL (7.6-11.3); RBC Red Blood Cell Count 3.71 M/uL (3.86-4.86)
[2021-01-21 06:37] LABS: AST/SGOT 53 U/L (15-37); Albumin 1.4 g/dL (3.4-5.0); Alkaline Phosphatase 344 U/L (45-117); BUN Blood Urea Nitrogen 18 mg/dL (7-18); Bicarbonate 31 mmol/L (21-32); Bilirubin Total 0.4 mg/dL (0.2-1.0); Glucose Level 110 mg/dL (74-106); Magnesium 1.8 mg/dL (1.8-2.4); Potassium 3.5 mmol/L (3.5-5.1); Protein, Total 6.6 g/dL (6.4-8.2); Sodium Level 137 mmol/L (136-145)
[2021-01-21 06:49] LABS: ALT/SGPT < 6 U/L (12-78)
[2021-01-21] MEDS: INSULIN -REGULAR HUMAN 50 UNIT/0.5 ML ML SQ SCH ×4 (07:30→20:38)
[2021-01-21 08:35] LABS: Anisocytosis 2+; Blood Morphology Comment NOTED (NOT SEEN); Hypochromasia 1+; Platelet Estimate ADEQ; Platelets, Giant PRESENT; White Blood Cell Scan OK (OK)
[2021-01-21] MEDS: JUVEN PACKET PO SCH ×2 (08:41→20:37)
[2021-01-21] MEDS: GLUCERNA SHAKE 237 ML CAN PO SCH ×2 (08:41→20:37)
[2021-01-21] MEDS: POTASSIUM 25 MEQ EFFERV TAB PO SCH ×2 (08:42→20:36)
[2021-01-21] MEDS: HEPARIN 5000 UNIT/ML 1 ML VIAL SQ SCH ×3 (08:43→19:41)
[2021-01-21] MEDS: FUROSEMIDE 40 MG/4 ML VIAL IV SCH ×2 (08:43→16:45)
[2021-01-21] MEDS: GABAPENTIN 400 MG CAP PO SCH ×3 (08:43→20:36)
[2021-01-21] MEDS: POLYETHYL GLY 3350 17 GM/DOSE PO SCH (08:44)
[2021-01-21] MEDS ORDERED: HOME MED 1 EA UNK (Paroxetine Hcl [Paxil] 40 MG Tablet) PO SCH (09:00)
[2021-01-21] MEDS ORDERED: MAGNESIUM SULFATE 1 gm IVPB 1 GM/100 ML BAG IV ONE (09:57)
[2021-01-21] MEDS: PARoxetine HCL 10 MG TAB PO SCH (11:50)
--- NOTE | 2021-01-21 15:31 | P.PN ---
Subjective Date of Service: 01/21/21 Patient denies any complain. She is maintained on 2 L oxygen by nasal cannula. Patient states she was ambulating with a walker at home. Physical Examination - Vital Signs Temperature: 98.5 F Blood Pressure: 120/59 Pulse: 93 Respirations: 20 Pulse Ox (%): 95 - Physical Exam General: Alert, In no apparent distress HEENT: Mucous membr. moist/pink, Other (Oxygen by nasal canula) Neck: Supple Respiratory: Crackles/rales (Mild bibasilar crackles) Cardiovascular: Regular rate/rhythm, Normal S1 S2, Edema (Bilateral lower extremities) Gastrointestinal: Soft and benign, No tenderness, Distended (Mildly distended.) Musculoskeletal: No clubbing, No erythema Integumentary: No rashes Neurological: Other (No focal motor deficit.) Assessment And Plan Physician Review Additional Text: Metastatic rectal cancer status post stopped chemo Recent bacteremia-on IV antibiotics Hypertension-BP trended down. Acute pulmonary edema Lung metastasis Indwelling urostomy/colostomy Anemia of chronic illness with symptoms Hypokalemia History of hypertension Diabetes mellitus PLAN -continue IV Lasix -continue to replace potassium as needed -HEMOGLOBIN trended down to 6.8, status post 2 units PRBC. Posttransfusion hemoglobin is up to 9.2 -blood cultures: No growth to date. -urine culture: Mixed growth. Continue IV antibiotics. -wean O2 as tolerated -monitor and replete electrolytes as needed. -follow H and H. -if able to wean off O2 then can consider discharge patient home to follow with oncologist at [facility]. -antihypertensives on hold given borderline low blood pressure. DVT prophylaxis-heparin subQ.
[2021-01-22] MEDS: CEFAZOLIN/SWI 2gm 2 GM/20 ML SYR IV SCH ×2 (00:11→09:55)
[2021-01-22] MEDS: METHADONE HCL 10 MG TAB PO SCH ×2 (04:30→12:28)
[2021-01-22 05:52] LABS: Absolute Lymphocytes (CBC) 0.6 K/uL (0.7-4.9); Basophils % 0.6 % (0-1.3); Hematocrit 26.8 % (36.0-45.0); Lymphocytes % 4.2 % (15.3-44.8); MPV 7.2 fL (7.6-11.3); RBC Red Blood Cell Count 3.52 M/uL (3.86-4.86)
[2021-01-22 06:09] LABS: BUN Blood Urea Nitrogen 22 mg/dL (7-18); Bicarbonate 36 mmol/L (21-32); Glucose Level 92 mg/dL (74-106); Magnesium 1.8 mg/dL (1.8-2.4); Potassium 3.9 mmol/L (3.5-5.1); Sodium Level 134 mmol/L (136-145)
[2021-01-22] MEDS: INSULIN -REGULAR HUMAN 50 UNIT/0.5 ML ML SQ SCH ×2 (07:30→11:30)
[2021-01-22] MEDS: POTASSIUM 25 MEQ EFFERV TAB PO SCH (08:33)
[2021-01-22] MEDS: GABAPENTIN 400 MG CAP PO SCH (08:33)
[2021-01-22] MEDS: FUROSEMIDE 40 MG/4 ML VIAL IV SCH (08:34)
[2021-01-22] MEDS: JUVEN PACKET PO SCH (08:35)
[2021-01-22] MEDS: GLUCERNA SHAKE 237 ML CAN PO SCH (08:36)
[2021-01-22] MEDS: POLYETHYL GLY 3350 17 GM/DOSE PO SCH (08:36)
[2021-01-22 08:38] VITALS: BP 125/57
[2021-01-22] MEDS ORDERED: MAGNESIUM SULFATE 1 gm IVPB 1 GM/100 ML BAG IV ONE (09:00)
[2021-01-22] MEDS: HEPARIN 5000 UNIT/ML 1 ML VIAL SQ SCH (09:00)
[2021-01-22 09:38] VITALS: O2SAT 91
[2021-01-22 10:01] VITALS: TEMP 98.7
[2021-01-22] MEDS: PARoxetine HCL 10 MG TAB PO SCH (11:13)
--- NOTE | 2021-01-22 11:22 | P.DS ---
Admission Date: 01/20/21 Discharge Date: 01/22/21 Disposition: DC HOME/HOME HEALTH CARE Discharge Condition: FAIR - Problems (1) Lymphangitic lung metastasis Current Visit: Yes Status: Acute (2) Lung metastases Current Visit: Yes Status: Acute (3) Stage IV carcinoma of rectum Current Visit: Yes Status: Chronic Brief History of Present Illness: 65 yo F with stage IV rectal cancer with mets to the lung and liver, COPD, DM, HTN, and anemia of neoplastic disease presented to the emergency department for hypoxia, sats of 89% and 76% at home. She was recently discharged from [facility] for sepsis and just completed IV Levaquin for bacteremia. has noted that she has been more fatigue and has a poor appetite. She was also experiencing low grade fevers which he gives tylenol for. She is no longer on chemotherapy and also not on hospice at this time. WBC 14.3. H/H 7.0/22.1. MCV 73.9. Na 135. K 2.8. Cl 95. Glu 223. Alk phos 338. BNP 2102. CT scan shows no pulmonary embolism, numerous metastatic lesions scattered through lung parenchyma and prominent upper lung field interstitial pattern could be edema or infiltrate. CXR shows multiple metastatic lesions and prominent interstitial markings not substantially different from comparison, superimposed interstitial edema or infiltrate is possible, no overall failure or volume overload. Patient was admitted for further management. Hospital Course: Patient admitted to the medical floor and treated for theater with IV Lasix. She was also put on cefazolin for possible sepsis. Blood culture yielded no growth. Urine culture grew yeast. Noted patient has both urostomy and colostomy. She will be treated for yeast UTI with oral Diflucan. Patient today feels she has improved to baseline. She is maintained on 2 L of oxygen by nasal cannula. Given multiple lung metastases, fibrosis and possibility of lymphangitic carcinomatosis in the lungs, provided oxygen home oxygen for hypoxia. She will follow with [facility] for further management of her malignancy. Vital Signs/Physical Exam: Temp Pulse Resp BP Pulse Ox 98.7 F 108 H 16 125/57 L 93 01/22/21 08:00 01/22/21 08:34 01/22/21 08:00 01/22/21 08:34 01/22/21 08:00 General: Alert, In no apparent distress, Oriented x3 HEENT: Mucous membr. moist/pink Neck: JVD not distended Respiratory: Diminished, Crackles/rales (Bilateral) Cardiovascular: Regular rate/rhythm, Normal S1 S2, Edema (1+ bilateral lower extremity.) Gastrointestinal: Normal bowel sounds, Soft and benign, Non-distended, No tenderness Integumentary: No rashes Neurological: Other (No focal motor deficit.) Laboratory Data at Discharge: WBC 15.40 K/uL (4.3-10.9) H 01/22/21 05:30 Hgb 9.0 g/dL (12.0-15.0) L 01/22/21 05:30 Hct 26.8 % (36.0-45.0) L 01/22/21 05:30 Plt Count 368 K/uL (152-406) 01/22/21 05:30 PT 17.1 SECONDS (9.5-12.5) H 01/19/21 17:43 INR 1.48 01/19/21 17:43 Sodium 134 mmol/L (136-145) L 01/22/21 05:30 Potassium 3.9 mmol/L (3.5-5.1) 01/22/21 05:30 BUN 22 mg/dL (7-18) H 01/22/21 05:30 Creatinine 0.53 mg/dL (0.55-1.3) L 01/22/21 05:30 Glucose 92 mg/dL (74-106) 01/22/21 05:30 Phosphorus 3.1 mg/dL (2.5-4.9) 01/20/21 10:02 Magnesium 1.8 mg/dL (1.8-2.4) 01/22/21 05:30 Total Bilirubin 0.4 mg/dL (0.2-1.0) 01/21/21 05:55 AST 53 U/L (15-37) H 01/21/21 05:55 ALT < 6 U/L (12-78) L 01/21/21 05:55 Alkaline Phosphatase 344 U/L (45-117) H 01/21/21 05:55 Home Medications: Paroxetine HCl [Paxil] 1 tab PO DAILY 08/15/19 Baclofen 5 mg PO Q8HP PRN 01/20/21 Gabapentin [Neurontin*] 400 mg PO TID 01/20/21 Magnesium Oxide [Magnesium] 500 mg PO DAILY 01/20/21 Methadone HCl 2.5 mg PO Q8H 01/20/21 Oxycodone HCl [Oxyir (Oxycodone HCl Imr)*] 5 mg PO Q8HP PRN 01/20/21 Polyethylene Glycol 3350 [Miralax] 17 gm PO DAILY 01/20/21 Fluconazole [Diflucan] 200 mg PO DAILY #14 tablet 01/22/21 Glucerna Shake [Glucerna*] 237 ml PO BID #60 can 01/22/21 Daniele [Daniele*] 1 pkt PO BID #60 powd.pack 01/22/21 New Medications: Fluconazole [Diflucan] 200 mg PO DAILY #14 tablet Glucerna Shake [Glucerna*] 237 ml PO BID #60 can Daniele [Daniele*] 1 pkt PO BID #60 powd.pack Diet: Regular Activity: Fall precautions Followup: NONE,NONE [Primary Care Provider] - Time spent managing pt's care (in minutes): 33
== END 2021-01-22 12:45 | disposition home or self-care (01) | DRG 871 ==
LOC: ER 17:19 → ERHOLD 22:12 → 2ND 22:58 → OBSVTOIN 01-20 18:48
PROVIDERS: ADMIT Internal Medicine; ATTEND Internal Medicine
PROC: 30233N1 Transfusion of Nonautologous Red Blood Cells into Peripheral Vein, Percutaneous Approach (ICD-10-PCS; principal; 2021-01-20)
DX: A41.9 Sepsis, unspecified organism (principal); J96.01 Acute respiratory failure with hypoxia; C78.00 Secondary malignant neoplasm of unspecified lung; C78.7 Secondary malignant neoplasm of liver and intrahepatic bile duct; C20 Malignant neoplasm of rectum; R64 Cachexia; J81.1 Chronic pulmonary edema; N39.0 Urinary tract infection, site not specified; L89.159 Pressure ulcer of sacral region, unspecified stage; E87.6 Hypokalemia; E11.9 Type 2 diabetes mellitus without complications; D63.0 Anemia in neoplastic disease; I10 Essential (primary) hypertension; J44.9 Chronic obstructive pulmonary disease, unspecified; Z88.8 Allergy status to other drugs, medicaments and biological substances; Z85.038 Personal history of other malignant neoplasm of large intestine; Z90.49 Acquired absence of other specified parts of digestive tract; Z87.891 Personal history of nicotine dependence; Z79.84 Long term (current) use of oral hypoglycemic drugs; Z79.899 Other long term (current) drug therapy; Z66 Do not resuscitate; Z68.24 Body mass index [BMI] 24.0-24.9, adult; Z20.822 Contact with and (suspected) exposure to COVID-19
CPT/HCPCS: 36415; 71045; 71275; 80048; 80053; 80076; 81003; 81015; 82805; 82947; 83735; 83880; 84100; 84484; 85014; 85018; 85025; 85610; 86850; 86900; 86901; 87040; 87086; 87088; 93005; 94760; 96365; 96366; 96375; 99285; G0378; J0690; J1644; J1940; J2270; J3475; J3480; J7030; J7040; J7050; P9016; Q9967; U0003